=== PATIENT | female | born 1960 | race Caucasian/White ===

== ENCOUNTER 2018-03-07 09:40 | Emergency (ER) | payer BC, SELFPAY ==
[2018-03-07] VITALS (38 sets, daily range): BP systolic 140–177; BP diastolic 68–112; PULSE 47–75; RESP 11–25; TEMP 36.9; O2SAT 95–98
--- NOTE | 2018-03-07 10:25 | DI.RAD_ITS ---
SYMPTOMS/DIAGNOSIS: STERNAL CHEST PAIN PA AND LATERAL CHEST: The heart is normal in size. The lungs are clear. The mediastinal structures and pleura appear intact. CONCLUSION: Normal chest.
--- NOTE | 2018-03-07 10:28 | W.ED.GENAD ---
Discharge Plan Disposition Patient Disposition: HOME Condition: Improving Discharge Details Chief Complaint: Chest Pain Clinical Impression: Left-sided chest wall pain Primary Care Provider: NONE,NONE ED Provider: Kwan Leavitt Home Meds and New Rx's Prescriptions: New ibuprofen [IBU] 600 mg tablet 600 mg PO QID PRN (Reason: pain) Qty: 20 RF: 0 Discharge Instructions Instructions: Chest Wall Pain (ED) Additional Instructions: Please do not begin any ibuprofen for pain control until at least 10:00 tonight. If lidocaine patch is effective at reducing her pain you may purchase [id number] lidocaine patches or cream 4% concentration just use as directed on packaging. Primary care office or care management will contact you about arrangement of a follow-up appointment in the next week for reexamination. Return immediately to the emergency department for any new or significant worsening of your symptoms. Stand Alone Forms: Work Release Referrals: Primary Care Provider [Outside] - 1 week Discharge Data Discharge Date/Time-TO BE ENTERED AT DEPARTURE: 03/07/18 14:18 Medical Decision Making Patient presenting to the emergency department chief complaint of chest pain. Patient states this began yesterday morning and is across her sternum. She states that movement of her left arm and some positional changes seems to worsen the chest pain. Patient does state the day before she had been moving a heavy piece of furniture with her son but does not remember any specific injury. Physical exam is unremarkable except for reproducible chest pain with movement of the left upper extremity and palpation of the sternum and left-sided soft tissue. Inspection of the breast and skin is unremarkable for any rash, ecchymosis, or obvious abnormality. There is suspicion that this is musculoskeletal in nature but still concern for cardiac origin so plan to perform radiological imaging and laboratory testing. EKG reviewed with Dr. Clay Spann and shows a sinus rhythm with a rate of 75, normal QRS, no ST elevation, and short [place]. Patient given aspirin pending results. Initial review of labs is nondiagnostic and shows no elevation of troponin. Plan to repeat delta troponin for rule out of atypical ACS. Patient reassessed and still states continued pain so patient ordered acetaminophen. Chest x-ray was also interpreted as negative by radiologist. After review of delta troponin which is negative patient was reassessed and still stated continued pain with no relief. Reassess patient's chest wall and patient continued to have anterior chest wall pain just under the left breast with no skin or other abnormalities noted. Differential diagnosis to include costochondritis, muscular strain, early presentation of shingles. Patient was given ketorolac and a lidocaine patch and diagnosed with chest wall pain. Patient was placed on care management list for follow-up appointment preferably in the next week for reassessment. After discussion of diagnosis and plan of care patient has no further needs, questions, or concerns and states clear understanding to return to the emergency department for any worsening symptoms. HPI General Mode of arrival: ambulatory. Date/Time Provider Initiated Documentation: 03/07/18 09:45. Limitations to Documentation: no limitations. Information obtained by: patient, RN notes reviewed and old records reviewed. History of Present Illness 58 year old F presents to the emergency department with the chief complaint of Sternal chest pain, described as moderate, with intensity rated at 7. Quality is described as aching, sharp and other (pressure), and is localized to the chest. Patient reports no radiation. Patient started experiencing this day(s) (1) and it has been constant. No relieving factors improve symptom(s), Movement worsens symptoms (of left arm) . Patient notes diaphoresis. Patient did receive the following treatments prior to arrival, Aspirin (yesterday) Related Data Home Medications Medication Instructions Recorded Confirmed ibuprofen [IBU] 600 mg PO QID PRN #20 tab 03/07/18 Previous Rx's Medication Instructions Recorded ibuprofen [IBU] 600 mg PO QID PRN #20 tab 03/07/18 Allergies Allergy/AdvReac Type Severity Reaction Status Date / Time No Known Allergies Allergy Unverified 03/07/18 10:15 General Stated Complaint: Chest Pain RAE: 3 Review of Systems Constitutional Denies chills and Denies fever(s) ENT Denies sore throat Cardiovascular Reports as per HPI, Reports chest pain, Reports chest pain at rest, Reports chest pain with activity, Reports diaphoresis, Denies syncope, Denies edema, Denies irregular heart rhythm and Denies dyspnea Respiratory Denies cough and Denies dyspnea Gastrointestinal Denies abdominal pain, Denies nausea and Denies vomiting Neurologic Denies syncope PFSH Social History Smoking/Tobacco Use Status: Current every day Exam Const General: cooperative, comfortable, no acute distress and anxious Orientation: alert and oriented x3 Limitations: mental status not altered Neck Neck: full ROM Carotids: normal carotid upstroke, pulses diminished and no bruits Lymphatic: no lymphadenopathy noted Chest Chest: no localized rib tenderness, no masses, tenderness sternum and No rash Breast inspection: normal inspection of the breasts Resp Effort & Inspection: normal respiratory effort, able to speak in complete sentences, no audible wheezes and no cough Auscultation: clear to auscultation bilaterally Cardio Rate: regular rate Rhythm: regular rhythm Heart Sounds: S1 normal and S2 normal Bruits: no abdominal aortic bruits, no carotid bruits and no renal bruits Pulses: radial pulses present bilaterally 2+ GI Palpation: soft and nontender Auscultation: normal bowel sounds Neuro General: alert, awake, oriented x3, gait normal, tone normal, moves all extremities and no focal motor deficits Course Vital Signs Temperature 36.9 C 03/07/18 10:09 Pulse 75 03/07/18 10:09 Respiratory Rate 16 03/07/18 10:09 Blood Pressure 165/72 H 03/07/18 10:09 Pulse Oximetry 96 03/07/18 10:09 Temperature 36.9 C 03/07/18 10:09 Temperature Source Temporal Artery Scan 03/07/18 10:09 Pulse 75 03/07/18 10:09 Respiratory Rate 16 03/07/18 10:09 Respiratory Effort 03/07/18 10:13 Blood Pressure 165/72 H 03/07/18 10:09 Blood Pressure Position Sitting 03/07/18 10:09 Pulse Oximetry 96 03/07/18 10:09
--- NOTE | 2018-03-07 10:35 | ED.GENADUL_ITS ---
Discharge Plan Disposition Patient Disposition: HOME Condition: Improving Discharge Details Chief Complaint: Chest Pain Clinical Impression: Left-sided chest wall pain Primary Care Provider: NONE,NONE ED Provider: Kwan Leavitt Home Meds and New Rx's Prescriptions: New ibuprofen [IBU] 600 mg tablet 600 mg PO QID PRN (Reason: pain) Qty: 20 RF: 0 Discharge Instructions Instructions: Chest Wall Pain (ED) Additional Instructions: Please do not begin any ibuprofen for pain control until at least 10:00 tonight. If lidocaine patch is effective at reducing her pain you may purchase [id number] lidocaine patches or cream 4% concentration just use as directed on packaging. Primary care office or care management will contact you about arrangement of a follow-up appointment in the next week for reexamination. Return immediately to the emergency department for any new or significant worsening of your symptoms. Stand Alone Forms: Work Release Referrals: Primary Care Provider [Outside] - 1 week Discharge Data Discharge Date/Time-TO BE ENTERED AT DEPARTURE: 03/07/18 14:18 Medical Decision Making Patient presenting to the emergency department chief complaint of chest pain. Patient states this began yesterday morning and is across her sternum. She states that movement of her left arm and some positional changes seems to worsen the chest pain. Patient does state the day before she had been moving a heavy piece of furniture with her son but does not remember any specific injury. Physical exam is unremarkable except for reproducible chest pain with movement of the left upper extremity and palpation of the sternum and left- sided soft tissue. Inspection of the breast and skin is unremarkable for any rash, ecchymosis, or obvious abnormality. There is suspicion that this is musculoskeletal in nature but still concern for cardiac origin so plan to perform radiological imaging and laboratory testing. EKG reviewed with Dr. Clay Spann and shows a sinus rhythm with a rate of 75, normal QRS, no ST elevation, and short [place]. Patient given aspirin pending results. Initial review of labs is nondiagnostic and shows no elevation of troponin. Plan to repeat delta troponin for rule out of atypical ACS. Patient reassessed and still states continued pain so patient ordered acetaminophen. Chest x-ray was also interpreted as negative by radiologist. After review of delta troponin which is negative patient was reassessed and still stated continued pain with no relief. Reassess patient's chest wall and patient continued to have anterior chest wall pain just under the left breast with no skin or other abnormalities noted. Differential diagnosis to include costochondritis, muscular strain, early presentation of shingles. Patient was given ketorolac and a lidocaine patch and diagnosed with chest wall pain. Patient was placed on care management list for follow-up appointment preferably in the next week for reassessment. After discussion of diagnosis and plan of care patient has no further needs, questions, or concerns and states clear understanding to return to the emergency department for any worsening symptoms. HPI General Mode of arrival: ambulatory . Date/Time Provider Initiated Documentation: 03/07/18 09:45 . Limitations to Documentation: no limitations . Information obtained by: patient, RN notes reviewed and old records reviewed . History of Present Illness 58 year old F presents to the emergency department with the chief complaint of Sternal chest pain, described as moderate, with intensity rated at 7. Quality is described as aching, sharp and other (pressure), and is localized to the chest. Patient reports no radiation. Patient started experiencing this day(s) (1) and it has been constant. No relieving factors improve symptom(s), Movement worsens symptoms (of left arm) . Patient notes diaphoresis. Patient did receive the following treatments prior to arrival, Aspirin (yesterday) Related Data Home Medications Medication Instructions Recorded Confirmed ibuprofen [IBU] 600 mg PO QID PRN #20 tab 03/07/18 Previous Rx's Medication Instructions Recorded ibuprofen [IBU] 600 mg PO QID PRN #20 tab 03/07/18 Allergies Allergy/AdvReac Type Severity Reaction Status Date / Time No Known Allergies Allergy Unverified 03/07/18 10:15 General Stated Complaint: Chest Pain RAE: 3 Review of Systems Constitutional Denies chills and Denies fever(s) ENT Denies sore throat Cardiovascular Reports as per HPI, Reports chest pain, Reports chest pain at rest, Reports chest pain with activity, Reports diaphoresis, Denies syncope, Denies edema, Denies irregular heart rhythm and Denies dyspnea Respiratory Denies cough and Denies dyspnea Gastrointestinal Denies abdominal pain, Denies nausea and Denies vomiting Neurologic Denies syncope PFSH Social History Smoking/Tobacco Use Status: Current every day Exam Const General: cooperative, comfortable, no acute distress and anxious Orientation: alert and oriented x3 Limitations: mental status not altered Neck Neck: full ROM Carotids: normal carotid upstroke, pulses diminished and no bruits Lymphatic: no lymphadenopathy noted Chest Chest: no localized rib tenderness, no masses, tenderness sternum and No rash Breast inspection: normal inspection of the breasts Resp Effort & Inspection: normal respiratory effort, able to speak in complete sentences, no audible wheezes and no cough Auscultation: clear to auscultation bilaterally Cardio Rate: regular rate Rhythm: regular rhythm Heart Sounds: S1 normal and S2 normal Bruits: no abdominal aortic bruits, no carotid bruits and no renal bruits Pulses: radial pulses present bilaterally 2+ GI Palpation: soft and nontender Auscultation: normal bowel sounds Neuro General: alert, awake, oriented x3, gait normal, tone normal, moves all extremities and no focal motor deficits Course Vital Signs Temperature 36.9 C 03/07/18 10:09 Pulse 75 03/07/18 10:09 Respiratory Rate 16 03/07/18 10:09 Blood Pressure 165/72 H 03/07/18 10:09 Pulse Oximetry 96 03/07/18 10:09 Temperature 36.9 C 03/07/18 10:09 Temperature Source Temporal Artery Scan 03/07/18 10:09 Pulse 75 03/07/18 10:09 Respiratory Rate 16 03/07/18 10:09 Respiratory Effort 03/07/18 10:13 Blood Pressure 165/72 H 03/07/18 10:09 Blood Pressure Position Sitting 03/07/18 10:09 Pulse Oximetry 96 03/07/18 10:09
[2018-03-07 10:47] LABS: Abs Immature Grans 0.02 k/cumm (0.0-0.09); Absolute Basophil Count 0.02 k/cumm (0.0-0.2); Absolute Eosinophil Count 0.09 k/cumm (0.0-0.7); Absolute Lymphocyte Count 1.56 k/cumm (1.2-3.4); Absolute Monocyte Count 0.26 k/cumm (0.11-0.7); Absolute Neutrophil Count 2.89 k/cumm (1.2-6.7); Basophils % 0.4; Eosinophils % 1.9; HCT 42.5 % (36.0-46.0); HGB 14.6 g/dL (12.0-15.5); Immature Grans % 0.4; Lymphocytes % 32.2; Mean Corp. HGB Concentration 34.4 g/dL (32.0-36.0); Mean Corpuscular Hemoglobin 33.4 pg (27.0-33.0); Mean Corpuscular Volume 97.3 fL (80-95); Mean Platelet Volume 9.9 fL (8.0-11.0); Monocytes % 5.4; Neutrophils % 59.7; Platelet Count 193 x1000/uL (130-400); RBC 4.37 m/cumm (4.00-5.20); RBC Distribution Width 12.9 % (11.7-14.6); White Blood Cell Count 4.84 k/cumm (4.4-10.8)
[2018-03-07] MEDS: Aspirin 81 MG CHEW 324 MG CH (10:57)
[2018-03-07 11:00] LABS: ALT 55 U/L (12-78); AST 32 U/L (15-37); Albumin 3.7 g/dL (3.4-5.0); Alkaline Phosphatase 87 U/L (46-116); Anion Gap 10.8 mmol/L (3-11); BUN 17 mg/dL (7-18); Bilirubin, Total 0.4 mg/dL (0.2-1.0); CO2 26.2 mmol/L (21.0-32.0); CREATININE 0.74 mg/dL (0.55-1.02); Calcium 9.2 mg/dL (8.5-10.1); Chloride 101 mmol/L (98-107); Glucose 145 mg/dL (70-100); Potassium 3.4 mmol/L (3.5-5.1); Sodium 138 mmol/L (136-145); Total Protein 10.2 g/dL (6.4-8.2)
[2018-03-07 11:02] LABS: Troponin I < 0.02 ng/mL (0.00-0.06)
[2018-03-07] MEDS: Acetaminophen 500 MG TAB 1000 MG PO (11:50)
--- NOTE | 2018-03-07 12:19 | PDOC.ERCMPRO ---
Care Management Progress Note 03/07-Keith CRISTINA requested assistance with a PCP (Christen does not have a PCP, Dr. Scott instrumentation engineer provider) f/u within one week for chest pain. Referral faxed to [facility].
--- NOTE | 2018-03-07 12:20 | CMPROGNOTE_ITS ---
Care Management Progress Note 03/07-Keith CRISTINA requested assistance with a PCP (Christen does not have a PCP, Dr. Scott online content coordinator provider) f/u within one week for chest pain. Referral faxed to [facility].
[2018-03-07 13:46] LABS: Troponin I < 0.02 ng/mL (0.00-0.06)
[2018-03-07] MEDS: Ketorolac 30 MG/ML VIAL IVP (13:47)
[2018-03-07] MEDS: Lidocaine 5% Patch 1 PATCH (13:47)
== END 2018-03-07 14:18 | disposition home or self-care (01) ==
PROVIDERS: Emergency Provider Nurse Practitioner Family; PCP Nurse Practitioner Family
DX: R07.81 Pleurodynia (principal); F17.210 Nicotine dependence, cigarettes, uncomplicated
CPT/HCPCS: 36415; 80053; 80076; 93005; 96374; 99285; 71046; 83735; 84484; 85025; 93010; J1885

== ENCOUNTER 2018-08-06 01:23 | Outpatient (CLI) | payer BC, SELFPAY ==
--- NOTE | 2018-08-06 11:29 | DI.MAMMO_ITS ---
SYMPTOM/DIAGNOSIS: SCREENING, Z12.39 MAMMOGRAMS: Mammograms were interpreted according to the usual protocol including computer analysis with CAD system, tomosynthesis and C view imaging. The breast tissue is heterogeneously radiodense which lowers the sensitivity of the study. There is no dominant mass. The possibility of a small region of nodularity in the superior portion of the right breast is raised. There are no suspicious calcifications. SUMMARY: Question small region of nodularity in the upper outer quadrant of the right breast., Further evaluation with a mediolateral and craniocaudad compression spot film and ultrasound of the right breast is recommended for further evaluation. Category 0. Beast density, Category C. Review of film screen images dating back to 10/18/2000 was carried out. No area of suspected nodularity is demonstrated. SA ASSESSMENT OF FINDINGS: Incomplete: Needs additional imaging evaluation. Category 0. Patient will receive a letter notifying them of these results. Bi-RADS category C. The breasts are heterogeneously dense, which may obscure small masses. 08/11/18 called patient about results. She was concerned about the cost. I called her ins. co and they said if deductible met would be paid, if not she would be billed. I explained about financial assistance program or community connections. We made an appointment and she never came and did not call and cancel. I have informed the ordering doctor of the situation and that they may want to call patient as mammogram is not finalized until returns for additional views.
== END 2018-08-06 01:43 ==
PROVIDERS: PCP Nurse Practitioner Family; Visit Provider Nurse Practitioner Family
DX: Z12.31 Encounter for screening mammogram for malignant neoplasm of breast (principal); R92.8 Other abnormal and inconclusive findings on diagnostic imaging of breast
CPT/HCPCS: 77063; 77067

== ENCOUNTER 2018-08-12 08:12 | Outpatient (REF) | payer BC, SELFPAY ==
[2018-08-12 13:18] LABS: Anion Gap 10.5 mmol/L (3-11); BUN 11 mg/dL (7-18); CO2 27.5 mmol/L (21.0-32.0); Calcium 8.8 mg/dL (8.5-10.1); Chloride 104 mmol/L (98-107); Cholesterol 282 mg/dL (50-200); Glucose 118 mg/dL (70-100); HDL Cholesterol 55 mg/dL (40-60); LDL CHOLESTEROL 187 mg/dL (<100); Potassium 3.9 mmol/L (3.5-5.1); Sodium 142 mmol/L (136-145); Triglyceride 259 mg/dL (30-150)
== END 2018-08-12 08:32 ==
LOC: NCHCN 08:12
PROVIDERS: PCP Nurse Practitioner Family; Visit Provider Nurse Practitioner Family
DX: Z00.00 Encounter for general adult medical examination without abnormal findings (principal); Z13.228 Encounter for screening for other metabolic disorders; Z13.220 Encounter for screening for lipoid disorders
CPT/HCPCS: 80048; 80061; 83721

== ENCOUNTER → 2021-01-29 11:27 | Outpatient (CLI) | payer SELFPAY ==
--- NOTE | 2021-01-29 | DI.RAD_ITS ---
Exam(s) XR CHEST 2V PA LATERAL EXAM: XR CHEST 2V PA LATERAL CLINICAL HISTORY: Cough TECHNIQUE: 2D digital imaging was performed. COMPARISON: CR XR CHEST 2V PA LATERAL from 03/07/2018 FINDINGS: MEDIASTINUM: Normal. HEART: Normal. PULMONARY VASCULATURE: Normal. LUNGS: Clear. PLEURAL SPACE: No pleural effusion or pneumothorax. BONE:Within normal limits for the patient's age. OTHER FINDINGS:Normal. IMPRESSION: No acute pulmonary findings. DATA REPOSITORY: RADIATION DOSE DELIVERED:
--- NOTE | 2021-01-29 15:11 | DI.VRAD_ITS ---
PROCEDURE INFORMATION: Exam: XR Chest Exam date and time: 01/29/2021 11:43 AM Age: 61 years old Clinical indication: Cough TECHNIQUE: Imaging protocol: XR of the chest. Views: 2 views. COMPARISON: CR XR CHEST 2V PA LATERAL 03/07/2018 10:59 AM FINDINGS: Lungs: The lungs are well inflated without infiltrate. Pleural spaces: No pleural effusion or pneumothorax. Mediastinum: Mediastinum is stable with normal heart size, descending left thoracic aorta and midline trachea. Bones/joints: Unremarkable for patient's stated age. IMPRESSION: No acute cardiopulmonary disease. Dictated and Authenticated by: Nilson Guido MD. Ordering:TOBY Jean-Baptiste MD
== END ==
PROVIDERS: PCP Nurse Practitioner Family; Visit Provider Physician Assistant Medical
DX: R05 Cough (principal)
CPT/HCPCS: 71046

== ENCOUNTER 2021-01-29 13:17 | Outpatient (REF) | payer SELFPAY ==
[2021-01-30 16:23] LABS: COVID-19 RT-PCR UVMMC Result Negative (Negative)
== END 2021-01-29 13:18 | disposition home or self-care (01) ==
LOC: LBN 13:17
PROVIDERS: PCP Nurse Practitioner Family; Visit Provider Physician Assistant Medical
DX: Z20.822 Contact with and (suspected) exposure to COVID-19 (principal); J06.9 Acute upper respiratory infection, unspecified
CPT/HCPCS: U0003

== ENCOUNTER 2021-02-20 12:24 | Emergency (ER) | payer OTHER, BC, SELFPAY ==
[2021-02-20 12:33] VITALS: BP 160/74; PULSE 82; RESP 18; TEMP 35.4; O2SAT 98
--- NOTE | 2021-02-20 13:15 | DI.RAD_ITS ---
Exam(s) XR LUMBAR SPINE COMPLETE EXAM: XR LUMBAR SPINE COMPLETE CLINICAL HISTORY: back pain. TECHNIQUE: 2D digital imaging was performed of the lumbar spine. Five images were obtained. AP, la teral, right oblique, left oblique and L5-S1 spot views were obtained. COMPARISON: CR,XR XR CHEST 2V PA LATERAL from 01/29/2021 CR,XR XR CHEST 2V PA LATERAL from 01/29/2021 FINDINGS: BONES: There is an anterior wedge compression fracture of the L2 vertebral body. There is loss of al most 50 percent of the height of the vertebral body anteriorly. Vertebral bodies are unremarkable. M ild degenerative changes of the facets are seen at L5-S1. DISKS: There is mild narrowing of the L1-L2 disc space. ALIGNMENT: Lumbar spinal alignment is within normal limits. No spondylolysis or spondylolisthesis. SOFT TISSUE: Atherosclerosis. IMPRESSION: Anterior wedge compression fracture of the L2 vertebral body which is likely acute. DATA REPOSITORY: RADIATION DOSE DELIVERED:
--- NOTE | 2021-02-20 15:05 | DI.VRAD_ITS ---
PROCEDURE INFORMATION: Exam: XR Lumbosacral Spine Exam date and time: 02/20/2021 1:23 PM Age: 61 years old Clinical indication: Low back pain TECHNIQUE: Imaging protocol: XR of the lumbosacral spine. Views: 4 or 5 views. COMPARISON: No relevant prior studies available. FINDINGS: Bones/joints: There is an anterior wedge compression fracture of L2 with about 50% loss of height. Other lumbar vertebrae are normal in height and alignment. Intervertebral disc spaces all are well maintained. Facet joints show no significant hypertrophic change. Note is made of heavy aortic calcification. Soft tissues: Unremarkable. Note is made of heavy aortic calcification. IMPRESSION: L2 wedge fracture probably acute. Dictated and Authenticated by: Dl Alaniz MD. Ordering:RITCHIE Hanson MD
[2021-02-20] MEDS: Ketorolac 15 MG/ML VIAL IM (15:23)
[2021-02-20] MEDS: Cyclobenzaprine 10 MG TAB 5 MG PO (15:23)
[2021-02-20] MEDS: predniSONE 20 MG TAB 40 MG PO (15:23)
[2021-02-20] MEDS: oxyCODONE 5 MG TAB PO (15:24)
--- NOTE | 2021-02-20 15:49 | ED.GENADUL_ITS ---
Discharge Plan Disposition Patient Disposition: HOME Condition: Stable Discharge Details Clinical Impression: Compression fracture Primary Care Provider: Analilia Lechuga ED Provider: Margie Urbina Home Meds and New Rx's Prescriptions: New oxycodone 5 mg tablet 2.5 mg PO Q6H PRNQty: 10 RF: 0 metaxalone [Skelaxin] 800 mg tablet 800 mg PO TID PRNQty: 10 RF: 0 Continued ibuprofen [IBU] 600 mg tablet 600 mg PO QID PRN (Reason: pain) Qty: 20 RF: 0 cyclobenzaprine 10 mg tablet 10 mg PO PRN PRNRF: 0 albuterol sulfate 90 mcg/actuation HFA aerosol inhaler INHALATION RF: 0 diazepam 5 mg tablet 5 mg PO PRNRF: 0 acetaminophen [Tylenol] 325 mg Capsule 1,000 mg PO PRN PRNRF: 0 Discharge Instructions Additional Instructions: Take Tylenol 650 mg every 4 hours Take oxycodone 2.5 to 5 mg or one half tab to 1 tab every 4-6 hours, you may take oxycodone every 4 hours if you take 2.5 mg You may take Skelaxin for musculoskeletal pain Please follow-up with physical therapy Please let your doctor know you have a compression fracture and you may need referral to [facility] for kyphoplasty with persistent pain Take MiraLAX daily if you choose to take codeine, this medication is addictive and you should not operate a vehicle for 8 hours after taking this medication Use your walker with ambulation If you have worsening pain, progressively worsening ambulation issues, fever, changes in bowel or bladder, please return immediately for reassessment Stand Alone Forms: Physical Therapy Referral Medical Decision Making Patient has an L2 compression fracture, 50%, this is acute I suspect this is because of patient's pain I did supply patient with a rolling walker and ambulatory trial was actually successful, and she is feeling symptomatically improved after medications He did get prednisone prior to good compression fracture, I will not continue this, I did supply patient with Skelaxin and oxycodone as she does have 50% compression to L2 and this is appropriate care at this time She is referred to physical therapy, she will need close outpatient follow-up w ith her primary care physician Her is able to help her at home I think she is safe for discharge home at this time We did discuss kyphoplasty and patient may need referral to [facility] should she have persistent pain She is neurovascularly stable at this time given a threshold to return should she have new or Discharged home in care of Medical Records Medical records reviewed: Yes I reviewed the patient's medical records. HPI General Mode of arrival: ambulatory . Date/Time Provider Initiated Documentation: 02/20/21 12:39 . Limitations to Documentation: no limitations . Information obtained by: patient . HPI Narrative: 61-year-old female presents with back pain for the past 3 weeks. It started after moving a heavy cast iron pills. She states she lifted and turned. Her pain gradually became worse after that time. She denies any fall or additional injuries. She denies any strength or sensation change. She denies any changes in bowel or bladder, fever, chills, or history of IV drug abuse. She states the pain is exacerbated predominantly with any position change and movement. Describes pain as sharp. Related Data Home Medications Medication Instructions Recorded Confirmed ibuprofen [IBU] 600 mg PO QID PRN #20 tab 03/07/18 acetaminophen [Tylenol] 1,000 mg PO PRN PRN 02/20/21 02/20/21 albuterol sulfate INHALATION 02/20/21 02/20/21 cyclobenzaprine 10 mg PO PRN PRN 02/20/21 02/20/21 diazepam 5 mg PO PRN 02/20/21 metaxalone [Skelaxin] 800 mg PO TID PRN #10 tab 02/20/21 oxycodone 2.5 mg PO Q6H PRN #10 tab 02/20/21 Previous Rx's Medication Instructions Recorded ibuprofen [IBU] 600 mg PO QID PRN #20 tab 03/07/18 metaxalone [Skelaxin] 800 mg PO TID PRN #10 tab 02/20/21 oxycodone 2.5 mg PO Q6H PRN #10 tab 02/20/21 Allergies Allergy/AdvReac Type Severity Reaction Status Date / Time No Known Allergies Allergy Unverified 02/20/21 12:37 General Stated Complaint: Nk/Back Pain RAE: 3 Review of Systems All systems reviewed & are unremarkable except as noted in HPI and below PFSH Social History Smoking/Tobacco Use Status: Current every day Smoking risk assessment performed?: Yes Drug use: Never Do you feel safe in your relationship?: Yes Exam Const General: cooperative and no acute distress Resp Effort & Inspection: normal respiratory effort Cardio Rate: regular rate Other: Distal pulses intact GI Other: No abdominal bruit or pulsatile mass, no CVA tenderness Back/Spine/Pelvis Other: Tenderness with palpation, paraspinal lumbar, no visible sign of trauma Skin General skin exam: no rashes or lesions noted Neuro General: patient alert and patient oriented x3 Other: Strength and sensation intact distally Extrem Other: Distal pulses intact Course Vital Signs Vital signs: Vital Signs Temperature 35.4 C L 02/20/21 12:33 Pulse 82 02/20/21 12:33 Respiratory Rate 18 02/20/21 12:33 Blood Pressure 160/74 H 02/20/21 12:33 Pulse Oximetry 98 02/20/21 12:33 Temperature 35.4 C L 02/20/21 12:33 Temperature Source Temporal Artery Scan 02/20/21 12:33 Pulse 82 02/20/21 12:33 Respiratory Rate 18 02/20/21 12:33 Blood Pressure 160/74 H 02/20/21 12:33 Blood Pressure Position Sitting 02/20/21 12:33 Pulse Oximetry 98 02/20/21 12:33 Oxygen Delivery Method Room Air 02/20/21 12:33 Oxygen Flow Rate 0 02/20/21 12:33 Pain Level 10 02/20/21 12:33
== END 2021-02-20 16:20 | disposition home or self-care (01) ==
PROVIDERS: Emergency Provider Physician Assistant; PCP Nurse Practitioner Family
DX: S32.020A Wedge compression fracture of second lumbar vertebra, initial encounter for closed fracture (principal); X50.0XXA Overexertion from strenuous movement or load, initial encounter
CPT/HCPCS: 96372; 99284; 72110; J1885; J7512

== ENCOUNTER 2021-03-12 14:45 | Emergency (ER) | payer OTHER, SELFPAY ==
[2021-03-12 14:51] VITALS: BP 184/80; PULSE 80; RESP 18; TEMP 36.4; O2SAT 99
--- NOTE | 2021-03-12 14:59 | W.ED.GENAD ---
Discharge Plan Disposition Patient Disposition: HOME Condition: Stable Discharge Details Clinical Impression: Compression fracture Primary Care Provider: Analilia Lechuga ED Provider: Coral Mixon Home Meds and New Rx's Prescriptions: Continued ibuprofen [IBU] 600 mg tablet 600 mg PO QID PRN (Reason: pain) Qty: 20 RF: 0 cyclobenzaprine 10 mg tablet 10 mg PO PRN PRNRF: 0 albuterol sulfate 90 mcg/actuation HFA aerosol inhaler INHALATION RF: 0 diazepam 5 mg tablet 5 mg PO PRNRF: 0 acetaminophen [Tylenol] 325 mg Capsule 1,000 mg PO PRN PRNRF: 0 oxycodone 5 mg tablet 2.5 mg PO Q6H PRNQty: 10 RF: 0 metaxalone [Skelaxin] 800 mg tablet 800 mg PO TID PRNQty: 10 RF: 0 Discharge Instructions Instructions: Back Pain (ED) Additional Instructions: Please continue to encourage hydration. Please encourage gentle stretching and frequent ambulation. Please keep your upcoming appointment with primary care as well as with physical therapy. You may use 650 mg every 6 hours and/or 600 mg of ibuprofen every 6 hours to help with discomfort. You may continue with metaxalone describes mild to moderate spasm. You may continue with heat or ice. You may continue with the topical patches to placing pressure to help with pain If you develop fever/chills, increased pain, sensory changes, difficulty with bowel or bladder habits or other new/worsening symptom please seek care urgently once again. Referrals: Analilia Lechuga [Primary Care Provider] - Discharge Data Discharge Date/Time-TO BE ENTERED AT DEPARTURE: 03/12/21 16:28 Medical Decision Making Patient is a pleasant 51-year-old female, accompanied by her , with chief complaint of back pain. Patient was seen here on the third of this month and diagnosed with an L2 compression fracture. Imaging at that time showed a mild 50% loss of height of the vertebral body anteriorly. Patient's pain was initially managed with metaxalone and oxycodone. This has been continued by her primary care noted outpatient basis. Patient was referred to physical therapy, has not yet started this. Patient has been referred to [facility] spine care they do not yet have a schedule appointment with him. Patient is here today requesting pain medication. Reviewed patient's recent prescriptions. Patient has been being prescribed oxycodone, this was last filled on 03/10/2021 for 7-day supply. Patient states that she is run out of her pain medication. She still has metaxalone at home. She has not been using ibuprofen as she was concerned it may interact with oxycodone. She has been trying topical patches with minimal relief. I did recheck to on-call primary care provider. The patient appears to be using the medication at a faster rate than prescribed, I am hesitant to refill. inbound call center representative provider did not recommend filling the prescription once again at this time. On exam, patient appears uncomfortable and anxious. She consistently concerned that she is going to have to have surgery. We discussed that given that she does have an acute fracture, this is not necessarily anything that she must have surgery. We did discuss alternative options of therapy may be of benefit to help with her long-term pain. We discussed that the pain is manageable, she may not have to have a surgical route although she should discuss this further with spine surgery. I believe because of this, the patient has been hesitant to move and has been trying to stay still as possible with the plan to have surgical intervention. I did encourage mobility. She does report that she feels worse just after holding still for extended period of time. We did discuss that this is likely due to spasm. Patient has no saddle paresthesias, strength is equal bilaterally lower cavity. She is diffusely tender about her back but maximally over the area of the fracture. I do believe that this indicates acute pain from the fracture but also with muscle spasm. I did encourage warm or cold therapy, gentle stretching, frequent ambulation. I did encourage her to attempt therapy, referral has already been placed. I also advised she use Tylenol and ibuprofen to help with discomfort. We discussed the long-term sequela of her continuing with the narcotics that she has been including the constipation she is in suffering from, addiction as well as difficulty managing pain. I encouraged that she follow-up with her primary care closely. Patient given ibuprofen, lidocaine and 1 dose of oxycodone here. Patient feeling improved after this intervention and agreeable to discharge. In a lengthy chat about pain management and she is in agreement with this plan, feels safe plan. All of her questions and concerns were addressed and they are in agreement this plan. HPI General Mode of arrival: wheelchair. Date/Time Provider Initiated Documentation: 03/12/21 14:50. Limitations to Documentation: no limitations. Information obtained by: patient, family, RN notes reviewed and old records reviewed. History of Present Illness 61 year old F presents to the emergency department with the chief complaint of back pain , described as severe, with intensity rated at 10. Quality is described as aching, and is localized to the back. Patient reports no radiation. Patient started experiencing this month(s) and it has been constant. Immobilization improves symptom(s), Movement worsens symptoms . Patient notes no other symptoms.; denies chest pain, cough, fever/chills, nausea/vomiting, rash, shortness of breath and weakness. Patient did receive the following treatments prior to arrival, none Related Data Home Medications Medication Instructions Recorded Confirmed ibuprofen [IBU] 600 mg PO QID PRN #20 tab 03/07/18 03/12/21 acetaminophen [Tylenol] 1,000 mg PO PRN PRN 02/20/21 03/12/21 albuterol sulfate INHALATION 02/20/21 02/20/21 cyclobenzaprine 10 mg PO PRN PRN 02/20/21 02/20/21 diazepam 5 mg PO PRN 02/20/21 metaxalone [Skelaxin] 800 mg PO TID PRN #10 tab 02/20/21 03/12/21 oxycodone 2.5 mg PO Q6H PRN #10 tab 02/20/21 03/12/21 Previous Rx's Medication Instructions Recorded ibuprofen [IBU] 600 mg PO QID PRN #20 tab 03/07/18 metaxalone [Skelaxin] 800 mg PO TID PRN #10 tab 02/20/21 oxycodone 2.5 mg PO Q6H PRN #10 tab 02/20/21 Allergies Allergy/AdvReac Type Severity Reaction Status Date / Time No Known Allergies Allergy Unverified 02/20/21 12:37 General Stated Complaint: Nk/Back Pain RAE: 4 Review of Systems Constitutional Constitutional: Reports as per HPI, Denies chills, Denies fatigue, Denies fever(s) and Denies frequent falls Cardiovascular Cardiovascular: Denies chest pain, Denies dyspnea and Denies dyspnea on exertion Respiratory Respiratory: Denies cough, Denies dyspnea and Denies dyspnea on exertion Gastrointestinal Gastrointestinal: Denies abdominal pain, Reports constipation and Denies fecal incontinence Genitourinary Genitourinary: Reports as per HPI, Denies urinary incontinence and Denies urinary hesitancy Musculoskeletal Musculoskeletal: Reports as per HPI, Reports back pain, Denies muscle weakness, Denies numbness, Denies radiating pain into limb, Reports stiffness and Denies tingling Integumentary/Breasts Skin/Breast: Reports as per HPI and Denies rash Neurologic Neurologic: Reports as per HPI, Denies frequent falls, Denies localized weakness, Denies numbness, Denies radicular pain, Denies sensory deficit, Denies tingling and Denies paresthesias Endocrine Endocrine: Denies fatigue [facility] Social History Smoking/Tobacco Use Status: Current every day Smoking risk assessment performed?: Yes Drug use: Never Substance use type: does not use Do you feel safe in your relationship?: Yes Exam Const General: cooperative, healthy appearing, uncomfortable, no acute distress, well developed, well groomed and anxious Nutritional Appearance: well nourished and overweight Orientation: alert and awake Neck Neck: normal visual inspection, full ROM, no lymphadenopathy and no meningeal signs Resp Effort & Inspection: normal respiratory effort and able to speak in complete sentences Auscultation: clear to auscultation bilaterally, no rales, no rhonchi and no wheezes Cardio Rate: regular rate Rhythm: regular rhythm Heart Sounds: S1 normal and S2 normal GI Inspection: normal to inspection Palpation: soft and nontender Back/Spine/Pelvis Back: no CVA tenderness Cervical Spine: normal cervical lordosis, cervical ROM normal, No cervical spinal tenderness and No step off deformity Thoracic/Lumbar Spine: thoracic and lumbar spine normal to inspection, No thoraco-lumbar ROM normal (unwilling ot move much at all seconedary to pain), No straight leg raise negative bilaterally (unable to perform this test), thoraco-lumbar ROM limited, thoraco-lumbar spasm, thoracic spinal tenderness (diffuse pain) and lumbar spinal tenderness (maximmally tender over area of fracture) Pelvis: no pain with anterior-posterior compression and no pain with lateral compression Skin General skin exam: no rashes or lesions noted Neuro General: patient alert and patient awake Cognition: normal cognition Speech: speech normal Gait: antalgic (difficulty secondary to pain) Motor: muscle tone normal throughout, strength 5/5 throughout, no movement abnormalities noted and no fasciculations Sensory Exam: no sensory deficits noted (no saddle paresthesias) DTR's: Rt Patellar: 2+, Lt Patellar: 2+, Rt Ankle: 2+ and Lt Ankle: 2+ Extrem General: normal to inspection, full ROM, capillary refill normal, no joint enlargement, no pedal edema, no calf tenderness and normal gait Psych Appearance: grossly normal and well kempt Mental Status: mental status grossly normal Speech and Movement: speech and movement normal Course Vital Signs Vital signs: Vital Signs Temperature 36.4 C L 03/12/21 14:51 Pulse 80 03/12/21 14:51 Respiratory Rate 18 03/12/21 14:51 Blood Pressure 184/80 H 03/12/21 14:51 Pulse Oximetry 99 03/12/21 14:51 Temperature 36.4 C L 03/12/21 14:51 Temperature Source Tympanic 03/12/21 14:51 Pulse 80 03/12/21 14:51 Respiratory Rate 18 03/12/21 14:51 Blood Pressure 184/80 H 03/12/21 14:51 Blood Pressure Position Sitting 03/12/21 14:51 Pulse Oximetry 99 03/12/21 14:51 Oxygen Delivery Method Room Air 03/12/21 14:51 Oxygen Flow Rate 0 03/12/21 14:51 Pain Level 10 03/12/21 14:51 Comment 03/12/21 14:51
[2021-03-12] MEDS: Ibuprofen 600 MG TAB PO (15:31)
[2021-03-12] MEDS: Lidocaine 5% Patch 1 PATCH TP (15:31)
[2021-03-12] MEDS: oxyCODONE 5 MG TAB 2.5 MG PO (15:31)
== END 2021-03-12 16:28 | disposition home or self-care (01) ==
PROVIDERS: Emergency Provider Physician Assistant; PCP Nurse Practitioner Family
DX: S32.020A Wedge compression fracture of second lumbar vertebra, initial encounter for closed fracture (principal); X58.XXXA Exposure to other specified factors, initial encounter
CPT/HCPCS: 99283

== ENCOUNTER 2021-05-12 19:21 | Outpatient (REF) | payer OTHER, SELFPAY ==
[2021-05-12 19:53] LABS: ALT 11 U/L (14-59); AST 13 U/L (15-37); Albumin 3.4 g/dL (3.4-5.0); Alkaline Phosphatase 60 U/L (46-116); Anion Gap 7.5 mmol/L (3-11); BUN 19 mg/dL (7-18); Bilirubin, Total 0.2 mg/dL (0.2-1.0); CO2 27.5 mmol/L (21.0-32.0); CREATININE 0.7 mg/dL (0.55-1.02); Calcium 9.2 mg/dL (8.5-10.1); Chloride 101 mmol/L (98-107); Glucose 84 mg/dL (74-106); NT-proBNP 58 pg/mL (<300); Potassium 4.2 mmol/L (3.5-5.1); Sodium 136 mmol/L (136-145); Total Protein 9.8 g/dL (6.4-8.2)
== END 2021-05-12 19:22 | disposition home or self-care (01) ==
LOC: LBN 19:21
PROVIDERS: PCP Nurse Practitioner Family; Visit Provider Nurse Practitioner
DX: R60.9 Edema, unspecified (principal)
CPT/HCPCS: 80053; 83880

== ENCOUNTER 2021-06-30 02:00 | Outpatient (CLI) | payer SELFPAY | END 2021-06-30 02:20 | PROVIDERS: PCP Nurse Practitioner Family; Visit Provider Nurse Practitioner ==

== ENCOUNTER → 2021-09-15 01:54 | Outpatient (CLI) | payer OTHER, SELFPAY ==
--- NOTE | 2021-09-15 | DI.RAD_ITS ---
Exam(s) XR HIP RT COMPLETE AP PELVIS EXAM: XR HIP RT COMPLETE AP PELVIS CLINICAL HISTORY: RT HIP PAIN, M25.551 TECHNIQUE: COMPARISON: No exams were available for comparison FINDINGS: Two views were obtained. There is mild narrowing of the cartilaginous joint spaces of both hips supe riorly. There is minimal marginal osteophyte formation of the femoral heads and acetabulae. there ar e mild degenerative changes of the SI joints bilaterally. No other significant bony or soft tissue a bnormality seen. IMPRESSION: RADIATION DOSE DELIVERED: Total DLP
== END ==
PROVIDERS: PCP Nurse Practitioner Family; Visit Provider Family Medicine
DX: M25.551 Pain in right hip (principal); M53.3 Sacrococcygeal disorders, not elsewhere classified
CPT/HCPCS: 73502

== ENCOUNTER 2022-01-05 09:26 | Outpatient (CLI) | payer SELFPAY ==
[2022-01-05 10:15] LABS: Abs Immature Grans 0.03 10^3/uL (0.0-0.06); Absolute Basophil Count 0.01 10^3/uL (0.0-0.2); Absolute Eosinophil Count 0.12 10^3/uL (0.0-0.7); Absolute Lymphocyte Count 1.64 10^3/uL (1.2-3.4); Absolute Neutrophil Count 2.56 10^3/uL (1.2-6.7); Basophils % 0.2; Eosinophils % 2.5; HCT 30.5 % (36.0-46.0); HGB 10.3 g/dL (11.2-15.7); Immature Grans % 0.6; Lymphocytes % 34.5; MCH 32.3 pg (27.0-33.0); MCHC 33.8 % (32.0-36.0); MCV 96 fL (80-95); Monocytes % 8.4; Neutrophils % 53.8; Platelet Count 216 10^3/uL (130-400); RBC 3.19 10^6/uL (3.93-5.22); RDW 14.3 % (11.7-14.6); RDW-SD 49.6 fL; WBC 4.76 10^3/uL (4.4-10.8)
[2022-01-05 10:44] LABS: ALT 20 U/L (14-59); AST 16 U/L (15-37); Albumin 3.4 g/dL (3.4-5.0); Alkaline Phosphatase 70 U/L (46-116); Anion Gap 6.2 mmol/L (3-11); BUN 11 mg/dL (7-18); Bilirubin, Total 0.2 mg/dL (0.2-1.0); CO2 26.8 mmol/L (21.0-32.0); CREATININE 0.7 mg/dL (0.55-1.02); Calcium 8.5 mg/dL (8.5-10.1); Chloride 102 mmol/L (98-107); Glucose 110 mg/dL (74-106); Potassium 4.1 mmol/L (3.5-5.1); Sodium 135 mmol/L (136-145); Total Protein 9.9 g/dL (6.4-8.2)
== END 2022-01-05 09:27 | disposition home or self-care (01) ==
LOC: LBO 09:28
PROVIDERS: PCP Nurse Practitioner Family; Visit Provider Internal Medicine Hematology & Oncology
DX: C90.00 Multiple myeloma not having achieved remission (principal)
CPT/HCPCS: 36415; 80053; 85025

== ENCOUNTER 2022-01-12 11:09 | Outpatient (CLI) | payer SELFPAY ==
[2022-01-12 11:19] LABS: Abs Immature Grans 0.03 10^3/uL (0.0-0.06); Absolute Basophil Count 0.02 10^3/uL (0.0-0.2); Absolute Eosinophil Count 0.08 10^3/uL (0.0-0.7); Absolute Lymphocyte Count 1.59 10^3/uL (1.2-3.4); Absolute Monocyte Count 0.44 10^3/uL (0.1-0.8); Absolute Neutrophil Count 3.11 10^3/uL (1.2-6.7); Basophils % 0.4; Eosinophils % 1.5; HGB 10.5 g/dL (11.2-15.7); Immature Grans % 0.6; Lymphocytes % 30.2; MCH 31.9 pg (27.0-33.0); MCHC 32.8 % (32.0-36.0); MCV 97 fL (80-95); MPV 9.5 fL (8.0-11.0); Monocytes % 8.3; Platelet Count 175 10^3/uL (130-400); RBC 3.29 10^6/uL (3.93-5.22); RDW 14.1 % (11.7-14.6); RDW-SD 50.5 fL; WBC 5.27 10^3/uL (4.4-10.8)
[2022-01-12 11:37] LABS: ALT 18 U/L (14-59); AST 15 U/L (15-37); Albumin 3.4 g/dL (3.4-5.0); Alkaline Phosphatase 67 U/L (46-116); Anion Gap 4.8 mmol/L (3-11); BUN 10 mg/dL (7-18); Bilirubin, Total 0.2 mg/dL (0.2-1.0); CO2 28.2 mmol/L (21.0-32.0); CREATININE 0.8 mg/dL (0.55-1.02); Calcium 8.6 mg/dL (8.5-10.1); Chloride 102 mmol/L (98-107); Glucose 91 mg/dL (74-106); Potassium 4.3 mmol/L (3.5-5.1); Sodium 135 mmol/L (136-145); Total Protein 9.8 g/dL (6.4-8.2)
== END 2022-01-12 11:10 | disposition home or self-care (01) ==
LOC: LBO 11:09
PROVIDERS: PCP Nurse Practitioner Family; Visit Provider Internal Medicine Hematology & Oncology
DX: C90.00 Multiple myeloma not having achieved remission (principal)
CPT/HCPCS: 36415; 80053; 85025

== ENCOUNTER 2022-01-19 04:57 | Outpatient (CLI) | payer SELFPAY ==
[2022-01-19 09:21] LABS: Abs Immature Grans 0.02 10^3/uL (0.0-0.06); Absolute Basophil Count 0.01 10^3/uL (0.0-0.2); Absolute Eosinophil Count 0.09 10^3/uL (0.0-0.7); Absolute Lymphocyte Count 1.42 10^3/uL (1.2-3.4); Absolute Monocyte Count 0.29 10^3/uL (0.1-0.8); Absolute Neutrophil Count 2.26 10^3/uL (1.2-6.7); Basophils % 0.2; Eosinophils % 2.2; HCT 32.1 % (36.0-46.0); HGB 10.7 g/dL (11.2-15.7); Immature Grans % 0.5; Lymphocytes % 34.7; MCH 32.5 pg (27.0-33.0); MCHC 33.3 % (32.0-36.0); MCV 98 fL (80-95); MPV 10.1 fL (8.0-11.0); Monocytes % 7.1; Neutrophils % 55.3; Platelet Count 171 10^3/uL (130-400); RBC 3.29 10^6/uL (3.93-5.22); RDW 14.6 % (11.7-14.6); WBC 4.09 10^3/uL (4.4-10.8)
[2022-01-19 09:42] LABS: ALT 18 U/L (14-59); AST 15 U/L (15-37); Albumin 3.2 g/dL (3.4-5.0); Alkaline Phosphatase 61 U/L (46-116); Anion Gap 7.2 mmol/L (3-11); BUN 7 mg/dL (7-18); Bilirubin, Total 0.2 mg/dL (0.2-1.0); CO2 26.8 mmol/L (21.0-32.0); CREATININE 0.7 mg/dL (0.55-1.02); Calcium 8.4 mg/dL (8.5-10.1); Chloride 101 mmol/L (98-107); Estimated GFR 97.72 (mL/min/1.73m2); Glucose 110 mg/dL (74-106); Potassium 3.5 mmol/L (3.5-5.1); Sodium 135 mmol/L (136-145); Total Protein 9.5 g/dL (6.4-8.2)
== END 2022-01-19 04:58 | disposition home or self-care (01) ==
PROVIDERS: PCP Nurse Practitioner Family; Visit Provider Internal Medicine Hematology & Oncology
DX: C90.00 Multiple myeloma not having achieved remission (principal)
CPT/HCPCS: 36415; 80053; 85025

== ENCOUNTER 2022-01-24 02:23 | Outpatient (CLI) | payer SELFPAY ==
[2022-01-24 09:16] LABS: Abs Immature Grans 0.02 10^3/uL (0.0-0.06); Absolute Basophil Count 0.01 10^3/uL (0.0-0.2); Absolute Eosinophil Count 0.13 10^3/uL (0.0-0.7); Absolute Lymphocyte Count 1.56 10^3/uL (1.2-3.4); Absolute Neutrophil Count 2.53 10^3/uL (1.2-6.7); Basophils % 0.2; Eosinophils % 2.9; HCT 32.8 % (36.0-46.0); HGB 11.1 g/dL (11.2-15.7); Immature Grans % 0.4; Lymphocytes % 34.3; MCH 32.6 pg (27.0-33.0); MCHC 33.8 % (32.0-36.0); MCV 97 fL (80-95); Monocytes % 6.6; Neutrophils % 55.6; Platelet Count 231 10^3/uL (130-400); RDW 14.5 % (11.7-14.6); RDW-SD 50.4 fL; WBC 4.55 10^3/uL (4.4-10.8)
[2022-01-24 09:30] LABS: ALT 17 U/L (14-59); AST 13 U/L (15-37); Albumin 3.6 g/dL (3.4-5.0); Alkaline Phosphatase 62 U/L (46-116); Anion Gap 7.3 mmol/L (3-11); BUN 13 mg/dL (7-18); Bilirubin, Total 0.4 mg/dL (0.2-1.0); CO2 27.7 mmol/L (21.0-32.0); CREATININE 0.8 mg/dL (0.55-1.02); Chloride 100 mmol/L (98-107); Estimated GFR 83.26 (mL/min/1.73m2); Glucose 105 mg/dL (74-106); Potassium 4.2 mmol/L (3.5-5.1); Sodium 135 mmol/L (136-145); Total Protein 10.2 g/dL (6.4-8.2)
== END 2022-01-24 02:24 | disposition home or self-care (01) ==
LOC: LBO 02:24
PROVIDERS: PCP Nurse Practitioner Family; Visit Provider Internal Medicine Hematology & Oncology
DX: C90.00 Multiple myeloma not having achieved remission (principal)
CPT/HCPCS: 36415; 80053; 85025

== ENCOUNTER 2022-01-31 13:31 | Emergency (ER) | payer SELFPAY ==
[2022-01-31 13:38] VITALS: BP 141/64; PULSE 71; RESP 16; TEMP 36.9; O2SAT 98
--- NOTE | 2022-01-31 13:45 | DI.RAD_ITS ---
Exam(s) XR RIBS RT W PA LAT CHEST CLINICAL HISTORY: Right side rib pain, hx myeloma. COMPARISON: CR,XR XR CHEST 2V PA LATERAL from 01/29/2021 CR,XR XR LUMBAR SPINE COMPLETE from 02/20/[address] LUMBAR SPINE WO from 05/11/2021 FINDINGS: LUNGS:Clear. No pleural abnormality seen. HEART: Normal. Aorta tortuous. BONES: The lower ribs are not well penetrated. No displaced rib fracture is seen. Stable moderate T 12 compression fracture. Moderate compression fracture of T10. IMPRESSION: 1. Unremarkable radiographic appearance of the right ribs. Old lower thoracic compression fractures. 2. No acute pulmonary findings.
--- NOTE | 2022-01-31 15:07 | ED.GENADUL_ITS ---
Discharge Plan Disposition Patient Disposition: HOME Condition: Stable Discharge Details Clinical Impression: Right flank pain Primary Care Provider: Analilia Lechuga ED Provider: Mirian Blair Home Meds and New Rx's Prescriptions: Continued acetaminophen 500 mg capsule 1,000 mg PO TID PRN PRN (Reason: fever) Qty: 300 0RF albuterol sulfate 90 mcg/actuation HFA aerosol inhaler INHALATION Label Comments: INHALE 2 PUFFS BY MOUTH EVERY 4 TO 6 HOURS NEEDED FOR SHORTNESS OF BREATH OR WHEEZING OR COUGH ondansetron HCl 4 mg tablet 4 mg PO PRN PRN Label Comments: TAKE 1 TABLET BY MOUTH EVERY 8 HOURS NEEDED FOR NAUSEA prochlorperazine maleate 10 mg tablet 10 mg PO PRN PRN Label Comments: TAKE 1 TABLET BY MOUTH EVERY 6 HOURS NEEDED FOR NAUSEA acyclovir 400 mg tablet 400 mg PO DAILY Label Comments: TAKE 1 TABLET BY MOUTH TWICE DAILY aspirin 81 mg tablet,delayed release (DR/EC) 81 mg PO DAILY Label Comments: TAKE 1 TABLET BY MOUTH DAILY tramadol 50 mg tablet 50 mg PO PRN PRN Label Comments: TAKE 1 TABLET BY MOUTH EVERY 6 HOURS NEEDED FOR PAIN meloxicam 7.5 mg tablet Label Comments: TAKE ONE TABLET BY MOUTH TWICE A DAY NEEDED FOR PAIN omeprazole 20 mg capsule,delayed release(DR/EC) 29 mg PO DAILY Label Comments: TAKE 1 CAPSULE BY MOUTH ONCE DAILY Discharge Instructions Instructions: Flank Pain (ED) Additional Instructions: At this time x-ray showed no rib fractures. You do have old T12 and T10 compression fractures. We were unable to draw blood at this time so I cannot rule out any underlying reason for your pain. Please keep your appointment on as previously scheduled. Follow up with primary care provider in 3-5 days. Return to ED sooner if any worsening or concerns. Increase oral fluids. Referrals: Analilia Lechuga [Primary Care Provider] - 3 days Discharge Data Discharge Date/Time-TO BE ENTERED AT DEPARTURE: 01/31/22 16:21 Medical Decision Making 62-year-old female with a history of multiple myeloma presents to the ER after being referred to be seen from the cancer center she has a chief complaint of right side rib and chest pain. She states for approximately 6 days she has been having constant pain on the right side of her flank begins in the anterior radiates around to the right posterior flank. I did recommend blood work to rule out any underlying disease however patient states that she has blood scheduled to be drawn on and is declining lab work at this time she states that she would rather wait till . I did discuss with her that we cannot rule out any underlying injury or pathology with liver or gallbladder she verbalizes understanding. X-ray rib series ordered. Results are pending at this time. Unremarkable rib series. Patient does have an old T12 compression fracture, Discussed results with her she verbalized understanding. Discussed home care and strict return instructions. This text was generated using Diffbotation system, please disregard any oddities of phrase or misspellings. Medical Records Medical records reviewed: Yes I reviewed the patient's medical records. HPI General Mode of arrival: ambulatory . Date/Time Provider Initiated Documentation: 01/31/22 13:48 . Limitations to Documentation: no limitations . Information obtained by: patient, RN notes reviewed and old records reviewed . HPI Narrative: 62-year-old female with a history of multiple myeloma presents to the ER after being referred to be seen from the cancer center she has a chief complaint of right side rib and chest pain. She states for approximately 6 days she has been having constant pain on the right side of her flank begins in the anterior radiates around to the right posterior flank. She reports nausea and vomiting of the side effects of the medications she is taking. She denies any dysuria or problems urinating she also has been coughing with clear sputum. She has been taking Tylenol and tramadol with little to no relief. Pain gets worse with movement. Related Data Home Medications Medication Instructions Recorded Confirmed albuterol sulfate 90 mcg/actuation inhalation 02/20/21 10/20/21 aerosol inhaler acetaminophen 500 mg capsule 1,000 mg PO TID PRN PRN fever #300 10/20/21 01/11/22 caps acyclovir 400 mg tablet 400 mg PO DAILY 01/31/22 01/31/22 aspirin 81 mg tablet,delayed 81 mg PO DAILY 01/31/22 01/31/22 release meloxicam 7.5 mg tablet tab 01/31/22 01/31/22 omeprazole 20 mg capsule,delayed 29 mg PO DAILY 01/31/22 01/31/22 release ondansetron HCl 4 mg tablet 4 mg PO PRN PRN 01/31/22 01/31/22 prochlorperazine maleate 10 mg 10 mg PO PRN PRN 01/31/22 01/31/22 tablet tramadol 50 mg tablet 50 mg PO PRN PRN 01/31/22 01/31/22 Previous Rx's Medication Instructions Recorded acetaminophen 500 mg capsule 1,000 mg PO TID PRN PRN fever #300 10/20/21 caps Allergies Allergy/AdvReac Type Severity Reaction Status Date / Time No Known Allergies Allergy Unverified 01/31/22 13:42 General Stated Complaint: Chest/Rib RAE: 3 Review of Systems All systems reviewed & are unremarkable except as noted in HPI and below Genitourinary Genitourinary: Reports flank pain Musculoskeletal Musculoskeletal: Reports back pain and Reports stiffness PFSH All Active Problems (Updated 01/31/22 @ 16:06 by Mirian Blair NP) Right flank pain (Acute) Osteoporosis (Chronic) Trochanteric bursitis, right hip (Acute) Tobacco dependence (Acute) Osteopenia (Acute) Peripheral edema (Acute) Depression (Chronic) Compression fracture of L2 lumbar vertebra (Acute) Compression fracture (Acute) Social History Smoking/Tobacco Use Status: Current every day Tobacco Type: cigarettes Smoking risk assessment performed?: Yes Drug use: Never Substance use type: does not use Do you feel safe at home: Yes Do you feel safe in your relationship?: Yes Exam Narrative Exam Narrative: Constitutional: Alert and oriented x3. Appears stated age. Normal body habitus. Head: Normocephalic, no trauma. Eyes: Pupils PERRL, Red reflex noted, EOM's intact. Eyelids symmetrical without lesions, discharge, or swelling. ENT: Bilateral TM's WNL, External ear normal to inspection, no mastoid TTP, swelling, or erythema, Nasal turbinates WNL, no nasal discharge. Normal dentition, Posterior pharynx WNL, no exudate. Chest: RRR, Normal S1, S2, distal pulses intact. Tenderness with palpation to the right rib cage and flank. Resp: Lungs clear to auscultation bilaterally, no wheezes, rales, or rhonchi. Abdomen: Soft, non-distended, Normoactive bowel sounds all 4 quads. Musculoskeletal: Normal gait, 5/5 strength to all four extremities. Skin: No suspicious rashes or lesions. Capillary refill less than 2 sec. Neurologic: Cranial nerves II-XII intact. Alert and oriented x 3. Motor: No deficits noted. Sensory: Intact bilaterally all 4 extremities. Reflexes: DTR's intact bilaterally.. Hematologic/Lymphatic: No ecchymosis, no lymphadenopathy. Back/Spine/Pelvis Cervical Spine: normal cervical lordosis Pelvis: no pain with anterior-posterior compression Course Vital Signs Vital signs: Vital Signs Temperature 36.9 C 01/31/22 13:38 Pulse 71 01/31/22 13:38 Respiratory Rate 16 01/31/22 13:38 Blood Pressure 141/64 H 01/31/22 13:38 Pulse Oximetry 98 01/31/22 13:38 Temperature 36.9 C 01/31/22 13:38 Pulse 71 01/31/22 13:38 Respiratory Rate 16 01/31/22 13:38 Respiratory Effort 01/31/22 13:46 Respiratory Depth Normal 01/31/22 13:46 Respiratory Pattern Normal 01/31/22 13:46 Blood Pressure 141/64 H 01/31/22 13:38 Pulse Oximetry 98 01/31/22 13:38 Pain Level 9 01/31/22 13:46
[2022-01-31] MEDS: oxyCODONE 5 mg/Acetaminophen 325 mg TAB 1 TAB PO ×2 (15:39→16:20)
--- NOTE | 2022-01-31 17:09 | NUR.NOTE ---
Nursing Note: Patient's daughter Krystina? called initially asking about information about this patient. I looked for a HIPPA and did not find one. She called back stating that Heather was able to see it and why was I not able to and that lied to her. I called access, Heather was not at her desk. I looked further i to the chart and found the HIPPA form. The name on the form is Galdinoguille Sommer. I told her that his name was on the form and that her mother could call and give information for her to speak to staff about the visit. SHe stated that because her fathers name was on the form she would have him call and that she expected to get information and not to be lied to when she called back.
== END 2022-01-31 16:21 | disposition home or self-care (01) ==
PROVIDERS: Emergency Provider Registered Nurse Emergency; PCP Nurse Practitioner Family
DX: R07.81 Pleurodynia (principal); R10.9 Unspecified abdominal pain; F17.210 Nicotine dependence, cigarettes, uncomplicated; Z87.81 Personal history of (healed) traumatic fracture
CPT/HCPCS: 99283; 71046; 71100; 99284

== ENCOUNTER 2022-02-06 03:21 | Outpatient (CLI) | payer SELFPAY ==
[2022-02-06 19:08] LABS: LDH 136 U/L (81-234)
[2022-02-08 11:47] LABS: IgA 22 mg/dL (85-499); IgG 3166 mg/dL (610-1,616); IgM 102 mg/dL (35-242); Kappa Free Light Chain 37.61 mg/dL (0.33-1.94); Lambda Free Light Chain 1.18 mg/dL (0.57-2.63)
[2022-02-08 15:02] LABS: Albumin 49.6 % (55.8-66.1); Albumin g/dL 4.6 g/dL (3.6-5.2); Comment (See Note); Monoclonal Spike 23.7 % (None Seen); Monoclonal Spike g/dL 2.2 g/dL (None Seen); Total Protein 9.2 g/dL (6.3-8.2)
[2022-02-08 15:20] LABS: Immunotyping, Serum (See Note)
== END 2022-02-06 03:22 | disposition home or self-care (01) ==
LOC: LBO 03:22
PROVIDERS: Internal Medicine Hematology & Oncology; PCP Nurse Practitioner Family; Visit Provider Internal Medicine Hematology & Oncology
DX: C90.00 Multiple myeloma not having achieved remission (principal)
CPT/HCPCS: 36415; 82784; 83615; 83883; 84165; 86320

== ENCOUNTER 2022-02-22 02:54 | Outpatient (CLI) | payer BC, SELFPAY ==
[2022-02-22 11:59] LABS: Abs Immature Grans 0.01 10^3/uL (0.0-0.06); Absolute Basophil Count 0.02 10^3/uL (0.0-0.2); Absolute Eosinophil Count 0.07 10^3/uL (0.0-0.7); Absolute Lymphocyte Count 1.37 10^3/uL (1.2-3.4); Absolute Monocyte Count 0.48 10^3/uL (0.1-0.8); Absolute Neutrophil Count 2.99 10^3/uL (1.2-6.7); Basophils % 0.4; Eosinophils % 1.4; HCT 27.8 % (36.0-46.0); Immature Grans % 0.2; Lymphocytes % 27.7; MCH 31.8 pg (27.0-33.0); MCHC 32.4 % (32.0-36.0); MCV 98 fL (80-95); MPV 8.7 fL (8.0-11.0); Monocytes % 9.7; Neutrophils % 60.6; Platelet Count 288 10^3/uL (130-400); RBC 2.83 10^6/uL (3.93-5.22); RDW 14.3 % (11.7-14.6); RDW-SD 50.4 fL; WBC 4.94 10^3/uL (4.4-10.8)
[2022-02-22 12:14] LABS: ALT 15 U/L (14-59); AST 12 U/L (15-37); Albumin 3.1 g/dL (3.4-5.0); Alkaline Phosphatase 75 U/L (46-116); Anion Gap 6.3 mmol/L (3-11); BUN 11 mg/dL (7-18); Bilirubin, Total 0.2 mg/dL (0.2-1.0); CO2 28.7 mmol/L (21.0-32.0); CREATININE 0.7 mg/dL (0.55-1.02); Calcium 9.4 mg/dL (8.5-10.1); Chloride 103 mmol/L (98-107); Estimated GFR 97.72 (mL/min/1.73m2); Glucose 87 mg/dL (74-106); Potassium 3.8 mmol/L (3.5-5.1); Sodium 138 mmol/L (136-145); Total Protein 9.7 g/dL (6.4-8.2)
[2022-02-23 11:39] LABS: IgA 25 mg/dL (85-499); IgG 3329 mg/dL (610-1,616); IgM 105 mg/dL (35-242); Kappa Free Light Chain 52.89 mg/dL (0.33-1.94); Lambda Free Light Chain 1.39 mg/dL (0.57-2.63)
[2022-02-23 15:00] LABS: Albumin 43.5 % (55.8-66.1); Albumin g/dL 3.8 g/dL (3.6-5.2); Comment (See Note); Monoclonal Spike 29.1 % (None Seen); Monoclonal Spike g/dL 2.5 g/dL (None Seen); Total Protein 8.7 g/dL (6.3-8.2)
== END 2022-02-22 02:55 | disposition home or self-care (01) ==
PROVIDERS: PCP Nurse Practitioner Family; Visit Provider Internal Medicine Hematology & Oncology
DX: C90.00 Multiple myeloma not having achieved remission (principal)
CPT/HCPCS: 36415; 80053; 82784; 83883; 84165; 85025

== ENCOUNTER 2022-03-16 03:59 | Outpatient (CLI) | payer BC, SELFPAY ==
[2022-03-16 07:21] LABS: Absolute Basophil Count 0.02 10^3/uL (0.0-0.2); Absolute Eosinophil Count 0.15 10^3/uL (0.0-0.7); Absolute Lymphocyte Count 1.49 10^3/uL (1.2-3.4); Absolute Monocyte Count 0.44 10^3/uL (0.1-0.8); Absolute Neutrophil Count 2.22 10^3/uL (1.2-6.7); Basophils % 0.5; Eosinophils % 3.5; HCT 32.6 % (36.0-46.0); HGB 10.7 g/dL (11.2-15.7); Lymphocytes % 34.5; MCH 31.8 pg (27.0-33.0); MCHC 32.8 % (32.0-36.0); MCV 97 fL (80-95); MPV 9.3 fL (8.0-11.0); Monocytes % 10.2; Neutrophils % 51.3; Platelet Count 214 10^3/uL (130-400); RBC 3.36 10^6/uL (3.93-5.22); RDW 14.6 % (11.7-14.6); RDW-SD 52.1 fL; WBC 4.32 10^3/uL (4.4-10.8)
[2022-03-16 07:42] LABS: ALT 14 U/L (14-59); AST 11 U/L (15-37); Albumin 3.5 g/dL (3.4-5.0); Alkaline Phosphatase 57 U/L (46-116); Anion Gap 4.9 mmol/L (3-11); BUN 14 mg/dL (7-18); Bilirubin, Total 0.2 mg/dL (0.2-1.0); CO2 28.1 mmol/L (21.0-32.0); CREATININE 0.8 mg/dL (0.55-1.02); Calcium 8.8 mg/dL (8.5-10.1); Chloride 102 mmol/L (98-107); Estimated GFR 83.26 (mL/min/1.73m2); Glucose 100 mg/dL (74-106); Sodium 135 mmol/L (136-145); Total Protein 9.8 g/dL (6.4-8.2)
[2022-03-17 09:37] LABS: IgA 24 mg/dL (85-499); IgG 3969 mg/dL (610-1,616); IgM 96 mg/dL (35-242); Kappa Free Light Chain 45.92 mg/dL (0.33-1.94); Lambda Free Light Chain 1.02 mg/dL (0.57-2.63)
[2022-03-17 13:23] LABS: Albumin 47.5 % (55.8-66.1); Albumin g/dL 4.3 g/dL (3.6-5.2); Comment (See Note); Monoclonal Spike 31.5 % (None Seen); Monoclonal Spike g/dL 2.9 g/dL (None Seen); Total Protein 9.1 g/dL (6.3-8.2)
== END 2022-03-16 04:00 | disposition home or self-care (01) ==
LOC: LBO 03:59
PROVIDERS: PCP Nurse Practitioner Family; Visit Provider Internal Medicine Hematology & Oncology
DX: C90.00 Multiple myeloma not having achieved remission (principal)
CPT/HCPCS: 36415; 80053; 82784; 83883; 84165; 85025

== ENCOUNTER 2022-03-23 03:09 | Outpatient (CLI) | payer BC, SELFPAY ==
[2022-03-23 09:26] LABS: Abs Immature Grans 0.03 10^3/uL (0.0-0.06); Absolute Basophil Count 0.02 10^3/uL (0.0-0.2); Absolute Eosinophil Count 0.24 10^3/uL (0.0-0.7); Absolute Lymphocyte Count 1.17 10^3/uL (1.2-3.4); Absolute Monocyte Count 0.44 10^3/uL (0.1-0.8); Absolute Neutrophil Count 2.77 10^3/uL (1.2-6.7); Basophils % 0.4; Eosinophils % 5.1; HCT 30.5 % (36.0-46.0); HGB 9.9 g/dL (11.2-15.7); Immature Grans % 0.6; Lymphocytes % 25.1; MCHC 32.5 % (32.0-36.0); MCV 99 fL (80-95); MPV 10.3 fL (8.0-11.0); Monocytes % 9.4; Neutrophils % 59.4; Platelet Count 145 10^3/uL (130-400); RBC 3.09 10^6/uL (3.93-5.22); RDW 14.7 % (11.7-14.6); RDW-SD 54.2 fL; WBC 4.67 10^3/uL (4.4-10.8)
[2022-03-23 09:40] LABS: BUN 16 mg/dL (7-18); CREATININE 0.7 mg/dL (0.55-1.02); Calcium 8.8 mg/dL (8.5-10.1); Glucose 103 mg/dL (74-106)
[2022-03-23 09:41] LABS: ALT 14 U/L (14-59); AST 11 U/L (15-37); Albumin 3.3 g/dL (3.4-5.0); Alkaline Phosphatase 55 U/L (46-116); Anion Gap 3.6 mmol/L (3-11); Bilirubin, Total 0.3 mg/dL (0.2-1.0); CO2 29.4 mmol/L (21.0-32.0); Chloride 102 mmol/L (98-107); Estimated GFR 97.72 (mL/min/1.73m2); Sodium 135 mmol/L (136-145); Total Protein 9.2 g/dL (6.4-8.2)
[2022-03-24 10:38] LABS: IgA 21 mg/dL (85-499); IgG 3285 mg/dL (610-1,616); IgM 88 mg/dL (35-242); Kappa Free Light Chain 48.21 mg/dL (0.33-1.94); Lambda Free Light Chain 1.04 mg/dL (0.57-2.63)
[2022-03-24 13:52] LABS: Albumin 48.3 % (55.8-66.1); Albumin g/dL 4.1 g/dL (3.6-5.2); Comment (See Note); Monoclonal Spike 28.4 % (None Seen); Monoclonal Spike g/dL 2.4 g/dL (None Seen); Total Protein 8.4 g/dL (6.3-8.2)
== END 2022-03-23 03:10 | disposition home or self-care (01) ==
LOC: LBO 03:10
PROVIDERS: PCP Nurse Practitioner Family; Visit Provider Internal Medicine Hematology & Oncology
DX: C90.00 Multiple myeloma not having achieved remission (principal)
CPT/HCPCS: 36415; 80053; 82784; 83883; 84165; 85025

== ENCOUNTER 2022-04-13 14:42 | Emergency (ER) | payer BC, SELFPAY ==
--- OUTSIDE RECORDS SUMMARY | 2022-04-13 14:51 | XMS_ITS | Encounter Summary ---
:1960 Author Organization [facility] Address [address] [place] [address] Care Team Providers Name Role Phone Analilia Lechuga APRN Primary Care Provider Reason for Visit Reason Onset Date Comments Medication Refill 03/16/2022 Revlimid refill defe rred to 04/14 Encounter Details Date Type Department Care Team Description 03/16/2022 Telephone Hematology Oncology at [facility], Medication Refill [facility] RN (Revlimid refill [address] deferred to 04/14) [place] [phone] Social History Tobacco Use Types Packs/Day Years Used Date Smoking Tobacco: Every Day Cigarettes 1 Smokeless Tobacco: Never Alcohol Use Standard Drinks/Week Comments Yes 4 (1 standard drink = 0.6 oz pure alcoho l) Transportation Needs Answer Date Recorded In the past 12 months, has lack of transportation kept No 12/29/2021 you from medical appointments or from getting medications? In the past 12 months, has lack of transportation kept Patie nt refused 12/29/2021 you from meetings, work, or getting things needed for daily living? Housing Stability Answer Date Recorded In the last 12 months, was there a time when you were Patien t refused 12/29/2021 not able to pay the mortgage or rent on time? In the last 12 months, how many places have you lived? 1 12/29/2021 In the last 12 months, was there a time when you did No 12/29/[address] to sleep or slept in a jail (including now)? Sex Assigned at Date Recorded Not on file documented as of this encounter Miscellaneous Notes Telephone Encounter - Maribeth Jameson RN - 03/16/2022 9:37 AM EDT REVLIMID REFILL NOTE No refill required until 04/14. Last cycle deferred due to Covid ?? Prescriber online survey done??02/23/22 with the [employer] Revlimid [facility] program. ?? Revlimid Auth # [id number] ?? Prescription faxed to [facility] after obtaining Dr. Walsh's signature. ?? Script is for Revlimid 25 mg daily x21 days/28 day cycle. Due to begin as soon as she receives the refill. She is to call the clinic. Patient seen in clinic 02/23/22. She has been ill. She does not have the refill. This was sent and asked to expedite. Pt. Is in medication compliance with the above medication (aware of dose, frequency, route, name of drug, s+s of potential side effects). ?? Aware of how to take oral chemo and aware to call clinic with questions or concerns. ?? Next start date around Apr 20, 2022 ?? Next refill:??04/14/22 documented in this encounter Plan of Treatment Upcoming Encounters Date Type Specialty Care Team Description 04/20/2022 Office Visit Hematology and Oncology Cristo Walsh MD [facility] [address] HEMATOLOGY/[place] [address] Yari Thompson APRN [facility] HEMATOLOGY/[place] [address] 04/20/2022 Infusion Hematology and Oncology 04/27/2022 Infusion Hematology and Oncology 05/04/2022 Infusion Hematology and Oncology documented as of this encounter Visit Diagnoses Not on filedocumented in this encounter Care Teams Industrial Staff Nurse Relationship Specialty Start Date End Date Analilia Lechuga APRN PCP - General Family Medicine 03/01/21 [address] [place] [address] documented as of this encounter
--- OUTSIDE RECORDS SUMMARY | 2022-04-13 14:51 | XMS_ITS | Encounter Summary ---
:1960 Author Organization [facility] [place] [address] Care Team Providers Name Role Phone CaitlynAnalilia brooke MATERIALS AND CORROSION ENGINEER Primary Care Provider Encounter Details Date Type Department Care Team Description 03/16/2022 Notes Only Tobacco Treatment at [place] Webber MSW [facility] OFFICE OF CARE [address] [place] [address] [phone] Social History Tobacco Use Types Packs/Day Years [...] place to sleep or slept in a skilled nursing (including now)? Sex Assigned at Date Recorded Not on file documented as of this encounter Progress Notes Shima Singh MSW - 03/16/2022 10:01 AM EDT Tobacco treatment follow up visit with Christen during her infusion visit. Received message from Yari Flood APRN that Christen is ready to try a quit. Met with Christen. She indicated she is ready to try a quit. Her quit date is March 21, 2022. Shefeels she is ready to give this a t ry and she is doing it for herself. She is presently smoking 1 pack of cigarettes a day. Gave her 1 box/14 patches at 21 mg strength to start. She is not interested in any lozenges or gum at this time. Discussed need to make a plan for additional patches and she is going to see if her health insurance covers them. Will confirm plan whenTTS sees her in 2 weeks. Discussed the 4 D's. Discussed making a plan when a craving hits - prayer, getting out for a walk, hand work, singing/dancing, calling a child/friend. Reminded Christen of TTS contact information and encouraged her to call for additiona support. Willplan to see pt in 2 weeks (9 days into her quit). documented in this encounter Plan of Treatment Upcoming Encounters Date Type Specialty Care Team Description 04/20/2022 Office Visit Hematology and Oncology Cristo Walsh MD [facility] DR HEMATOLOGY/[place] [address] Yari Thompson APRN [facility] DR HEMATOLOGY/[place] [address] 04/20/2022 Infusion Hematology and Oncology 04/27/2022 Infusion Hematology and Oncology 05/04/2022 Infusion Hematology and Oncology documented as of this encounter Visit Diagnoses Not on filedocumented in this encounter Care Teams Ocean Export Account Manager Relationship Specialty Start Date End Date Analilia Lechuga APRN PCP - General Family Medicine 03/01/21 [place] [address] documented as of this encounter
--- OUTSIDE RECORDS SUMMARY | 2022-04-13 14:51 | XMS_ITS | Encounter Summary ---
:1960 Author Organization [facility] [place] [address] Care Team Providers Name Role Phone Ankush Analilia MANSI Primary Care Provider Encounter Details Date Type Department Care Team Description 03/30/2022 Telephone Hematology/Oncology at Argenis Flynn RN [address] [phone] Social History Tobacco Use Types Packs/Day Years [...] place to sleep or slept in a halfway (including now)? Sex Assigned at Date Recorded Not on file documented as of this encounter Miscellaneous Notes Telephone Encounter - Argenis Flynn RN - 03/30/2022 2:11 PM EST Below msg sent to Dr. Walsh regarding pts complaint. She does not like getting IV's and found thatshe didn't like the zometa infusion vs xgeva. ----- Message from Argenis Flynn RN sent at 03/30/2022 2:11 PM EST ----- Regarding: FW: complaint ----- Message ----- From: Argenis Flynn RN Sent: 03/30/2022 1:58 PM EST To: Cristo Walsh MD Subject: complaint Christen is very upset that she had to get zometa last time and not her xgeva. She is hard to reason with about it and wants you to try to get her the xgeva. I told her that I would let you know. I have spoken to Yari about it as well and told Christen that her insurance wont pay for xgeva. She thinks its as simple as filling out a paper and she would be able to get it. Let me know if you have a better way of explaining this to her. Thanks Argenis documented in this encounter Plan of Treatment Upcoming Encounters Date Type Specialty Care Team Description 04/20/2022 Office Visit Hematology and Oncology Cristo Walsh MD [facility] DR HEMATOLOGY/[place] [address] Yari Thompson APRN [facility] [address] HEMATOLOGY/[place] [address] 04/20/2022 Infusion Hematology and Oncology 04/27/2022 Infusion Hematology and Oncology 05/04/2022 Infusion Hematology and Oncology documented as of this encounter Visit Diagnoses Not on filedocumented in this encounter Care Teams Bowling Ball Patcher Relationship Specialty Start Date End Date Analilia Lechuga APRN PCP - General Family Medicine 03/01/21 [place] [address] documented as of this encounter
--- OUTSIDE RECORDS SUMMARY | 2022-04-13 14:51 | XMS_ITS | Encounter Summary ---
:1960 Author Organization [facility] [place] [address] Care Team Providers Name Role Phone Ankush Analilia MANSI Primary Care Provider Encounter Details Date Type Department Care Team Description 03/23/2022 Travel Social History Tobacco Use Types Packs/Day Years [...] place to sleep or slept in a alf (including now)? Sex Assigned at Date Recorded Not on file documented as of this encounter Plan of Treatment Upcoming Encounters Date Type Specialty Care Team Description 04/20/2022 Office Visit Hematology and Oncology Cristo Walsh MD [facility] HEMATOLOGY/[place] [address] Yari Thompson APRN [facility] DR HEMATOLOGY/[place] [address] 04/20/2022 Infusion Hematology and Oncology 04/27/2022 Infusion Hematology and Oncology 05/04/2022 Infusion Hematology and Oncology documented as of this encounter Visit Diagnoses Not on filedocumented in this encounter Care Teams Drill Press Hand Relationship Specialty Start Date End Date Analilia Lechuga APRN PCP - General Family Medicine 03/01/21 [place] [address] documented as of this encounter
--- OUTSIDE RECORDS SUMMARY | 2022-04-13 14:51 | XMS_ITS | Encounter Summary ---
:1960 Author Organization [facility] [place] [address] Care Team Providers Name Role Phone CaitlynAnalilia brooke MANSI Primary Care Provider Reason for Visit Reason Comments Chemotherapy C3D8 Velcade Treatment/Therapy Plan Authorization (Routine) - Authorized Specialty Diagnoses / Procedures Referred By Contact Refer red To Contact Hematology and Diagnoses Multiple myeloma, remission status unspecified Cristo Walsh MD [facility] Hem Onc Infusion Oncology Procedures TC DENOSUMAB, 1MG, INJECTION TC BORTEZOMIB, 0.1MG, INJECTION (VELCADE) J9041 VELCADE 3 MG [facility] [address] [place], [place] HEMATOLOGY/ONCOLOGY [id number] [place] [address] Referral ID Status Reason Start Date Expiration Date Visits V isits Requested Authorized [id number] Authorized 12/24/2021 05/20/2022 99 99 Encounter Details Date Type Department Care Team Description 03/23/2022 Infusion Hematology Oncology at [facility] myeloma, remission [facility] status unspecified [address] [place], [place] [phone] Social History Tobacco Use Types [...] place to sleep or slept in a chcf (including now)? Sex Assigned at Date Recorded Not on file documented as of this encounter Last Filed Vital Signs Vital Sign Reading Time Taken Comments Blood Pressure 133/59 03/23/2022 10:20 AM EDT Pulse 64 03/23/2022 10:20 AM EDT Temperature 36.7 ??C (98.1 ??F) 03/23/2022 10:20 AM EDT Respiratory Rate 16 03/23/2022 10:20 AM EDT Oxygen Saturation 100% 03/23/2022 10:20 AM EDT Inhaled Oxygen Concentration - - Weight 75.6 kg (166 lb 9.6 oz) 03/23/2022 10:20 AM EDT Height 159 cm (5' 2.6) 03/23/2022 10:20 AM EDT Body Mass Index 29.89 03/23/2022 10:20 AM EDT documented in this encounter Progress Notes Cony Colorado RN - 03/23/2022 10:00 AM EDT INFUSION THERAPY ADMINISTRATION NOTES DIAGNOSIS: MM CYCLE #3: Day 8 REASON FOR VISIT: Velcade injection SUBJECTIVE Christen Sommer reports bone pain after her zometa infusion, she states she did not experience bone pain with the xgeva injection. OBJECTIVE VSS, weight stable. LAB DATA: Done 03/23/22 at [facility] and [facility] for treatment. Pre administration: Chemotherapy orders independently verified for drug name, route, and dosage per patient's height, weight and BSA by Cony Colorado RN & on-site pharmacist. REACTIONS (DESCRIPTION, TIME, INTERVENTION AND EFFECTIVENESS) none ASSESSMENT Christen was awake, alert and tolerated treatment well. Velcade given SQ in LLQ. PLAN Return to clinic in one week for consideration of C3D15. documented in this encounter Plan of Treatment Upcoming Encounters Date Type Specialty Care Team Description 04/20/2022 Office Visit Hematology and Oncology Cristo Walsh MD [facility] DR HEMATOLOGY/[place] [address] Yari Thompson APRN [facility] DR HEMATOLOGY/[place] [address] 04/20/2022 Infusion Hematology and Oncology 04/27/2022 Infusion Hematology and Oncology 05/04/2022 Infusion Hematology and Oncology documented as of this encounter Visit Diagnoses Diagnosis Multiple myeloma, remission status unspe cified documented in this encounter Administered Medications Inactive Administered Medications - up to 3 most recent administrations Medication Order MAR Action Action Date Dose Rate Site bortezomib (Velcade) (2.5 Given 03/23/2022 11:03 AM 3 mg Left Lower Quadrant mg/mL) subcutaneous EDT injection 3 mg 3 mg (rounded from 2.96 mg = 1.6 mg/m2/dose ? 1.85 m2 Treatment Plan BSA from Recorded weight), Subcutaneous, ONCE, 1 dose, On Jyoti 03/23/22 at 1200, Inject subcutaneous in the thigh or abdomen., Routine dexAMETHasone (Decadron) tablet 20 mg Given 03/23/2022 10:59 AM EDT 20 mg 20 mg, Oral, ONCE, 1 dose, On Jyoti 03/23/22 at 1100, Routine ondansetron (Zofran) tablet 4 mg Given 03/23/2022 11:00 AM EDT 4 mg 4 mg, Oral, ONCE, 1 dose, On Jyoti 03/23/22 at 1100, Administer prior to chemotherapy, Routine documented in this encounter Care Teams Alligator Trapper Relationship Specialty Start Date End Date Analilia Lechuga APRN PCP - General Family Medicine 03/01/21 [place] [address] (work) documented as of this encounter
--- OUTSIDE RECORDS SUMMARY | 2022-04-13 14:51 | XMS_ITS | Encounter Summary ---
:1960 Author Organization [facility] [place] [address] Care Team Providers Name Role Phone Ankush Analilia MANSI Primary Care Provider Encounter Details Date Type Department Care Team Description 03/16/2022 Travel Social History Tobacco Use Types Packs/Day [...] place to sleep or slept in a senior care (including now)? Sex Assigned at Date Recorded Not on file documented as of this encounter Plan of Treatment Upcoming Encounters Date Type Specialty Care Team Description 04/20/2022 Office Visit Hematology and Oncology Cristo Walsh MD [facility] HEMATOLOGY/[place] [address] Yari Thompson APRN [facility] DR HEMATOLOGY/[place] [address] 04/20/2022 Infusion Hematology and Oncology 04/27/2022 Infusion Hematology and Oncology 05/04/2022 Infusion Hematology and Oncology documented as of this encounter Visit Diagnoses Not on filedocumented in this encounter Care Teams Insurance Attorney Relationship Specialty Start Date End Date Analilia Lechuga APRN PCP - General Family Medicine 03/01/21 [place] [address] documented as of this encounter
--- OUTSIDE RECORDS SUMMARY | 2022-04-13 14:51 | XMS_ITS | Encounter Summary ---
:1960 Author Organization [facility] [place] [address] Care Team Providers Name Role Phone CaitlynAnalilia brooke MANSI Primary Care Provider Reason for Visit Reason Comments Chemotherapy Velcade + Zometa Treatment/Therapy Plan Authorization (Routine) - Authorized Specialty Diagnoses / Procedures Referred By Contact Refer red To Contact Hematology and Diagnoses Multiple myeloma, remission status unspecified Cristo Walsh MD [facility] Hem Onc Infusion Oncology Procedures TC DENOSUMAB, 1MG, INJECTION TC BORTEZOMIB, 0.1MG, INJECTION (VELCADE) J9041 VELCADE 3 MG [facility] [address] [place], [place] HEMATOLOGY/ONCOLOGY [id number] [place] [address] Referral ID Status Reason Start Date Expiration Date Visits V isits Requested Authorized [id number] Authorized 12/24/2021 05/20/2022 99 99 Encounter Details Date Type Department Care Team Description 03/16/2022 Infusion Hematology Oncology at [facility] myeloma, remission [facility] status unspecified [address] [place], [place] [phone] Social History Tobacco Use [...] place to sleep or slept in a detention (including now)? Sex Assigned at Date Recorded Not on file documented as of this encounter Patient Instructions Patient InstructionsCony Colorado RN - 03/16/2022 8:30 AM EDT Be sure to notify your dentist that you are receiving Zometa. Also notify our office if you plan to have invasive dental work. documented in this encounter Progress Notes Cony Colorado RN - 03/16/2022 8:30 AM EDT INFUSION THERAPY ADMINISTRATION NOTES DIAGNOSIS: MM CYCLE #3: Day 1 REASON FOR VISIT: Velcade injection + zometa SUBJECTIVE Christen Sommer saw provider in clinic and is ready for treatment. OBJECTIVE VSS, weight stable. LAB DATA: Done 03/16/22 at [facility] and [facility] for treatment. Pre administration: Chemotherapy orders independently verified for drug name, route, and dosage per patient's height, weight and BSA by Cony Colorado, [facility]IL[facility] & on-site pharmacist. REACTIONS (DESCRIPTION, TIME, INTERVENTION AND EFFECTIVENESS) none ASSESSMENT Christen was awake, alert and tolerated treatment well. Velcade given SQ in RLQ per pt request. Sheis considering getting dentures, reminded her to notify her dentist she is receiving Zometa and notify our clinic before any invasive dental procedures. PLAN Return to clinic per plan. documented in this encounter Plan of Treatment Upcoming Encounters Date Type Specialty Care Team Description 04/20/2022 Office Visit Hematology and Oncology Cristo Walsh MD [facility] DR HEMATOLOGY/[place] [address] Yari Thompson APRN [facility] DR HEMATOLOGY/[place] [address] 04/20/2022 Infusion Hematology and Oncology 04/27/2022 Infusion Hematology and Oncology 05/04/2022 Infusion Hematology and Oncology documented as of this encounter Visit Diagnoses Diagnosis Multiple myeloma, remission status unspe cified documented in this encounter Administered Medications Inactive Administered Medications - up to 3 most recent administrations Medication Order MAR Action Action Date Dose Rate Site bortezomib (Velcade) (2.5 Given 03/16/2022 10:24 AM 3 mg Right Lower Quadrant mg/mL) subcutaneous EDT injection 3 mg 3 mg (rounded from 2.96 mg = 1.6 mg/m2/dose ? 1.85 m2 Treatment Plan BSA from Recorded weight), Subcutaneous, ONCE, 1 dose, On Jyoti 03/16/22 at 1100, Inject subcutaneous in the thigh or abdomen., Routine dexAMETHasone (Decadron) tablet 20 mg Given 03/16/2022 9:43 AM EDT 20 mg 20 mg, Oral, ONCE, 1 dose, On Jyoti 03/16/22 at 1000, Routine ondansetron (Zofran) tablet 4 mg Given 03/16/2022 9:43 AM EDT 4 mg 4 mg, Oral, ONCE, 1 dose, On Jyoti 03/16/22 at 1000, Administer prior to chemotherapy, Routine zoledronic acid (Zometa) 4 mg in New Bag 03/16/2022 10:23 AM EDT 4 mg 420 mL/hr sodium chloride 0.9% 105 mL infusion 4 mg, Intravenous, ONCE, 1 dose, On Jyoti 03/16/22 at 1000, Administer over 15 Minutes, Do not administer or Y-site with calcium-containing solutions such as lactated ringers. Do not mix with IV Calcium-containing products. CrCl > 60 ml/min: Recommended dose is 4mg IV. CrCl 50-60 ml/min: Reduce dose to 3.5 mg IV. CrCl 40-49 ml/min: Reduce dose to 3.3 mg IV. CrCl 30-39 ml/min: Reduce dose to 3 mg IV. CrCl < 30 ml/min: Use not recommended due to lack of clinical data, Indication for: Multiple myeloma and bone metastases documented in this encounter Care Teams Car Dumper Operator Relationship Specialty Start Date End Date Analilia Lechuga APRN PCP - General Family Medicine 03/01/21 [address] [place] [address] documented as of this encounter
--- OUTSIDE RECORDS SUMMARY | 2022-04-13 14:51 | XMS_ITS | Encounter Summary ---
:1960 Author Organization [facility] [place] [address] Care Team Providers Name Role Phone Ankush Analilia MANSI Primary Care Provider Encounter Details Date Type Department Care Team Description 03/30/2022 Travel Social History Tobacco Use Types Packs/Day [...] place to sleep or slept in a custodial (including now)? Sex Assigned at Date Recorded Not on file documented as of this encounter Plan of Treatment Upcoming Encounters Date Type Specialty Care Team Description 04/20/2022 Office Visit Hematology and Oncology Cristo Walsh MD [facility] HEMATOLOGY/[place] [address] Yari Thompson APRN [facility] DR HEMATOLOGY/[place] [address] 04/20/2022 Infusion Hematology and Oncology 04/27/2022 Infusion Hematology and Oncology 05/04/2022 Infusion Hematology and Oncology documented as of this encounter Visit Diagnoses Not on filedocumented in this encounter Care Teams Nursery Attendant Relationship Specialty Start Date End Date Analilia Lechuga APRN PCP - General Family Medicine 03/01/21 [place] [address] documented as of this encounter
--- OUTSIDE RECORDS SUMMARY | 2022-04-13 14:51 | XMS_ITS | Encounter Summary ---
:1960 Author Organization [facility] [place] [address] Care Team Providers Name Role Phone CaitlynAnalilia brooke MANSI Primary Care Provider Reason for Visit Reason Comments Injections [id number] Velcade injection Treatment/Therapy Plan Authorization (Routine) - Authorized Specialty Diagnoses / Procedures Referred By Contact Refer red To Contact Hematology and Diagnoses Multiple myeloma, remission status unspecified Cristo Walsh MD [facility] Hem Onc Infusion Oncology Procedures TC DENOSUMAB, 1MG, INJECTION TC BORTEZOMIB, 0.1MG, INJECTION (VELCADE) [id number] VELCADE 3 MG [facility] [address] [place], [place] HEMATOLOGY/ONCOLOGY [id number] [place] [address] Referral ID Status Reason Start Date Expiration Date Visits V isits Requested Authorized [id number] Authorized 12/24/2021 05/20/2022 99 99 Encounter Details Date Type Department Care Team Description 03/30/2022 Infusion Hematology Oncology at [facility] myeloma, remission [facility] status unspecified [address], [place] [phone] Social History Tobacco Use [...] place to sleep or slept in a [facility] (including now)? Sex Assigned at Date Recorded Not on file documented as of this encounter Last Filed Vital Signs Vital Sign Reading Time Taken Comments Blood Pressure 136/64 03/30/2022 1:12 PM EST Pulse 73 03/30/2022 1:12 PM EST Temperature 36.4 ??C (97.5 ??F) 03/30/2022 1:12 PM EST Respiratory Rate 18 03/30/2022 1:12 PM EST Oxygen Saturation 99% 03/30/2022 1:12 PM EST Inhaled Oxygen Concentration - - Weight 76 kg (167 lb 9.6 oz) 03/30/2022 1:12 PM EST Height - - Body Mass Index 30.07 03/23/2022 10:20 AM EDT documented in this encounter Progress Notes Donya Mendoza RN - 03/30/2022 12:30 PM EST INFUSION THERAPY ADMINISTRATION NOTES DIAGNOSIS: MM CYCLE #3: Day 15 REASON FOR VISIT: Velcade injection SUBJECTIVE Christensirisha Sommer reports having some pain in the center of her chest but only when she coughs. Shereports having a constant cough this week with congestion. No coughing while in infusion. Reports a 6/10 aching back pain in her mid-lower back but reports this is not new and is manageable. Did report to this nurse pain in her right hip on Sunday that made her not be able to lift her leg but this has resolved at this point and is able to lift her leg now. Christen met with Yari Thompson during her infusion appointment and Yari felt she was stable and ready to treat. OBJECTIVE VSS, weight stable. LAB DATA: Done 03/23/22 [facility] for treatment. No new labs needed for today. Pre administration: Chemotherapy orders independently verified for drug name, route, and dosage per patient's height, weight and BSA by Donya Alex, OLIVERIO & on-site pharmacist. REACTIONS (DESCRIPTION, TIME, INTERVENTION AND EFFECTIVENESS) none ASSESSMENT Christen was awake, alert and tolerated treatment well. Velcade given SQ in RLQ. PLAN Return to clinic in one week. Yari Thompson, MEAT CARRIER - 03/30/2022 12:30 PM EST Christen comes in for her Velcade therapy today and reports a new cough/ She has been coughing for about 10 days - she reports it as constant - to the point where it is bothering her chest. NO associated shortness of breath. No fevers or chills. She otherwise feels about the same. She did stop smoking!!!! She has been smoking for over 50 years. BP 136/64 (Patient Position: Sitting) Pulse 73 Temp 36.4 ??C (97.5 ??F) (Temporal) Resp 18 Wt 76 kg (167 lb 9.6 oz) SpO2 99% BMI 30.07 kg/m?? Lungs are at baseline - she does have a few wheezes. COr - RRR. Does not appear toxic. NO cough during time in infusion room. She no longer has prescription for any inhalers. She used to have some- not sure why or when they stopped. She believes she just out and were never renewed. I will send in an RX for Albuterol to use Q4hour PRN for cough. She is aware that should she develop SOB, fever, chills or other infectious symptoms she should call. We will proceed with treatment today. Support for continued smoking cesation.She will follow up as previoulsy planned. documented in this encounter Plan of Treatment Upcoming Encounters Date Type Specialty Care Team Description 04/20/2022 Office Visit Hematology and Oncology Cristo Walsh MD [facility] DR HEMATOLOGY/[place] [address] Yari Thompson APRN [facility] HEMATOLOGY/[place] [address] 04/20/2022 Infusion Hematology and Oncology 04/27/2022 Infusion Hematology and Oncology 05/04/2022 Infusion Hematology and Oncology documented as of this encounter Procedures Procedure Name Priority Date/Time Associated Diagnosis Comme nts IMMUNOGLOBULIN FREE LIGHT Routine 03/23/2022 Re sults for this CHAINS, SERUM procedure are in the results section. IMMUNOGLOBULINS, Routine 03/23/2022 Results for this QUANTITATIVE procedure are i n the results section. CBC (WITH DIFF) Routine 03/23/2022 Results for this procedure are i n the results section. PROTEIN ELECTROPHORESIS, Routine 03/23/2022 Res ults for this SERUM procedure are i n the results section. COMPREHENSIVE METABOLIC Routine 03/23/2022 Resu lts for this PANEL (NON-FASTING) procedur e are in the results section. documented in this encounter Results (ABNORMAL) Protein Electrophoresis, serum (03/23/2022) P athologist Signature Total Prot 8.4 (H) Elec Albumin Elect 4.1 Alpha1-Globuli 0.20 n Alpha2-Globuli 0.70 n Beta Globulin 0.70 Gamma Globulin 2.70 M1 Band 2.4 (H) Specimen (Source) Anatomical Location Collection Method / Collectio n Time Received Time / Laterality Volume Blood 03/23/2022 Historical Provider CHEMISTRY ORDERABLES (ABNORMAL) Comprehensive metabolic panel (non-fasting) (03/23/2022) P athologist Signature BUN 16 Creatinine 0.7 Sodium 135 Potassium 4.0 Calcium 8.8 Total Protein 9.2 (H) Albumin 3.3 Total Bilirubin 0.3 Alk Phos 55 AST 11 ALT 14 Specimen (Source) Anatomical Location Collection Method / Collectio n Time Received Time / Laterality Volume Blood 03/23/2022 Historical Provider CHEMISTRY ORDERABLES (ABNORMAL) Free Light Chains, Serum (03/23/2022) Analysis Performed At Patho logist Time Signature [place] Free 48.21 (H) Light Chain Lambda Free 1.04 Light Chains [place]/Lambda 46.36 (H) FLC Ratio Specimen (Source) Anatomical Location Collection Method / Collectio n Time Received Time / Laterality Volume Blood 03/23/2022 Historical Provider CHEMISTRY ORDERABLES (ABNORMAL) Immunoglobulins, Quantitative (03/23/2022) athologist Signature IgG 3,285 (H) IgA 21 (L) IgM 88 Specimen (Source) Anatomical Location Collection Method / Collectio n Time Received Time / Laterality Volume Blood 03/23/2022 Historical Provider CHEMISTRY ORDERABLES CBC (with Diff) (03/23/2022) athologist Signature WBC 4.67 RBC 3.09 Hemoglobin 9.9 Hematocrit 30.5 Platelets 145 Neutr Abs (ANC) 2.77 Specimen (Source) Anatomical Location Collection Method / Collectio n Time Received Time / Laterality Volume Blood 03/23/2022 Historical Provider HEMATOLOGY ORDERABLES documented in this encounter Visit Diagnoses Diagnosis Multiple myeloma, remission status unspe cified documented in this encounter Administered Medications Inactive Administered Medications - up to 3 most recent administrations Medication Order MAR Action Action Date Dose Rate Site bortezomib (Velcade) (2.5 Given 03/30/2022 1:41 PM 3 mg Right Lower Quadrant mg/mL) subcutaneous EST injection 3 mg 3 mg (rounded from 2.96 mg = 1.6 mg/m2/dose ? 1.85 m2 Treatment Plan BSA from Recorded weight), Subcutaneous, ONCE, 1 dose, On Jyoti 03/30/22 at 1415, Inject subcutaneous in the thigh or abdomen., Routine dexAMETHasone (Decadron) tablet 20 mg Given 03/30/2022 1:39 PM EST 20 mg 20 mg, Oral, ONCE, 1 dose, On Jyoti 03/30/22 at 1330, Routine ondansetron (Zofran) tablet 4 mg Given 03/30/2022 1:38 PM EST 4 mg 4 mg, Oral, ONCE, 1 dose, On Jyoti 03/30/22 at 1330, Administer prior to chemotherapy, Routine documented in this encounter Care Teams Critical Care Nurse Practitioner Relationship Specialty Start Date End Date Analilia Lechuga APRN PCP - General Family Medicine 03/01/21 [address] [place] [address] documented as of this encounter
--- OUTSIDE RECORDS SUMMARY | 2022-04-13 14:51 | XMS_ITS | Encounter Summary ---
:1960 Author Organization [facility] [place] [address] Care Team Providers Name Role Phone Ankush Analilia MANSI Primary Care Provider Encounter Details Date Type Department Care Team Description 03/30/2022 Office Visit Hematology/Oncology Alyse Mcgill RD Multiple myeloma, at [facility] remission status [address] unspecified [place], [place] HEMATOLOGY AND [address] ONCOLOGY [phone] [place] [id number] Social History Tobacco Use Types Packs/Day Years [...] place to sleep or slept in a nursing home (including now)? Sex Assigned at Date Recorded Not on file documented as of this encounter Progress Notes Page, Alyse Perez, RD - 03/30/2022 1:00 PM EST Nutrition Note Spoke with Christen in infusion today. She is on cycle 3, day 15 of treatment for multiple myeloma.She had Velcade injection today. Patient complained of bothersome cough this week. She recently quitsmoking. Christen reports she is still having difficulty with chewing due to poor dentition. She has five teeth remaining as well as one that she believes is going to fall out soon. She wonders if it is ok to get fitted for dentures while she is on treatment. We discussed this with Yari Thompson APRN who agreed that it was ok to schedule an appointment to get fitted for dentures. Patient reports her BMs still tend to vary between constipation and diarrhea. We did not have a chance to discuss this in greater detail today. Wt Readings from Last 10 Encounters: 03/30/22 76 kg (167 lb 9.6 oz) 03/23/22 75.6 kg (166 lb 9.6 oz) 03/16/22 76 kg (167 lb 9.6 oz) 02/23/22 70.8 kg (156 lb) 02/09/22 74.6 kg (164 lb 6.4 oz) 02/02/22 75.6 kg (166 lb 9.6 oz) 01/26/22 75.3 kg (166 lb) 01/19/22 76.2 kg (168 lb) 01/12/22 76.6 kg (168 lb 12.8 oz) 01/05/22 76.2 kg (168 lb) BMI 30.1 Weight has been fairly stable for the past three months (164-168#) Diet: Unable to get a recent diet history due to interruption today. Per our conversation on 02/08, patient typically eats 2 meals/day plus an occasional snack. She has difficulty chewing meet in particular. Medications: senokot (not taking), miralax daily, gabapentin, prilosec daily, zofran prn, ativan prn, acyclovir, tylenol prn, compazine prn, revlimid ?? Treatment: Patient is on revlimid, velcade and dexamethasone for multiple myeloma ?? Labs on 03/23: Ca 8.8, BG 103, BUN 16, Creat 0.7, Alb 3.3L, TBili 0.3, AlkPhos 55, Na 135L, K 4.0, AST 11L, ALT 14 Nutrition Problem: Difficulty chewing related due to poor dentition as evidenced by reports of having trouble with certain textures due to missing teeth. Ongoing/unresolved Estimated needs based on 76 [id number] kcals (25-30 kcal/kg) 76-99 g protein (1-1.3 g/kg) 1 ml/kcal fluids Intervention/Recommendations: * Encouraged patient to continue with adequate PO intake to maintain her weight. * Continue with daily bowel meds per provider to control constipation/diarrhea. * Provided list of soft, moist protein foods. Will f/u as needed. documented in this encounter Plan of Treatment Upcoming Encounters Date Type Specialty Care Team Description 04/20/2022 Office Visit Hematology and Oncology Cristo Walsh MD [facility] DR HEMATOLOGY/[place] [address] Yari Thompson APRN [facility] [address] HEMATOLOGY/[place] [address] 04/20/2022 Infusion Hematology and Oncology 04/27/2022 Infusion Hematology and Oncology 05/04/2022 Infusion Hematology and Oncology documented as of this encounter Visit Diagnoses Diagnosis Multiple myeloma, remission status unspe cified documented in this encounter Care Teams Search Marketing Coordinator Relationship Specialty Start Date End Date Analilia Lechuga APRN PCP - General Family Medicine 03/01/21 [facility] [place] [address] documented as of this encounter
--- OUTSIDE RECORDS SUMMARY | 2022-04-13 14:51 | XMS_ITS | Clinical Summary ---
:1960 Author Organization [place] [address] Care Team Providers Name Role Phone CaitlynAnalilia brooke MANSI Primary Care Provider Allergies Active Allergy Reactions Severity Noted Date Comments Grass Pollen-Orchardgrass, Standard 12/27 House Dust Mite 12/27/2021 Medications Medication Sig Dispensed Refills Start Date End Date Status lenalidomide (Revlimid) Take 1 capsule 21 capsule 12 12/24/2021 Active 25 mg (25 mg) by mouth capsuleIndications: daily. Call multiple myeloma clinic before starting medication. Indications: multiple myeloma acyclovir (Zovirax) 400 Take 1 tablet by 180 tablet 3 12/28/19 22 Active mg TabletIndications: mouth 2 times Multiple myeloma, daily. remission status unspecified aspirin EC 81 mg Take 1 tablet by 30 tablet 3 12/27/2021 Active Tablet, Delayed Release mouth daily. (E.C.)Indications: Multiple myeloma, remission status unspecified prochlorperazine Take 1 tablet by 90 tablet 3 12/27/2021 Active (Compazine) 10 mg mouth every 6 TabletIndications: hours as needed Multiple myeloma, for Nausea. remission status unspecified acetaminophen (Tylenol) Take 1,000 mg by 0 Active 500 mg Tablet mouth every 6 hours as needed for Pain. Miscellaneous Medical Take 1 Dose by 0 Active Supply Misc mouth as needed. Marijuana chews LORazepam (Ativan) 0.5 Take 1 tablet 2 2 tablet 0 01/06/2022 Active mg Tablet hours before pet scan. May repeat after 1 hour. Additional Information Patient taking differently: Take 1 tablet 2 hours before pet scan. May repeat after 1 hour., Reported on 03/30/2022 ondansetron (Zofran) 4 Take 1 tablet by 20 tablet 0 01/14/2022 Active mg Tablet mouth every 8 hours as needed for Nausea. omeprazole (PriLOSEC) Take 1 capsule by 30 capsule 11 2 01/26/2023 Active 20 mg Capsule, Delayed mouth daily. Release(E.C.) polyethylene glycoL Take 17 g by mouth 0 Active (Miralax) 17 gram daily. Powder in Packet senna (Senokot) 8.6 mg Take 1 tablet by 0 Active Tablet mouth daily. gabapentin (Neurontin) Take 300 mg po am 120 capsule 11 022 Active 300 mg Capsule and afternoon. Take 600 mg po at bedtime nicotine (Nicoderm CQ) Change 1 patch on 0 Active 21 mg/24 hr Patch 24 hr the skin every 24 hours. albuteroL 90 Inhale 2 puffs 1 each 1 03/30/2022 A ctive mcg/actuation HFA into the lungs Aerosol Inhaler every 4 hours as needed for Wheezing. Use with spacer Active Problems Problem Noted Date Myeloma 12/24/2021 Overview: Dx December of 2021. Presented with compre ssion fx and anemia. FISH- trisomy 7, 9 and 15 (good prognos is) Started Velcade Dex 12/2021, Revlimid add ed cycle 2. Encounters Date Type Specialty Care Team Description 04/13/2022 Telephone Hematology and Maribeth Fermin MD Oncology 04/03/2022 Notes Only Primary Care Shima Singh MSW 03/30/2022 Office Visit Hematology and Alyse Mcgill RD Multiple myeloma, Oncology remission statu s unspecified 03/30/2022 Infusion Hematology and Multiple myel beckie, Oncology remission statu s unspecified 03/30/2022 Telephone Hematology and Argenis Flynn eight arm operator 03/30/2022 Travel 03/23/2022 Infusion Hematology and Multiple myel beckie, Oncology remission statu s unspecified 03/23/2022 Travel 03/16/2022 Infusion Hematology and Multiple myel beckie, Oncology remission statu s unspecified 03/16/2022 Office Visit Hematology and Yari Thompson Multiple m yeloma, Oncology DEALER RELATIONSHIP MANAGER remission statu s unspecified 03/16/2022 Notes Only Primary Care Shima Singh L, PELT SHEARER 03/16/2022 Telephone Hematology and Maribeth Jameson, Medicati on Refill eight arm operator (Revlimid refil l deferred to ) 03/16/2022 Travel 03/10/2022 Telephone Hematology and Alyse Mcgill RD Oncology 03/03/2022 Telephone Hematology and Maribeth Jameson, Labs Onl y (Lab data eight arm operator entry) 03/01/2022 Telephone Hematology and [place], Follow-up Oncology Doug Garsia RN 02/27/2022 Telephone Hematology and Araseli Dasilva RN Other Oncology 02/23/2022 Office Visit Hematology and Cristo Walsh M D Multiple myeloma, Oncology Yari Thompson, remission st atus DEALER RELATIONSHIP MANAGER unspecified 02/21/2022 Telephone Hematology and Emmie Zamarripa, Other ( Generalized eight arm operator illness) 02/09/2022 Infusion Hematology and Multiple myel beckie, Oncology remission statu s unspecified 02/09/2022 Office Visit Hematology and Cristo Walsh M D Multiple myeloma, remission status unspe cified; Oncology Yari Thompson, Herpes zoste r with complication DEALER RELATIONSHIP MANAGER 02/09/2022 Notes Only Hematology and Shima Singh, Oncology PELT SHEARER 02/09/2022 Notes Only Primary Care Shima Singh, PELT SHEARER 02/08/2022 Telephone Hematology and Alyse Mcgill RD Oncology 02/02/2022 Infusion Hematology and Multiple myel beckie, Oncology remission statu s unspecified 02/02/2022 Office Visit Hematology and Cristo Walsh M D Multiple myeloma, remission status unspe cified; Oncology Yari Thompson, Herpes zoste r with complication DEALER RELATIONSHIP MANAGER 02/02/2022 Notes Only Hematology and Shima Singh, Oncology PELT SHEARER 02/02/2022 Notes Only Primary Care Shima Singh, PELT SHEARER 02/01/2022 Telephone Hematology and [place], Follow-up Oncology Doug Garsia RN 01/31/2022 Telephone Hematology and Emmie Zamarripa Other ( Right rib pain) eight arm operator 01/28/2022 Telephone Hematology and Pia Oncology MD Iván 01/28/2022 Telephone Hematology and Pia Oncology MD Iván 01/26/2022 Infusion Hematology and Multiple myel beckie, Oncology remission statu s unspecified 01/26/2022 Office Visit Hematology and Cristo Walsh M D Multiple myeloma, Oncology Yari Thompson, remission st atus DEALER RELATIONSHIP MANAGER unspecified 01/26/2022 Telephone Hematology and Araseli Woodward Oncology MD Binta 01/26/2022 Notes Only Primary Care Sihma Singh, PELT SHEARER 01/26/2022 Notes Only Hematology and Shima Singh, Oncology PELT SHEARER 01/25/2022 Telephone Hematology and Shima Singh, Other (Ins urance Oncology PELT SHEARER issues) 01/19/2022 Office Visit Hematology and Cristo Walsh M D Multiple myeloma, Oncology Yari Thompson, remission st atus DEALER RELATIONSHIP MANAGER unspecified 01/18/2022 Telephone Hematology and Eleanor Cherry Oncology Doug Garsia RN 01/16/2022 Telephone [facility] 01/14/2022 Telephone Hematology and Oneil Palacio MD 01/13/2022 Orders Only Hematology and Maribeth Fermin MD Oncology 01/12/2022 Infusion Hematology and Multiple myel beckie, Oncology remission statu s unspecified 01/12/2022 Notes Only Hematology and Shima Singh, Oncology PELT SHEARER from Last 3 Months Social History Tobacco Use Types Packs/Day Years Used Date Smoking Tobacco: Every Day Cigarettes 1 Smokeless Tobacco: Never Tobacco Cessation: Ready to Quit: No; Co unseling Given: Yes Alcohol Use Standard Drinks/Week Comments Yes 4 [...] place to sleep or slept in a snf (including now)? Sex Assigned at Date Recorded Not on file Last Filed Vital Signs Vital Sign Reading Time Taken Comments Blood Pressure 136/64 03/30/2022 1:12 PM EST Pulse 73 03/30/2022 1:12 PM EST Temperature 36.4 ??C (97.5 ??F) 03/30/2022 1:12 PM EST Respiratory Rate 18 03/30/2022 1:12 PM EST Oxygen Saturation 99% 03/30/2022 1:12 PM EST Inhaled Oxygen Concentration - - Weight 76 kg (167 lb 9.6 oz) 03/30/2022 1:12 PM EST Height 159 cm (5' 2.6) 03/23/2022 10:20 AM EDT Body Mass Index 30.07 03/23/2022 10:20 AM EDT Plan of Treatment Upcoming Encounters Date Type Specialty Care Team Description 04/20/2022 Office Visit Hematology and Oncology Cristo Walsh MD [facility] [address] HEMATOLOGY/[place] [address] Yari Thompson APRN [facility] [address] HEMATOLOGY/[place] [address] 04/20/2022 Infusion Hematology and Oncology 04/27/2022 Infusion Hematology and Oncology 05/04/2022 Infusion Hematology and Oncology Health Maintenance Due Date Last Done Comments Covid-19 Vaccine (#1) 1960 Pneumococcal Vaccine: At-Risk 5-64yrs (1 - PCV) 01/03/1966 HIV screen 01/03/1978 Hepatitis C Screening 01/03/1978 Lipid Screening 01/03/1978 Tdap adult 01/03/1979 Tetanus vaccine 01/03/1979 Zoster vaccine (1 of 2) 01/03/1979 HPV test 01/03/1990 PAP Smear 01/03/1990 Breast Cancer Share Decision Needed 2000 Colonoscopy 01/03/2005 Breast Cancer screening 01/03/2010 Advance Directive 01/03/2015 Influenza (Flu) vaccine (1 of 1 - Influenza standard 01/19/2022 series) Diabetes Screening (HgbA1C or Glucose) 12/16/2024 2 Procedures Procedure Name Priority Date/Time Associated Comments Diagnosis LAB SCAN 03/24/2022 12:00 Results for this AM EDT procedure are i n the results section. LAB SCAN 03/24/2022 12:00 Results for this AM EDT procedure are i n the results section. PROTEIN Routine 03/23/2022 Results for thi s ELECTROPHORESIS, SERUM proce dure are in the results section. COMPREHENSIVE METABOLIC Routine 03/23/2022 Resu lts for this PANEL (NON-FASTING) procedur e are in the results section. IMMUNOGLOBULIN FREE Routine 03/23/2022 Results for this LIGHT CHAINS, SERUM procedur e are in the results section. IMMUNOGLOBULINS, Routine 03/23/2022 Results for this QUANTITATIVE procedure are i n the results section. CBC (WITH DIFF) Routine 03/23/2022 Results for this procedure are i n the results section. IMMUNOGLOBULIN FREE Routine 03/16/2022 Results for this LIGHT CHAINS, SERUM procedur e are in the results section. IMMUNOGLOBULINS, Routine 03/16/2022 Results for this QUANTITATIVE procedure are i n the results section. PROTEIN Routine 03/16/2022 Results for thi s ELECTROPHORESIS, SERUM proce dure are in the results section. LAB SCAN 03/16/2022 12:00 Results for this AM EDT procedure are i n the results section. LAB SCAN 03/16/2022 12:00 Results for this AM EDT procedure are i n the results section. COMPREHENSIVE METABOLIC Routine 03/16/2022 Resu lts for this PANEL (NON-FASTING) procedur e are in the results section. CBC (WITH DIFF) Routine 03/16/2022 Results for this procedure are i n the results section. LAB SCAN 02/23/2022 12:00 Results for this AM EDT procedure are i n the results section. LAB SCAN 02/23/2022 12:00 Results for this AM EDT procedure are i n the results section. PROTEIN Routine 02/22/2022 Results for thi s ELECTROPHORESIS, SERUM proce dure are in the results section. COMPREHENSIVE METABOLIC Routine 02/22/2022 Resu lts for this PANEL (NON-FASTING) procedur e are in the results section. IMMUNOGLOBULIN FREE Routine 02/22/2022 Results for this LIGHT CHAINS, SERUM procedur e are in the results section. IMMUNOGLOBULINS, Routine 02/22/2022 Results for this QUANTITATIVE procedure are i n the results section. CBC (WITH DIFF) Routine 02/22/2022 Results for this procedure are i n the results section. COMPREHENSIVE METABOLIC Routine 02/22/2022 Resu lts for this PANEL (NON-FASTING) procedur e are in the results section. CBC (WITH DIFF) Routine 02/22/2022 Results for this procedure are i n the results section. LAB SCAN 02/07/2022 12:00 Results for this AM EDT procedure are i n the results section. IMMUNOGLOBULIN FREE Routine 02/06/2022 Results for this LIGHT CHAINS, SERUM procedur e are in the results section. IMMUNOGLOBULINS, Routine 02/06/2022 Results for this QUANTITATIVE procedure are i n the results section. LACTATE DEHYDROGENASE Routine 02/06/2022 Result s for this procedure are i n the results section. PROTEIN Routine 02/06/2022 Results for thi s ELECTROPHORESIS, SERUM proce dure are in the results section. COMPREHENSIVE METABOLIC Routine 01/24/2022 Resu lts for this PANEL (NON-FASTING) procedur e are in the results section. CBC (WITH DIFF) Routine 01/24/2022 Results for this procedure are i n the results section. LAB SCAN 01/24/2022 12:00 Results for this AM EDT procedure are i n the results section. LAB SCAN 01/19/2022 12:00 Results for this AM EDT procedure are i n the results section. CBC (WITH DIFF) Routine 01/19/2022 Results for this procedure are i n the results section. COMPREHENSIVE METABOLIC Routine 01/19/2022 Resu lts for this PANEL (NON-FASTING) procedur e are in the results section. LAB SCAN 01/12/2022 12:00 Results for this AM EDT procedure are i n the results section. from Last 3 Months Results SCAN DOC: LAB (03/24/2022 12:00 AM EDT)Only the most recent of10 resultswithin the time period is included. Narrative 03/24/2022 12:00 AM EDT This result has an attachment that is no t available. Ordered by an unspecified provider. Scanning Provider MEDIA MGR SCAN EXT ORDR/RSLT (ABNORMAL) Free Light Chains, Serum (03/23/2022)Only the most recent of4 results within the time period is included. Analysis Performed At Patho logist Time Signature [place] Free 48.21 (H) Light Chain Lambda Free 1.04 Light Chains [place]/Lambda 46.36 (H) FLC Ratio Specimen (Source) Anatomical Location Collection Method / Collectio n Time Received Time / Laterality Volume Blood 03/23/2022 Historical Provider CHEMISTRY ORDERABLES (ABNORMAL) Immunoglobulins, Quantitative (03/23/2022)Only the most recent of4 resultswithin the time period is included. athologist Signature IgG 3,285 (H) IgA 21 (L) IgM 88 Specimen (Source) Anatomical Location Collection Method / Collectio n Time Received Time / Laterality Volume Blood 03/23/2022 Historical Provider CHEMISTRY ORDERABLES CBC (with Diff) (03/23/2022)Only the most recent of6 resultswithin the time period is included. athologist Signature WBC 4.67 RBC 3.09 Hemoglobin 9.9 Hematocrit 30.5 Platelets 145 Neutr Abs (ANC) 2.77 Specimen (Source) Anatomical Location Collection Method / Collectio n Time Received Time / Laterality Volume Blood 03/23/2022 Historical Provider HEMATOLOGY ORDERABLES (ABNORMAL) Protein Electrophoresis, serum (03/23/2022)Only the most recent of4 resultswithin the time period is included. athologist Signature Total Prot 8.4 (H) Elec Albumin Elect 4.1 Alpha1-Globuli 0.20 n Alpha2-Globuli 0.70 n Beta Globulin 0.70 Gamma Globulin 2.70 M1 Band 2.4 (H) Specimen (Source) Anatomical Location Collection Method / Collectio n Time Received Time / Laterality Volume Blood 03/23/2022 Historical Provider CHEMISTRY ORDERABLES (ABNORMAL) Comprehensive metabolic panel (non-fasting) (03/23/2022)Only the most recent of6 resultswithin the time period is included. athologist Signature BUN 16 Creatinine 0.7 Sodium 135 Potassium 4.0 Calcium 8.8 Total Protein 9.2 (H) Albumin 3.3 Total Bilirubin 0.3 Alk Phos 55 AST 11 ALT 14 Specimen (Source) Anatomical Location Collection Method / Collectio n Time Received Time / Laterality Volume Blood 03/23/2022 Historical Provider MD CHEMISTRY ORDERABLES Lactate Dehydrogenase (02/06/2022) athologist Signature LDH 136 Specimen (Source) Anatomical Location Collection Method / Collectio n Time Received Time / Laterality Volume Blood 02/06/2022 Historical Provider MD CHEMISTRY ORDERABLES from Last 3 Months Insurance Payer Benefit Plan / Subscriber ID Effective Phone Address T ype Group Dates WORK COMP WC WORK COMP [id number] 2021-Pres [id number] [place] [address] [employer] [place] [id number] 2022-Prese [address] [place] [address] [place] [address] COMMERCIAL COMMERCIAL INS [id number] 2021-Prese [address] GENERIC GENERIC [place] [id number] Care Teams Licensed Embalmer Relationship Specialty Start Date End Date Analilia Lechuga APRN PCP - General Family Medicine 03/01/21 [address] [facility] [address]
--- OUTSIDE RECORDS SUMMARY | 2022-04-13 14:51 | XMS_ITS | Encounter Summary ---
:1960 Author Organization [facility] [place] [address] Care Team Providers Name Role Phone CaitlynAnalilia brooke MANSI Primary Care Provider Encounter Details Date Type Department Care Team Description 04/03/2022 Notes Only Tobacco Treatment at Salinas Webber MSW [facility] OFFICE OF CARE [address] [place] [address] [phone] Social History Tobacco Use Types Packs/Day Years [...] place to sleep or slept in a [place] (including now)? Sex Assigned at Date Recorded Not on file documented as of this encounter Progress Notes Shima Singh MSW - 04/03/2022 9:50 AM EST Tobacco treatment follow up TC Christen. She reports she is on day 12 of not smoking. It has been challenging but she has not smoked. Christen reports her family is very supportive re her quit. She is surprised she has done this well. Christen shared if she gets emotional she wants to smoke. Certain places trigger her desire to smoke. She is sleeping more to not have to deal with cravings. Suggested the 4 D's and getting outside for walks. Suggested reaching out to one of her children to chat if she is having a craving. Praised her efforts. She has 2 more 21 mg NRT patches. TTS is leaving Christen another box of 21 mg patches/14 count andsome 4 mg lozenges to add as she is having cravings. Christen will pick them up today so she does not have a break in having patches. Will message her providers to see if they want to write a prescription for additional patches going forward or if her PCP should take over this. documented in this encounter Plan of Treatment Upcoming Encounters Date Type Specialty Care Team Description 04/20/2022 Office Visit Hematology and Oncology Cristo Walsh MD [facility] DR HEMATOLOGY/[place] [address] Yari Thompson APRN [facility] DR HEMATOLOGY/[place] [address] 04/20/2022 Infusion Hematology and Oncology 04/27/2022 Infusion Hematology and Oncology 05/04/2022 Infusion Hematology and Oncology documented as of this encounter Visit Diagnoses Not on filedocumented in this encounter Care Teams Automatic Drilling Machine Operator Relationship Specialty Start Date End Date Analilia Lechuga APRN PCP - General Family Medicine 03/01/21 [place] [address] documented as of this encounter
--- OUTSIDE RECORDS SUMMARY | 2022-04-13 14:51 | XMS_ITS ---
:1960 Author Organization [facility] [place] [address] Care Team Providers Name Role Phone Ankush Analilia MANSI Primary Care Provider Active Problems Problem Noted Date Myeloma 12/24/2021 Overview: Dx December of 2021. Presented with compre ssion fx and anemia. FISH- trisomy 7, 9 and 15 (good prognos is) Started Velcade Dex 12/2021, Revlimid add ed cycle 2. Current Oncology Plans BCN AMB HEM MULTIPLE MYELOMA - BORTEZOMIB (SUBCUT) ONCE WEEKLYPlan Start Date:12/29/2021 Plan Provider:Diogo Barnard MD Linked Problems Multiple myeloma, remission status unspe cified Treatment Medications Current Day (Day 1, Cycle 4 - Next Day (Day 8, Cycle 4 - Planned for 04/13/2022) Planned for 04/20) bortezomib (Velcade) (2.5 bortezomib (Velcade) (2.5 bortezom ib (Velcade) (2.5 mg/mL) mg/mL) subcutaneous injection mg/mL) sub cutaneous 3 mg injection 3 mg DH ZOLEDRONIC ACID (ZOMETA) INFUSIONPlan Start Date:03/16/2022 Plan Provider:Yari Thompson APRN Linked Problems Multiple myeloma, remission status unspe cified Treatment Medications No medications scheduled. Past Plans No past plan information found. Radiation Treatments No radiation treatments are documented for this patient in [facility]. Treatments may have been administered in another system.
--- OUTSIDE RECORDS SUMMARY | 2022-04-13 14:51 | XMS_ITS | Encounter Summary ---
:1960 Author Organization [facility] [place] [address] Care Team Providers Name Role Phone Ankush Analilia MANSI Primary Care Provider Encounter Details Date Type Department Care Team Description 04/13/2022 Telephone Hematology and Oncology at Maribeth Fermin MD [facility] Estefania hadley HEMATOLOGY/[place] [address] [place] [address] [phone] (Wo rk) Social History Tobacco Use Types Packs/Day Years [...] Visit Hematology and Oncology Cristo Walsh MD [facility] [address] HEMATOLOGY/[place] [address] Yari Thompson APRN [facility] HEMATOLOGY/[place] [address] 04/20/2022 Infusion Hematology and Oncology 04/27/2022 Infusion Hematology and Oncology 05/04/2022 Infusion Hematology and Oncology documented as of this encounter Visit Diagnoses Not on filedocumented in this encounter Care Teams Credit Union Field Examiner Relationship Specialty Start Date End Date Analilia Lechuga APRN PCP - General Family Medicine 03/01/21 [address] [place] [address] documented as of this encounter
--- OUTSIDE RECORDS SUMMARY | 2022-04-13 14:52 | XMS_ITS | Encounter Summary ---
:1960 Author Organization [facility] [place] [address] Care Team Providers Name Role Phone CaitlynAnalilia brooke DRILL SHARPENER Primary Care Provider Encounter Details Date Type Department Care Team Description 02/02/2022 Notes Only Tobacco Treatment at Salinas Webber MSW [facility] OFFICE OF CARE [address] [place] [address] [phone] Social History Tobacco Use Types Packs/Day Years [...] place to sleep or slept in a group home (including now)? Sex Assigned at Date Recorded Not on file documented as of this encounter Progress Notes Shima Singh MSW - 02/02/2022 12:51 PM EDT Tobacco Treatment follow up visit. Met with pt today during her infusion visit to continue discussion re starting a quit. Pt reports she has just been diagnosed with shingles and she want to hold off starting the NRT patch until the shingles are better managed. TTS agreed to follow up with pt her next visit to she if she is ready to try the patch. Pt agreeableto this plan. documented in this encounter Plan of Treatment Upcoming Encounters Date Type Specialty Care Team Description 04/20/2022 Office Visit Hematology and Oncology Cristo Walsh MD [facility] DR HEMATOLOGY/[place] [address] Yari Thompson APRN [facility] DR HEMATOLOGY/[place] [address] 04/20/2022 Infusion Hematology and Oncology 04/27/2022 Infusion Hematology and Oncology 05/04/2022 Infusion Hematology and Oncology documented as of this encounter Visit Diagnoses Not on filedocumented in this encounter Care Teams Smutter Relationship Specialty Start Date End Date Analilia Lechuga APRN PCP - General Family Medicine 03/01/21 [address] [place] [address] documented as of this encounter
--- OUTSIDE RECORDS SUMMARY | 2022-04-13 14:52 | XMS_ITS | Encounter Summary ---
:1960 Author Organization [facility] [place] [address] Care Team Providers Name Role Phone Analilia Lechuga APRN Primary Care Provider Reason for Visit Reason Onset Date Comments Follow-up 01/02/2022 Encounter Details Date Type Department Care Team Description 01/02/2022 Telephone Hematology/Oncology at Araseli Ham RN Follow-up [address] [phone] Social History Tobacco Use [...] place to sleep or slept in a retirement (including now)? Sex Assigned at Date Recorded Not on file documented as of this encounter Miscellaneous Notes Telephone Encounter - Araseli Dasilva RN - 01/02/2022 8:31 AM EDT Post chemo call Placed call to patient to assess tolerance of first time chemotherapy treatment. Regimen received: velcade Date of treatment: 12/29/21 Assessment: Symptom?? Present (yes[y]/no[n]/ stable[s] from baseline)?? Additional information/Assessment?? GI? Nausea?n ?? Vomiting?? n ?? Nausea medication?? n ?? Tolerating diet?? Appetite less ?? Maintaining fluid intake (indicate volume)?? Getting about 48 oz water a day will try and increase it ?? Bowel movements regular?? Constipation going small amounts daily ??will use smooth move tea, will try miralax if that does not work Diarrhea?n ?? Mouth sores?n ?? General? Pain (0 none - 10 high)?? n ?? Using pain medications?? n Fever?? n ?? Neuro? Level of fatigue (0 - 5)?2 ?? Falls?? n ? Numbness/tingling in arms/legs?? Tingling in left leg has gone away ?? Cognitive changes?n ?? Skin? Skin changes?? Injection site redness going down Facial flushing ?? Pinpoint red dots?? n ?? Other s/s of bleeding?n ?? IV site/VAD problems?n Musculoskeletal? Joint swelling or tenderness?? n ?? Arthralgias or myalgias?? n ? Voiding problems?? n ?? Color and quality of urine?? Clear yellow ?? Cardio-pulmonary? Shortness of breath?? n ?? Chest pain?? n ?? Swelling in legs?? n ?? Calf pain or tenderness?n ?? Cough (productive/non-productive)?? n (has smokers cough) ?? Psychosocial? Coping?y I? Need prescription renewals? Other issues :?? Anxiety. Support provided ?? Education provided: ?? Plan:? 1. No questions, she knows to get labs at 10 am thurs, 01/12/22 2. Reinforced to patient/care-pearl diver to call facility 11/12 with any new/worsening signs and symptoms or concerns or questions.?? Phone number provided.?? Pt verbalized understanding and is in agreement with plan. ? documented in this encounter Plan of Treatment Upcoming Encounters Date Type Specialty Care Team Description 04/20/2022 Office Visit Hematology and Oncology Cristo [place] MD [facility] DR HEMATOLOGY/[place] [address] Yari Thompson APRN [facility] DR HEMATOLOGY/[place] [address] 04/20/2022 Infusion Hematology and Oncology 04/27/2022 Infusion Hematology and Oncology 05/04/2022 Infusion Hematology and Oncology documented as of this encounter Visit Diagnoses Not on filedocumented in this encounter Care Teams Lightout Examiner Relationship Specialty Start Date End Date Analilia Lechuga APRN PCP - General Family Medicine 03/01/21 [address] [place] [address] documented as of this encounter
--- OUTSIDE RECORDS SUMMARY | 2022-04-13 14:52 | XMS_ITS | Encounter Summary ---
:1960 Author Organization [facility] [place] [address] Care Team Providers Name Role Phone Analilia Lechuga APRN Primary Care Provider Reason for Referral Physical Therapy (Routine) - Authorized Specialty Diagnoses / Procedures Referred By Contact Refer red To Contact Diagnoses Multiple myeloma, remission status unspecified Yari Thompson APRN [facility] D R HEMATOLOGY/[place] [address] Referral ID Status Reason Start Expiration Visits Visits Date Date Requested Authorized [id number] Authorized Evaluate and 09/12/2022 12 12 Treat 2 Non DH PCP Encounter Details Date Type Department Care Team Description 03/16/2022 Office Visit Hematology/Oncology Yari Thompson, Multi ple myeloma, at [facility] MANSI remission status [address] [place] [address] [place] [address] HEMATOLOGY/ONCOLOG [phone] Y DEPT. [place], [place] [address] Social History Tobacco Use Types Packs/Day Years [...] Sign Reading Time Taken Comments Blood Pressure 149/70 03/16/2022 8:11 AM EDT Pulse 61 03/16/2022 8:11 AM EDT Temperature 36.4 ??C (97.5 ??F) 03/16/2022 8:11 AM EDT Respiratory Rate 18 03/16/2022 8:11 AM EDT Oxygen Saturation 100% 03/16/2022 8:11 AM EDT Inhaled Oxygen Concentration - - Weight 76 kg (167 lb 9.6 oz) 03/16/2022 8:11 AM EDT Height - - Body Mass Index 30.07 02/23/2022 11:08 AM EDT documented in this encounter Progress Notes Yari Thompson, CLINICAL COUNSELOR - 03/16/2022 8:00 AM EDT Subjective Patient ID: Christen Sommer is a 62 y.o. female here for f/u of MM Patient Active Problem List Diagnosis ??? Myeloma Dx December of 2021. Presented with compression fx and anemia. FISH- trisomy 7, 9 and 15 (good prognosis) Started Velcade Dex 12/2021, Revlimid added cycle 2. HPI Crhisten is feeling better from her Covid infection. She has been off therapy for the past few weeks - she has had more pain - right pelvic bone, left inner thigh which both came and went - did not last long and resolved on its own. Her shingles pain has resolved. She is tired. She has been sleeping in a chair - still difficulty with getting up out of a bed. She is thinking about disability and is wondering how to go about that. Since being off therapy she has had less issues with her bowels. No nausea - eating and drinking OK.She is still smoking, but feels like she is ready to seriously consider quitting. Review of Systems Constitutional: Positive for fatigue. HENT: Negative. Eyes: Negative. Respiratory: Negative. Negative for cough and shortness of breath. Cardiovascular: Negative. Negative for chest pain, palpitations and leg swelling. Gastrointestinal: Negative. Negative for constipation, diarrhea, nausea and vomiting. Genitourinary: Negative. Musculoskeletal: Positive for arthralgias and myalgias. Skin: Negative. Neurological: Negative. Negative for weakness and numbness. Hematological: Negative. Psychiatric/Behavioral: Negative. Objective Physical Exam Constitutional: General: She is not in acute distress. Appearance: She is well-developed. HENT: Mouth/Throat: Pharynx: No oropharyngeal exudate. Eyes: Conjunctiva/sclera: Conjunctivae normal. Pupils: Pupils are equal, round, and reactive to light. Cardiovascular: Rate and Rhythm: Normal rate and regular rhythm. Heart sounds: Normal heart sounds. No murmur heard. Pulmonary: Effort: Pulmonary effort is normal. Breath sounds: Normal breath sounds. No wheezing or rales. Chest: Breasts: Right: No supraclavicular adenopathy. Left: No supraclavicular adenopathy. Abdominal: General: Bowel sounds are normal. Palpations: Abdomen is soft. There is no mass. Tenderness: There is no guarding or rebound. Musculoskeletal: General: Normal range of motion. Cervical back: Normal range of motion and neck supple. Lymphadenopathy: Cervical: No cervical adenopathy. Upper Body: Right upper body: No supraclavicular adenopathy. Left upper body: No supraclavicular adenopathy. Skin: General: Skin is warm and dry. Neurological: Mental Status: She is alert and oriented to person, place, and time. Recent Results (from the past 72 hour(s)) CBC (with Diff) Result Value Ref Range WBC 4.32 RBC 3.36 Hemoglobin 10.7 Hematocrit 32.6 Platelets 214 Neutr Abs (ANC) 2.22 Comprehensive metabolic panel (non-fasting) Result Value Ref Range BUN 14 Creatinine 0.8 Sodium 135 Potassium 4.0 Calcium 8.8 Total Protein 9.8 (H) Albumin 3.5 Total Bilirubin 0.2 Alk Phos 57 AST 11 ALT 14 BP 149/70 (Patient Position: Sitting) Pulse 61 Temp 36.4 ??C (97.5 ??F) (Temporal) Resp 18 Wt 76 kg (167 lb 9.6 oz) SpO2 100% BMI 30.07 kg/m?? Assessment and Plan Christen is a 62 year old female with newly diagnosed MM who is currently overdue for cycle 3 of RVD. Her last treatment cycle was held for infection She has recovered from this and we will proceed with cycle 3 today. Her Myeloma markers for today are pending. She has had some drop in her M spike with her first 2 cycles - chaparro continue to monitor closely going forward. NO New CRAB symptoms and her anemia has improved. We will change her bisphosphonate to zometa for insurance reasons - She is also due for this today. PHN - will begin to decrease her Neurontin dose - to BID 300mg and may continue to decrease as tolerated. Pain- this overall has improved, but I do believe she needs some PT for both strength and conditioning. We will get this set up locally. We did also spend considerable time reviewing the overall goals of therapy and discussing acceptablevs unacceptable toxicities. We will see how she does with this cycle after having a treatment break. Sh eis aware to use her antiemetics and bowel regimen as she has previously to avoid constipation and nausea. Christen Sommer will return to clinic in 5 weeks (1 week delay because of holiday). she will callbefore then if any concerns or changes in status. ?? documented in this encounter Plan of Treatment Upcoming Encounters Date Type Specialty Care Team Description 04/20/2022 Office Visit Hematology and Oncology Cristo [place] MD [facility] HEMATOLOGY/[place] [address] Yari Thompson APRN [facility] HEMATOLOGY/[place] [address] 04/20/2022 Infusion Hematology and Oncology 04/27/2022 Infusion Hematology and Oncology 05/04/2022 Infusion Hematology and Oncology Scheduled Referrals Name Type Priority Associated Diagnoses Order S chedule Referral to Outpatient Referral Routine Multiple myeloma, Ord ered: Physical Therapy remission status 022 unspecified documented as of this encounter Procedures Procedure Name Priority Date/Time Associated Diagnosis Comme nts IMMUNOGLOBULIN FREE LIGHT Routine 03/16/2022 Re sults for this CHAINS, SERUM procedure are in the results section. IMMUNOGLOBULINS, Routine 03/16/2022 Results for this QUANTITATIVE procedure are i n the results section. CBC (WITH DIFF) Routine 03/16/2022 Results for this procedure are i n the results section. PROTEIN ELECTROPHORESIS, Routine 03/16/2022 Res ults for this SERUM procedure are i n the results section. COMPREHENSIVE METABOLIC Routine 03/16/2022 Resu lts for this PANEL (NON-FASTING) procedur e are in the results section. documented in this encounter Results (ABNORMAL) Free Light Chains, Serum (03/16/2022) Analysis Performed At Patho logist Time Signature [place] Free 45.92 (H) Light Chain Lambda Free 1.02 Light Chains [place]/Lambda 45.02 (H) FLC Ratio Specimen (Source) Anatomical Location Collection Method / Collectio n Time Received Time / Laterality Volume Blood 03/16/2022 Historical Provider CHEMISTRY ORDERABLES (ABNORMAL) Immunoglobulins, Quantitative (03/16/2022) P athologist Signature IgG 3,969 (H) IgA 24 (L) IgM 96 Specimen (Source) Anatomical Location Collection Method / Collectio n Time Received Time / Laterality Volume Blood 03/16/2022 Historical Provider CHEMISTRY ORDERABLES (ABNORMAL) Protein Electrophoresis, serum (03/16/2022) P athologist Signature Total Prot 9.1 (H) Elec Albumin Elect 4.3 Alpha1-Globuli 0.20 n Alpha2-Globuli 0.70 n Beta Globulin 0.70 Gamma Globulin 3.20 (H) M1 Band 2.9 (H) Specimen (Source) Anatomical Location Collection Method / Collectio n Time Received Time / Laterality Volume Blood 03/16/2022 Historical Provider CHEMISTRY ORDERABLES (ABNORMAL) Comprehensive metabolic panel (non-fasting) (03/16/2022) athologist Signature BUN 14 Creatinine 0.8 Sodium 135 Potassium 4.0 Calcium 8.8 Total Protein 9.8 (H) Albumin 3.5 Total Bilirubin 0.2 Alk Phos 57 AST 11 ALT 14 Specimen (Source) Anatomical Location Collection Method / Collectio n Time Received Time / Laterality Volume Blood 03/16/2022 Historical Provider CHEMISTRY ORDERABLES CBC (with Diff) (03/16/2022) athologist Signature WBC 4.32 RBC 3.36 Hemoglobin 10.7 Hematocrit 32.6 Platelets 214 Neutr Abs (ANC) 2.22 Specimen (Source) Anatomical Location Collection Method / Collectio n Time Received Time / Laterality Volume Blood 03/16/2022 Historical Provider HEMATOLOGY ORDERABLES documented in this encounter Visit Diagnoses Diagnosis Multiple myeloma, remission status unspe cified documented in this encounter Care Teams Oil Well Driller Relationship Specialty Start Date End Date Analilia Lechuga APRN PCP - General Family Medicine 03/01/21 [address] [place] [address] documented as of this encounter
--- OUTSIDE RECORDS SUMMARY | 2022-04-13 14:52 | XMS_ITS | Encounter Summary ---
:1960 Author Organization [facility] [place] [address] Care Team Providers Name Role Phone AnkushAnalilia MANSI Primary Care Provider Encounter Details Date Type Department Care Team Description 01/14/2022 Telephone Hematology and Oncology at Iván Rosales MD [facility] Estefania hadley HEMATOLOGY/[place] [address] [place] [address] [phone] (Wo rk) Social History Tobacco Use Types [...] this encounter Miscellaneous Notes Telephone Encounter - Iván Palacio MD - 01/14/2022 3:49 PM EDT Ms. Caldwell called hem/onc fellow and informed that [facility] pharmacy for which zofran was prescribed yesterday is not open until Sunday. She wants the prescription to be sent to [facility] [facility]. I prescribed zofran prn to that pharmacy. Iván Palacio MD [facility] Hematology Oncology Fellow Page [phone] documented in this encounter Plan of Treatment Upcoming Encounters Date Type Specialty Care Team Description 04/20/2022 Office Visit Hematology and Oncology Cristo [place] MD [facility] DR HEMATOLOGY/[place] [address] Yari Thompson APRN [facility] DR HEMATOLOGY/[place] [address] 04/20/2022 Infusion Hematology and Oncology 04/27/2022 Infusion Hematology and Oncology 05/04/2022 Infusion Hematology and Oncology documented as of this encounter Visit Diagnoses Not on filedocumented in this encounter Care Teams Payment Manager Relationship Specialty Start Date End Date Analilia Lechuga APRN PCP - General Family Medicine 03/01/21 [place] [address] documented as of this encounter
--- OUTSIDE RECORDS SUMMARY | 2022-04-13 14:52 | XMS_ITS | Encounter Summary ---
:1960 Author Organization [facility] [place] [address] Care Team Providers Name Role Phone CaitlynAnalilia brooke MANSI Primary Care Provider Reason for Visit Reason Comments Chemotherapy C2D1 Velcade + Xgeva Treatment/Therapy Plan Authorization (Routine) - Authorized Specialty Diagnoses / Procedures Referred By Contact Refer red To Contact Hematology and Diagnoses Multiple myeloma, remission status unspecified Cristo [place] MD [facility] Hem Onc Infusion Oncology Procedures TC DENOSUMAB, 1MG, INJECTION TC BORTEZOMIB, 0.1MG, INJECTION (VELCADE) [id number] VELCADE 3 MG [facility] [address] [place], [place] HEMATOLOGY/ONCOLOGY [address] [place] [address] Referral ID Status Reason Start Date Expiration Date Visits V isits Requested Authorized [id number] Authorized 12/24/2021 05/20/2022 99 99 Encounter Details Date Type Department Care Team Description 01/26/2022 Infusion Hematology Oncology at [facility] myeloma, remission [facility] status unspecified [address], [place] [phone] Social History Tobacco Use [...] place to sleep or slept in a penitentiary (including now)? Sex Assigned at Date Recorded Not on file documented as of this encounter Progress Notes Cony Colorado RN - 01/26/2022 9:30 AM EDT INFUSION THERAPY ADMINISTRATION NOTES DIAGNOSIS: MM CYCLE #2: Day 1 REASON FOR VISIT: Velcade injection + Xgeva SUBJECTIVE Christen Sommer offers no complaints today, she met with Yari Thompson APRN prior to infusion, ready for treatment. OBJECTIVE VSS, weight stable. LAB DATA: Done 01/24/22 at [facility] and [facility] for treatment. Pre administration: Chemotherapy orders independently verified for drug name, route, and dosage per patient's height, weight and BSA by Cony Colorado, RN & on-site pharmacist. REACTIONS (DESCRIPTION, TIME, INTERVENTION AND EFFECTIVENESS) none ASSESSMENT Christen was awake, alert and tolerated treatment well. Velcade given SQ in LLQ. PLAN Return to clinic per plan. documented in this encounter Plan of Treatment Upcoming Encounters Date Type Specialty Care Team Description 04/20/2022 Office Visit Hematology and Oncology Cristo [place] MD [facility] DR HEMATOLOGY/[place] [address] Yari Thompson APRN [facility] HEMATOLOGY/[place] [address] 04/20/2022 Infusion Hematology and Oncology 04/27/2022 Infusion Hematology and Oncology 05/04/2022 Infusion Hematology and Oncology Scheduled Orders Name Type Priority Associated Diagnoses Order S chedule Free Light Chains, Serum Lab STAT Multiple myeloma , Expected: 01/26/2022 remission status (Approximat e), unspecified Expires: 2021 Immunoglobulins, Lab STAT Multiple myeloma, Expect ed: 01/26/2022 Quantitative remission status (Approximat e), unspecified Expires: 2021 Lactate Dehydrogenase Lab STAT Multiple myeloma, E xpected: 01/26/2022 remission status (Approximat e), unspecified Expires: 2021 Protein Electrophoresis, Lab STAT Multiple myeloma , Expected: 01/26/2022 serum remission status (Approximat e), unspecified Expires: 2021 documented as of this encounter Visit Diagnoses Diagnosis Multiple myeloma, remission status unspe cified documented in this encounter Administered Medications Inactive Administered Medications - up to 3 most recent administrations Medication Order MAR Action Action Date Dose Rate Site bortezomib (Velcade) (2.5 Given 01/26/2022 11:01 AM 3 mg Left Lower Quadrant mg/mL) subcutaneous EDT injection 3 mg 3 mg (rounded from 2.96 mg = 1.6 mg/m2/dose ? 1.85 m2 Treatment Plan BSA from Recorded weight), Subcutaneous, ONCE, 1 dose, On Jyoti 01/26/22 at 1145, Inject subcutaneous in the thigh or abdomen., Routine denosumab (Xgeva) (120 mg/1.7 mL) Given 01/26/2022 10:57 AM EDT 120 mg Right Arm subcutaneous injection 120 mg 120 mg, Subcutaneous, ONCE, 1 dose, On Jyoti 01/26/22 at 1045, Bring to room temperature 15-30 mins before administration. , This agent is restricted to outpatient use. Is this drug being given as an outpatient? Yes dexAMETHasone (Decadron) tablet 20 mg Given 01/26/2022 10:28 AM EDT 20 mg 20 mg, Oral, ONCE, 1 dose, On Jyoti 01/26/22 at 1045, Routine ondansetron (Zofran) tablet 4 mg Given 01/26/2022 10:28 AM EDT 4 mg 4 mg, Oral, ONCE, 1 dose, On Jyoti 01/26/22 at 1045, Administer prior to chemotherapy, Routine documented in this encounter Care Teams Motor Vehicles Inspector Relationship Specialty Start Date End Date Analilia Lechuga APRN PCP - General Family Medicine 03/01/21 [address] [place] [address] documented as of this encounter
--- OUTSIDE RECORDS SUMMARY | 2022-04-13 14:52 | XMS_ITS | Encounter Summary ---
:1960 Author Organization [facility] [place] [address] Care Team Providers Name Role Phone Ankush Analilia MANSI Primary Care Provider Reason for Visit Reason Onset Date Comments Questions 01/18/2022 Encounter Details Date Type Department Care Team Description [facility]/18[facility]20[facility] [address] [place] [phone] Social History Tobacco Use Types [...] this encounter Miscellaneous Notes Telephone Encounter - Doug Cherry RN - 01/18/2022 2:34 PM EDT Called and spoke with Christen Leone regarding the Velcade being the cause of her cough. There is some mention on UpToDate regarding adverse reactions in respiratory symptoms, but the frequency is not defined. She does report she had a BM today and yesterday so her constipation is improved. She sees the MD tomorrow. She was thankful for the follow up call. ----- Message from Sakina Briggs sent at 01/18/2022 11:36 AM EDT ----- Christen called in to ask about a wet cough she has had, she tested negative for covid. She is currently not taking anything for it, she was not sure if it was medication related. Best call back [phone] documented in this encounter Plan of Treatment Upcoming Encounters Date Type Specialty Care Team Description 04/20/2022 Office Visit Hematology and Oncology Cristo [place] MD [facility] DR HEMATOLOGY/[place] [address] Yari Thompson APRN [facility] DR HEMATOLOGY/[place] [address] 04/20/2022 Infusion Hematology and Oncology 04/27/2022 Infusion Hematology and Oncology 05/04/2022 Infusion Hematology and Oncology documented as of this encounter Visit Diagnoses Not on filedocumented in this encounter Care Teams Food Court Team Member Relationship Specialty Start Date End Date Analilia Lechuga APRN PCP - General Family Medicine 03/01/21 [place] [address] documented as of this encounter
--- OUTSIDE RECORDS SUMMARY | 2022-04-13 14:52 | XMS_ITS | Encounter Summary ---
:1960 Author Organization [facility] [place] [address] Care Team Providers Name Role Phone Ankush Analilia MANSI Primary Care Provider Reason for Visit Reason Onset Date Comments Other 02/21/2022 Generalized illness Encounter Details Date Type Department Care Team Description 02/21/2022 Telephone Hematology Oncology at [facility], Other (Generalized [facility] RN illness) [address] [place] [phone] Social History Tobacco Use Types Packs/Day Years [...] Telephone Encounter - Doug Cherry RN - 02/22/2022 1:20 PM EDT Called and spoke with Christensirisha Sommer. She reports she is feeling better. Her bowels and body aches are better, but she still has a headache. She took an at- home COVID test this morning and it was negative. Her CBC and CMP today look stable, MM labs are pending. If she feels like symptoms are worsening she will contact PCP and let us know so we can adjust schedule. If she continues to improve we will see her tomorrow as scheduled. She is in agreement with plan. Telephone Encounter - Emmie Zamarripa RN - 02/21/2022 12:13 PM EDT Caller: Fermin Relationship: Self Clarified Two Patient Identifiers: [x] Reason For Call: Other (Generalized illness) Assessment/Symptom Review (onset, location, duration, what makes it better or worse, pertinent positives and negatives): Christen called this morning with several generalized illness symptoms. She reports it started Sunday evening. HURST- tylenol does not help. Diarrhea- started this morning (3x so far today), drinking adequate amounts of fluid. Cough- clear sputum Sore throat Body aches Back pain No fever 98.2 yesterday Took a home COVID test that was negative this morning. Scheduled to see Dr. Walsh 02/23 for [id number] Review of Systems Related to Reason for Call: System POS NEG Not Applicable Head (ENT /Neuro) [x] [] [] Cardiac [] [x] [] Respiratory [x] [] [] GI [x] [] [] [] [x] [] Musculoskeletal [x] [] [] Integumentary [] [x] [] Mental Health [] [] [x] Select Specific Decision Support Tool Used: Telephone Triage for Oncology Nurses, 3rd Edition, ONC, Kristin and Aleks, 2019 Name of Guideline/Protocol Used: provider recommendations Disposition/Plan of Care: Defer to provider recommendation - monitor at home- it it gets worse please call PCP or go to ED and/or another COVID test. If Christen is getting better tomorrow will stay on track with apt 02/23. Encouraged rest and lots of fluids. Triage nurse will check in tomorrow. Patient/Caregiver verbalizes understanding of plan of care: Yes Patient/Caregiver agrees with plan: Yes Advised patient/caregiver to: call office back for any new or worsening symptoms; emphasized symptoms that would require immediate ER/UC visit as per guideline in [place] Patient/Caregiver demonstrates understanding via teach back: Yes Telephone Encounter - Emmie Zamarripa RN - 02/21/2022 12:13 PM EDT ----- Message from Merly Hastings sent at 02/21/2022 11:44 AM EDT ----- Regarding: Patient Ill, not positive for Covid Christen had called Sakina this morning letting her know she was having symptoms (listed below). She had Christen take a covid test and call back with the results. Christen is negative but is experiencing the following: -Diarrhea -Headaches -Coughing -Congestion -Sore Throat - No fever, was 98.2 yesterday She's scheduled to see Jillian on 02/23, can you please assess and let her know if the plan should change? She is planning to go for labs later today. Her callback is [phone]. Merly Leggett documented in this encounter Plan of Treatment Upcoming Encounters Date Type Specialty Care Team Description 04/20/2022 Office Visit Hematology and Oncology Cristo Walsh MD [facility] [address] HEMATOLOGY/[place] [address] Yari Thompson APRN [facility] HEMATOLOGY/[place] [address] 04/20/2022 Infusion Hematology and Oncology 04/27/2022 Infusion Hematology and Oncology 05/04/2022 Infusion Hematology and Oncology documented as of this encounter Visit Diagnoses Not on filedocumented in this encounter Care Teams Knock Out Hand Relationship Specialty Start Date End Date Analilia Lechuga APRN PCP - General Family Medicine 03/01/21 [address] [place] [address] documented as of this encounter
--- OUTSIDE RECORDS SUMMARY | 2022-04-13 14:52 | XMS_ITS | Encounter Summary ---
:1960 Author Organization [facility] [place] [address] Care Team Providers Name Role Phone CaitlynAnalilia brooke APRN Primary Care Provider Reason for Visit Diagnostic Test (Routine) - Closed Specialty Diagnoses / Procedures Referred By Contact Refer red To Contact Radiology Diagnoses Multiple myeloma, remission status unspecified Diogo Barnard MD [facility] Rad Nuclear Med Procedures NM PET CT Standard Plus Extremities and Head [facility] [place] [address] [place] [phone] Fax: Referral ID Status Reason Start Date Expiration Date Visits V isits Requested Authorized [id number] Closed Specialty 12/27/2021 06/29/2023 1 1 Service Requested Encounter Details Date Type Department Care Team Description 01/06/2022 Hospital Encounter Nuclear Medicine at Bridget Barnard [place] [address] [place] [address] [phone] (Wo rk) Social History Tobacco Use Types [...] place to sleep or slept in a usp (including now)? Sex Assigned at Date Recorded Not on file documented as of this encounter Medications at Time of Discharge Medication Sig Dispensed Refills Start Date End Date LORazepam (Ativan) 0.5 mg Take 1 tablet 2 2 tablet 0 01/06 Tablet hours before pet scan. May repeat after 1 hour. acetaminophen (Tylenol) Take 1,000 mg by 0 500 mg Tablet mouth every 6 hours as needed for Pain. Miscellaneous Medical Take 1 Dose by 0 Supply Misc mouth as needed. Marijuana chews acyclovir (Zovirax) 400 mg Take 1 tablet by 180 tablet 3 01/2022 TabletIndications: mouth 2 times Multiple myeloma, daily. remission status unspecified aspirin EC 81 mg Tablet, Take 1 tablet by 30 tablet 3 12/27 Delayed Release mouth daily. (E.C.)Indications: Multiple myeloma, remission status unspecified prochlorperazine Take 1 tablet by 90 tablet 3 12/27/2021 (Compazine) 10 mg mouth every 6 TabletIndications: hours as needed Multiple myeloma, for Nausea. remission status unspecified lenalidomide (Revlimid) 25 Take 1 capsule (25 21 capsule 12 0 12/24/2021 mg capsuleIndications: mg) by mouth multiple myeloma daily. Call clinic before starting medication. Indications: multiple myeloma ibuprofen (Motrin) 400 mg Take 400 mg by 0 01/26/2022 Tablet mouth every 6 hours as needed for Pain. traMADoL (Ultram) 50 mg Take 1 tablet by 60 tablet 0 202103/16/2022 Tablet mouth every 6 hours as needed for Pain. cyclobenzaprine (Flexeril) As needed 0 1 01/26/2022 10 mg Tablet documented as of this encounter Plan of Treatment Upcoming Encounters Date Type Specialty Care Team Description 04/20/2022 Office Visit Hematology and Oncology Cristo Walsh MD [facility] DR HEMATOLOGY/[place] [address] Yari Thompson APRN [facility] HEMATOLOGY/[place] [address] 04/20/2022 Infusion Hematology and Oncology 04/27/2022 Infusion Hematology and Oncology 05/04/2022 Infusion Hematology and Oncology documented as of this encounter Procedures Procedure Name Priority Date/Time Associated Diagnosis Comme nts NM PET CT STANDARD Routine 01/06/2022 1:52 PM Multiple myeloma , Results for this PLUS EXTREMITIES AND EDT remission status pro cedure are in HEAD unspecified the results section. POCT GLUCOSE Routine 01/06/2022 12:34 Results for this PM EDT procedure are i n the results section. documented in this encounter Results POCT Glucose (01/06/2022 12:34 PM EDT) P athologist Signature POC Glucose 115 65 - 199 [facility] mg/dL [facility] Comment: Supplemental ranges: <140 mg/dL before meals <180 mg/dL all other times of the day Specimen Anatomical Collection Method Collection Time Receive d Time (Source) Location / / Volume Laterality Blood 01/06/2022 12:34 01/06/2022 PM EDT 12:34 PM EDT Diogo Barnard MD POINT OF CARE TEST ORDERABLE S Performing Organization Address City/State/[place] [address] documented in this encounter Visit Diagnoses Not on filedocumented in this encounter Administered Medications Inactive Administered Medications - up to 3 most recent administrations Medication Order MAR Action Action Date Dose Rate Site fludeoxyglucose (F-18) FDG Given 01/06/2022 12:40 PM 17.3 mCi Right Arm injection 0-20 mCi EDT 0-20 mCi, Intravenous, ONCE PRN, 1 dose, Starting on Sun01/06/22 at 1253, Until Sun01/06/22 at 1240, Per Protocol, Radiology Contrast, Routine documented in this encounter Care Teams Relief Captain Relationship Specialty Start Date End Date Analilia Lechuga APRN PCP - General Family Medicine 03/01/21 [facility] [place] [address] documented as of this encounter
--- OUTSIDE RECORDS SUMMARY | 2022-04-13 14:52 | XMS_ITS | Encounter Summary ---
:1960 Author Organization [facility] [place] [address] Care Team Providers Name Role Phone CaitlynAnalilia brooke MANSI Primary Care Provider Reason for Visit Reason Comments Chemotherapy [id number] Bortezomib Treatment/Therapy Plan Authorization (Routine) - Authorized Specialty Diagnoses / Procedures Referred By Contact Refer red To Contact Hematology and Diagnoses Multiple myeloma, remission status unspecified Cristo Walsh MD [facility] Hem Onc Infusion Oncology Procedures TC DENOSUMAB, 1MG, INJECTION TC BORTEZOMIB, 0.1MG, INJECTION (VELCADE) [id number] VELCADE 3 MG [facility] [address], [place] HEMATOLOGY/ONCOLOGY [id number] [place] [address] Referral ID Status Reason Start Date Expiration Date Visits V isits Requested Authorized [id number] Authorized 12/24/2021 05/20/2022 99 99 Encounter Details Date Type Department Care Team Description 01/12/2022 Infusion Hematology Oncology at [facility] myeloma, remission [facility] status unspecified [address] [place], [place] [phone] Social History Tobacco Use [...] Sign Reading Time Taken Comments Blood Pressure 124/58 01/12/2022 12:05 PM EDT Pulse 63 01/12/2022 12:05 PM EDT Temperature 36.3 ??C (97.3 ??F) 01/12/2022 12:05 PM EDT Respiratory Rate 14 01/12/2022 12:05 PM EDT Oxygen Saturation 100% 01/12/2022 12:05 PM EDT Inhaled Oxygen Concentration - - Weight 76.6 kg (168 lb 12.8 oz) 01/12/2022 12:05 PM EDT Height 159 cm (5' 2.6) 01/12/2022 12:05 PM EDT Body Mass Index 30.29 01/12/2022 12:05 PM EDT documented in this encounter Progress Notes Cony Colorado RN - 01/12/2022 12:00 PM EDT INFUSION THERAPY ADMINISTRATION NOTES DIAGNOSIS: MM CYCLE #1: Day 18 REASON FOR VISIT: Velcade injection SUBJECTIVE Christen Sommer reports doing okay after Velcade last week. She notes a cough that started 3 weeks ago, cough is mostly nonproductive and has been unchanged, she denies fevers, denies SOB. She is still smoking 1 pack/day. Dr. Walsh aware. OBJECTIVE VSS, weight stable. LAB DATA: Done today at [facility] for treatment. Pre administration: Chemotherapy orders independently verified for drug name, route, and dosage per patient's height, weight and BSA by Cony Colorado, OLIVERIO & on-site pharmacist. REACTIONS (DESCRIPTION, TIME, INTERVENTION AND EFFECTIVENESS) none ASSESSMENT Christen was awake, alert and tolerated treatment well. Velcade given SQ in RLQ. PLAN Return to clinic per plan. documented in this encounter Plan of Treatment Upcoming Encounters Date Type Specialty Care Team Description 04/20/2022 Office Visit Hematology and Oncology Cristo Walsh MD [facility] DR HEMATOLOGY/[place] [address] Yari Thompson APRN [facility] DR HEMATOLOGY/[place] [address] 04/20/2022 Infusion Hematology and Oncology 04/27/2022 Infusion Hematology and Oncology 05/04/2022 Infusion Hematology and Oncology documented as of this encounter Visit Diagnoses Diagnosis Multiple myeloma, remission status unspe cified documented in this encounter Administered Medications Inactive Administered Medications - up to 3 most recent administrations Medication Order MAR Action Action Date Dose Rate Site bortezomib (Velcade) (2.5 Given 01/12/2022 12:55 PM 3 mg Right Lower Quadrant mg/mL) subcutaneous EDT injection 3 mg 3 mg (rounded from 2.96 mg = 1.6 mg/m2/dose ? 1.85 m2 Treatment Plan BSA from Recorded weight), Subcutaneous, ONCE, 1 dose, On Jyoti 01/12/22 at 1345, Inject subcutaneous in the thigh or abdomen., Routine dexAMETHasone (Decadron) tablet 20 mg Given 01/12/2022 12:36 PM EDT 20 mg 20 mg, Oral, ONCE, 1 dose, On Jyoti 01/12/22 at 1245, Routine ondansetron (Zofran) tablet 4 mg Given 01/12/2022 12:37 PM EDT 4 mg 4 mg, Oral, ONCE, 1 dose, On Jyoti 01/12/22 at 1245, Administer prior to chemotherapy, Routine documented in this encounter Care Teams Quality Intern Relationship Specialty Start Date End Date Analilia Lechuga APRN PCP - General Family Medicine 03/01/21 [place] [address] documented as of this encounter
--- OUTSIDE RECORDS SUMMARY | 2022-04-13 14:52 | XMS_ITS | Encounter Summary ---
:1960 Author Organization [facility] [place] [address] Care Team Providers Name Role Phone CaitlynAnalilia brooke MANSI Primary Care Provider Encounter Details Date Type Department Care Team Description 01/12/2022 Notes Only Hematology/Oncology at Shima Singh MSW [facility] OFFICE OF CARE [address] [place] [phone] Social History Tobacco Use Types Packs/Day Years [...] place to sleep or slept in a fpc (including now)? Sex Assigned at Date Recorded Not on file documented as of this encounter Progress Notes Shima Singh MSW - 01/12/2022 12:49 PM EDT Reason for Referral: Brief assessment of social and emotional needs. Met with ptduring her infusion visit today to introduce myself and role of geriatric social worker to assess/address barriers to getting to and through treatments; address support needs and connect with community services and resources as needed. Family/Social Supports: Pt identified her and 7 children as her primary supports. She also identified a sister who is a nurse. One son lives at home, 2 daughters are in [place], one son lives in [place], 2 daughters and a son live in [facility]. She has 11 grandchildren. Living Situation/Daily Activities/Transportation: Pt's son who lives at home helps pt manage the daily chores and activities. She had a work related accident and is dealing with the aftermath of that too. She uses a cane when ambulating and a walker if she is having additional pain. Her family will betransporting her to her appointments. 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 Her works as a [place] 2 weeks. She indicated they are able to manage their financial obligations. Pt has a commercial insurance and is expecting to get on her 's insurance next month. She has been in touch with Jose at [facility] to discuss insurance and out of pocket medical expenses concerns. Advance Directives: Did not discuss. Utilization of Community Resources: None at this time. Adjustment to Illness/Mental Health Concerns: Pt indicated she is coping the best she can. She is dealing with pain issues from her back injury too. She feels well supported by her family. Her is coping as best he can but it is hard with him away working. She tries to keep him up to date and has material available for him to read too. Offered support. Identified Needs: Pt did not identify any specific needs today. Referrals: None at this time. Social Work Interventions: Brief assessment Supportive Counseling Plan: Informed pt of OCCUP THERAPIST availability and contact information. Will follow to assess/address psychosocial needs. ELIZABETH Leavitt, FUNDRAISING SPECIALIST, OSW-C Construction Assistant [facility] documented in this encounter Plan of Treatment Upcoming Encounters Date Type Specialty Care Team Description 04/20/2022 Office Visit Hematology and Oncology Cristo Walsh MD [facility] DR HEMATOLOGY/[place] [address] Yari Thompson APRN [facility] HEMATOLOGY/[place] [address] 04/20/2022 Infusion Hematology and Oncology 04/27/2022 Infusion Hematology and Oncology 05/04/2022 Infusion Hematology and Oncology documented as of this encounter Visit Diagnoses Not on filedocumented in this encounter Care Teams Process Manufacturing Engineer Relationship Specialty Start Date End Date Analilia Lechuga APRN PCP - General Family Medicine 03/01/21 [facility] [address] documented as of this encounter
--- OUTSIDE RECORDS SUMMARY | 2022-04-13 14:52 | XMS_ITS | Encounter Summary ---
:1960 Author Organization [facility] Address [place] [id number] Care Team Providers Name Role Phone Analilia Lechuga APRN Primary Care Provider Reason for Referral Diagnostic Test (Routine) - Closed Specialty Diagnoses / Procedures Referred By Contact Refer red To Contact Radiology Diagnoses Multiple myeloma, remission status unspecified Diogo Barnard MD [facility] Rad Nuclear Med Procedures NM PET CT Standard Plus Extremities and Head [address] [address] Fax: Referral ID Status Reason Start Date Expiration Date Visits V isits Requested Authorized [id number] Closed Specialty 12/27/2021 06/29/2023 1 1 Service Requested Consultation (Routine) - Closed Specialty Diagnoses / Procedures Referred By Contact Refer red To Contact Primary Care Diagnoses Multiple myeloma, remission status unspecified Diogo Barnard MD [facility] [place] [address] [place] [address] Phone: Fax: Referral ID Status Reason Start Date Expiration Date Visits V isits Requested Authorized [id number] Closed Consult, 12/27/2021 12/27/2022 1 1 Test & Treat Reason for Visit Reason Comments Follow-up Encounter Details Date Type Department Care Team Description 12/27/2021 Office Visit Hematology and Diogo Barnard Multiple myeloma, Oncology at [facility] [place] remission status [facility] [address] [place], [place] [phone] Social History Tobacco Use Types Packs/Day Years [...] place to sleep or slept in a residential (including now)? Sex Assigned at Date Recorded Not on file documented as of this encounter Last Filed Vital Signs Vital Sign Reading Time Taken Comments Blood Pressure 152/80 12/27/2021 2:56 PM EDT Pulse 66 12/27/2021 2:56 PM EDT Temperature 36.4 ??C (97.5 ??F) 12/27/2021 2:56 PM EDT Respiratory Rate 17 12/27/2021 2:56 PM EDT Oxygen Saturation 98% 12/27/2021 2:56 PM EDT Inhaled Oxygen Concentration - - Weight 77.1 kg (170 lb) 12/27/2021 2:56 PM EDT Height 159.5 cm (5' 2.8) 12/27/2021 2:56 PM EDT Body Mass Index 30.31 12/27/2021 2:56 PM EDT documented in this encounter Progress Notes Diogo Barnard MD - 12/27/2021 3:00 PM EDT OUTPATIENT HEMATOLOGY/ ONCOLOGY CONSULTATION HISTORY PRESENT ILLNESS This patient is a 61 y.o. female presenting for evaluation of possible myeloma. Initial Presentation (12/16/21): 61F presents for evaluation of possible myeloma. In 02/2021, she presented with back pain. X-rays revealed a compression fracture. Then in mid 2021, she had more back pain. Xray then revealed multiple new compression fractures. Shethen had an MRI to better characterize, which showed yet another new compression fracture, and also showed an abnormal diffuse marrow signal. Today, she feels OK. She has been waiting to speak to cnc machine operator for quite some time, and is relieved things are now moving forward. No other sites of pain. Relevant PMHx/ risk factors: ??? smoker Work up/ Pertinent Data ?? MRI (12/09)- IMPRESSION Diffusely abnormal marrow signal appearance most consistent with multiple myeloma. Fractures are present at T9, T11, L1, L2, L4, and L5. Marrow edema is most pronounced at theT11, and L1 fractures. Trace marrow edema is present elsewhere. ?? DEXA- T=-2.6 ?? Bone Marrow (12/2021)- 60% kappa restricted plasma cells. ?? K/l ratio= 48.9 ?? M1 Band= 3.31 ?? BM ( diagnostic, 01/09)- 2. Hypercellular marrow (50%) with ?? maturing trilineage hematopoiesis ??. Involved by kappa-restricted plasma cell myeloma (60-70% of cellularity). Treatment Course ?? 12/29/21- C1 RVD INTERIM HISTORY Christen is doing OK. Here to review marrow. Continues to have back pain, which she is managing with NSAIDs and tylenol. No other new sites of pain. SOCIAL HISTORY- reviewed with significant changes noted W/ children Smokes 1 ppd MEDICATIONS AND ALLERGIES- reviewed at this visit Medications 12/27/21 1454 Medication Sig Taking? ibuprofen (Motrin) 400 mg Tablet Take 400 mg by mouth every 6 hours as needed for Pain. Yes acetaminophen 325 mg Capsule As needed Yes cyclobenzaprine (Flexeril) 10 mg Tablet As needed Yes lenalidomide (Revlimid) 25 mg capsule Take 1 capsule (25 mg) by mouth daily. Call clinic before starting medication. Indications: multiple myeloma Patient not taking: Reported on 12/27/2021 PAST MEDICAL HISTORY- reviewed Patient Active Problem List Diagnosis Code ??? Myeloma C90.00 Osteoporosis PAST SURGICAL HISTORY- reviewed, only relevant surgeries listed below None FAMILY HISTORY- reviewed, only relevant Family Hx listed below None COMPREHENSIVE REVIEW OF SYSTEMS Besides what is mentioned in the HPI, all other systems are negative PHYSICAL EXAMINATION Patient Vitals for the past 24 hrs: Temp Pulse Resp BP SpO2 12/27/21 1456 36.4 ??C (97.5 ??F) 66 17 152/80 98 % NAD, pleasant, Repeat exam deferred LABORATORY EVALUATION No results found for this or any previous visit (from the past 24 hour(s)). ASSESSMENT: Christen Sommer is a 61 y.o. female presents with multiple vertebral compression fractures and abnormal Marrow signal on MRI. Bone marrow confirms MM, w/ 60% IgG kappa plasma cells. FISH/ Cytogenetics/ molecular data pending at this time. Today we discussed diagnosis and proposed treatment plan. We broke treatment into phases, the first of which will be induction. We plan to use RVD. We also discussed role of autotransplant consolidation. We will get PET scan for staging, and also to look for symptomatic areas of vertebral involvement, that we may palliate with XRT. Refer for smoking cessation. Especially important if patient should pursue transplant. Pt will continue her myeloma treatment closer to home, in [facility], with Dr Cristo Walsh. Multiple Myeloma ??? Starting RVD in 12/29/21 ??? Regimen includes o Revlamid 25 mg orally for 21 days out of 28 o Velcade at 1.6 mg/m2 SQ weekly for 3 weeks out of 4 o Dexamethasone 20 mg weekly o Denosumab 120mg SQ q 1 month ??? Supportive meds o Acyclovir 400mg BID (for shingles prophylaxis) o ASA 81 (for DVT prophylaxis) o Tramadol 50mg-100mg q 6-8 hrs Diogo Barnard MD Pager: [phone] 12/27/2021 documented in this encounter Plan of Treatment Upcoming Encounters Date Type Specialty Care Team Description 04/20/2022 Office Visit Hematology and Oncology Cristo Walsh MD [facility] DR HEMATOLOGY/[place] [address] Yari Thompson APRN [facility] HEMATOLOGY/[place] [address] 04/20/2022 Infusion Hematology and Oncology 04/27/2022 Infusion Hematology and Oncology 05/04/2022 Infusion Hematology and Oncology Scheduled Referrals Name Type Priority Associated Diagnoses Order S chedule Referral to Smoking Outpatient Referral Routine Multiple myelo ma, Ordered: Cessation Program remission status 2021 unspecified documented as of this encounter Results NM PET CT Standard Plus Extremities and Head (01/06/2022 1:52 PM EDT) Anatomical Region Laterality Modality Positron Emission To mography (PET) Specimen (Source) Anatomical Location Collection Method / Collectio n Time Received Time / Laterality Volume Impressions 01/06/2022 2:48 PM EDT 1. ??No definite active myeloma is present. 2. ??There is a focus of increased activ ity in the lateral left third rib that corresponds to a fracture. 3. ??There is symmetrically increased ac tivity in the marrow of both femurs. This pattern is more suggestive of marrow hyp erplasia. Myeloma at these sites is possible but considered less likely. 4. ??Extensive osteolytic lesions are se en throughout the skeleton. Thank you for letting us participate in the care of this patient. ??If you are a health care provider and have any questi ons regarding this report, please contact the number below. ??For patients who have questions please contact the health patient care coordinator that requested your imaging first. ? Electronically signed by: Mary Austin, [facility] ([phone]), at 01/06/2022 2:48 PM Narrative 01/06/2022 2:48 PM EDT EXAMINATION: NM PET CT STANDARD PLUS EXTREMITIES AND HEAD CLINICAL HISTORY: Myeloma,staging Myeloma with multiple vertebral fracture s. ? other sites of disease TECHNIQUE: Procedure: Following IV injec tion of 38-qmevkp-5-deoxyglucose (FDG) a standard uptake of approximately 60 leda reggie, a noncontrast CT scan followed by a PET scan were acquired from the top of h ead to bottom of feet. The noncontrast CT was used for anatomic localization an d photon attenuation correction of the PET scan. Blood glucose level: 115 (mg/dL) FDG dose: 17.3 mCi COMPARISON: None FINDINGS: HEAD/NECK: Normal activity in all soft tissue regio ns. CHEST: Normal activity in all soft tissue regio ns. The thoracic aorta is dilated and contai ns fluid. Coronary artery calcification is noted. There is a small hiatal hernia . A 3 mm nodule in the superior segment of the lingula (image 140) is of doubtfu l clinical significance. ABDOMEN/PELVIS: Normal activity in all soft tissue regio ns. A calcified uterine fibroid is seen. Gas within the subcutaneous tissues of the left anterior abdominal wall is likely d ue to previous medication administration. SKELETON/EXTREMITIES: There is mild and symmetrically increase d activity in the marrow spaces of both femurs. A focus of increased activity in the lat eral aspect of the left third rib corresponds to a fracture. The osseous structures are diffusely dem ineralized. There are multiple osteolytic defects in the skeleton in. T hese are most prominent in the lumbar spine and skull. Multiple non-hypermetabolic compression fractures are present. These are seen most prominently in T10 and T12-L2 and L 4 and L5. Procedure Note Rogelio Conde MD - 01/06/2022 EXAMINATION: NM PET CT STANDARD PLUS EXT REMITIES AND HEAD CLINICAL HISTORY: Myeloma,staging Myeloma with multiple vertebral fracture s. ? other sites of disease TECHNIQUE: Procedure: Following IV injec tion of 31-cumyeg-1-deoxyglucose (FDG) a standard uptake of approximately 60 leda reggie, a noncontrast CT scan followed by a PET scan were acquired from the top of h ead to bottom of feet. The noncontrast CT was used for anatomic localization an d photon attenuation correction of the PET scan. Blood glucose level: 115 (mg/dL) FDG dose: 17.3 mCi COMPARISON: None FINDINGS: HEAD/NECK: Normal activity in all soft tissue regio ns. CHEST: Normal activity in all soft tissue regio ns. The thoracic aorta is dilated and contai ns fluid. Coronary artery calcification is noted. There is a small hiatal hernia . A 3 mm nodule in the superior segment of the lingula (image 140) is of doubtfu l clinical significance. ABDOMEN/PELVIS: Normal activity in all soft tissue regio ns. A calcified uterine fibroid is seen. Gas within the subcutaneous tissues of the left anterior abdominal wall is likely d ue to previous medication administration. SKELETON/EXTREMITIES: There is mild and symmetrically increase d activity in the marrow spaces of both femurs. A focus of increased activity in the lat eral aspect of the left third rib corresponds to a fracture. The osseous structures are diffusely dem ineralized. There are multiple osteolytic defects in the skeleton in. T hese are most prominent in the lumbar spine and skull. Multiple non-hypermetabolic compression fractures are present. These are seen most prominently in T10 and T12-L2 and L 4 and L5. IMPRESSION 1. No definite active myeloma is present . 2. There is a focus of increased activit y in the lateral left third rib that corresponds to a fracture. 3. There is symmetrically increased acti vity in the marrow of both femurs. This pattern is more suggestive of marrow hyp erplasia. Myeloma at these sites is possible but considered less likely. 4. Extensive osteolytic lesions are seen throughout the skeleton. Thank you for letting us participate in the care of this patient. If you are a health care provider and have any questi ons regarding this report, please contact the number below. For patients w ho have questions please contact the health patient care coordinator that requested your imaging first. Electronically signed by: Mary Austin, [facility] ([phone]), at 01/06/2022 2:48 PM Diogo Barnard MD IMG PET ORDERABLES documented in this encounter Visit Diagnoses Diagnosis Multiple myeloma, remission status unspe cified Multiple myeloma, remission status unspe cified documented in this encounter Care Teams Technician Plant And Maintenance Relationship Specialty Start Date End Date Analilia Lechuga APRN PCP - General Family Medicine 03/01/21 [facility] [address] documented as of this encounter
--- OUTSIDE RECORDS SUMMARY | 2022-04-13 14:52 | XMS_ITS | Encounter Summary ---
:1960 Author Organization [facility] [place] [address] Care Team Providers Name Role Phone CaitlynAnalilia brooke PUBLIC HEALTH AIDES TEACHER Primary Care Provider Encounter Details Date Type Department Care Team Description 01/26/2022 Notes Only Tobacco Treatment at [facility] MSW [facility] OFFICE OF CARE [address] [place] [address] [phone] Social History Tobacco Use Types Packs/Day Years [...] encounter Progress Notes Shima Singh MSW - 01/26/2022 10:51 AM EDT Tobacco Use Intake Assessment Name: Christen Sommer Date: 01-26-22 Tobacco Use History ??? What type of tobacco products/ how much do you presently use (all types): Christen smokes on average a pack of cigarettes a day. She has a 50 year history of smoking. She has tried to quit x2 back in the day and lher attempts asted less that a day. She did not used any NRT products to help withthe quit. Nicotine Dependence/Fagerstrom 0 points 1 point 2 point 3 point Score 1. How soon after you wake do you smoke your first cigarette? After 60 minutes 31-60 minutes 6-30 minutes XXXXX Within 5 minutes 2 2. Do you find it difficult to refrain from smoking in places where it is forbidden? No XXXXX Yes 0 3. Which cigarette would you hate to give up? All others The first one in the morning XXXXX 1 4. How many cigarettes do you smoke a day? 10 or less 11-20 XXXXX 21-30 30 or more 1 5. Do you smoke more frequently during the first hour of after waking than the rest of the day? No Yes XXXX 1 6. Do you smoke even if you are so ill that you are in bed all day? No Yes XXXX 1 Fagerstrom Score: 6 Classification: 0-2 very low; 3-4 low; 5 moderate: 6-7 high; 8-10 very high Other Substance Use ??? What is your use, if any, of any other substance such as alcohol; caffeine; other drugs: drinks coffee and wine Relevant Medical History ??? What medical conditions have you had or are currently being treated for: multiple myeloma Relevant Mental Health or Psychiatric History: ??? What past and/or present mental health or psychiatric illness have you been/are you treated for:none Environmental/Social Issues ??? Are there other smokers in your household: no ??? Are there nonsmokers in your household: (children) son, ??? Do your primary social supports smoke: no ??? Do you have supports available to help you quit: yes children and Cultural Influences ??? Are there any cultural influences/factors related to tobacco use: no Quit History/Past Successes/Relapse ??? Have you quit in the past: x2 with not assistance and not successful ??? What withdrawal symptoms did you experience: turmoil. Out of control, anxiety ??? What factors influenced your relapse: tried cold turkey; multiple stressors at the time Quit Now ??? What are your reasons to quit now: health condition ??? How important is it to quit ( scale 1/not to 10/extremely): 4 ??? How confident are you to quit (scale 1/not to 10/extremely): 5 ??? Intention to quit (Stages of Change) - (Pre-contemplative)- not considering quitting - (Contemplative) - thinking about quitting - (Preparation) - ready to quit in the next month XXXXX - (Action) - has quit or in the process of quitting ??? What personal strengths do you have which will help quit: family support; marilia helps calm her ??? What concerns do you have re quitting at this time: ??? What barriers do you expect to quitting: ??? Ready to set a quit date: 02-05-22 Next Steps/Treatment Planning ??? Set a quit date: 02-05-22 ??? Discuss NRT products: Patch; gum; Lozenges: discussed these options today. Wants to discuss further next week. ??? Type of NRT and dose recommended: interested in trying NRT patch and lozenge ??? Tobacco Rack Puller follow up: next week ??? Instruct 4 D's - Delay for a few minutes; Drink water; Deep Breath; Do something to take mind off of it: Discussed today ??? Refer to Quit Line:Suggested as a resource Plan: To follow up with pt next week closer to her quit date to see if ready to try a quit. Will discuss use of patch and lozenge more at that time. documented in this encounter Plan of Treatment Upcoming Encounters Date Type Specialty Care Team Description 04/20/2022 Office Visit Hematology and Oncology Cristo Walsh MD [facility] HEMATOLOGY/ONCOLOGY DEPT. [place], [place] [id number] Yari Thompson APRN [facility] DR HEMATOLOGY/[place] [address] 04/20/2022 Infusion Hematology and Oncology 04/27/2022 Infusion Hematology and Oncology 05/04/2022 Infusion Hematology and Oncology documented as of this encounter Visit Diagnoses Not on filedocumented in this encounter Care Teams Chassis Driver Relationship Specialty Start Date End Date Analilia Lechuga APRN PCP - General Family Medicine 03/01/21 [place] [address] documented as of this encounter
--- OUTSIDE RECORDS SUMMARY | 2022-04-13 14:52 | XMS_ITS | Encounter Summary ---
:1960 Author Organization [facility] [place] [address] Care Team Providers Name Role Phone CaitlynAnalilia brooke MANSI Primary Care Provider Reason for Visit Reason Onset Date Comments Follow-up 02/01/2022 Encounter Details Date Type Department Care Team Description 02/01/2022 [facility] [address] [place] [address] [phone] Social History Tobacco Use Types [...] encounter Miscellaneous Notes Telephone Encounter - Doug Cherry, RN - 02/01/2022 4:49 PM EDT Reviewed with Dr Walsh who wants to evaluate Christen Sommer tomorrow when she is here for infusion. She does not need labs first. She was added on to his schedule. She was called and made aware. Telephone Encounter - Doug Cherry RN - 02/01/2022 11:01 AM EDT Pt discharged from [facility] ED yesterday, evaluated for right side/flank pain. The x-ray showed no rib fractures. She does have old T12 and T10 compression fractures. Pt declined any lab work for them because she thought she was getting labs for us. They gave her percocet 5 mg x1 and one for her to take at home. She reports her pain is 10/10 and that percocet did nothing. She said they assessed for shingles on side but skin was normal. She has infusion appointment tomorrow for C2D8 Velcade/Dex. Will update provider. ----- Message from Merly Hastings sent at 02/01/2022 8:20 AM EDT ----- Regarding: Wants Blood Test to Assess Rib Pain/LFTs, prescribed Percocet Christen called back to update on her trip to the ED yesterday. She said she was given 5mg Percocetand there has not been any change on her pain. [facility] ED did a chest xray of her ribs and no fracturesor breaks were indicated. They wanted to draw labs to assess her kidney function but she declined because she thought she was due this week for labs for Dr. Walsh. She didn't realize until she got home that she was not due for labs again until next week. She has two questions for triage: 1) She wants to know if she can be taking the Percocet medication with her other meds through our office without them interfering with each other 2) She's wondering if we can set her up for labs today to assess her kidney/liver function. When you can, can you please check in with her at [phone]? documented in this encounter Plan of Treatment Upcoming Encounters Date Type Specialty Care Team Description 04/20/2022 Office Visit Hematology and Oncology Cristo Walsh MD [facility] DR HEMATOLOGY/[place] [address] Yari Thompson APRN [facility] DR HEMATOLOGY/[place] [address] 04/20/2022 Infusion Hematology and Oncology 04/27/2022 Infusion Hematology and Oncology 05/04/2022 Infusion Hematology and Oncology documented as of this encounter Visit Diagnoses Not on filedocumented in this encounter Care Teams Paid Intern Relationship Specialty Start Date End Date Analilia Lechuga APRN PCP - General Family Medicine 03/01/21 [place] [address] documented as of this encounter
--- OUTSIDE RECORDS SUMMARY | 2022-04-13 14:52 | XMS_ITS | Encounter Summary ---
:1960 Author Organization [facility] [place] [address] Care Team Providers Name Role Phone AnkushAnalilia MANSI Primary Care Provider Encounter Details Date Type Department Care Team Description 01/26/2022 Office Visit Hematology/Oncology Lexis Walsh MD [facility] DR HEMATOLOGY/[place] [address] Multiple myeloma, at [facility] Yari Thompson APRN [facility] [address] HEMATOLOGY/[place] [address] remission status [address] [place] [address] Social History Tobacco Use Types Packs/Day [...] Sign Reading Time Taken Comments Blood Pressure 156/72 01/26/2022 9:07 AM EDT Pulse 63 01/26/2022 9:07 AM EDT Temperature 36.6 ??C (97.8 ??F) 01/26/2022 9:07 AM EDT Respiratory Rate 18 01/26/2022 9:07 AM EDT Oxygen Saturation 100% 01/26/2022 9:07 AM EDT Inhaled Oxygen Concentration - - Weight 75.3 kg (166 lb) 01/26/2022 9:07 AM EDT Height 159 cm (5' 2.6) 01/26/2022 9:07 AM EDT Body Mass Index 29.78 01/26/2022 9:07 AM EDT documented in this encounter Progress Notes Yari Thompson, MANSI - 01/26/2022 9:00 AM EDT Subjective Patient ID: Christen Sommre is a 62 y.o. female here for f/u of MM Patient Active Problem List Diagnosis ??? Myeloma Dx December of 2021. Presented with compression fx and anemia. FISH- trisomy 7, 9 and 15 (good prognosis) Started Velcade Dex 12/2021, Revlimid added cycle 2. HPI Christen is feeling better - she started feeling better last week after she started finished antibiotics - she does still have a cough. She is taking her Claritin. No fevers or chill or night sweats. The back pain got a bit worse- she can't be on her feet for long. She is using tylenol and tramdol twice a day- this does help. Her overall energy is low - she is tired. She is doing her usual chores. She gets out of the house to get coffee and go to the stores or out for a meal. She is sleeping OK - not waking up because of pain - she does wake up to urinate. Her appetite is low. No further nausea orvomitting. Denies SOB - no SOB despite the cough - smoking - no changes. She has met with tobacco realty specialist and HALL WORKER - Shima Jorge. Her bowels have been normal for her - once a day Denies anynumbness or tingling. Review of Systems Constitutional: Positive for fatigue. Negative for diaphoresis and fever. HENT: Positive for postnasal drip and rhinorrhea. Eyes: Negative. Respiratory: Positive for cough. Negative for shortness of breath. Chronic and improved from last week Cardiovascular: Negative. Negative for chest pain, palpitations and leg swelling. Gastrointestinal: Negative. Negative for constipation, diarrhea, nausea and vomiting. Constipation better with new bowel regimen - daily stool softener and miralax Genitourinary: Negative. Musculoskeletal: Positive for arthralgias and back pain. Chronic Skin: Negative. Neurological: Negative. Negative for weakness and numbness. Hematological: Negative. Psychiatric/Behavioral: Negative. Objective Physical Exam Constitutional: General: She is not in acute distress. Appearance: She is well-developed. HENT: Head: Atraumatic. Mouth/Throat: Pharynx: No oropharyngeal exudate. Eyes: Conjunctiva/sclera: Conjunctivae normal. Cardiovascular: Rate and Rhythm: Normal rate and regular rhythm. Heart sounds: Normal heart sounds. No murmur heard. Pulmonary: Effort: Pulmonary effort is normal. Breath sounds: Normal breath sounds. No wheezing or rales. Chest: Breasts: Right: No supraclavicular adenopathy. Left: No supraclavicular adenopathy. Abdominal: General: Bowel sounds are normal. Palpations: Abdomen is soft. There is no mass. Tenderness: There is no abdominal tenderness. Musculoskeletal: General: Normal range of motion. Cervical back: Normal range of motion and neck supple. Lymphadenopathy: Cervical: No cervical adenopathy. Upper Body: Right upper body: No supraclavicular adenopathy. Left upper body: No supraclavicular adenopathy. Skin: General: Skin is warm and dry. Neurological: Mental Status: She is alert and oriented to person, place, and time. Psychiatric: Mood and Affect: Mood normal. Recent Results (from the past 72 hour(s)) CBC (with Diff) Result Value Ref Range WBC 4.55 RBC 3.40 Hemoglobin 11.1 Hematocrit 32.8 Platelets 231 Neutr Abs (ANC) 2.53 Comprehensive metabolic panel (non-fasting) Result Value Ref Range BUN 13 Creatinine 0.8 Sodium 135 Potassium 4.2 Calcium 9.0 Total Protein 10.2 (H) Albumin 3.6 Total Bilirubin 0.4 Alk Phos 62 AST 13 ALT 17 BP 156/72 (Patient Position: Sitting) Pulse 63 Temp 36.6 ??C (97.8 ??F) (Temporal) Resp 18 Ht 159 cm (5' 2.6) Wt 75.3 kg (166 lb) SpO2 100% BMI 29.78 kg/m?? Assessment and Plan 61-year-old female with a new diagnosis of IgG kappa multiple myeloma. ??She presented with multiplecompression fractures and anemia. She has good prognosis with trisomies 7,9 and 15. ?? She has completed cycle 1 of therapy with velcade dex alone. She did Have a number of mild symptoms/side effects which have all now resolved. Her counts are stable to improved. She did not have MM markers drawn today We will ensure these are done at her next blood draw. Her TP and albumin are stable. We will proceed with cycle 2 today which will also include Revlimid 21/28 days at 25mg. We again reviewed potential side effect s- improtance of daily asa reviewed. ?? #- headache - may be secondary to Zofran - but with nausea and vomiting after dose three will continue this for one more cycle. OK to take Tylenol and NSAID if recurs. ?? # Heartburn/nausea - she did not yet start prilosec - I have provided a RX for 20mg dialy today. ?? # congestion/cough -improved with z-pack - she still has her chronic cough but no SOB. long history of seasonal allergies - dust and pollen, taking claritin daily - will contiue. ?? #constipation and diarrhea - we reviewed bowel regimen - doing better with combo miralax and stool softener?? # flushing - c/w steriods - no need to intervene at this time. #back pain - now for about a year -no night time pain. Will consider PT once her appointments for her treatments are less frequent. #primary care - she is not UTD with immunizations r primary care - I have encouraged her to make an appoinment to be sure she has relationship with PCP. Reviewed imprortance of being UTD with all vaccines and health screening. ?? # smoking - encouraged to quit. Working with Shima Langley HALL WORKER on this. ?? # dental - she does have some dental issues and is wondering about getting partial plate - she is unsure how much dental work needs to be done. For now will hold off on dental work - will re-evaluate once she is maintenance phase of treatment - will need to hold Denosumab prior to any dental work below the gumline. I will ask that she be seen by statistics professor as she does have diffculty with chewing meat and could use hints on protein and nutritious food choices. ?? #prophylaxis - continue acyclovir, and aspirin. Denosumab monthly on day 1. ?? We also reviewed MM, lab results, ongoing treatment plan, PET scan results. All questions have been addressed. ?? We will plan to see her back next week in anticipation of cycle 2 - we will add in revlimid at that time. She will call before then if any new concerns. Both Christen and her daughter Saba had many good questions today - I answered them all to the bestof my ability. More the 50% of this 1 hour visit was in face to face education and counseling. Christen Sommer will return to clinic in 2 weeks. We will repeat MM markers at that time. . she will call before then if any concerns or changes in status. ?? documented in this encounter Plan of Treatment Upcoming Encounters Date Type Specialty Care Team Description 04/20/2022 Office Visit Hematology and Oncology Cristo Walsh MD [facility] HEMATOLOGY/[place] [address] Yari Thompson APRN [facility] HEMATOLOGY/[place] [address] 04/20/2022 Infusion Hematology and Oncology 04/27/2022 Infusion Hematology and Oncology 05/04/2022 Infusion Hematology and Oncology documented as of this encounter Procedures Procedure Name Priority Date/Time Associated Diagnosis Comme nts CBC (WITH DIFF) Routine 01/24/2022 Results for this procedure are i n the results section . COMPREHENSIVE METABOLIC Routine 01/24/2022 Resu lts for this PANEL (NON-FASTING) procedur e are in the results section . documented in this encounter Results (ABNORMAL) Comprehensive metabolic panel (non-fasting) (01/24/2022) Analysis Performed At Patho logist Time Signature BUN 13 Creatinine 0.8 Sodium 135 Potassium 4.2 Calcium 9.0 Total Protein 10.2 (H) Albumin 3.6 Total Bilirubin 0.4 Alk Phos 62 AST 13 ALT 17 Specimen (Source) Anatomical Location Collection Method / Collectio n Time Received Time / Laterality Volume Blood 01/24/2022 Historical Provider CHEMISTRY ORDERABLES CBC (with Diff) (01/24/2022) P athologist Signature WBC 4.55 RBC 3.40 Hemoglobin 11.1 Hematocrit 32.8 Platelets 231 Neutr Abs (ANC) 2.53 Specimen (Source) Anatomical Location Collection Method / Collectio n Time Received Time / Laterality Volume Blood 01/24/2022 Historical Provider HEMATOLOGY ORDERABLES documented in this encounter Visit Diagnoses Diagnosis Multiple myeloma, remission status unspe cified documented in this encounter Care Teams Retail Loss Prevention Specialist Relationship Specialty Start Date End Date Analilia Lechuga APRN PCP - General Family Medicine 03/01/21 [address] [place] [address] documented as of this encounter
--- OUTSIDE RECORDS SUMMARY | 2022-04-13 14:52 | XMS_ITS | Encounter Summary ---
:1960 Author Organization [facility] [place] [address] Care Team Providers Name Role Phone Ankush Analilia NAZARIO Primary Care Provider Encounter Details Date Type Department Care Team Description 03/10/2022 Telephone [facility] [address] HEMATOLOGY AND ONCOLOGY [place], [place] [phone] [place] [address] [phone] (Wo rk) Social History Tobacco Use Types [...] place to sleep or slept in a fdc (including now)? Sex Assigned at Date Recorded Not on file documented as of this encounter Miscellaneous Notes Telephone Encounter - Alyse Mcgill RD - 03/24/2022 10:27 AM EDT Nutrition Note Called patient on the phone to follow-up today. She prefers to speak in person. Will see her in infusion on 03/30. documented in this encounter Plan of Treatment Upcoming Encounters Date Type Specialty Care Team Description 04/20/2022 Office Visit Hematology and Oncology Cristo Walsh MD [facility] HEMATOLOGY/[place] [address] Yari Thompson APRN [facility] HEMATOLOGY/[place] [address] 04/20/2022 Infusion Hematology and Oncology 04/27/2022 Infusion Hematology and Oncology 05/04/2022 Infusion Hematology and Oncology documented as of this encounter Visit Diagnoses Not on filedocumented in this encounter Care Teams Production Planner Relationship Specialty Start Date End Date Analilia Lechuga APRN PCP - General Family Medicine 03/01/21 [address] [place] [address] documented as of this encounter
--- OUTSIDE RECORDS SUMMARY | 2022-04-13 14:52 | XMS_ITS | Encounter Summary ---
:1960 Author Organization [facility] [place] [address] Care Team Providers Name Role Phone CaitlynAnalilia brooke MANSI Primary Care Provider Reason for Visit Reason Comments Injections C2D8 velcade Treatment/Therapy Plan Authorization (Routine) - Authorized Specialty Diagnoses / Procedures Referred By Contact Refer red To Contact Hematology and Diagnoses Multiple myeloma, remission status unspecified Cristo Walsh MD [facility] Hem Onc Infusion Oncology Procedures TC DENOSUMAB, 1MG, INJECTION TC BORTEZOMIB, 0.1MG, INJECTION (VELCADE) J9041 VELCADE 3 MG [facility] [address] [place], [place] HEMATOLOGY/ONCOLOGY [address] [place] [address] Referral ID Status Reason Start Date Expiration Date Visits V isits Requested Authorized [id number] Authorized 12/24/2021 05/20/2022 99 99 Encounter Details Date Type Department Care Team Description 02/02/2022 Infusion Hematology Oncology at [facility] myeloma, remission [facility] status unspecified [address] [place], [place] [phone] Social History Tobacco Use [...] place to sleep or slept in a care home (including now)? Sex Assigned at Date Recorded Not on file documented as of this encounter Progress Notes Donya Mendoza RN - 02/02/2022 12:30 PM EDT INFUSION THERAPY ADMINISTRATION NOTES DIAGNOSIS: MM CYCLE #2: Day 8 REASON FOR VISIT: Velcade injection SUBJECTIVE Christen Sommer is having severe pain to the right lower abdomen, she met with Yari Thompson APRN prior to infusion, ready for treatment. Found to have shingles on the right side. OBJECTIVE VSS, weight stable. LAB DATA: Done 01/24/[address] [facility] for treatment. Pre administration: Chemotherapy orders independently verified for drug name, route, and dosage per patient's height, weight and BSA by Donya Alex RN & on-site pharmacist. REACTIONS (DESCRIPTION, TIME, INTERVENTION AND EFFECTIVENESS) none ASSESSMENT Christen was awake, alert and tolerated treatment well. Velcade given SQ in LLQ. Did not rotate site from last week due to shingles on right side. PLAN Return to clinic per plan. documented in this encounter Plan of Treatment Upcoming Encounters Date Type Specialty Care Team Description 04/20/2022 Office Visit Hematology and Oncology Cristo Walsh MD [facility] HEMATOLOGY/[place] [address] Yari Thompson APRN [facility] HEMATOLOGY/[place] [address] 04/20/2022 Infusion Hematology and Oncology 04/27/2022 Infusion Hematology and Oncology 05/04/2022 Infusion Hematology and Oncology documented as of this encounter Visit Diagnoses Diagnosis Multiple myeloma, remission status unspe cified documented in this encounter Administered Medications Inactive Administered Medications - up to 3 most recent administrations Medication Order MAR Action Action Date Dose Rate Site bortezomib (Velcade) (2.5 Given 02/02/2022 1:02 PM 3 mg Left Lower Quadrant mg/mL) subcutaneous EDT injection 3 mg 3 mg (rounded from 2.96 mg = 1.6 mg/m2/dose ? 1.85 m2 Treatment Plan BSA from Recorded weight), Subcutaneous, ONCE, 1 dose, On Jyoti 02/02/22 at 1330, Inject subcutaneous in the thigh or abdomen., Routine dexAMETHasone (Decadron) tablet 20 mg Given 02/02/2022 12:25 PM EDT 20 mg 20 mg, Oral, ONCE, 1 dose, On Jyoti 02/02/22 at 1230, Routine ondansetron (Zofran) tablet 4 mg Given 02/02/2022 12:25 PM EDT 4 mg 4 mg, Oral, ONCE, 1 dose, On Jyoti 02/02/22 at 1230, Administer prior to chemotherapy, Routine documented in this encounter Care Teams Shipfitters Supervisor Relationship Specialty Start Date End Date Analilia Lechuga APRN PCP - General Family Medicine 03/01/21 [place] [address] documented as of this encounter
--- OUTSIDE RECORDS SUMMARY | 2022-04-13 14:52 | XMS_ITS | Encounter Summary ---
:1960 Author Organization [facility] [place] [address] Care Team Providers Name Role Phone CaitlynAnalilia brooke MANSI Primary Care Provider Encounter Details Date Type Department Care Team Description 01/26/2022 Notes Only Hematology/Oncology at Shima Singh MSW [facility] OFFICE OF CARE [address] [place] [phone] Social History Tobacco Use Types Packs/Day Years [...] place to sleep or slept in a correction (including now)? Sex Assigned at Date Recorded Not on file documented as of this encounter Progress Notes Shima Singh MSW - 01/26/2022 10:49 AM EDT Follow up with pt during her infusion visit today. She did connect with PFS/Marioifer to talk about her insurance issues/questions. She will be looking into insurance options that she can afford. Gave her the contact number to the [employer], FRANCES (State health Insurance Program) as another resource for her. [facility] Patient Financial Assistance/Insurance documented in this encounter Plan of Treatment Upcoming Encounters Date Type Specialty Care Team Description 04/20/2022 Office Visit Hematology and Oncology Cristo Walsh MD [facility] [address] HEMATOLOGY/[place] [address] Yari Thompson APRN [facility] [address] HEMATOLOGY/[place] [address] 04/20/2022 Infusion Hematology and Oncology 04/27/2022 Infusion Hematology and Oncology 05/04/2022 Infusion Hematology and Oncology documented as of this encounter Visit Diagnoses Not on filedocumented in this encounter Care Teams Assemblies And Installations Inspector Relationship Specialty Start Date End Date Analilia Lechuga APRN PCP - General Family Medicine 03/01/21 [place] [address] documented as of this encounter
--- OUTSIDE RECORDS SUMMARY | 2022-04-13 14:52 | XMS_ITS | Encounter Summary ---
:1960 Author Organization [facility] [place] [address] Care Team Providers Name Role Phone AnkushAnalilia MANSI Primary Care Provider Encounter Details Date Type Department Care Team Description 02/02/2022 Office Visit Hematology/Oncology Lexis Walsh MD [facility] DR HEMATOLOGY/[place] [address] Multiple myeloma, remission status unspe cified; at [facility] Yari Thompson APRN [facility] DR HEMATOLOGY/[place] [address] Herpes zoster with complication [address] [place] [phone] Social History Tobacco Use Types Packs/Day [...] Sign Reading Time Taken Comments Blood Pressure 145/63 02/02/2022 11:07 AM EDT Pulse 54 02/02/2022 11:07 AM EDT Temperature 36.2 ??C (97.1 ??F) 02/02/2022 11:07 AM EDT Respiratory Rate 18 02/02/2022 11:07 AM EDT Oxygen Saturation 100% 02/02/2022 11:07 AM EDT Inhaled Oxygen Concentration - - Weight 75.6 kg (166 lb 9.6 oz) 02/02/2022 11:07 AM EDT Height 159 cm (5' 2.6) 02/02/2022 11:07 AM EDT Body Mass Index 29.89 02/02/2022 11:07 AM EDT documented in this encounter Progress Notes Yari Thompson, DATA ASSISTANT - 02/02/2022 11:00 AM EDT Subjective Patient ID: Christen Sommer is a 62 y.o. female being seen urgently today for more complaints of pain Patient Active Problem List Diagnosis ??? Myeloma Dx December of 2021. Presented with compression fx and anemia. FISH- trisomy 7, 9 and 15 (good prognosis) Started Velcade Dex 12/2021, Revlimid added cycle 2. HPI Christen has had an eventful week. She developed a pain in her right rib area approx 9 days ago - prior ot starting her last cycle. This progressively got worse - was seen in the ED - negative CXR. The pain has been about the same over the past few days. She describes it as a constant pain - worse when she stands and walks around. Also notices increase discomfort with breathing hard. She continues with her normal activities - but is uncomfortable. She has tried Tyelnol, Tramadol, Percocet - none ofwhich has helped the pain. She is able to eat and drink OK. It is difficult/painful for her to take a deep breath. No chest pain. She isseating and drinking OK. No fevers or chills. She did have 1 day of nausea and she took antiemetic - no vomitting. She did not have the recurring headache that she had with cycle 1. Energy is OK. Overall - other than this new pain she has actually done well. Objective Physical Exam Constitutional: General: She is [...] Skin: General: Skin is warm and dry. Comments: She does have a faint mild erythematous rash on her trunk. No open lesions or varicella like rash. Her skin is exquisitly tender on her lateral flank to very light touch Neurological: Mental Status: She is alert. BP 145/63 (Patient Position: Sitting) Pulse 54 Temp 36.2 ??C (97.1 ??F) (Temporal) Resp 18 Ht 159 cm (5' 2.6) Wt 75.6 kg (166 lb 9.6 oz) SpO2 100% BMI 29.89 kg/m?? Assessment and Plan Christen is a 62 year old female with newly diagnosed MM who is currently day 8 of cycle 2 RVD. Cycle 1 did not include revlimid. She has had numerous side effects since starting therapy including nausea, headaches, GERD, bowel changes and most recently acute pain. She actually is doing much better with her treatment this cycle. She will use compazine prn day 2. I believe her pain is likely PHN secondary to subclinical shingells. She has been taking her BID prophylactic acyclovir. Since symptoms started 9 days ago I do not believe additional antiviral will be of benefit at this time. We will start with low dose gabapentin - 100mg morning and afternoon and 300mg at HS - we did review s/e including fatigue and drowseyness. We will increase her dose as needed and tolerated. RX sent for 100mg tablets. We will go ahead with day 8 treatment today of Velcade and Dex - the De may also provide some temporaty pain relief. She will continue with revlimid daily. Christen Sommre will return to clinic in 1 week as previously planned - we will check labs at that point and plan day 15 of therapy. . she will call before then if any concerns or changes in status. documented in this encounter Plan of Treatment Upcoming Encounters Date Type Specialty Care Team Description 04/20/2022 Office Visit Hematology and Oncology Cristo Walsh MD [facility] DR HEMATOLOGY/[place] [address] Yari Thompson APRN [facility] [address] HEMATOLOGY/[place] [address] 04/20/2022 Infusion Hematology and Oncology 04/27/2022 Infusion Hematology and Oncology 05/04/2022 Infusion Hematology and Oncology documented as of this encounter Visit Diagnoses Diagnosis Multiple myeloma, remission status unspe cified Herpes zoster with complication Herpes zoster with unspecified complicat ion documented in this encounter Care Teams Regulatory Lead Relationship Specialty Start Date End Date Analilia Lechuga APRN PCP - General Family Medicine 03/01/21 [place] [address] documented as of this encounter
--- OUTSIDE RECORDS SUMMARY | 2022-04-13 14:52 | XMS_ITS | Encounter Summary ---
:1960 Author Organization [facility] [place] [address] Care Team Providers Name Role Phone CaitlynAnalilia brooke TRAVELING CONSTRUCTION SUPERINTENDENT Primary Care Provider Encounter Details Date Type Department Care Team Description 02/09/2022 Notes Only Tobacco Treatment at Salinas Webber MSW [facility] OFFICE OF CARE [address] [place] [phone] Social History Tobacco Use Types Packs/Day Years [...] encounter Progress Notes Shima Singh MSW - 02/09/2022 12:40 PM EDT Tobacco Treatment Follow up Visit Met with pt during her infusion visit today. She states she is not ready to take on a quit right now. She shared she has the support and encouragement from her family but she is just not ready. Answered her questions. Reminded pt of TTS contact information. Supported pt and told her to let TTS know if/when she was ready to try a quit. documented in this encounter Plan of Treatment Upcoming Encounters Date Type Specialty Care Team Description 04/20/2022 Office Visit Hematology and Oncology Cristo Walsh MD [facility] DR HEMATOLOGY/[place] [address] Yari Thompsno APRN [facility] DR HEMATOLOGY/[place] [address] 04/20/2022 Infusion Hematology and Oncology 04/27/2022 Infusion Hematology and Oncology 05/04/2022 Infusion Hematology and Oncology documented as of this encounter Visit Diagnoses Not on filedocumented in this encounter Care Teams Bale Piler Relationship Specialty Start Date End Date Analilia Lechuga APRN PCP - General Family Medicine 03/01/21 [place] [address] documented as of this encounter
--- OUTSIDE RECORDS SUMMARY | 2022-04-13 14:52 | XMS_ITS | Encounter Summary ---
:1960 Author Organization [facility] [place] [address] Care Team Providers Name Role Phone CaitlynAnalilia brooke MANSI Primary Care Provider Encounter Details Date Type Department Care Team Description 01/26/2022 Telephone Hematology and Oncology at Araseli Zuniga MD [facility] Estefania hadley HEMATOLOGY/[place] [address] [place] [address] [phone] (Wo rk) Social History Tobacco Use Types [...] encounter Miscellaneous Notes Telephone Encounter - Araseli oWodward MD - 01/26/2022 10:25 PM EDT ID: Christen Sommer is a 62 yo W with IgG kappa multiple myeloma currently on velcade and dex. [id number] revlimid today Caller: patient Patient was in the office at [facility] for her MM treatment. She reports that she is currently feeling nauseous and has been having a headache since 1 pm. She took 1 g of tylenol around 1pm and had zofran in the office prior to her chemo around 11AM Plan - Recommend to take zofran 4 mg now then Q 8hour PRN as previously prescribed. Her last BM was yesterday, she should be mindful that zofran can cause constipation and indirectly nausea. This can also be contributing to the headaches. Can take 1 g of tylenol now (after zofran) for the headaches. I will route this note to the primary team for f/u. Nishi Christen Woodward PGY5 Hematology Oncology Fellow Pager [phone] documented in this encounter Plan of Treatment Upcoming Encounters Date Type Specialty Care Team Description 04/20/2022 Office Visit Hematology and Oncology Cristo Walsh MD [facility] DR HEMATOLOGY/[place] [address] Yari Thompson APRN [facility] DR HEMATOLOGY/[place] [address] 04/20/2022 Infusion Hematology and Oncology 04/27/2022 Infusion Hematology and Oncology 05/04/2022 Infusion Hematology and Oncology documented as of this encounter Visit Diagnoses Not on filedocumented in this encounter Care Teams Middle [employer] Resource Teacher Relationship Specialty Start Date End Date Analilia Lechuga APRN PCP - General Family Medicine 03/01/21 [place] [address] documented as of this encounter
--- OUTSIDE RECORDS SUMMARY | 2022-04-13 14:52 | XMS_ITS | Encounter Summary ---
:1960 Author Organization [facility] [place] [address] Care Team Providers Name Role Phone CaitlynAnalilia brooke MANSI Primary Care Provider Encounter Details Date Type Department Care Team Description 12/28/2021 Telephone Hematology and Oncology at Carmen Rucker sa, [place] [address] Social History Tobacco Use Types Packs/Day Years [...] this encounter Miscellaneous Notes Telephone Encounter - Sara Rucker RN - 12/28/2021 11:[address] Barnard's request, RN spoke to patient to complete registration for REVLIMID REMS program and initiate investigation for: REVLIMID - 25mg 21 days/28 day cycle. RN spoke with pt over the phone. Dr. Barnard educated pt on warnings and side effects of REVLIMID. RN assessed patient's knowledge of REVLIMID. Patient verbalized understanding that REVLIMID may causepotential defects, low WBC/PLT counts and blood clots. Reviewed REVLIMID REMS Program Patient-Physician Agreement Form with patient, patient agreed with all statements and initialed appropriately. Patient aware needs to participate in telephone survey once therapy started. Patient is in agreement to authorize disclosure of info to [employer]. Patient will be resuming care with Dr. Cristo Walsh at [facility]. E-signed for Dr. Walhs. Form electronically sent to [employer]. RN obtained authorization number for REVLIMID and prepared script for Dr. Walsh's signature. RX and all supporting documentation faxed to [employer] [facility] for PA/BI. documented in this encounter Plan of Treatment Upcoming Encounters Date Type Specialty Care Team Description 04/20/2022 Office Visit Hematology and Oncology Cristo Walsh MD [facility] HEMATOLOGY/[place] [address] Yari Thompson APRN [facility] HEMATOLOGY/[place] [address] 04/20/2022 Infusion Hematology and Oncology 04/27/2022 Infusion Hematology and Oncology 05/04/2022 Infusion Hematology and Oncology documented as of this encounter Visit Diagnoses Not on filedocumented in this encounter Care Teams Precision Inspector Relationship Specialty Start Date End Date Analilia Lechuga APRN PCP - General Family Medicine 03/01/21 [place] [address] documented as of this encounter
--- OUTSIDE RECORDS SUMMARY | 2022-04-13 14:52 | XMS_ITS | Encounter Summary ---
:1960 Author Organization [facility] [place] [address] Care Team Providers Name Role Phone Analilia Lechuga APRN Primary Care Provider Reason for Visit Reason Onset Date Comments Constipation 01/16/2022 Encounter Details Date Type Department Care Team Description 01/16/2022 Telephone Hematology/Oncology at Araseli Ham RN [address] [phone] Social History Tobacco Use [...] Telephone Encounter - Araseli Dasilva RN - 01/16/2022 11:56 AM EDT Pt calls today she has not moved her bowels in three days. She is passing gas. She has been using smooth move tea the last two mornings. She does move around a lot. She is drinking about 40 oz of waterA day. She did have blood ooze from rectum yesterday when she wiped. Per Dr. Walsh she should be taking stool softeners, if bleeding starts up again and does not stop she should go to ER. She has hadcoughing for about 3 weks with some congestion, does not know color of sputum, no fever or chills. Took covid test it was negative. Dr. walsh would like to see her in clinic this . Pt will take dulcolax and senna this am. She will repeat tonight if no movement today and again in am. . She will increase water to at least 64 oz a day.We will call her tomorrow to see how she is doing. Pt agrees with plan. documented in this encounter Plan of Treatment Upcoming Encounters Date Type Specialty Care Team Description 04/20/2022 Office Visit Hematology and Oncology Cristo Walsh MD [facility] [address] HEMATOLOGY/[place] [address] Yair Thompson APRN [facility] [address] HEMATOLOGY/[place] [address] 04/20/2022 Infusion Hematology and Oncology 04/27/2022 Infusion Hematology and Oncology 05/04/2022 Infusion Hematology and Oncology documented as of this encounter Visit Diagnoses Not on filedocumented in this encounter Care Teams Ice Plant Operator Relationship Specialty Start Date End Date Analilia Lechuga APRN PCP - General Family Medicine 03/01/21 [place] [address] documented as of this encounter
--- OUTSIDE RECORDS SUMMARY | 2022-04-13 14:52 | XMS_ITS | Encounter Summary ---
:1960 Author Organization [facility] [place] [address] Care Team Providers Name Role Phone Ankush Analilia NAZARIO Primary Care Provider Encounter Details Date Type Department Care Team Description 02/08/2022 [facility] [address] HEMATOLOGY AND ONCOLOGY [place], [place] [address] [place] [address] [phone] (Wo rk) Social History Tobacco Use Types [...] place to sleep or slept in a longterm (including now)? Sex Assigned at Date Recorded Not on file documented as of this encounter Miscellaneous Notes Telephone Encounter - Page, Alyse Perez, RD - 02/08/2022 12:40 PM EDT [facility] Initial Assessment Patient Name: Christen Sommer Diagnosis: Multiple Myeloma Referred by: Yari Thompson Assessment: HPI Patient Active Problem List Diagnosis Code ??? Myeloma C90.00 Wt Readings from Last 10 Encounters: 02/09/22 74.6 kg (164 lb 6.4 oz) 02/02/22 75.6 kg (166 lb 9.6 oz) 01/26/22 75.3 kg (166 lb) 01/19/22 76.2 kg (168 lb) 01/12/22 76.6 kg (168 lb 12.8 oz) 01/05/22 76.2 kg (168 lb) 12/29/21 76.6 kg (168 lb 12.8 oz) 12/27/21 77.1 kg (170 lb) 12/22/21 77.1 kg (170 lb) 12/16/21 76.8 kg (169 lb 6.4 oz) BMI 29.5 4# weight loss in the past three weeks (2.4% body weight) - not significant Medications: senokot (not taking), miralax prn, gabapentin, percocet prn, prilosec daily, zofran prn, ativan prn, tylenol prin, compazine prn, revlimid Patient is on revlimid, velcade and dexamethasone for multiple myeloma Labs: LDH 136 Nutrition Screen 02/09/2022 02/02/2022 Reason for assessment Symptom management;New consult - Total MST Score 0 0 Functional Status 02/09/2022 Appetite Reduced compared to usual intake Diarrhea Grades Grade 1: Increase of < 4 stools/day over baseline, mild increase in ostomy outputcompared with baseline Constipation Grades Grade 1: Occasional/intermittent symptoms, occasional use of stool softeners, laxatives, dietary modification or enema Dentition Poor dentition/dental carries Patient reports she is having difficulty with constipation. She takes miralax prn and has senokot but is not taking it. She has had nausea, headaches, GERD and pain since starting treatment. Nausea is now well controlledwith compazine. Pain is thought to be due to subclinical shingells. Gabapentin was added for this this week. She complains of difficulty chewing, particularly meat, because of being edentulous on bottom and only having a few top teeth. Diet History: Spoke with patient over the phone today. Yesterday patient had egg and sausage sandwich on EM, water, cheeseburger. She typically eats 2 meals/day, occasionally snack (crackers or yogurt). She has to avoid hard textures due to poor dentition;meat is difficult to chew. Nutrition Diagnosis 02/09/2022 Problems Chewing difficulty due to poor dentition as evidenced by reports of having trouble with certain textures due to missingteeth. Estimated needs based on 74.6 [id number] kcals (25-30 kcal/kg) 75-100 g protein (1-1.3 g/kg) 1 ml/kcal fluids Nutrition Intervention: ? Reviewed protein options: soft, moist meats (could cut up finely or chop and serve with gravy/sauce), eggs, cheese, yogurt and milk, peanut butter, beans. ? Offered patient to try Ensure Plus or Complete. Unfortunately her insurance will not cover the cost of ONS. Left her 4 sample bottles and coupons at front end developer designer. ? Reviewed provider's most recent advice to take stool softener daily and miralax once daily prn to manage constipation. Monitoring and Evaluation: Will follow up with Christen in 4 weeks by phone to re-evaluate. I have provided her with my card and contact information should she have any questions in the meantime. Thank you for this consult. Alyse Mcgill RD documented in this encounter Plan of Treatment Upcoming Encounters Date Type Specialty Care Team Description 04/20/2022 Office Visit Hematology and Oncology Cristo Walsh MD [facility] HEMATOLOGY/[place] [address] Yari Thompson, LEAD PHP DEVELOPER [facility] HEMATOLOGY/[place] [address] 04/20/2022 Infusion Hematology and Oncology 04/27/2022 Infusion Hematology and Oncology 05/04/2022 Infusion Hematology and Oncology documented as of this encounter Visit Diagnoses Not on filedocumented in this encounter Care Teams Director Alumni Relations Relationship Specialty Start Date End Date Analilia Lechuga APRN PCP - General Family Medicine 03/01/21 [facility] [place] [address] documented as of this encounter
--- OUTSIDE RECORDS SUMMARY | 2022-04-13 14:52 | XMS_ITS | Encounter Summary ---
:1960 Author Organization [facility] [place] [address] Care Team Providers Name Role Phone Ankush Analilia MANSI Primary Care Provider Reason for Visit Reason Onset Date Comments Follow-up 03/01/2022 Encounter Details Date Type Department Care Team Description 03/01/2022 Telephone Hematology[facility]Oncology at [facility] Follow-up [facility] OLIVERIO [address] [place] [phone] Social History Tobacco Use Types [...] place to sleep or slept in a mcc (including now)? Sex Assigned at Date Recorded Not on file documented as of this encounter Miscellaneous Notes Telephone Encounter - Doug Cherry, RN - 03/02/2022 8:15 AM EDT Called and spoke with Christen Sommer regarding POC. She is in agreement and will stay of Revlimid and see us in 2 weeks, we will call her with new appointments once scheduled. Telephone Encounter - Doug Cherry RN - 03/01/2022 5:25 PM EDT Reviewed with Dr Walsh who advises pt get Paxlovid from PCP. She is to stay off treatment, including Revlimid, for another 2 weeks. Will reschedule her for 04/16 to evaluate her before starting next cycle. Called and no answer, mailbox full and could not leave message. Spoke with her spouse to relay message. ----- Message from Merly Hastings sent at 03/01/2022 9:42 AM EDT ----- Regarding: Covid Positive Christen's son tested positive for Covid on Sunday. She tested negative but woke up this morning not feeling well. She took another test and was positive. She is scheduled for a FUV and velcade tomorrow. Should I plan to push her out two weeks? She testedpositive today. Number is [phone] documented in this encounter Plan of Treatment Upcoming Encounters Date Type Specialty Care Team Description 04/20/2022 Office Visit Hematology and Oncology Cristo Walsh MD [facility] DR HEMATOLOGY/[place] [address] Yari Thompson APRN [facility] HEMATOLOGY/[place] [address] 04/20/2022 Infusion Hematology and Oncology 04/27/2022 Infusion Hematology and Oncology 05/04/2022 Infusion Hematology and Oncology documented as of this encounter Visit Diagnoses Not on filedocumented in this encounter Care Teams Street Sweeper Operator Relationship Specialty Start Date End Date Analilia Lechuga APRN PCP - General Family Medicine 03/01/21 [address] [place] [address] documented as of this encounter
--- OUTSIDE RECORDS SUMMARY | 2022-04-13 14:52 | XMS_ITS | Encounter Summary ---
:1960 Author Organization [facility] [place] [address] Care Team Providers Name Role Phone AnkushAnalilia MANSI Primary Care Provider Encounter Details Date Type Department Care Team Description 02/23/2022 Office Visit Hematology/Oncology Lexis Walsh MD [facility] DR HEMATOLOGY/[place] [address] Multiple myeloma, at [facility] Yari Thompson APRN [facility] DR HEMATOLOGY/[place] [address] remission [address] [place] [address] Social History Tobacco Use Types [...] Sign Reading Time Taken Comments Blood Pressure 129/64 02/23/2022 11:08 AM EDT Pulse 68 02/23/2022 11:08 AM EDT Temperature 36.6 ??C (97.8 ??F) 02/23/2022 11:08 AM EDT Respiratory Rate 18 02/23/2022 11:08 AM EDT Oxygen Saturation 100% 02/23/2022 11:08 AM EDT Inhaled Oxygen Concentration - - Weight 70.8 kg (156 lb) 02/23/2022 11:08 AM EDT Height 159 cm (5' 2.6) 02/23/2022 11:08 AM EDT Body Mass Index 27.99 02/23/2022 11:08 AM EDT documented in this encounter Progress Notes Cristo Walsh MD - 02/23/2022 11:00 AM EDT Subjective Patient ID: Christen Sommer is a 62 y.o. female being seen urgently today for more complaints of pain Patient Active Problem List Diagnosis ??? Myeloma Dx December of 2021. Presented with compression fx and anemia. FISH- trisomy 7, 9 and 15 (good prognosis) Started Velcade Dex 12/2021, Revlimid added cycle 2. HPI The patient is a 60-year-old female with new diagnosis of multiple myeloma. She is currently day 1 of cycle 3 of RVD chemotherapy. Over the last week she has had more trouble. She was very weak and had diarrhea. Had poor oral intake and felt dehydrated. She just started feeling better yesterday. Her daughter had a similar illness about 8 days ago. Has not gotten Revlimid for this cycle. she was accompanied by her son today. Objective BP 129/64 (Patient Position: Sitting) Pulse 68 Temp 36.6 ??C (97.8 ??F) (Temporal) Resp 18 Ht 159 cm (5' 2.6) Wt 70.8 kg (156 lb) SpO2 100% BMI 27.99 kg/m?? Physical Exam Constitutional: General: She is not [...] and dry. Neurological: Mental Status: She is alert. White count 4.9, hemoglobin 9.0, platelets 288 BUN 11, creatinine 0.7, calcium 9.4 Assessment and Plan Christen is a 62 year old female with newly diagnosed MM who is currently day 11 of cycle 3 RVD. She is recovering from a viral illness and I am going to recommend that we hold off starting cycle 3for about 7 days. This should allow us to get her Revlimid delivered and be ready to go and allow her more from the infection. We did send myeloma markers today and I will review those next week when she returns. Maribeth Jameson RN - 02/23/2022 11:00 AM EDT REVLIMID REFILL NOTE ?? Prescriber online survey done??02/23/22 with the [employer] Revlimid REMS program. ?? Revlimid Auth # [id number] ?? Prescription faxed to [facility] after obtaining Dr. Walsh's signature. ?? Script [...] or concerns. ?? Next start date around 03/30/22. ?? Next refill:??03/23/22 documented in this encounter Plan of Treatment Upcoming Encounters Date Type Specialty Care Team Description 04/20/2022 Office Visit Hematology and Oncology Cristo Walsh MD [facility] DR HEMATOLOGY/[place] [address] Yari Thompson APRN [facility] DR HEMATOLOGY/[place] [address] 04/20/2022 Infusion Hematology and Oncology 04/27/2022 Infusion Hematology and Oncology 05/04/2022 Infusion Hematology and Oncology documented as of this encounter Procedures Procedure Name Priority Date/Time Associated Diagnosis Comme nts CBC (WITH DIFF) Routine 02/22/2022 Results for this procedure are i n the results section . COMPREHENSIVE METABOLIC Routine 02/22/2022 Resu lts for this PANEL (NON-FASTING) procedur e are in the results section . documented in this encounter Results Comprehensive metabolic panel (non-fasting) (02/22/2022) P athologist Signature BUN 11 Creatinine 0.7 Sodium 138 Potassium 3.8 Calcium 9.4 Total Protein 9.7 Albumin 3.1 Total Bilirubin 0.2 Alk Phos 75 AST 12 ALT 15 Specimen (Source) Anatomical Location Collection Method / Collectio n Time Received Time / Laterality Volume Blood 02/22/2022 Historical Provider CHEMISTRY ORDERABLES CBC (with Diff) (02/22/2022) P athologist Signature WBC 4.94 RBC 2.83 Hemoglobin 9.0 Hematocrit 27.8 Platelets 288 Neutr Abs (ANC) 2.99 Specimen (Source) Anatomical Location Collection Method / Collectio n Time Received Time / Laterality Volume Blood 02/22/2022 Historical Provider HEMATOLOGY ORDERABLES documented in this encounter Visit Diagnoses Diagnosis Multiple myeloma, remission status unspe cified documented in this encounter Care Teams Project Coach Relationship Specialty Start Date End Date Analilia Lechuga APRN PCP - General Family Medicine 03/01/21 [address] [place] [address] documented as of this encounter
--- OUTSIDE RECORDS SUMMARY | 2022-04-13 14:52 | XMS_ITS | Encounter Summary ---
:1960 Author Organization [facility] [place] [address] Care Team Providers Name Role Phone CaitlynAnalilia brooke MANSI Primary Care Provider Encounter Details Date Type Department Care Team Description 01/13/2022 Orders Only Hematology and Oncology at Maribeth Fermin MD [facility] Estefania hadley HEMATOLOGY/[place] [address] [place] [address] [phone] (Wo rk) Social History Tobacco Use Types [...] documented as of this encounter Progress Notes Maribeth Fermin MD - 01/13/2022 8:43 PM EDT [facility] - TELEPHONE NOTE Reason for call: side effects of chemo HPI (from caller and chart review): 61F with IgG kappa multiple myeloma diagnosed 01/09. She started RVD (holding revlimid) on 01/01 and received her velcade yesterday. She was given 4mg zofran during the infusion. When she got home however she felt more nauseous and vomited 3 times. She also has back pain which is worse despite tramadol, pain is 5/10. She has decreased PO intake because of the nausea.She had some diarrhea, 2 BMs today, with blood on the paper when she wiped but not in the stool itself. She is more tired than usual. She is not taking additional medications beyond tramadol and tylenol. She denies fever/chills or other symptoms. She was told to call for anything out of the ordinary and because this is her first experience with chemotherapy she is nervous. I am not able to examine the patient. I personally reviewed labs and imaging studies. Assessment: 62 y.o. female with MM s/p velcade yesterday calling with typical nausea and fatigue that we expect with chemotherapy. She is not prescribed zofran and has not taken compazine for unclear reasons. She did receive zofran during her infusion yesterday. I encouraged her to use the compazine every 6 hours until she is able to warehouse picker the Rx for zofran that I sent to her local pharmacy - she will pick this up in the morning and start taking it every 8 hours for the next day or so, with compazine as needed for breakthrough. Provided reassurance that these are expected side effects after chemotherapy and that her symptoms will improve with time. Reviewed the alarm symptoms including fever 100.4F for 1 hour or any temperature above 100.4F. Encouraged her to call back if anything changes or she has additional questions. A copy of this note was sent to her primary hematologists. Recommendations: - zofran and compazine for nausea - continue tramadol for back pain PRN - continue tylenol The above is based on my discussion with Christen Sorto. I am not able to independently interview and examine the patient. I encouraged the caller to reach out again if clinical status changes or if additional questions arise. Maribeth Fermin MD, MS Hematology/Oncology Fellow [facility] Pager [phone] documented in this encounter Plan of Treatment Upcoming Encounters Date Type Specialty Care Team Description 04/20/2022 Office Visit Hematology and Oncology Cristo Walsh MD [facility] DR HEMATOLOGY/[place] [address] Yari Thompson APRN [facility] DR HEMATOLOGY/[place] [address] 04/20/2022 Infusion Hematology and Oncology 04/27/2022 Infusion Hematology and Oncology 05/04/2022 Infusion Hematology and Oncology documented as of this encounter Visit Diagnoses Not on filedocumented in this encounter Care Teams Recreation Programmer Relationship Specialty Start Date End Date Analilia Lechuga APRN PCP - General Family Medicine 03/01/21 [place] [address] documented as of this encounter
--- OUTSIDE RECORDS SUMMARY | 2022-04-13 14:52 | XMS_ITS | Encounter Summary ---
:1960 Author Organization [facility] [place] [address] Care Team Providers Name Role Phone Martha Lechugah MANSI Primary Care Provider Reason for Visit Reason Onset Date Comments Medication Management [facility] Details Date Type Department Care Team Description 2022 Telephone Hematology Oncology at Maribeth Jameson, Medication Management [facility] RN ([address] Bridge Game Director) [place] [address] Social History Tobacco Use Types [...] encounter Miscellaneous Notes Telephone Encounter - Maribeth Jameson, RN - 2022 9:02 AM EDT Returned call to [employer] Bridge Game Director to clarify questions on financial reporting specialist forms. Spoke to Desi. They stated they would send the request for free drug to the [employer]. # documented in this encounter Plan of Treatment Upcoming Encounters Date Type Specialty Care Team Description 04/20/2022 Office Visit Hematology and Oncology Cristo Walsh MD [facility] DR HEMATOLOGY/[place] [address] Yari Thompson APRN [facility] DR HEMATOLOGY/[place] [address] 04/20/2022 Infusion Hematology and Oncology 04/27/2022 Infusion Hematology and Oncology 05/04/2022 Infusion Hematology and Oncology documented as of this encounter Visit Diagnoses Not on filedocumented in this encounter Care Teams Vp Training Relationship Specialty Start Date End Date Analilia Lechuga APRN PCP - General Family Medicine 03/01/21 [address] [place] [address] documented as of this encounter
--- OUTSIDE RECORDS SUMMARY | 2022-04-13 14:52 | XMS_ITS | Encounter Summary ---
:1960 Author Organization [facility] [place] [address] Care Team Providers Name Role Phone Analilia Lechuga APRN Primary Care Provider Reason for Visit Reason Onset Date Comments Financial Concerns 12/29/2021 Financial Assistance for Revlimid Encounter Details Date Type Department Care Team Description 12/29/2021 Telephone Hematology Oncology at Maribeth Jameson, Financial Concerns [facility] RN (Financial Assistance [facility] [address] for Revlimid) [place] [address] Social History Tobacco Use Types [...] place to sleep or slept in a prison (including now)? Sex Assigned at Date Recorded Not on file documented as of this encounter Miscellaneous Notes Telephone Encounter - Maribeth Jameson RN - 12/29/2021 3:39 PM EDT Patient was ordered to begin Revlimid. She does not have insurance. [employer] Paper work filled out by both the physician and the patient and faxed to . Confirmationpage received. Forms scanned into [employer]. documented in this encounter Plan of Treatment Upcoming Encounters Date Type Specialty Care Team Description 04/20/2022 Office Visit Hematology and Oncology Cristo Walsh MD [facility] DR HEMATOLOGY/[place] [address] Yari Thompson APRN [facility] HEMATOLOGY/[place] [address] 04/20/2022 Infusion Hematology and Oncology 04/27/2022 Infusion Hematology and Oncology 05/04/2022 Infusion Hematology and Oncology documented as of this encounter Visit Diagnoses Not on filedocumented in this encounter Care Teams Utility Bill Collection Clerk Relationship Specialty Start Date End Date Analilia Lechuga APRN PCP - General Family Medicine 03/01/21 [address] [place] [address] documented as of this encounter
--- OUTSIDE RECORDS SUMMARY | 2022-04-13 14:52 | XMS_ITS | Encounter Summary ---
:1960 Author Organization [facility] [place] [address] Care Team Providers Name Role Phone AnkushAnalilia MANSI Primary Care Provider Reason for Visit Reason Comments Chemotherapy Cycle 2, Day 15 Treatment/Therapy Plan Authorization (Routine) - Authorized Specialty Diagnoses / Procedures Referred By Contact Refer red To Contact Hematology and Diagnoses Multiple myeloma, remission status unspecified Cristo Walsh MD [facility] Hem Onc Infusion Oncology Procedures TC DENOSUMAB, 1MG, INJECTION TC BORTEZOMIB, 0.1MG, INJECTION (VELCADE) J9041 VELCADE 3 MG [facility] [address] [place], [place] HEMATOLOGY/ONCOLOGY [address] [place] [address] Referral ID Status Reason Start Date Expiration Date Visits V isits Requested Authorized [id number] Authorized 12/24/2021 05/20/2022 99 99 Encounter Details Date Type Department Care Team Description 02/09/2022 Infusion Hematology Oncology at [facility] myeloma, remission [facility] status unspecified [address] [place], [place] [address] Social History Tobacco Use [...] documented as of this encounter Progress Notes Doug Cherry RN - 02/09/2022 12:00 PM EDT INFUSION THERAPY ADMINISTRATION NOTES DIAGNOSIS: MM CYCLE #2: Day 15 REASON FOR VISIT: Velcade injection SUBJECTIVE Christen Sommer saw provider in clinic and is ready for treatment. Gabapentin helping with pain. OBJECTIVE VSS, weight stable. LAB DATA: Done 01/24/22 at [facility] and [facility] for treatment. Pre administration: Chemotherapy orders independently verified for drug name, route, and dosage per patient's height, weight and BSA by Doug Cherry, [facility] & on-site pharmacist. REACTIONS (DESCRIPTION, TIME, INTERVENTION AND EFFECTIVENESS) none ASSESSMENT Christen was awake, alert and tolerated treatment well. Velcade given SQ in RLQ per pt request. PLAN Return to clinic per plan. documented in this encounter Plan of Treatment Upcoming Encounters Date Type Specialty Care Team Description 04/20/2022 Office Visit Hematology and Oncology Cristo Walsh MD [facility] DR HEMATOLOGY/[place] [address] Yari Thompson APRN [facility] HEMATOLOGY/[place] [address] 04/20/2022 Infusion Hematology and Oncology 04/27/2022 Infusion Hematology and Oncology 05/04/2022 Infusion Hematology and Oncology documented as of this encounter Visit Diagnoses Diagnosis Multiple myeloma, remission status unspe cified documented in this encounter Administered Medications Inactive Administered Medications - up to 3 most recent administrations Medication Order MAR Action Action Date Dose Rate Site bortezomib (Velcade) (2.5 Given 02/09/2022 12:54 PM 3 mg Right Lower Quadrant mg/mL) subcutaneous EDT injection 3 mg 3 mg (rounded from 2.96 mg = 1.6 mg/m2/dose ? 1.85 m2 Treatment Plan BSA from Recorded weight), Subcutaneous, ONCE, 1 dose, On Jyoti 02/09/22 at 1345, Inject subcutaneous in the thigh or abdomen., Routine dexAMETHasone (Decadron) tablet 20 mg Given 02/09/2022 12:40 PM EDT 20 mg 20 mg, Oral, ONCE, 1 dose, On Jyoti 02/09/22 at 1245, Routine ondansetron (Zofran) tablet 4 mg Given 02/09/2022 12:40 PM EDT 4 mg 4 mg, Oral, ONCE, 1 dose, On Jyoti 02/09/22 at 1245, Administer prior to chemotherapy, Routine documented in this encounter Care Teams Ekg/Ecg Technician Relationship Specialty Start Date End Date Analilia Lechuga APRN PCP - General Family Medicine 03/01/21 [address] [place] [address] documented as of this encounter
--- OUTSIDE RECORDS SUMMARY | 2022-04-13 14:52 | XMS_ITS | Encounter Summary ---
:1960 Author Organization [facility] [place] [address] Care Team Providers Name Role Phone Analilia Lechuga MANSI Primary Care Provider Reason for Referral Diagnostic Test (Routine) - Closed Specialty Diagnoses / Procedures Referred By Contact Refer red To Contact Radiology Diagnoses Multiple myeloma, remission status unspecified Diogo Barnard MD [facility] Rad Nuclear Med Procedures NM PET CT Standard Plus Extremities and Head [place], [place] [id number] [place] [phone] Fax: Referral ID Status Reason Start Date Expiration Date Visits V isits Requested Authorized [id number] Closed Specialty 12/27/2021 06/29/2023 1 1 Service Requested Reason for Visit Diagnostic Test (Routine) - Closed Specialty Diagnoses / Procedures Referred By Contact Refer red To Contact Radiology Diagnoses Multiple myeloma, remission status unspecified Diogo Barnard MD [facility] Rad Nuclear Med Procedures NM PET CT Standard Plus [place] [address] [place] [address] Fax: Referral ID Status Reason Start Date Expiration Date Visits V isits Requested Authorized [id number] Closed Specialty 12/27/2021 06/29/2023 1 1 Service Requested Encounter Details Date Type Department Care Team Description 01/06/2022 Hospital Encounter Nuclear Medicine at [place], [facility] myel[facility], Liyah Phelps MD remission status [facility] [address] [place] [address] [phone] Social History Tobacco Use Types Packs/Day Years [...] [facility] DR HEMATOLOGY/[place] [address] Yari Thompson APRN [facility] DR HEMATOLOGY/[place] [address] 04/20/2022 Infusion Hematology and Oncology 04/27/2022 Infusion Hematology and Oncology 05/04/2022 Infusion Hematology and Oncology documented as of this encounter Procedures Procedure Name Priority Date/Time Associated Diagnosis Comme nts NM PET CT STANDARD Routine 01/06/2022 1:52 PM Multiple myeloma , Results for this PLUS EXTREMITIES AND EDT remission status pro cedure are in HEAD unspecified the results section. documented in this encounter Results NM PET CT Standard [...] who have questions please contact the health restorative care technician that requested your imaging first. ? Electronically signed by: Mary Austin, [facility] ([phone]), at 01/06/2022 2:48 PM Narrative 01/06/2022 2:48 PM EDT EXAMINATION: NM PET CT STANDARD PLUS EXTREMITIES AND HEAD CLINICAL HISTORY: Myeloma,staging Myeloma with multiple vertebral fracture s. ? other sites of disease TECHNIQUE: Procedure: Following IV injec tion of 23-pfgayd-8-deoxyglucose (FDG) a standard uptake of approximately 60 [...] TECHNIQUE: Procedure: Following IV injec tion of 71-kyoqjz-7-deoxyglucose (FDG) a standard uptake of approximately 60 [...] ho have questions please contact the health restorative care technician that requested your imaging first. Electronically signed by: Mary Austin, [facility] ([phone]), at 01/06/2022 2:48 PM Diogo Barnard MD IMG PET ORDERABLES documented in this encounter Visit Diagnoses Diagnosis Multiple myeloma, remission status unspe cified documented in this encounter Care Teams Skin Therapist Relationship Specialty Start Date End Date Analilia eLchuga APRN PCP - General Family Medicine 03/01/21 [address] [place] [address] documented as of this encounter
--- OUTSIDE RECORDS SUMMARY | 2022-04-13 14:52 | XMS_ITS | Encounter Summary ---
:1960 Author Organization [facility] [address] Care Team Providers Name Role Phone Ankush Analilia MANSI Primary Care Provider Reason for Visit Reason Onset Date Comments Other 01/25/2022 Insurance issues Encounter Details Date Type Department Care Team Description 01/25/2022 Telephone Hematology/Oncology at Shima Singh Ot her (Insurance [facility] PLANNING INTERN issues) [address] OFFICE OF CARE [place], [place] MANAGEMENT [address] Social History Tobacco Use Types Packs/Day [...] this encounter Miscellaneous Notes Telephone Encounter - Shima Singh MSW - 01/25/2022 12:42 PM EDT TC from pt requesting some direction re her insurance concerns. She indicated her present insurance does not cover oncology care. Going onto her insurance is expensive. She is asking re her option. Encouraged pt to call [facility] to discuss. With pt's permission sent message to [employer] and asked that a counselor reaches out to her. Message back that Jose will have a rep reach out to pt. Pt has an appointment tomorrow here and will follow up with her re this and her interest in smoking cessation. Patient Financial Assistance/Insurance documented in this encounter Plan of Treatment Upcoming Encounters Date Type Specialty Care Team Description 04/20/2022 Office Visit Hematology and Oncology Cristo Walsh MD [facility] DR HEMATOLOGY/[place] [address] Yari Thompson APRN [facility] HEMATOLOGY/[place] [address] 04/20/2022 Infusion Hematology and Oncology 04/27/2022 Infusion Hematology and Oncology 05/04/2022 Infusion Hematology and Oncology documented as of this encounter Visit Diagnoses Not on filedocumented in this encounter Care Teams News Producer Relationship Specialty Start Date End Date Analilia Lechuga APRN PCP - General Family Medicine 03/01/21 [place] [address] documented as of this encounter
--- OUTSIDE RECORDS SUMMARY | 2022-04-13 14:52 | XMS_ITS | Encounter Summary ---
:1960 Author Organization [facility] [place] [address] Care Team Providers Name Role Phone Analilia Lechuga APRN Primary Care Provider Reason for Visit Diagnostic Test (Routine) - Canceled Specialty Diagnoses / Procedures Referred By Contact Refer red To Contact Radiology Diagnoses Multiple myeloma, remission status unspecified Analilia Lechuga APRN [facility] Rad Ct Scan Procedures CT Guided Biopsy Bone (Spine/Skull) CT Guided Biopsy Bone (Extremities/Pelvis) [address] [place] [address] Referral ID Status Reason Start Expiration Visits Visits Date Date Requested Authorized [id number] Canceled Specialty 12/13/2021 06/15/2023 1 1 Service Requested Encounter Details Date Type Department Care Team Description 12/28/[address] Scan at [facility] Analilia Lechuga, Pre-op testing; [facility] [address] [facility] [address] [place] [address] [phone] Social History Tobacco Use Types Packs/Day Years [...] to sleep or slept in a senior living (including now)? Sex Assigned at Date Recorded Not on file documented as of this encounter Medications at Time of Discharge Medication Sig Dispensed Refills Start Date End Date acyclovir (Zovirax) 400 mg Take 1 tablet [...] every 6 hours as needed for Pain. acetaminophen 325 mg As needed 0 02/20/202112/19 Capsule cyclobenzaprine (Flexeril) As needed 0 01/26/2022 10 mg Tablet documented as of this encounter Progress Notes Latisha Mccormack RN - 12/23/2021 8:41 AM EDT [facility] NURSING DATABASE Name: AVIVA SOMMER Date of : 1960 AGE: 61 y.o. Address: [address] [place] [address] (home) Mobile: Telephone Information: Referring Provider: Analilia Lechuga REASON FOR VISIT: Order Questions Answers Where will study be performed[facility] Radiology [120] Laterality Bilateral Is the patient on anticoagulant / antiplatelet therapy ? No Does the patient have any pertinent outside imaging? Yes Reason for exam and clinical history: Multiple Myeloma Clinical information / kelley questions for radiologist: Outside order in media tab No data recorded No Known Allergies Pertinent PMH: There is no problem list on file for this patient. Date/Procedure Meds Given/Comments Laboratory Results: Lab Results Component Value Date CREATININE 0.77 12/16/2021 Lab Results Component Value Date K 3.8 12/16/2021 Lab Results Component Value Date PLATELET 199 12/22/2021 documented in this encounter Plan of Treatment Upcoming Encounters Date Type Specialty Care Team Description 04/20/2022 Office Visit Hematology and Oncology Cristo Walsh MD [facility] DR HEMATOLOGY/[place] [address] Yari Thompson APRN [facility] HEMATOLOGY/[place] [address] 04/20/2022 Infusion Hematology and Oncology 04/27/2022 Infusion Hematology and Oncology 05/04/2022 Infusion Hematology and Oncology Scheduled Orders Name Type Priority Associated Diagnoses Order S chedule Platelet count Lab STAT Pre-op testing Expected: 12/28/2021, Lumbar pain Expires: 2022 Prothrombin Time Lab STAT Pre-op testing Expected: 12/28/2021, Lumbar pain Expires: 2022 documented as of this encounter Visit Diagnoses Diagnosis Pre-op testing Preoperative examination, unspecified Lumbar pain Lumbago documented in this encounter Care Teams Machine Loader Relationship Specialty Start Date End Date Analilia Lechuga APRN PCP - General Family Medicine 10/12/21 [place] [address] documented as of this encounter
--- OUTSIDE RECORDS SUMMARY | 2022-04-13 14:52 | XMS_ITS | Encounter Summary ---
:1960 Author Organization [facility] Address [facility] [place] [address] Care Team Providers Name Role Phone AnkushAnalilia MANSI Primary Care Provider Encounter Details Date Type Department Care Team Description 01/05/2022 Orders Only Hematology/Oncology at Cristo Walsh MD Multiple myeloma, [facility] remission status [address] unspecified [place], [place] HEMATOLOGY/ONCOLOG [address] Y DEPT. [phone] [place] [id number] Social History Tobacco Use Types Packs/Day Years [...] [facility] DR HEMATOLOGY/[place] [address] Yari Thompson APRN [facility] HEMATOLOGY/[place] [address] 04/20/2022 Infusion Hematology and Oncology 04/27/2022 Infusion Hematology and Oncology 05/04/2022 Infusion Hematology and Oncology Scheduled Orders Name Type Priority Associated Diagnoses Order S chedule CBC (with Diff) Lab STAT Multiple myeloma, As Need ed for 12 remission status Occurrences starting unspecified 01/05/2022 unti l 01/05/2023 Comprehensive metabolic Lab STAT Multiple myeloma, As Needed for 12 panel (non-fasting) remission status Occu rrences starting unspecified 01/05/2022 unti l 01/05/2023 documented as of this encounter Visit Diagnoses Diagnosis Multiple myeloma, remission status unspe cified documented in this encounter Care Teams Pump Oiler Relationship Specialty Start Date End Date Analilia Lechuga APRN PCP - General Family Medicine 03/01/21 [address] [place] [address] documented as of this encounter
--- OUTSIDE RECORDS SUMMARY | 2022-04-13 14:52 | XMS_ITS | Encounter Summary ---
:1960 Author Organization [facility] [place] [address] Care Team Providers Name Role Phone AnkushAnalilia MANSI Primary Care Provider Encounter Details Date Type Department Care Team Description 02/09/2022 Office Visit Hematology/Oncology Lexis Walsh MD [facility] DR HEMATOLOGY/[place] [address] Multiple myeloma, remission status unspe cified; at [facility] Yari Thompson APRN [facility] HEMATOLOGY/[place] [address] Herpes zoster with complication [address] [place] [phone] Social History Tobacco Use Types Packs/Day [...] Sign Reading Time Taken Comments Blood Pressure 139/61 02/09/2022 11:47 AM EDT Pulse 74 02/09/2022 11:47 AM EDT Temperature 36.6 ??C (97.8 ??F) 02/09/2022 11:47 AM EDT Respiratory Rate 18 02/09/2022 11:47 AM EDT Oxygen Saturation 100% 02/09/2022 11:47 AM EDT Inhaled Oxygen Concentration - - Weight 74.6 kg (164 lb 6.4 oz) 02/09/2022 11:47 AM EDT Height 159 cm (5' 2.6) 02/09/2022 11:47 AM EDT Body Mass Index 29.5 02/09/2022 11:47 AM EDT documented in this encounter Progress Notes Cristo Walsh MD - 02/09/2022 11:30 AM EDT Subjective Patient ID: Christen Sommer [...] of multiple myeloma. She is currently day 15 of cycle 2 of RVD chemotherapy. Over the last week she has done a little bit better. Bowels have been a bit smoother. Pain is easingup. 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 she was accompanied by her son today. Objective BP 139/61 (Patient Position: Sitting) Pulse 74 Temp 36.6 ??C (97.8 ??F) (Temporal) Resp 18 Ht 159 cm (5' 2.6) Wt 74.6 kg (164 lb 6.4 oz) SpO2 100% BMI 29.50 kg/m?? Physical Exam Constitutional: General: She is [...] dry. Neurological: Mental Status: She is alert. Latest Reference Range & Units 12/16/21 14:49 02/06/22 00:00 M1 Band g/dL 3.31 2.2 (H) (E) (H): Data is abnormally high (E): External lab result Assessment and Plan Christen is a 62 year old female with newly diagnosed MM who is currently day 15 of cycle 2 RVD. Cycle 1 did not include revlimid. Today we focused on the positive side of her treatments. Her M spike has already started to fall andits down about 33% just to the first cycle and a half. I was encouraging her to continue on with treatment which she is willing to do. Will complete her second cycle at this point and she will have next week off. She will return in 2 weeks to start cycle 3. We will plan to repeat her myeloma markers on day 1 of that cycle. I did recommend that she increase the Neurontin to 300 mg morning and afternoon and 600 mg at bedtime. documented in this encounter Plan of Treatment Upcoming Encounters Date Type Specialty Care Team Description 04/20/2022 Office Visit Hematology and Oncology Cristo Walsh MD [facility] DR HEMATOLOGY/[place] [address] Yari Thompson APRN [facility] HEMATOLOGY/[place] [address] 04/20/2022 Infusion Hematology and Oncology 04/27/2022 Infusion Hematology and Oncology 05/04/2022 Infusion Hematology and Oncology Scheduled Orders Name Type Priority Associated Diagnoses Order S chedule Free Light Chains, Serum Lab STAT Multiple myeloma , Every 4 Weeks for 13 remission status Occurrences starting unspecified 02/14/2022 unti l 02/14/2023 Immunoglobulins, Lab STAT Multiple myeloma, Every 4 Weeks for 13 Quantitative remission status Occurrences starting unspecified 02/14/2022 unti l 02/14/2023 Protein Electrophoresis, Lab STAT Multiple myeloma , Every 4 Weeks for 13 serum remission status Occurrences starting unspecified 02/14/2022 unti l 02/14/2023 documented as of this encounter Procedures Procedure Name Priority Date/Time Associated Diagnosis Comme nts IMMUNOGLOBULIN FREE LIGHT Routine 02/06/2022 Re sults for this CHAINS, SERUM procedure are in the results section. IMMUNOGLOBULINS, Routine 02/06/2022 Results for this QUANTITATIVE procedure are i n the results section. PROTEIN ELECTROPHORESIS, Routine 02/06/2022 Res ults for this SERUM procedure are i n the results section. LACTATE DEHYDROGENASE Routine 02/06/2022 Result s for this procedure are i n the results section. documented in this encounter Results (ABNORMAL) Free Light Chains, Serum (02/06/2022) Analysis Performed At Patho logist Time Signature [place] Free 37.61 (H) Light Chain Lambda Free 1.18 Light Chains [place]/Lambda 31.87 (H) FLC Ratio Specimen (Source) Anatomical Location Collection Method / Collectio n Time Received Time / Laterality Volume Blood 02/06/2022 Historical Provider CHEMISTRY ORDERABLES (ABNORMAL) Immunoglobulins, Quantitative (02/06/2022) P athologist Signature IgG 3,166 (H) IgA 22 (L) IgM 102 Specimen (Source) Anatomical Location Collection Method / Collectio n Time Received Time / Laterality Volume Blood 02/06/2022 Historical Provider CHEMISTRY ORDERABLES Lactate Dehydrogenase (02/06/2022) athologist Signature LDH 136 Specimen (Source) Anatomical Location Collection Method / Collectio n Time Received Time / Laterality Volume Blood 02/06/2022 Historical Provider CHEMISTRY ORDERABLES (ABNORMAL) Protein Electrophoresis, serum (02/06/2022) athologist Signature Total Prot 9.2 (H) Elec Albumin Elect 4.6 Alpha1-Globuli 0.30 n Alpha2-Globuli 0.80 n Beta Globulin 0.70 Gamma Globulin 2.90 (H) M1 Band 2.2 (H) Specimen (Source) Anatomical Location Collection Method / Collectio n Time Received Time / Laterality Volume Blood 02/06/2022 Historical Provider CHEMISTRY ORDERABLES documented in this encounter Visit Diagnoses Diagnosis Multiple myeloma, remission status unspe cified Herpes zoster with complication Herpes zoster with unspecified complicat ion documented in this encounter Care Teams It Web Development Consultant Relationship Specialty Start Date End Date Analilia Lechuga APRN PCP - General Family Medicine 03/01/21 [address] [place] [address] documented as of this encounter
--- OUTSIDE RECORDS SUMMARY | 2022-04-13 14:52 | XMS_ITS | Encounter Summary ---
:1960 Author Organization [facility] [place] [address] Care Team Providers Name Role Phone Analilia Lechuga APRN Primary Care Provider Reason for Visit Reason Onset Date Comments Other 01/31/2022 Right rib pain Encounter Details Date Type Department Care Team Description 01/31/2022 Telephone Hematology/Oncology at Emmie Zamarripa, Other (Right rib pain) [facility] RN [address] [place] [phone] Social History Tobacco Use Types [...] this encounter Miscellaneous Notes Telephone Encounter - Emmie Zamarripa, RN - 01/31/2022 5:01 PM EDT Called fabian back to check on the right side rib area pain. It is 9/10, right upper side pain.Rib and under rib, ongoing for 5-6 days. She has tried tramadol nd tylenol and it doesn't touch it. She reported she has read that her chemo can cause GI upset. She denies mid chest/epigastric pain- I told her the right side pain was unlikely GI. Discussed with Dr. Walsh- he recommended going to ED for Eval. Fabian was hesitant about this (? Insurance coverage). After a lot of discussion she agreed to go to [facility] ED. It appears she did go to the ED. They did a chest x ray- no fractures or acute lung issues. She declined them checking blood work. They discharged her to home. ----- Message from Merly Hastings sent at 01/31/2022 10:53 AM EDT ----- Regarding: Pain in ribs/back Pain in upper right ribs. She said it started as a dull pain but is now sharp. The pain is constant and hurts unless she is in a reclined, she's at a 9 for pain. This has been going on for almost a week. About 5-6 days, doesn't report any falling. She said the pain started in her lower ribs but has since spread underneath her side and around her back. Can you please touch base with her? Please call her back at [phone] documented in this encounter Plan of Treatment Upcoming Encounters Date Type Specialty Care Team Description 04/20/2022 Office Visit Hematology and Oncology Cristo Walsh MD [facility] HEMATOLOGY/[place] [address] aYri Thompson APRN [facility] HEMATOLOGY/[place] [address] 04/20/2022 Infusion Hematology and Oncology 04/27/2022 Infusion Hematology and Oncology 05/04/2022 Infusion Hematology and Oncology documented as of this encounter Visit Diagnoses Not on filedocumented in this encounter Care Teams Cloth Baler Relationship Specialty Start Date End Date Analilia Lechuga APRN PCP - General Family Medicine 03/01/21 [place] [address] documented as of this encounter
--- OUTSIDE RECORDS SUMMARY | 2022-04-13 14:52 | XMS_ITS | Encounter Summary ---
:1960 Author Organization [facility] Address [facility] [place] [address] Care Team Providers Name Role Phone Martha Lechugah MANSI Primary Care Provider Reason for Referral Consultation (Routine) - Closed Specialty Diagnoses / Procedures Referred By Contact Refer red To Contact Primary Care Diagnoses Multiple myeloma, remission status unspecified Yari Thompson APRN [facility] HEMATOLOGY/[place] [address] [place] [address] Referral ID Status Reason Start Date Expiration Date Visits V isits Requested Authorized [id number] Closed Consult, 01/19/2022 01/19/2023 1 1 Test & Treat Consultation (Routine) - Authorized Specialty Diagnoses / Procedures Referred By Contact Refer red To Contact Hematology and Diagnoses Multiple myeloma, remission status unspecified Yari Thompson APRN [facility] Hem Onc Office Oncology [address] [place], [place] HEMATOLOGY/ONCOLOGY [id number] [place] [address] Referral ID Status Reason Start Expiration Visits Visits Date Date Requested Authorized [id number] Authorized Continuity of 01/19/2022 01/19/2023 1 1 Care Encounter Details Date Type Department Care Team Description 01/19/2022 Office Visit Hematology/Oncology Lexis Walsh MD [facility] DR HEMATOLOGY/[place] [address] Multiple myeloma, at [facility] Yari Thompson APRN [facility] HEMATOLOGY/[place] [address] [address] [place] [phone] Social History Tobacco Use Types [...] Sign Reading Time Taken Comments Blood Pressure 151/53 01/19/2022 10:11 AM EDT Pulse 59 01/19/2022 10:11 AM EDT Temperature 36.1 ??C (96.9 ??F) 01/19/2022 10:11 AM EDT Respiratory Rate 18 01/19/2022 10:11 AM EDT Oxygen Saturation 100% 01/19/2022 10:11 AM EDT Inhaled Oxygen Concentration - - Weight 76.2 kg (168 lb) 01/19/2022 10:11 AM EDT Height 159 cm (5' 2.6) 01/19/2022 10:11 AM EDT Body Mass Index 30.14 01/19/2022 10:11 AM EDT documented in this encounter Progress Notes Yari Thompson, MANSI - 01/19/2022 10:00 AM EDT Subjective Patient ID: Christen Sommer is a 62 y.o. female here for f/u of MM Patient Active Problem List Diagnosis ??? Myeloma Dx December of 2021. Presented with compression fx and anemia. FISH- trisomy 7, 9 and 15 (good prognosis) Started Velcade Dex 12/2021, Revlimid added cycle 2. HPI Christen had anumber of side effects after cycle 1 - she had headache 2-3 days after infusion - tylenol did not help - lasted about 8 hours. This occurred each week after treatment. Heartburn - lasteda day - not with each dose. Resolved on its own. Flush faced, she felt warm- did not appear swollen,mild redness. She also developed congestion starting with week 2 and has persisted. She does have seasonal allergies - she does not take anything for this. She occasionally would take claritin for this. She has not taken anythign this past few weeks. She has been coughing more. Till smoking 1ppd. denies NATION/SOB. She had constipation and then diarrhea - with some blood . She did take sennakot. Only took dulcolax once. She had the bleeding on the toilet tissue. This resolved after after a day. Would recur if more diarrhea. She also had vomitting - but this was a few days after day 15. She felt warm and faint and weak. Nauseated all day and then vomitted at night - felt better the next day. Her back pain is about the same, takes PRN flexeril and tramadol. Review of Systems Constitutional: Positive for fatigue. HENT: Positive for congestion and rhinorrhea. Respiratory: Positive for cough. Cardiovascular: Positive for leg swelling. Gastrointestinal: Positive for constipation and diarrhea. Musculoskeletal: Positive for back pain. Neurological: Positive for headaches. Hematological: Negative. Psychiatric/Behavioral: Negative. Objective Physical Exam [...] Normal range of motion and neck supple. Comments: Slow with position changes Lymphadenopathy: Cervical: No cervical adenopathy. Upper Body: Right upper body: No supraclavicular adenopathy. Left upper body: No supraclavicular adenopathy. Skin: General: Skin is warm and dry. Neurological: Mental Status: She is alert and oriented to person, place, and time. CLINICAL HISTORY: Myeloma,staging Myeloma with multiple vertebral fractures. ? other sites of disease ? TECHNIQUE: Procedure: Following IV injection of 21-xmslvr-4-deoxyglucose (FDG) a standard uptake of approximately 60 minutes, a noncontrast CT scan followed by a PET scan were acquired from the top of head to bottom of feet. The noncontrast CT was used for anatomic localization and photon attenuation correction of the PET scan. ?? Blood glucose level: 115 (mg/dL) ?? FDG dose: 17.3 mCi ?? COMPARISON: None ?? FINDINGS: ?? HEAD/NECK: Normal activity in all soft tissue regions. ?? CHEST: Normal activity in all soft tissue regions. ?? The thoracic aorta is dilated and contains fluid. Coronary artery calcification is noted. There is a small hiatal hernia. A 3 mm nodule in the superior segment of the lingula (image 140) is of doubtful clinical significance. ?? ABDOMEN/PELVIS: Normal activity in all soft tissue regions. ?? A calcified uterine fibroid is seen. Gas within the subcutaneous tissues of the left anterior abdominal wall is likely due to previous medication administration. ?? SKELETON/EXTREMITIES: There is mild and symmetrically increased activity in the marrow spaces of both femurs. ?? A focus of increased activity in the lateral aspect of the left third rib corresponds to a fracture. ?? The osseous structures are diffusely demineralized. There are multiple osteolytic defects in the skeleton in. These are most prominent in the lumbar spine and skull. ?? Multiple non-hypermetabolic compression fractures are present. These are seen most prominently in T10 and T12-L2 and L4 and L5. ?? IMPRESSION 1. No definite active myeloma is present. 2. There is a focus of increased activity in the lateral left third rib that corresponds to a fracture. 3. There is symmetrically increased activity in the marrow of both femurs. This pattern is more suggestive of marrow hyperplasia. Myeloma at these sites is possible but considered less likely. 4. Extensive osteolytic lesions are seen throughout the skeleton. ?? Thank you for letting us participate in the care of this patient. If you are a health care provider and have any questions regarding this report, please contact the number below. For patients who have questions please contact the health resident care manager that requested your imaging first. Lab Results Component Value Date WBC 4.2 12/22/2021 HGB 10.5 (L) 12/22/2021 HCT 30.7 (L) 12/22/2021 MCV 96.5 (H) 12/22/2021 PLATELET 199 12/22/2021 BP 151/53 (Patient Position: Sitting) Pulse 59 Temp 36.1 ??C (96.9 ??F) (Temporal) Resp 18 Ht 159 cm (5' 2.6) Wt 76.2 kg (168 lb) SpO2 100% BMI 30.14 kg/m?? Assessment and Plan 61-year-old female with a new diagnosis of IgG kappa multiple myeloma. She presented with multiple compression fractures and anemia. She has good prognosis with trisomies 7,9 and 15. She has completed cycle 1 of therapy with velcade dex alone. She ahs ahd a number of mild symptoms/side effects. #- headache - may be secondary to Zofran - but with nausea and vomiting after dose three will continue this for one more cycle. OK to take Tylenol and NSAID if recurs. # Heartburn - will start with OTC PPI - will take for day before and few dasy after infusion # congestion/cough - long history of seasonal allergies - dust and pollen - OK to take antihistaminePRN and/or nasal steriod which she has used in the past. At this time she has had rhinorrhea, cough ongoing for over 2 weeks. I will also cover her with a Z-pack to ensure to cover any potential bacterial involvement. #constipationa nd diarrhea - we reviewed bowel regimen - encourage increased fluids and fiber - alsoencourage dialy stool softener and miralax if no BM after 1 day. # flushing - c/w steriods - no need to intervene at this time. # 1 episode of nausea/vomitting on day 17-18 Unusual to be secodnary to velcade or dex - especially week 3. More likley incidental infection - will continue to monitor - if recurs can increase antiemetic plan. For now will conitnue with pre-medicating with low dose oral Zofran and use comapazine PRN. # smoking - will ask to have Shima Langley see her next week (Tobacco social media content specialist) # dental - she does have some [...] will ask that she be seen by kaiawhina as she does have diffculty with chewing meat and could use hints on protein and nutritious food choices. #prophylaxis - continue acyclovir, and aspirin. Denosumab monthly. We also reviewed MM, lab results, ongoing treatment plan, PET scan results. All questions have been addressed. ?? We will plan to see her back next week in anticipation of cycle 2 - we will add in revlimid at that time. She will call before then if any new concerns. . documented in this encounter Plan of Treatment Upcoming Encounters Date Type Specialty Care Team Description 04/20/2022 Office Visit Hematology and Oncology Cristo Walsh MD [facility] HEMATOLOGY/[place] [address] Yari Thompson, COMMERCIAL REAL ESTATE ATTORNEY [facility] HEMATOLOGY/[place] [address] 04/20/2022 Infusion Hematology and Oncology 04/27/2022 Infusion Hematology and Oncology 05/04/2022 Infusion Hematology and Oncology Scheduled Referrals Name Type Priority Associated Diagnoses Order S chedule Referral to Outpatient Referral Routine Multiple myeloma, Ord ered: Nutrition Services remission status 01/19 unspecified Referral to Smoking Outpatient Referral Routine Multiple myelo ma, Ordered: Cessation Program remission status 2021 unspecified documented as of this encounter Procedures Procedure Name Priority Date/Time Associated Diagnosis Comme nts CBC (WITH DIFF) Routine 01/19/2022 Results for this procedure are i n the results section . COMPREHENSIVE METABOLIC Routine 01/19/2022 Resu lts for this PANEL (NON-FASTING) procedur e are in the results section . documented in this encounter Results CBC (with Diff) (01/19/2022) Analysis Performed At Path logis Time Signature WBC 4.09 [facility] Hemoglobin 10.7 [facility] Hematocrit 32.1 [facility] Platelets 171 [facility] Neutr Abs (ANC) 2.26 [facility] Specimen (Source) Anatomical Location Collection Method / Collectio n Time Received Time / Laterality Volume Blood 01/19/2022 Historical Provider HEMATOLOGY ORDERABLES Performing Organization Address City/State/ZIP Code Phon e Number [facility] [address] [place] [address] [facility] Comprehensive metabolic panel (non-fasting) (01/19/2022) Analysis Performed At [facility] Time Signature BUN 7 [facility] Creatinine 0.7 [facility] Sodium 135 [facility] Potassium 3.5 [facility] Calcium 8.4 [facility] Total Protein 9.5 [facility] Albumin 3.2 [facility] Total Bilirubin 0.2 [facility] Alk Phos 61 [facility] AST 15 [facility] ALT 18 [facility] Specimen (Source) Anatomical Location Collection Method / Collectio n Time Received Time / Laterality Volume Blood 01/19/2022 Historical Provider MD CHEMISTRY ORDERABLES Performing Organization Address City/State/ZIP Code Phon e Number [facility] [address] [place], [place] [phone] [facility] documented in this encounter Visit Diagnoses Diagnosis Multiple myeloma, remission status unspe cified documented in this encounter Care Teams Mechanical Applications Engineer Relationship Specialty Start Date End Date Analilia Lechuga APRN PCP - General Family Medicine 03/01/21 [address] [place], [place] [id number] documented as of this encounter
--- OUTSIDE RECORDS SUMMARY | 2022-04-13 14:52 | XMS_ITS | Encounter Summary ---
:1960 Author Organization [facility] [address] Care Team Providers Name Role Phone CaitlynAnalilia brooke MANSI Primary Care Provider Encounter Details Date Type Department Care Team Description 12/30/2021 [facility] [address] [place] [phone] Social History Tobacco Use Types [...] this encounter Miscellaneous Notes Telephone Encounter - Jammie Cherry RN - 12/30/2021 1:35 PM EDT Images from the original note were not included. Benja Retana Matthew R, MD; P [facility] Hem Onc Nurse; Terra Ashley Good Afternoon, In attempting to submit pre auth request for Christen. It was explained to me by the rep that no actual coverage for drugs exists on this plan. When claims are submitted, patient will get between 5% and 50% discounted. ?? I reached out to the patient and confirmed that she does not have any other insurances. I sent an email to [email or web address], so they will reach out to patient. Have a great day/weekend! Thanks! -Blane Retana - SALAS - Nurse Pre Auth Rep documented in this encounter Plan of Treatment Upcoming Encounters Date Type Specialty Care Team Description 04/20/2022 Office Visit Hematology and Oncology Cristo Walsh MD [facility] DR HEMATOLOGY/[place] [address] Yari Thompson APRN [facility] DR HEMATOLOGY/[place] [address] 04/20/2022 Infusion Hematology and Oncology 04/27/2022 Infusion Hematology and Oncology 05/04/2022 Infusion Hematology and Oncology documented as of this encounter Visit Diagnoses Not on filedocumented in this encounter Care Teams Pharmacy Technician Per Diem Relationship Specialty Start Date End Date Analilia Lechuga APRN PCP - General Family Medicine 03/01/21 [address] [place] [address] documented as of this encounter
--- OUTSIDE RECORDS SUMMARY | 2022-04-13 14:52 | XMS_ITS | Encounter Summary ---
:1960 Author Organization [facility] [address] Care Team Providers Name Role Phone Martha Lechugah MANSI Primary Care Provider Reason for Referral Consultation (Routine) - Pending Review Specialty Diagnoses / Procedures Referred By Contact Refer red To Contact Diagnoses Cigarette smoker Arlien Fernando APRN [facility] D R HEMATOLOGY/[place] [address] Referral ID Status Reason Start Expiration Visits Visits Date Date Requested Authorized [id number] Pending Consult, 12/28/2021 06/26/2022 1 1 Review Test & Treat Non PCP Reason for Visit Reason Comments Chemotherapy Teaching Lymphoma Encounter Details Date Type Department Care Team Description 12/28/2021 TH Visit Hematology and Arline Fernando Cigarett e smoker (TeleHealth) Oncology at [facility] [place] [address] HEMATOLOGY/ONCOLOG [phone] Y DEPT. [place], [place] [address] Social History Tobacco Use Types [...] documented as of this encounter Progress Notes Arline Fernando, PAYMENT POSTER - 12/28/2021 9:00 AM EDT PATIENT ID: Christen Sommer is a 61 year old female with newly diagnosed myeloma who presents todayfor chemotherapy teaching. Her sister and daughter joined in on the telephone offoce visit for information and support. The plan is for RVD given on a 28-day cycle for 4 cycles following restaging and c onsideration of autologous HSCT. The following information was reviewed with the patient and her family. In addition, she will also receive monthly infusions of Denosumab to minimize skeletal events. Chemotherapy Drugs/schedule: ??? Revlimid 25mg by mouth once daily on days 1-21 of a 28-day cycle ??? Velcade 3mg as injection under the skin daily on days 1, 8, 15 of a 28-day cycle ??? Dexamethasone 20 mg by mouth daily on Days 1, 8, 15 of a 28-day cycle [given in clinic with Velcade injections] ??? Denosumab 120mg injection once monthly to strengthen bones affected by myeloma Laboratory Tests: ??? Prior to start of each cycle of chemotherapy: complete blood count, comprehensive metabolic profile, SPEP, quantitative immunoglobulins, serum free light chains ??? On days 8, 15 of each cycle: CBC, CMP ??? Restaging BM biopsy following completion of four cycles of therapy Clinic Visits: at initiation of each chemotherapy cycle Possible Side Effects include, but are not limited to: ??? Revlimid: low blood counts, infections, diarrhea, constipation, rash, lower extremity swelling, cough, dizziness, headache, weakness, nausea, anorexia, DVT, PE, deformities ??? Velcade: fatigue, peripheral neuropathy, nausea/vomiting, constipation, pancytopenia, fever, infection, headache, dizziness, SOB, bone pain, arthralgias, myalgias, rash, potential reactivation of herpes zoster ??? Dexamethasone: increased appetite, weight gain, labile emotions, insomnia, fluid retention, GERD, myopathy, hypertension, hyperglycemia, headaches, cataracts and bone thinning (with long-term use) Medications: please picking machine operator helper the following prescriptions before you start treatment ??? Acyclovir 400mg tablet - Take 1 tablet by mouth twice daily throughout chemotherapy course to minimize reactivation of viral illnesses ??? Aspirin 81mg tablet - Take 1 tablet by mouth once daily to minimize blood clots while on Revlimid and Dexamethasone ??? Colace 100mg capsule - Take 1 capsule by mouth twice daily as needed to minimize constipation ??? Senna tablet - Take 2 tablet by mouth daily to twice daily as needed to maintain daily bowel movement and avoid constipation ??? Compazine 10 tablet - Take 1 tablet by mouth every 6 hours as needed for nausea/vomiting ??? Tramadol 50 mg tablet - Take 1 tablet by mouth every 6 hours as needed for pain Additional Education: Hydration/Nutrition: ?? Discussed the importance of adequate hydration, caloric and protein intake to heal from the effects of chemotherapy. Goal for hydration is 64 ounces of non- caffeinated beverages daily Safety while undergoing Chemotherapy: ?? women, children and pets should avoid contact with chemotherapy or contaminated waste ?? Caregivers should always were gloves if coming in contact with bodily fluids Sexual Activity: ?? Chemotherapy can be harmful to an unborn baby. The use of control during cancer treatment is recommended if there is child bearing potential. Women should not breastfeed while undergoing chemotherapy. ?? Traces of chemotherapy in bodily fluids may be present up to 72 hrs after receiving treatment. A barrier method, such as a condom, is recommended for intercourse during this time. Revlimid REMs program previously reviewed upon enrollment Infection Prevention: ?? Recommend frequent hand washing, social distancing, and avoiding people who have symptoms of an illness. ?? Recommend daily temperature checks with a thermometer prior to taking any analgesics that can bring down a fever (like Tylenol). Call with a temperature >100.4F or any other signs of an infectionsuch as chills. Fatigue: ?? Reviewed that fatigue is a common side effect of cancer treatment. Recommended the following: ? Rest, but not too much: Plan your day so you have time to rest. Take short naps or breaks (30 minutes or less). Try to sleep 7-8 hours each night. ? Stay active: Stay as active as you can with regular moderate exercise like walking. ? Save your energy: Prioritize! Decide which activities are really important to you and which ones aren???t. Plan ahead and spread your activities throughout the day with rest breaks between activities. ? Get help: Ask your family or friends to help with the things you find tiring or hard to do. ? Get support: Think about joining a support group. Sharing your feelings with others can ease the burden of fatigue. You can learn coping hints from others by talking about your situation. ? Eat well: Drink plenty of water or other non-caffeinated beverages. Eat as well as you can, prioritizing healthy fruits, vegetables, and protein. ? Call your doctor: Call your doctor if you feel too tired to get out of bed for a 24-hour period, if you feel confused, dizzy, lose your balance or fall, have problems waking up, have problems catching your breath, or if the fatigue seems to be getting worse. Plan: Christen Sommer will be provided with patient education sheets on these chemotherapeutic agents to review at home. She and her family were given an opportunity to ask questions and verbalized anunderstanding of the chemotherapy side effects and treatment self-care strategies and consent to proceed with treatment as planned. ?? Chemotherapy is scheduled following visit with Dr. Walsh on 12/29/21. ?? Testing/Diagnostics: Baseline blood work was reviewed and is adequate for treatment This entire 60 minute visit was spent in counseling and education of the above information. All questions were answered to satisfaction. Christen Sommer was provided with contact information and phonenumbers to call for any further questions or concerns. Arline Fernando, MSN, PAYMENT POSTER Nurse Practitioner Section of Hematology [facility] Cc: Analilia Lechuga APRN documented in this encounter Plan of Treatment Upcoming Encounters Date Type Specialty Care Team Description 04/20/2022 Office Visit Hematology and Oncology Cristo Walsh MD [facility] DR HEMATOLOGY/[place] [address] Yari Thompson APRN [facility] HEMATOLOGY/[place] [address] 04/20/2022 Infusion Hematology and Oncology 04/27/2022 Infusion Hematology and Oncology 05/04/2022 Infusion Hematology and Oncology Scheduled Referrals Name Type Priority Associated Diagnoses Order S chedule Referral to Smoking Outpatient Referral Routine Cigarette smok er Ordered: Cessation Program 12/28/2021 documented as of this encounter Visit Diagnoses Diagnosis Cigarette smoker Tobacco use disorder documented in this encounter Care Teams Senior Dot Net Developer Relationship Specialty Start Date End Date Analilia Lechuga APRN PCP - General Family Medicine 03/01/21 [facility] [place] [address] documented as of this encounter
--- OUTSIDE RECORDS SUMMARY | 2022-04-13 14:52 | XMS_ITS | Encounter Summary ---
:1960 Author Organization [facility] [place] [address] Care Team Providers Name Role Phone CaitlynAnalilia brooke MANSI Primary Care Provider Encounter Details Date Type Department Care Team Description 12/27[facility] [address] [phone] Social History Tobacco Use [...] Visit Hematology and Oncology Cristo Walsh MD [facility] HEMATOLOGY/[place] [address] Yari Thompson APRN [facility] DR HEMATOLOGY/[place] [address] 04/20/2022 Infusion Hematology and Oncology 04/27/2022 Infusion Hematology and Oncology 05/04/2022 Infusion Hematology and Oncology documented as of this encounter Visit Diagnoses Not on filedocumented in this encounter Care Teams Linux Systems Analyst Relationship Specialty Start Date End Date Analilia Lechuga APRN PCP - General Family Medicine 03/01/21 [address] [place] [address] documented as of this encounter
--- OUTSIDE RECORDS SUMMARY | 2022-04-13 14:52 | XMS_ITS | Encounter Summary ---
:1960 Author Organization [facility] [place] [address] Care Team Providers Name Role Phone Analilia Lechuga APRN Primary Care Provider Reason for Visit Reason Onset Date Comments New Medication Request 01/05/2022 [facility] Encounter Details Date Type Department Care Team Description 01/05/2022 Telephone Hematology Oncology at [facility], New Medication Request [facility] RN ([facility] [address] [place] [address]) [place] [phone] Social History Tobacco Use Types Packs/Day Years [...] Telephone Encounter - Maribeth Jameson RN - 01/05/2022 4:17 PM EDT The signed Revlimid prescription was faxed to [facility] at [phone]. Once received they willreach out to patient to plan delivery. The information is in the Revlimid type casting machine operator a folder with her name. ----- Message from Doug Cherry RN sent at 2022 3:26 PM EDT ----- Regarding: FW: Approved for Med ----- Message ----- From: Juana Clarke Sent: 2022 3:17 PM EDT To: [facility] Hem Onc Nurse Subject: Approved for Med Christen was approved for the lenalidomide (Revlimid) 25 mg capsule from the patients assistance program they called to let us know. They will also be sending us a letter. Thanks Yenifer~ documented in this encounter Plan of Treatment Upcoming Encounters Date Type Specialty Care Team Description 04/20/2022 Office Visit Hematology and Oncology Cristo Walsh MD [facility] DR HEMATOLOGY/[place] [address] Yari Thompson APRN [facility] DR HEMATOLOGY/[place] [address] 04/20/2022 Infusion Hematology and Oncology 04/27/2022 Infusion Hematology and Oncology 05/04/2022 Infusion Hematology and Oncology documented as of this encounter Visit Diagnoses Not on filedocumented in this encounter Care Teams Passenger Flagman Relationship Specialty Start Date End Date Analilia Lechuga APRN PCP - General Family Medicine 03/01/21 [place] [address] documented as of this encounter
--- OUTSIDE RECORDS SUMMARY | 2022-04-13 14:52 | XMS_ITS | Encounter Summary ---
:1960 Author Organization [facility] [place] [address] Care Team Providers Name Role Phone AnkushAnalilia MANSI Primary Care Provider Reason for Visit Reason Comments Chemotherapy Cycle 1, Day 1 Treatment/Therapy Plan Authorization (Routine) - Authorized Specialty Diagnoses / Procedures Referred By Contact Refer red To Contact Hematology and Diagnoses Multiple myeloma, remission status unspecified Cristo Walsh MD [facility] Hem Onc Infusion Oncology Procedures TC DENOSUMAB, 1MG, INJECTION TC BORTEZOMIB, 0.1MG, INJECTION (VELCADE) [id number] VELCADE 3 MG [facility] [address] [place], [place] HEMATOLOGY/ONCOLOGY [phone] [place] [address] Referral ID Status Reason Start Date Expiration Date Visits V isits Requested Authorized [id number] Authorized 12/24/2021 05/20/2022 99 99 Encounter Details Date Type Department Care Team Description 12/29/2021 Infusion Hematology Oncology at [facility] myeloma, remission [facility] status unspecified [address], [place] [phone] Social History Tobacco Use [...] encounter Progress Notes Doug Cherry RN - 12/29/2021 1:00 PM EDT INFUSION THERAPY ADMINISTRATION NOTES DIAGNOSIS: MM CYCLE #1: Day 1 REASON FOR VISIT: Velcade & Denosumab injections SUBJECTIVE Christen Sommer offers no complaints. She was seen by provider in clinic prior and is ready for treatment. OBJECTIVE LAB DATA: Done at [facility] 12/22 Pre administration: Chemotherapy orders independently verified for drug name, route, and dosage per patient's height, weight and BSA by Doug Cherry, OLIVERIO & on-site pharmacist. REACTIONS (DESCRIPTION, TIME, INTERVENTION AND EFFECTIVENESS) none ASSESSMENT Christen was awake, alert and tolerated treatment well. Velcade given SQ in RLQ. Denosumab given SQin right arm. PLAN Return to clinic next week for day 8. Pt. chemo teaching instructions included: During clinic hours (8am-5pm Sunday-Sunday): pt. can call [phone] with questions or concerns. After clinic hours (5pm-8am Sunday-Sunday and weekends) pt can call [phone] and ask for the business area director/oncologist tombstone erector. Christen Sommer verbalized understanding of potential chemotherapy side effects and home care including but not limited to- handwashing to prevent infection, signs and symptoms of low blood counts (fever, fatigue, bleeding), to call with a fever of 100.4 or greater, any significant constipation/diarrhea, importance of nutrition and fluid intake (drinking at least 32-64 ounces of non- caffeinated beverages/day), mouth care. Christen Sommer verbalized understanding of how to take prescription medications given for home use after chemotherapy. documented in this encounter Plan of Treatment Upcoming Encounters Date Type Specialty Care Team Description 04/20/2022 Office Visit Hematology and Oncology Cristo Walsh MD [facility] DR HEMATOLOGY/[place] [address] Yari Thompson APRN [facility] HEMATOLOGY/[place] [address] 04/20/2022 Infusion Hematology and Oncology 04/27/2022 Infusion Hematology and Oncology 05/04/2022 Infusion Hematology and Oncology documented as of this encounter Visit Diagnoses Diagnosis Multiple myeloma, remission status unspe cified documented in this encounter Administered Medications Inactive Administered Medications - up to 3 most recent administrations Medication Order MAR Action Action Date Dose Rate Site bortezomib (Velcade) (2.5 Given 12/29/2021 1:40 PM 3 mg Right Lower Quadrant mg/mL) subcutaneous EDT injection 3 mg 3 mg (rounded from 2.96 mg = 1.6 mg/m2/dose ? 1.85 m2 Treatment Plan BSA from Recorded weight), Subcutaneous, ONCE, 1 dose, On Sun12/29/21 at 1400, Inject subcutaneous in the thigh or abdomen., Routine denosumab (Xgeva) (120 mg/1.7 mL) Given 12/29/2021 1:43 PM EDT 1 20 mg Right Arm subcutaneous injection 120 mg 120 mg, Subcutaneous, ONCE, 1 dose, On Sun12/29/21 at 1300, Bring to room temperature 15-30 mins before administration. , This agent is restricted to outpatient use. Is this drug being given as an outpatient? Yes dexAMETHasone (Decadron) tablet 20 mg Given 12/29/2021 1:26 PM EDT 20 mg 20 mg, Oral, ONCE, 1 dose, On Sun12/29/21 at 1300, Routine ondansetron (Zofran) tablet 4 mg Given 12/29/2021 1:26 PM EDT 4 mg 4 mg, Oral, ONCE, 1 dose, On Jyoti 12/29/21 at 1300, Administer prior to chemotherapy, Routine documented in this encounter Care Teams Pipe Fitter Supervisor Maintenance Relationship Specialty Start Date End Date Analilia Lechuga APRN PCP - General Family Medicine 03/01/21 [facility] [place] [address] documented as of this encounter
--- OUTSIDE RECORDS SUMMARY | 2022-04-13 14:52 | XMS_ITS | Encounter Summary ---
:1960 Author Organization [facility] [place] [address] Care Team Providers Name Role Phone Analilia Lechuga APRN Primary Care Provider Reason for Visit Reason Onset Date Comments Labs Only 03/03/2022 Lab data officer Encounter Details Date Type Department Care Team Description 03/03/2022 Telephone Hematology Oncology at [facility], Labs Only (Lab data [facility] RN entry) [address] [place] [phone] Social History Tobacco Use Types Packs/Day [...] Visit Hematology and Oncology Cristo Walsh MD [facility] DR HEMATOLOGY/[place] [address] Yari Thompson APRN [facility] HEMATOLOGY/[place] [address] 04/20/2022 Infusion Hematology and Oncology 04/27/2022 Infusion Hematology and Oncology 05/04/2022 Infusion Hematology and Oncology documented as of this encounter Procedures Procedure Name Priority Date/Time Associated Diagnosis Comme nts IMMUNOGLOBULIN FREE LIGHT Routine 02/22/2022 Re sults for this CHAINS, SERUM procedure are in the results section. IMMUNOGLOBULINS, Routine 02/22/2022 Results for this QUANTITATIVE procedure are i n the results section. CBC (WITH DIFF) Routine 02/22/2022 Results for this procedure are i n the results section. PROTEIN ELECTROPHORESIS, Routine 02/22/2022 Res ults for this SERUM procedure are i n the results section. COMPREHENSIVE METABOLIC Routine 02/22/2022 Resu lts for this PANEL (NON-FASTING) procedur e are in the results section. documented in this encounter Results (ABNORMAL) Protein Electrophoresis, serum (02/22/2022) P athologist Signature Total Prot 8.7 (H) Elec Albumin Elect 3.8 Alpha1-Globuli 0.40 n Alpha2-Globuli 0.90 n Beta Globulin 0.80 Gamma Globulin 2.80 (H) M1 Band 2.5 (H) Specimen (Source) Anatomical Location Collection Method / Collectio n Time Received Time / Laterality Volume Blood 02/22/2022 Historical Provider CHEMISTRY ORDERABLES (ABNORMAL) Comprehensive metabolic panel (non-fasting) (02/22/2022) P athologist Signature BUN 11 Creatinine 0.7 Sodium 138 Potassium 3.8 Calcium 9.4 Total Protein 9.7 (H) Albumin 3.1 (L) Total Bilirubin 0.2 Alk Phos 75 AST 12 (L) ALT 15 Specimen (Source) Anatomical Location Collection Method / Collectio n Time Received Time / Laterality Volume Blood 02/22/2022 Historical Provider CHEMISTRY ORDERABLES (ABNORMAL) Free Light Chains, Serum (02/22/2022) Analysis Performed At [facility] Time Signature Velarde Free 52.89 (H) Light Chain Lambda Free 1.39 Light Chains Velarde/Lambda 38.05 (H) FLC Ratio Specimen (Source) Anatomical Location Collection Method / Collectio n Time Received Time / Laterality Volume Blood 02/22/2022 Historical Provider CHEMISTRY ORDERABLES (ABNORMAL) Immunoglobulins, Quantitative (02/22/2022) athologist Signature IgG 3,329 (H) IgA 25 (L) IgM 105 Specimen (Source) Anatomical Location Collection Method / Collectio n Time Received Time / Laterality Volume Blood 02/22/2022 Historical Provider CHEMISTRY ORDERABLES (ABNORMAL) CBC (with Diff) (02/22/2022) Analysis Performed At [facility] Time Signature WBC 4.94 RBC 2.83 (L) Hemoglobin 9.0 (L) Hematocrit 27.8 (L) Platelets 288 Neutr Abs (ANC) 2.99 Specimen (Source) Anatomical Location Collection Method / Collectio n Time Received Time / Laterality Volume Blood 02/22/2022 Historical Provider HEMATOLOGY ORDERABLES documented in this encounter Visit Diagnoses Not on filedocumented in this encounter Care Teams Warping Mill Operator Relationship Specialty Start Date End Date Analilia Lechuga APRN PCP - General Family Medicine 03/01/21 [address] [place] [address] documented as of this encounter
--- OUTSIDE RECORDS SUMMARY | 2022-04-13 14:52 | XMS_ITS | Encounter Summary ---
:1960 Author Organization [place] [address] Care Team Providers Name Role Phone AnkushAnalilia MANSI Primary Care Provider Encounter Details Date Type Department Care Team Description 01/28/2022 Telephone Hematology and Oncology at Iván Rosales MD [facility]efania hadley HEMATOLOGY/[place] [address] [place] [address] [phone] (Wo rk) Social History Tobacco Use Types [...] place to sleep or slept in a assisted (including now)? Sex Assigned at Date Recorded Not on file documented as of this encounter Miscellaneous Notes Telephone Encounter - Iván Palacio MD - 01/28/2022 5:04 PM EDT I had a phone call from Ms. Sommer regarding several symptoms. 62 yo W with ??IgG kappa multiple myeloma currently on velcade and dex. C2D3 today. Followed by Dr. Walsh, last visit on 01/26. She has been feeling burning in the chest and mild stomach pain for several days. Located in the middle of the chest. No SOB or diaphoresis. Also she complains of diarrhea since yesterday. She is on miralax and stool softner. She also noticed intermittent blurry vision in both eyes for a week. No headache, focal neuro symptoms. No clear indication to seek emergent medical attention for now. Likely GERD/gastritis. I recommendedshe add pepcid for heart burn. She is on omeprazole but H2 kitty may suppress the symptom more quickly. Since she is on laxative and having diarrhea, I recommended she stop taking miralax and stool softner. Unclear etiology of blurry vision, but it is intermittent and no other neurological symptoms. She was recommended following up with her emergency room registered nurse. CC: Dr. Walsh and [facility] office Iván Palacio MD [facility] Hematology Oncology Fellow Page [phone] Pepcid and Stop miralax and stool softner documented in this encounter Plan of Treatment Upcoming Encounters Date Type Specialty Care Team Description 04/20/2022 Office Visit Hematology and Oncology Cristo Walsh MD [facility] HEMATOLOGY/[place] [address] Yari Thompson APRN [facility] HEMATOLOGY/[place] [address] 04/20/2022 Infusion Hematology and Oncology 04/27/2022 Infusion Hematology and Oncology 05/04/2022 Infusion Hematology and Oncology documented as of this encounter Visit Diagnoses Not on filedocumented in this encounter Care Teams Cuff Matcher Relationship Specialty Start Date End Date Analilia Lechuga APRN PCP - General Family Medicine 03/01/21 [address] [place] [address] documented as of this encounter
--- OUTSIDE RECORDS SUMMARY | 2022-04-13 14:52 | XMS_ITS | Encounter Summary ---
:1960 Author Organization [place] [address] Care Team Providers Name Role Phone Analilia Lechuga APRN Primary Care Provider Reason for Visit Reason Onset Date Comments Other 02/27/2022 Encounter Details Date Type Department Care Team Description 02/27/2022 Telephone Hematology/Oncology at Araseli Ham RN [address] [phone] Social History Tobacco Use [...] Telephone Encounter - Araseli Dasilva RN - 02/27/2022 4:27 PM EDT Pt told secretaries her son who lives with her tested positive for covid today. Told her to isolate as much as possible and wear a mask around him. Wipe down all surfaces and hand wash frequently. Pt has been vaccinated for covid and had booster. She tested for covid today and was negative. She will test prior to her appointment. Providers updated. documented in this encounter Plan of Treatment Upcoming Encounters Date Type Specialty Care Team Description 04/20/2022 Office Visit Hematology and Oncology Cristo Walsh MD [facility] DR HEMATOLOGY/[place] [address] Yari Thompson APRN [facility] HEMATOLOGY/[place] [address] 04/20/2022 Infusion Hematology and Oncology 04/27/2022 Infusion Hematology and Oncology 05/04/2022 Infusion Hematology and Oncology documented as of this encounter Visit Diagnoses Not on filedocumented in this encounter Care Teams Chief Librarian Extension Department Relationship Specialty Start Date End Date Analilia Lechuga APRN PCP - General Family Medicine 03/01/21 [address] [place] [address] documented as of this encounter
--- OUTSIDE RECORDS SUMMARY | 2022-04-13 14:52 | XMS_ITS | Encounter Summary ---
:1960 Author Organization [place] [address] Care Team Providers Name Role Phone AnkushAnalilia MANSI Primary Care Provider Reason for Visit Reason Comments Chemotherapy Cycle 1, Day 8 Treatment/Therapy Plan Authorization (Routine) - Authorized Specialty Diagnoses / Procedures Referred By Contact Refer red To Contact Hematology and Diagnoses Multiple myeloma, remission status unspecified Cristo Walsh MD [facility] Hem Onc Infusion Oncology Procedures TC DENOSUMAB, 1MG, INJECTION TC BORTEZOMIB, 0.1MG, INJECTION (VELCADE) [id number] VELCADE 3 MG [facility] [address] [place], [place] HEMATOLOGY/ONCOLOGY [id number] [place] [address] Referral ID Status Reason Start Date Expiration Date Visits V isits Requested Authorized [id number] Authorized 12/24/2021 05/20/2022 99 99 Encounter Details Date Type Department Care Team Description 01/05/2022 Infusion Hematology Oncology at [facility] myeloma, remission [facility] status unspecified [address], [place] [phone] Social History Tobacco Use [...] Sign Reading Time Taken Comments Blood Pressure 143/68 01/05/2022 11:04 AM EDT Pulse - - Temperature 36.3 ??C (97.3 ??F) 01/05/2022 11:04 AM EDT Respiratory Rate 16 01/05/2022 11:04 AM EDT Oxygen Saturation 100% 01/05/2022 11:04 AM EDT Inhaled Oxygen Concentration - - Weight 76.2 kg (168 lb) 01/05/2022 11:04 AM EDT Height 159 cm (5' 2.6) 01/05/2022 11:04 AM EDT Body Mass Index 30.14 01/05/2022 11:04 AM EDT documented in this encounter Progress Notes Doug Cherry RN - 01/05/2022 11:00 AM EDT INFUSION THERAPY ADMINISTRATION NOTES DIAGNOSIS: MM CYCLE #1: Day 8 REASON FOR VISIT: Velcade injection SUBJECTIVE Christen Sommer reports doing okay after first Velcade last week. She reports heartburn and constipation for side effects. She used dulcolax with positive effect. OBJECTIVE VSS, weight stable. LAB DATA: Done today at [facility] for treatment. Pre administration: Chemotherapy orders independently verified for drug name, route, and dosage per patient's height, weight and BSA by Doug Cherry RN & on-site pharmacist. REACTIONS (DESCRIPTION, TIME, INTERVENTION AND EFFECTIVENESS) none ASSESSMENT Christen was awake, alert and tolerated treatment well. Velcade given SQ in LLQ. PLAN Return to clinic next week for day 15. documented in this encounter Plan of Treatment Upcoming Encounters Date Type Specialty Care Team Description 04/20/2022 Office Visit Hematology and Oncology Cristo Walsh MD [facility] DR HEMATOLOGY/[place] [address] Yari Thompson APRN [facility] HEMATOLOGY/[place] [address] 04/20/2022 Infusion Hematology and Oncology 04/27/2022 Infusion Hematology and Oncology 05/04/2022 Infusion Hematology and Oncology documented as of this encounter Visit Diagnoses Diagnosis Multiple myeloma, remission status unspe cified documented in this encounter Administered Medications Inactive Administered Medications - up to 3 most recent administrations Medication Order MAR Action Action Date Dose Rate Site bortezomib (Velcade) (2.5 Given 01/05/2022 11:47 AM 3 mg Left Lower Quadrant mg/mL) subcutaneous EDT injection 3 mg 3 mg (rounded from 2.96 mg = 1.6 mg/m2/dose ? 1.85 m2 Treatment Plan BSA from Recorded weight), Subcutaneous, ONCE, 1 dose, On Jytoi 01/05/22 at 1230, Inject subcutaneous in the thigh or abdomen., Routine dexAMETHasone (Decadron) tablet 20 mg Given 01/05/2022 11:18 AM EDT 20 mg 20 mg, Oral, ONCE, 1 dose, On Jyoti 01/05/22 at 1130, Routine ondansetron (Zofran) tablet 4 mg Given 01/05/2022 11:18 AM EDT 4 mg 4 mg, Oral, ONCE, 1 dose, On Jyoti 01/05/22 at 1130, Administer prior to chemotherapy, Routine documented in this encounter Care Teams Washateria Attendant Relationship Specialty Start Date End Date Analilia Lechuga APRN PCP - General Family Medicine 03/01/21 [address] [place] [address] documented as of this encounter
--- OUTSIDE RECORDS SUMMARY | 2022-04-13 14:52 | XMS_ITS | Encounter Summary ---
:1960 Author Organization [facility] Address [facility] [address] [place] [address] Care Team Providers Name Role Phone CaitlynAnalilia brooke MANSI Primary Care Provider Encounter Details Date Type Department Care Team Description 12/29/2021 Office Visit Hematology/Oncology Lexis Walsh MD Multiple myeloma, at [facility] remission status [address] unspecified [place], [place] HEMATOLOGY/ONCOLOG [id number] Y DEPT. [phone] [place], [place] [address] Social History Tobacco Use Types Packs/Day Years [...] Sign Reading Time Taken Comments Blood Pressure 152/74 12/29/2021 12:05 PM EDT Pulse 69 12/29/2021 12:05 PM EDT Temperature 36.4 ??C (97.6 ??F) 12/29/2021 12:05 PM EDT Respiratory Rate 20 12/29/2021 12:05 PM EDT Oxygen Saturation 100% 12/29/2021 12:05 PM EDT Inhaled Oxygen Concentration - - Weight 76.6 kg (168 lb 12.8 12/29/2021 12:05 PM oz) EDT Height 159 cm (5' 2.6) 12/29/2021 12:05 PM no shows, a ctual EDT Body Mass Index 30.29 12/29/2021 12:05 PM EDT documented in this encounter Progress Notes Jered Walsh MD - 12/29/2021 12:00 PM EDT Subjective Patient ID: Christen Sommer is a 61 y.o. female. HPI IgG kappa multiple myeloma diagnosed 01/09 Presented with anemia and recurrent compression fractures 3.3 g IgG kappa and elevated kappa light chain bone marrow biopsy 60 to 70% plasma cells Cytogenetics pending FISH pending PET pending Initiate RVD 01/01/2022 (Revlimid held for cycle) I am meeting the patient for the first time in the [facility]. She was worked up by my partner Dr. Barnard in [place]. I had a chance to review the available records. The patient was accompanied by her sister today. She did get a chemotherapy teaching session yesterday. She is a bit nervous about starting treatment today but eager to get going. Her pain persists but she is hanging in there with it. No neurologic symptoms. Review of Systems Constitutional: Positive for fatigue. Negative for fever and unexpected weight change. HENT: Negative for nosebleeds. Respiratory: Negative for cough and shortness of breath. Cardiovascular: Negative for chest pain and palpitations. Gastrointestinal: Negative for abdominal pain and diarrhea. Musculoskeletal: Negative for back pain. Skin: Negative for rash. Neurological: Negative for speech difficulty. Hematological: Negative for adenopathy. Does not bruise/bleed easily. All other systems reviewed and are negative. Objective Physical Exam Constitutional: General: She is not in acute distress. HENT: Mouth/Throat: Mouth: Mucous membranes are moist. Eyes: General: No scleral icterus. Cardiovascular: Rate and Rhythm: Normal rate. Pulmonary: Effort: Pulmonary effort is normal. Musculoskeletal: General: No swelling. Skin: Findings: No rash. Neurological: Mental Status: She is alert and oriented to person, place, and time. Psychiatric: Mood and Affect: Mood normal. Lab Results Component Value Date WBC 4.2 12/22/2021 RBC 3.18 (L) 12/22/2021 HGB 10.5 (L) 12/22/2021 HCT 30.7 (L) 12/22/2021 MCV 96.5 (H) 12/22/2021 MCH 33.0 (H) 12/22/2021 MCHC 34.2 12/22/2021 PLATELET 199 12/22/2021 RDWCV 13.6 12/22/2021 Cr .7 BM Bx: [id number] ? Location: [facility] The signing pathologist has (i) examined the relevant preparation(s) for the specimen(s) and (ii) rendered or confirmed the diagnosis(es). . ?Bone Marrow Final DIAGNOSIS BONE MARROW (BLOOD FILM, ASPIRATE, TOUCH PREP, CORE & CLOT SECTIONS): 1. M-Jermaine, by history. 2. Hypercellular marrow (50%) with ?? maturing trilineage hematopoiesis ??. Involved by ??kappa-restricted plasma cell myeloma (60-70% of cellularity). 3. Ancillary studies pending. Electronically signed by: ?Valentin Moore DO Verified: ??12/23/2021 18:31 ??Pathologist Performed at: ??-[facility] Dept. of Pathology, [place], [place] Assessment and Plan 61-year-old female with a new diagnosis of IgG kappa multiple myeloma. She presented with multiple compression fractures and anemia. Her bone marrow biopsy has confirmed excess plasma cells but were still waiting for cytogenetics and FISH studies to assess for risk. Overall though she will need therapy and starting with Velcade dexamethasone today while we try to get her Revlimid delivered potentially for cycle 2. I did review the orders and reviewed major toxicity with the patient and her sister. They are prepared to initiate therapy. We will plan to see her back in a few weeks to see how she is doing and see if we have any updated information from her fish studies and her PET scan. Maribeth Jameson RN - 12/29/2021 12:[address] New Patient Medical Oncology Note SOCIAL ASSESSMENT: See [facility] social assessment information entered. 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 [ ] yes [x ] no Local Pharmacy: FUNCTIONAL SCREENING: Balance difficulty: [x ]no [ ]yes At risk for fall: [ x ] no [ ] yes If yes, actions implemented to prevent fall. Patient/family instructed to avoid independent ambulation. Use wheelchair and ask for assistance of staff while in the clinic. ADL [ x ] no limits [ ] needs dressing assistance [ ] needs meal assistance Assistive device:[ ]none [ x ]cane [ ]walker [ ]wheelchair [ ]other: explain PAIN ASSESSMENT: [ ] out of 10 Location: Description: [ ] Dull [ ] Sharp [ ] Burning [ ] Throbbing [ ] Radiating [ ] Continuous [ ] Intermittent Aggravating Factors: [ ] Movement [ ] Position [ ] Immobility [ ] Other Alleviating Factors: [ ] Medication [ ] Positioning [ ] Other Current Pain Management Plan: [ ] Satisfied [ ] Not satisfied LEARNING STYLE: Learning Needs Assessment up to date (yearly) [new 12/29/21 ] TEACHING: __ NCI ???Chemotherapy and You?? and folder given __ Specific chemotherapy literature provided and reviewed with patient VASCULAR ACCESS ASSESSMENT: getting chemo? [ ]yes [x ]no Need port? [ ] yes [ ] no High Risk. No insurance. Some cognitive delay. Has support from sister Noreen. Does have young adult children. documented in this encounter Miscellaneous Notes Addendum Note - Jered Walsh MD - 12/29/2021 12:00 PM EDT Addended by: JERED WALSH on: 01/05/2022 03:53 PM Modules accepted: Orders Addendum Note - Jered Walsh MD - 12/29/2021 12:00 PM EDT Addended by: JERED WALSH on: 01/06/2022 09:04 AM Modules accepted: Orders documented in this encounter Plan of Treatment Upcoming Encounters Date Type Specialty Care Team Description 04/20/2022 Office Visit Hematology and Oncology Jered Walsh MD [facility] DR HEMATOLOGY/[place] [address] Yari Thompson APRN [facility] DR HEMATOLOGY/[place] [address] 04/20/2022 Infusion Hematology and Oncology 04/27/2022 Infusion Hematology and Oncology 05/04/2022 Infusion Hematology and Oncology documented as of this encounter Visit Diagnoses Diagnosis Multiple myeloma, remission status unspe cified documented in this encounter Care Teams Business Intelligence Analyst Relationship Specialty Start Date End Date Analilia Lechuga APRN PCP - General Family Medicine 03/01/21 [place] [address] documented as of this encounter
--- OUTSIDE RECORDS SUMMARY | 2022-04-13 14:53 | XMS_ITS | Encounter Summary ---
:1960 Author Organization [facility] [place] [address] Care Team Providers Name Role Phone Ankush Analilia NAZARIO Primary Care Provider Encounter Details Date Type Department Care Team Description 11/29/2021 Hospital Encounter Mammography/DXA at Ankush Analilia, Osteopenia, unspecified location; [facility] Compression fracture of L2 vertebra, ini tial encounter One [address] [phone] Social History Tobacco Use Types Packs/Day Years Used Date Smoking Tobacco: Never Assessed Transportation Needs Answer Date Recorded In the [...] Sig Dispensed Refills Start Date End Date acetaminophen 325 mg Capsule As needed 0 021 12/29/2021 cyclobenzaprine (Flexeril) 10 mg As needed 0 07/202001/26/2022 Tablet documented as of this encounter Plan of Treatment Upcoming Encounters Date Type Specialty Care Team Description 04/20/2022 Office Visit Hematology and Oncology Cristo Walsh MD [facility] DR HEMATOLOGY/[place] [address] Yari Thompson APRN [facility] HEMATOLOGY/[place] [address] 04/20/2022 Infusion Hematology and Oncology 04/27/2022 Infusion Hematology and Oncology 05/04/2022 Infusion Hematology and Oncology documented as of this encounter Procedures Procedure Name Priority Date/Time Associated Diagnosis Comme nts DXA CENTRAL SPINE, Routine 11/29/2021 3:06 PM Osteopenia, Res ults for this HIP, AND/OR WHOLE EDT unspecified lo cation procedure are in BODY (GENERIC) Compression fracture the r esults of L2 vertebra, section. initial encounter documented in this encounter Results DXA Central Spine, Hip, and/or Whole Body (Generic) (11/29/2021 3:06 PM EDT) Anatomical Region Laterality Modality C-spine, Hip N/A Other Specimen (Source) Anatomical Location Collection Method / Collectio n Time Received Time / Laterality Volume Impressions 11/29/2021 3:56 PM EDT The measurements fulfill the WHO classification for osteoporosis. There is already documented multiple lumbar spine fractures. Estimating Fracture Risk: The relationship between bone mineral de nsity (BMD) and risk of fracture is well established. As BMD decreases, risk incr eases. Quantifying risk is difficult and is usually limited to estimation of the relative risk - a term which may have limited value when trying to discuss an individual's risk. Estimating the absolute risk for a patient requires an understanding of the incidence rate in a given population and consideration of mu ltiple, partially independent, risk factors in addition to BMD. The World Health Organization (WHO) has developed a fracture risk prediction tool that calculates a ten-year risk of major osteoporotic fracture based on femoral neck bone density measurements a nd nine clinical risk factors for individuals who have not been treated fo r osteoporosis. This is available through an interactive web-based [employer] ce (http://www.[facility].ac.uk/FRAX/) and can be used to estimate a given patient's ab solute risk of major osteoporotic fracture or hip fracture over the next 1 0 years. These estimates may prove useful when discussing risk with a patie nt. It is important, however, to understand the tool's limitations and ho w a given individual's risk might differ from the tool's estimate. The tool does not take into account the dose-response associated with most risk factors. For e xample, the significant increase in risk associated with multiple prior fractures compared to a single prior fracture is not taken into account. Similarly, the l ocation of a previous fracture, the amount of glucocorticoids and number of cigarettes smoked are not considered. These limitations are discussed in a Fr equently Asked Questions section of the FRAX website which you are encouraged to review. ? Thank you for letting us participate in the care of this patient. ??If you are a health care provider and have any questi ons regarding this report, please contact the number below. ??For patients who have questions please contact the health foster care social worker that requested your imaging first. ? Electronically signed by: Bonita Flores MD, [facility] ([phone]), at 11/29/2021 3:56 PM Narrative 11/29/2021 3:56 PM EDT EXAMINATION: DXA CENTRAL SPINE, HIP, AND/OR WHOLE BODY (GENERIC) CLINICAL HISTORY: OSTEOPENIA; VERTEBRAL FRACTURE TECHNIQUE: Scans were acquired at the LE FT forearm and LEFT hip. There is excluded the lumbar spine exam because o f fractures. COMPARISON: None FINDINGS: Lowest T-score at a diagnostic region of interest: T-score: -2.6, JACQUES: Femoral neck and tot al hip, WHO diagnosis: Osteoporosis. Procedure Note Bonita Flores MD - 11/29/2021Formatt ing of this note might be different from the original. EXAMINATION: DXA CENTRAL SPINE, HIP, AND /OR WHOLE BODY (GENERIC) CLINICAL HISTORY: OSTEOPENIA; VERTEBRAL FRACTURE TECHNIQUE: Scans were acquired at the LE FT forearm and LEFT hip. There is excluded the lumbar spine exam because o f fractures. COMPARISON: None FINDINGS: Lowest T-score at a diagnostic region of interest: T-score: -2.6, JACQUES: Femoral neck and tot al hip, WHO diagnosis: Osteoporosis. IMPRESSION The measurements fulfill the WHO classif ication for osteoporosis. There is already documented multiple lumbar spine fractures. Estimating Fracture Risk: The relationship between bone mineral de nsity (BMD) and risk of fracture is well established. As BMD decreases, risk incr eases. Quantifying risk is difficult and is usually limited to estimation of the relative risk - a term which may have limited value when trying to discuss an individual's risk. Estimating the absolute risk for a patient requires an understanding of the incidence rate in a given population and consideration of mu ltiple, partially independent, risk factors in addition to BMD. The World Health Organization (WHO) has developed a fracture risk prediction tool that calculates a ten-year risk of major osteoporotic fracture based on femoral neck bone density measurements a nd nine clinical risk factors for individuals who have not been treated fo r osteoporosis. This is available through an interactive web-based interfa ce (http://www.shef.ac.uk/FRAX/) and can be used to estimate a given patient's ab solute risk of major osteoporotic fracture or hip fracture over the next 1 0 years. These estimates may prove useful when discussing risk with a patie nt. It is important, however, to understand the tool's limitations and ho w a given individual's risk might differ from the tool's estimate. The tool does not take into account the dose-response associated with most risk factors. For e karl, the significant increase in risk associated with multiple prior fractures compared to a single prior fracture is not taken into account. Similarly, the l ocation of a previous fracture, the amount of glucocorticoids and number of cigarettes smoked are not considered. These limitations are discussed in a Fr equently Asked Questions section of the FRAX website which you are encouraged to review. ? Thank you for letting us participate in the care of this patient. If you are a health care provider and have any questi ons regarding this report, please contact the number below. For patients w ho have questions please contact the health foster care social worker that requested your imaging first. Electronically signed by: Bonita Flores MD, [facility] ([phone]), at 11/29/2021 3:56 PM Analilia Lechuga APRN [employer] DEXA ORDERABLES documented in this encounter Visit Diagnoses Diagnosis Osteopenia, unspecified location Compression fracture of L2 vertebra, ini tial encounter documented in this encounter Care Teams Business Development Specialist Relationship Specialty Start Date End Date Analilia Lechuga APRN PCP - General Family Medicine 03/01/21 [place] [address] documented as of this encounter
--- OUTSIDE RECORDS SUMMARY | 2022-04-13 14:53 | XMS_ITS | Encounter Summary ---
:1960 Author Organization [facility] [place] [address] Care Team Providers Name Role Phone Analilia Lechuga APRN Primary Care Provider Reason for Referral Consultation (Routine) - Closed Specialty Diagnoses / Procedures Referred By Contact Refer red To Contact Hematology and Diagnoses Multiple myeloma, remission status unspecified Analilia Lechuga APRN [facility] 3[facility] Oncology [address] [place], [place] [address] [place] [phone] Phone: Fax: Referral ID Status Reason Start Date Expiration Date Visits V isits Requested Authorized [id number] Closed Consult, Test 11/23/2021 11/23/2022 6 6 & Treat PCP Updated and/or Approved Encounter Details Date Type Department Care Team Description 11/23/2021 Transcribe Orders eDH Incoming Analilia Lechuga Multipl e myeloma, Referrals PRUNE WASHER remission status [phone] [address] [place] [address] Social History Tobacco Use Types Packs/Day Years [...] [facility] DR HEMATOLOGY/[place] [address] Yari Thompson APRN [facility] DR HEMATOLOGY/[place] [address] 04/20/2022 Infusion Hematology and Oncology 04/27/2022 Infusion Hematology and Oncology 05/04/2022 Infusion Hematology and Oncology Scheduled Referrals Name Type Priority Associated Diagnoses Order S chedule Referral to Outpatient Referral Routine Multiple myeloma, Ord ered: Hematology and remission status 2 Oncology unspecified documented as of this encounter Visit Diagnoses Diagnosis Multiple myeloma, remission status unspe cified documented in this encounter Care Teams Casino Floor Runner Relationship Specialty Start Date End Date Analilia Lechuga APRN PCP - General Family Medicine 03/01/21 [place] [address] documented as of this encounter
--- OUTSIDE RECORDS SUMMARY | 2022-04-13 14:53 | XMS_ITS | Encounter Summary ---
:1960 Author Organization [facility] [place] [address] Care Team Providers Name Role Phone CaitlynAnalilia brooke MANSI Primary Care Provider Encounter Details Date Type Department Care Team Description 12/16/2021 Telephone Hematology and Oncology at Carmen Rucker sa, [place] [address] Social History Tobacco Use Types Packs/Day Years Used Date Smoking Tobacco: Every Day Cigarettes 1 Smokeless Tobacco: Never Transportation Needs Answer Date Recorded In the [...] Telephone Encounter - Sara Rucker RN - 12/16/2021 4:47 PM EDT Patient completed Preoperative Patient Health Assessment for pt BMBX in office visit today. PPHA completed and faxed to the [facility] ([phone]) for processing. Scheduling made aware. documented in this encounter Plan of Treatment Upcoming Encounters Date Type Specialty Care Team Description 04/20/2022 Office Visit Hematology and Oncology Cristo Walsh MD [facility] DR HEMATOLOGY/[place] [address] Yari Thompson APRN [facility] HEMATOLOGY/[place] [address] 04/20/2022 Infusion Hematology and Oncology 04/27/2022 Infusion Hematology and Oncology 05/04/2022 Infusion Hematology and Oncology documented as of this encounter Visit Diagnoses Not on filedocumented in this encounter Care Teams Photographer Aerial Relationship Specialty Start Date End Date Analilia Lechuga APRN PCP - General Family Medicine 03/01/21 [place] [address] documented as of this encounter
--- OUTSIDE RECORDS SUMMARY | 2022-04-13 14:53 | XMS_ITS | Encounter Summary ---
:1960 Author Organization [facility] [place] [address] Care Team Providers Name Role Phone Martha Lechugah MANSI Primary Care Provider Reason for Referral Diagnostic Test (Routine) - Closed Specialty Diagnoses / Procedures Referred By Contact Refer red To Contact Radiology Diagnoses Closed fracture of multiple cervical vertebrae, subsequent encounter Cielo Pepe APRN [facility] Rad Mri Procedures MRI Thoracic Spine wo Contrast (Generic) [address] [place] [address] [address] [place] [id number] Referral ID Status Reason Start Date Expiration Date Visits V isits Requested Authorized [id number] Closed Specialty 11/20/2021 11/20/2021 1 1 Service Requested Diagnostic Test (Routine) - Closed Specialty Diagnoses / Procedures Referred By Contact Refer red To Contact Radiology Diagnoses Closed fracture of multiple cervical vertebrae, subsequent encounter Cielo Pepe APRN [facility] Rad Mri Procedures MRI Lumbar Spine wo Contrast (Generic) [address] [place] [address] [address] [place] [id number] Referral ID Status Reason Start Date Expiration Date Visits V isits Requested Authorized [id number] Closed Specialty 11/20/2021 11/20/2021 1 1 Service Requested Reason for Visit Diagnostic Test (Routine) - Closed Specialty Diagnoses / Procedures Referred By Contact Refer red To Contact Radiology Diagnoses Closed fracture of multiple cervical vertebrae, subsequent encounter Cielo Pepe APRN [facility] Rad Mri Procedures MRI Lumbar Spine wo Contrast (Generic) [address] [place] [address] [address] [facility] [place] [id number] Referral ID Status Reason Start Date Expiration Date Visits V isits Requested Authorized [id number] Closed Specialty 11/20/2021 11/20/2021 1 1 Service Requested Encounter Details Date Type Department Care Team Description 11/20/2021 Hospital Encounter MRI at [facility], Closed fracture of [facility] MANSI Buck multiple cervical Drive [address] [place] [address] DR cherry, [facility] 3 subsequent encounter [id number] [place], [place] [id number] Social History Tobacco Use Types Packs/Day Years [...] Visit Hematology and Oncology Cristo Walsh MD [facility] DR HEMATOLOGY/[place] [address] Yari Thompson APRN [facility] HEMATOLOGY/[place] [address] 04/20/2022 Infusion Hematology and Oncology 04/27/2022 Infusion Hematology and Oncology 05/04/2022 Infusion Hematology and Oncology documented as of this encounter Procedures Procedure Name Priority Date/Time Associated Diagnosis Comme nts MRI LUMBAR SPINE Routine 11/20/2021 12:21 PM Closed fracture o f Results for this WITHOUT CONTRAST EDT multiple cervical proced ure are in vertebrae, the results subsequent encounter section . MRI THORACIC SPINE Routine 11/20/2021 12:21 PM Closed fracture of Results for this WITHOUT CONTRAST EDT multiple cervical proced ure are in vertebrae, the results subsequent encounter section . documented in this encounter Results MRI Thoracic Spine wo Contrast (Generic) (11/20/2021 12:21 PM EDT) Anatomical Region Laterality Modality T-spine Magnetic Resonance Specimen (Source) Anatomical Location Collection Method / Collectio n Time Received Time / Laterality Volume Impressions 11/20/2021 3:18 PM EDT Diffusely abnormal marrow signal appearance most consistent with multiple myeloma. Fractures are present at T9, T1 1, L1, L2, L4, and L5. Marrow edema is most pronounced at the T11, and L1 fract ures. Trace marrow edema is present elsewhere. Note that there are 11 rib-bearing thora cic segments and 5 nonrib-bearing lumbar segments. Comment: The following findings are so c ommon in people without low back pain that while we report their presence, the y must be interpreted with caution and in context of the clinical situation (Re arsen Earl Et Al, Spine 2001). Findings: (Prevalence in patients withou t low back pain), disc degeneration (decreased T2 signal, height loss, bulge ) (91%), disc T2-signal loss (83%), disc height loss (56%), disc bulge (64%), dis c protrusion (32%), annular fissure (38%). Thank you for letting us participate in the care of this patient. ??If you are a health care provider and have any questi ons regarding this report, please contact the number below. ??For patients who have questions please contact the health chiropractic care that requested your imaging first. ? Electronically signed by: Tyrese Goode MD, [facility] ([phone]), at 11/20/2021 3:18 PM Narrative 11/20/2021 3:18 PM EDT EXAMINATION: MRI LUMBAR SPINE WO CONTRAST (GENERIC), MRI THORACIC SPINE WO CONTRAST (GENERIC) CLINICAL HISTORY: multiple vertecral fractures TECHNIQUE: MRI of the lumbar spine performed withou t intravenous contrast administration. MR thoracic spine without contrast. COMPARISON: Plain films 02/20/2021 FINDINGS: Thoracic spine: There are 11 rib-bearing thoracic segments. There is mild kyphotic deformity centered at T11. Medina ow signal is diffusely abnormal with focal marrow lesions largest at T7. Ther e are fractures involving T9, and T11. There is trace marrow edema associated w ith the T9 fracture. There is marrow edema associated with the T11 fracture. There are multilevel disc degenerative changes. A right-sided disc protrusion a t T7-T8 mildly indents ventral thecal sac. There are smaller disc protrusions other levels. No severe canal stenosis. There is no cord signal abnormality. The re are midthoracic facet arthropathy without substantial foraminal stenosis. Visualized paraspinal soft tissues are unremarkable. Lumbar spine: There is somewhat exaggera blair lumbar lordosis. Marrow signal is diffusely abnormal with multifocal marro w lesions throughout. Fractures involve L1, L2, L4, and L5. There is marrow veronica a associated with the superior endplate of L1. There may be trace marrow edema a t L2. No substantial marrow edema at the L4 fracture. The conus is normal in appearance and te rminates at L1/L2 level. Visualized retroperitoneal structures are unremarka ble. Findings at specific levels: L1-L2: Slight disc bulging without canal or foraminal stenosis L2-L3: Disc bulge and facet arthropathy produces mild canal and foraminal narrowing. L3-L4: Disc bulge and facet arthropathy present with mild canal and mild caudal neural foraminal narrowing. L4-5: Disc bulge and facet arthropathy c ontribute to mild bilateral foraminal narrowing. There is minimal canal narrow ing. L5-S1: No canal or foraminal stenosis. T here is slight disc bulging. Procedure Note Tyrese Goode MD - 11/20/2021Format ting of this note might be different from the original. EXAMINATION: MRI LUMBAR SPINE WO CONTRAS T (GENERIC), MRI THORACIC SPINE WO CONTRAST (GENERIC) CLINICAL HISTORY: multiple vertecral fractures TECHNIQUE: MRI of the lumbar spine performed withou t intravenous contrast administration. MR thoracic spine without contrast. COMPARISON: Plain films 02/20/2021 FINDINGS: Thoracic spine: There are 11 rib-bearing thoracic segments. There is mild kyphotic deformity centered at T11. Medina ow signal is diffusely abnormal with focal marrow lesions largest at T7. Ther e are fractures involving T9, and T11. There is trace marrow edema associated w ith the T9 fracture. There is marrow edema associated with the T11 fracture. There are multilevel disc degenerative changes. A right-sided disc protrusion a t T7-T8 mildly indents ventral thecal sac. There are smaller disc protrusions other levels. No severe canal stenosis. There is no cord signal abnormality. The re are midthoracic facet arthropathy without substantial foraminal stenosis. Visualized paraspinal soft tissues are unremarkable. Lumbar spine: There is somewhat exaggera blair lumbar lordosis. Marrow signal is diffusely abnormal with multifocal marro w lesions throughout. Fractures involve L1, L2, L4, and L5. There is marrow veronica a associated with the superior endplate of L1. There may be trace marrow edema a t L2. No substantial marrow edema at the L4 fracture. The conus is normal in appearance and te rminates at L1/L2 level. Visualized retroperitoneal structures are unremarka ble. Findings at specific levels: L1-L2: Slight disc bulging without canal or foraminal stenosis L2-L3: Disc bulge and facet arthropathy produces mild canal and foraminal narrowing. L3-L4: Disc bulge and facet arthropathy present with mild canal and mild caudal neural foraminal narrowing. L4-5: Disc bulge and facet arthropathy c ontribute to mild bilateral foraminal narrowing. There is minimal canal narrow ing. L5-S1: No canal or foraminal stenosis. T here is slight disc bulging. IMPRESSION Diffusely abnormal marrow signal appeara nce most consistent with multiple myeloma. Fractures are present at T9, T1 1, L1, L2, L4, and L5. Marrow edema is most pronounced at the T11, and L1 fract ures. Trace marrow edema is present elsewhere. Note that there are 11 rib-bearing thora cic segments and 5 nonrib-bearing lumbar segments. Comment: The following findings are so c ommon in people without low back pain that while we report their presence, the y must be interpreted with caution and in context of the clinical situation (Re vin- Odalysk Et Al, Spine 2001). Findings: (Prevalence in patients withou t low back pain), disc degeneration (decreased T2 signal, height loss, bulge ) (91%), disc T2-signal loss (83%), disc height loss (56%), disc bulge (64%), dis c protrusion (32%), annular fissure (38%). Thank you for letting us participate in the care of this patient. If you are a health care provider and have any questi ons regarding this report, please contact the number below. For patients w ho have questions please contact the health chiropractic care that requested your imaging first. Electronically signed by: Tyrese Goode MD, [facility] ([phone]), at 11/20/2021 3:18 PM Cielolucio Damian APRN [facility] MRI ORDERABLES MRI Lumbar Spine wo Contrast (Generic) (11/20/2021 12:21 PM EDT) Anatomical Region Laterality Modality L-spine Magnetic Resonance Specimen (Source) Anatomical Location Collection Method / Collectio n Time Received Time / Laterality Volume Impressions 11/20/2021 3:18 PM EDT Diffusely abnormal marrow signal appearance most consistent with multiple myeloma. Fractures are present at T9, T1 1, L1, L2, L4, and L5. Marrow edema is most pronounced at the T11, and L1 fract ures. Trace marrow edema is present elsewhere. Note that there are 11 rib-bearing thora cic segments and 5 nonrib-bearing lumbar segments. Comment: The following findings are so c ommon in people without low back pain that while we report their presence, the y must be interpreted with caution and in context of the clinical situation (Re vin- Rajat Et Al, Spine 2001). Findings: (Prevalence in patients withou t low back pain), disc degeneration (decreased T2 signal, height loss, bulge ) (91%), disc T2-signal loss (83%), disc height loss (56%), disc bulge (64%), dis c protrusion (32%), annular fissure (38%). Thank you for letting us participate in the care of this patient. ??If you are a health care provider and have any questi ons regarding this report, please contact the number below. ??For patients who have questions please contact the health chiropractic care that requested your imaging first. ? Electronically signed by: Tyrese Goode MD, [facility] ([phone]), at 11/20/2021 3:18 PM Narrative 11/20/2021 3:18 PM EDT EXAMINATION: MRI LUMBAR SPINE WO CONTRAST (GENERIC), MRI THORACIC SPINE WO CONTRAST (GENERIC) CLINICAL HISTORY: multiple vertecral fractures TECHNIQUE: MRI of the lumbar spine performed withou t intravenous contrast administration. MR thoracic spine without contrast. COMPARISON: Plain films 02/20/2021 FINDINGS: Thoracic spine: There are 11 rib-bearing thoracic segments. There is mild kyphotic deformity centered at T11. Medina ow signal is diffusely abnormal with focal marrow lesions largest at T7. Ther e are fractures involving T9, and T11. There is trace marrow edema associated w ith the T9 fracture. There is marrow edema associated with the T11 fracture. There are multilevel disc degenerative changes. A right-sided disc protrusion a t T7-T8 mildly indents ventral thecal sac. There are smaller disc protrusions other levels. No severe canal stenosis. There is no cord signal abnormality. The re are midthoracic facet arthropathy without substantial foraminal stenosis. Visualized paraspinal soft tissues are unremarkable. Lumbar spine: There is somewhat exaggera blair lumbar lordosis. Marrow signal is diffusely abnormal with multifocal marro w lesions throughout. Fractures involve L1, L2, L4, and L5. There is marrow veronica a associated with the superior endplate of L1. There may be trace marrow edema a t L2. No substantial marrow edema at the L4 fracture. The conus is normal in appearance and te rminates at L1/L2 level. Visualized retroperitoneal structures are unremarka ble. Findings at specific levels: L1-L2: Slight disc bulging without canal or foraminal stenosis L2-L3: Disc bulge and facet arthropathy produces mild canal and foraminal narrowing. L3-L4: Disc bulge and facet arthropathy present with mild canal and mild caudal neural foraminal narrowing. L4-5: Disc bulge and facet arthropathy c ontribute to mild bilateral foraminal narrowing. There is minimal canal narrow ing. L5-S1: No canal or foraminal stenosis. T here is slight disc bulging. Procedure Note Tyrese Goode MD - 11/20/2021Format ting of this note might be different from the original. EXAMINATION: MRI LUMBAR SPINE WO CONTRAS T (GENERIC), MRI THORACIC SPINE WO CONTRAST (GENERIC) CLINICAL HISTORY: multiple vertecral fractures TECHNIQUE: MRI of the lumbar spine performed withou t intravenous contrast administration. MR thoracic spine without contrast. COMPARISON: Plain films 02/20/2021 FINDINGS: Thoracic spine: There are 11 rib-bearing thoracic segments. There is mild kyphotic deformity centered at T11. Medina ow signal is diffusely abnormal with focal marrow lesions largest at T7. Ther e are fractures involving T9, and T11. There is trace marrow edema associated w ith the T9 fracture. There is marrow edema associated with the T11 fracture. There are multilevel disc degenerative changes. A right-sided disc protrusion a t T7-T8 mildly indents ventral thecal sac. There are smaller disc protrusions other levels. No severe canal stenosis. There is no cord signal abnormality. The re are midthoracic facet arthropathy without substantial foraminal stenosis. Visualized paraspinal soft tissues are unremarkable. Lumbar spine: There is somewhat exaggera blair lumbar lordosis. Marrow signal is diffusely abnormal with multifocal marro w lesions throughout. Fractures involve L1, L2, L4, and L5. There is marrow veronica a associated with the superior endplate of L1. There may be trace marrow edema a t L2. No substantial marrow edema at the L4 fracture. The conus is normal in appearance and te rminates at L1/L2 level. Visualized retroperitoneal structures are unremarka ble. Findings at specific levels: L1-L2: Slight disc bulging without canal or foraminal stenosis L2-L3: Disc bulge and facet arthropathy produces mild canal and foraminal narrowing. L3-L4: Disc bulge and facet arthropathy present with mild canal and mild caudal neural foraminal narrowing. L4-5: Disc bulge and facet arthropathy c ontribute to mild bilateral foraminal narrowing. There is minimal canal narrow ing. L5-S1: No canal or foraminal stenosis. T here is slight disc bulging. IMPRESSION Diffusely abnormal marrow signal appeara nce most consistent with multiple myeloma. Fractures are present at T9, T1 1, L1, L2, L4, and L5. Marrow edema is most pronounced at the T11, and L1 fract ures. Trace marrow edema is present elsewhere. Note that there are 11 rib-bearing thora cic segments and 5 nonrib-bearing lumbar segments. Comment: The following findings are so c ommon in people without low back pain that while we report their presence, the y must be interpreted with caution and in context of the clinical situation (Re vin- Rajat Et Al, Spine 2001). Findings: (Prevalence in patients withou t low back pain), disc degeneration (decreased T2 signal, height loss, bulge ) (91%), disc T2-signal loss (83%), disc height loss (56%), disc bulge (64%), dis c protrusion (32%), annular fissure (38%). Thank you for letting us participate in the care of this patient. If you are a health care provider and have any questi ons regarding this report, please contact the number below. For patients w ho have questions please contact the health chiropractic care that requested your imaging first. Electronically signed by: Tyrese Goode MD, [facility] ([phone]), at 11/20/2021 3:18 PM Cielo [facility]cido[facility] MRI ORDERABLES documented in this encounter Visit Diagnoses Diagnosis Closed fracture of multiple cervical marcelo tebrae, subsequent encounter documented in this encounter Care Teams Methods Examiner Relationship Specialty Start Date End Date Analilia Lechuga APRN PCP - General Family Medicine 03/01/21 [place] [address] documented as of this encounter
--- OUTSIDE RECORDS SUMMARY | 2022-04-13 14:53 | XMS_ITS | Encounter Summary ---
:1960 Author Organization [facility] [place] [address] Care Team Providers Name Role Phone Analilia Lechuga APRN Primary Care Provider Encounter Details Date Type Department Care Team Description 09/15/2021 Ancillary Procedure Radiology [facility] [address] [place] [phone] (Wo rk) Social History Tobacco Use Types [...] Oncology Cristo Walsh MD [facility] HEMATOLOGY/[place] [address] Yari Thompson APRN [facility] HEMATOLOGY/[place] [address] 04/20/2022 Infusion Hematology and Oncology 04/27/2022 Infusion Hematology and Oncology 05/04/2022 Infusion Hematology and Oncology documented as of this encounter Procedures Procedure Name Priority Date/Time Associated Diagnosis Comme nts FILM LIBRARY Routine 09/15/2021 12:00 AM Results for this STORAGE ONLY DX HIP EDT procedur e are in the results section. documented in this encounter Results Film Library- Storage Only DX Hip (09/15/2021 12:00 AM EDT) Specimen (Source) Anatomical Location Collection Method / Collectio n Time Received Time / Laterality Volume Narrative SJ BAHENA - 10/12/2021 10:22 AM EDT This exam is auto-finalizing. It's purpo se is for storage only. Analilia Lechuga APRN IM FILM LIBRARY ORDERABLES Performing Organization Address City/State/ZIP Code Phon e Number [place], [place] documented in this encounter Visit Diagnoses Not on filedocumented in this encounter Care Teams Vice President Risk Management Relationship Specialty Start Date End Date Analilia Lechuga APRN PCP - General Family Medicine 03/01/21 [facility] [address] documented as of this encounter
--- OUTSIDE RECORDS SUMMARY | 2022-04-13 14:53 | XMS_ITS | Encounter Summary ---
:1960 Author Organization [facility] [place] [address] Care Team Providers Name Role Phone CaitlynAnalilia brooke MANSI Primary Care Provider Encounter Details Date Type Department Care Team Description 12/22/2021 Surgery Outpatient Surgery Diogo Barnard, ( [facility]) BONE MARROW Center Liyah Grissom MD BIOPSY AND ASPIRATION; [facility] DIAGNOSTIC [facility] [place] [address] [place] [address] [phone] Social History Tobacco Use Types Packs/Day Years [...] Sign Reading Time Taken Comments Blood Pressure 177/98 12/22/2021 10:40 AM EDT Pulse 76 12/22/2021 10:40 AM EDT Temperature 36.3 ??C (97.3 ??F) 12/22/2021 9:19 AM EDT Respiratory Rate 12 12/22/2021 10:40 AM EDT Oxygen Saturation 100% 12/22/2021 10:40 AM EDT Inhaled Oxygen Concentration - - Weight 77.1 kg (170 lb) 12/22/2021 9:19 AM EDT Height 160 cm (5' 3) 12/22/2021 9:19 AM EDT Body Mass Index 30.11 12/22/2021 9:19 AM EDT documented in this encounter Discharge Instructions Discharge InstructionsMichelle Jain RN - 12/22/2021 9:02 AM EDT OUTPATIENT SURGERY POST-OPERATIVE INSTRUCTIONS BONE MARROW BIOPSY SITE You have had a bone marrow aspiration and or/biopsy, which is like having an operation with a tiny, deep incision. Do Not do any strenuous work today, like housework, yard work, sports of any kind or lifting more than 5 pounds as it may cause your bone marrow site to bleed. To avoid infection, leave the clear plastic dressing on the site for three days. You may shower, bathe, or swim as you wish, provided the clear dressing remains intact, and all sides of the dressing are firmly adhered to the skin. In the unlikely event that a portion or the entire dressing should comeoff, you may replace it with a conventional cloth band aid. However, you will no longer be able to get the site wet until three days have passed, as a conventional band aid is not waterproof and the site is no longer a sterile area. It is not unusual for the site to leak a scant amount of blood, so do not be alarmed to see a small collection, or ???puddle?? of blood under the dressing. Wound healing will still occur. If you are uncertain if there is an increase in any leaking from your bone marrow site, roll up a towel, lie down on a firm surface, place the towel directly over the puncture site to apply pressure, and rest there for one half hour. Direct, FIRM thumb pressure applied to the site for 10 minutes workswell as an alternative method. Leave the dressing on. Most people do not experience much discomfort after this procedure, but if you do, you should ask your physician what to take. AVOID ASPIRIN PRODUCTS as these interfere with clotting. After three days, remove your dressing and leave it off, so the air can get to the site to finish the healing process. NOTIFY YOUR DOCTOR FOR: Redness Heat Fever Swelling Drainage Increased pain Foul odor (which may not be apparent through the dressing) If you are having problems or have any additional concerns or questions: Between 8am and 5pm - Call the Hematology Clinic at . After 5pm or on a weekend: Call the [facility] chain machine operator at and ask for the physician manager operations covering for your doctor. Instructions following sedation You may have received medication before and/or during your procedure, which affects judgement and reaction time. Use caution with stairs. Do not drive, operate machinery, drink alcoholic beverages, or make any legal decisions for 24 hours. You may eat a regular diet as tolerated. Do not smoke if you are alone. IV site -- slight redness, or tenderness is normal, you can use a warm compress. If tenderness and redness increases or foul drainage occurs, please contact [place] [address] [email or web address] [facility] documented in this encounter Medications at Time of Discharge Medication Sig Dispensed Refills Start Date End Date lenalidomide (Revlimid) 25 Take 1 capsule (25 21 capsule 12 0 12/24/2021 mg capsuleIndications: mg) by mouth multiple myeloma daily. Call clinic before starting medication. Indications: multiple myeloma acetaminophen 325 mg As needed 0 02/20/202112/19 Capsule cyclobenzaprine (Flexeril) As needed 0 01/26/2022 10 mg Tablet documented as of this encounter Progress Notes Michelle Jain RN - 12/22/2021 9:03 AM EDT Date/Procedure: Meds Given Comments 12/22/2021 bone marrow biopsy 50 Mcg Fentanyl 1.5 Mg Midazolam Sallie. well Discharge instructions and medications reviewed with patient and escort. Pressure was held in placeof biopsy site for 20 minutes. No bleeding or oozing noted at time of discharge. All questions answered and written copy sent home with patient. Patient ambulated to car for discharge accompanied by [facility] staff member. documented in this encounter H&P Notes Dinorah Rivera APRN - 12/22/2021 9:35 AM EDT Images from the original note were not included. Pre-Sedation Assessment: Planned procedure: Unilateral Bone Marrow Aspirate with Biopsy Indications: disease assessment Diagnosis: r/o multiple myeloma Assessment Cardiovascular: Rhythm: Regular Rate: Normal Pulmonary: Breath sounds clear to auscultation ASA: 3 - Severe systemic disease Mallampati: 3 Class 1: Entire tonsil clearly visible Class 2: Upper half of tonsil fossa visible Class 3: Soft and Hard Palate clearly visible Class 4: Only Hard Palate visible H&P reviewed: Yes Relevant diagnostic studies: None Confirm NPO status: Yes, Date and Time of last intake: last night 730 food - water at 8am today History of anesthetic complications: No Current medications reviewed: Yes Allergies reviewed: Yes Alcohol use: Date and Time of last drink: last night 2 glass of wine Drug use: None Sedation Plan: moderate (conscious sedation) The sedation plan, its benefits and risks, and alternatives were discussed with the patient. The planned procedure, its benefits and risks, and alternatives were discussed with the patient. Thepatient consented to the procedure. Discharge to: Home Dinorah CAREY APRN Nurse Practitioner Section of Hematology/Oncology [facility] Office phone: documented in this encounter Procedure Notes Dinorah Rivera APRN - 12/22/2021 9:35 AM EDT BONE MARROW BIOPSY AND ASPIRATION PROCEDURE NOTE Bone Marrow Biopsy & Aspiration with Conscious Sedation - Unilateral Date/Time of Procedure: 12/22/21 Proceduralist: Dinorah CAREY COMMERCIAL ANALYST DIAGNOSIS: R/O Multiple Myeloma Pre-Procedure: (x) Consent signed and on chart. (x) CBC drawn within 3 days. (x) Medications/Allergies/Problem List reviewed. (x) H & P complete Prior to start of procedure the following is verified in a TIME OUT: (x) Patient identity (x) Planned procedure (x) Safety concerns IV ACCESS: Per sedation RN PAIN INTERVENTION: Per sedation RN Sterile Condition: Chlorohexidine/betadine was used to sterilize the area. Sterile drapes were used to create a sterile field. Local Anesthesia: 2% Lidocaine 12 cc's. PROCEDURE: A bone marrow biopsy and aspiration was performed on the left posterior iliac crest. Pressure applied to site(s) for at least 20 minutes following the procedure and Tegaderm placed. Estimated Blood Loss: minimal Complications: none POST INTERVENTION CARE & PAIN ASSESSMENT: Per [facility] nurses. Follow-up: Written/Verbal instructions for site care given to patient per [facility] nurses. Follow-up with Physician as instructed. Dinorah Rivera APRN Section of Hematology/Oncology 12/22/2021 documented in this encounter Plan of Treatment Upcoming Encounters Date Type Specialty Care Team Description 04/20/2022 Office Visit Hematology and Oncology Cristo Walsh MD [facility] DR HEMATOLOGY/[place] [address] [facility] HEMATOLOGY/[place] [address] 04/20/2022 Infusion Hematology and Oncology 04/27/2022 Infusion Hematology and Oncology 05/04/2022 Infusion Hematology and Oncology documented as of this encounter Procedures Procedure Name Priority Date/Time Associated Comments Diagnosis IMMUNOPHENOTYPING FLOW Routine 12/22/2021 10:50 R esults for this CYTOMETRY AM EDT procedure are i n the results section. CHROMO REPORT ACQUIRED Routine 12/22/2021 10:50 R esults for this AM EDT procedure are i n the results section. BONE MARROW FINAL REPORT Routine 12/22/2021 10:50 Results for this AM EDT procedure are i n the results section. IRON STAIN, BONE MARROW Routine 12/22/2021 10:50 Results for this AM EDT procedure are i n the results section. BONE MARROW PANEL Routine 12/22/2021 10:50 ([facility]/APD) AM EDT ([facility]) BONE MARROW 12/22/2021 10:40 Suspect Myelm a BIOPSY AND ASPIRATION; AM EDT DIAGNOSTIC HEMOGRAM Routine 12/22/2021 10:10 Results for this AM EDT procedure are i n the results section. DIFFERENTIAL, AUTOMATED Routine 12/22/2021 10:10 Results for this AM EDT procedure are i n the results section. HC CBC,PLT & AUTO DIFF Routine 12/22/2021 10:10 AM EDT ([facility]) BONE MARROW Routine 12/22/2021 9:01 BIOPSY AND ASPIRATION; AM EDT DIAGNOSTIC documented in this encounter Results chromo report acquired (12/22/2021 10:50 AM EDT) Component Value Ref Test Analysis Performed At [facility] Range Method Time Signature Cytogenetics Final Report LIYAH Acquired Report KENYA DOMENICO RIAL ?[id number] HOSPITAL LABORATORY Specimen Type: Bone Marrow Specimen Condition: ~3.0mL, adequate Collection Date/Time: 12/22/2021 10:50 Received Date/Time: 12/23/2021 14:33 Indication: ??Plasma Cell Myeloma ---Results--- Please see the chromosome an alysis and Multiple Myeloma FISH scanned reports in eD-H corresponding to this bone marrow specimen. These reports were completed [facility] and are located in 'Chart Review' under the Media tab. The documents are titl ed External Genetic Study. ---Karyotype--- See comments. ---Preparation--- Culture Type: Other FISH Method: N/A ---Comments--- The specimen was referred to [facility] ([place], [place], Tel: ) for cytogenetic aura lysis. ---Disclaimer--- Please note that this is not a patient lab result and does n ot have an interpretative component. It is only provided to indicate the location of the final report in the EMR for this individual, which has the o fficial interpretation of this test result. 01.04.22 (Electronic Signature) Verified By: Malgorzata Smalls Specimen Anatomical Collection Method Collection Time Receive d Time (Source) Location / / Volume Laterality 12/22/2021 10:50 12/23/2021 2:33 AM EDT PM EDT Diogo Barnard MD HEMATOLOGY ORDERABLES Performing Organization Address City/State/ZIP Code Phon e Number [place], [place] [id number] [place] [address] Bone Marrow Final Report (12/22/2021 10:50 AM EDT) Component Value Ref Test Analysis Performed At [facility] gist Range Method Time Signature Bone Marrow [id number] ? Location: [facility] Final Report [place] The signing pathologist has (i) examined the relevant preparation(s) for the [facility] specimen(s) and (ii) rendered or confirmed the diagnosis(es) . HOSPITAL LABORATORY . ? Bone Marrow Final DIAGNOSIS BONE MARROW (BLOOD FILM, ASPIRATE, TOUCH PREP, CORE & CLOT S ECTIONS): 1. M-Jermaine, by history. 2. Hypercellular marrow (50% ) with ?? maturing trilineage hematopoiesis ??. 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 3. Ancillary studies pending. Electronically signed by: ?Valentin Moore DO Verified: ??12/23/2021 18:31 ??Pathologist Performed at: ??-[facility] Dept. of Pathology, [place], [place] DISCUSSION Flow cytometry shows a kappa -restricted plasma cell population, supporting the above diagnosis. Cytogenetics/FIS H panel ongoing. ?Final integrated report to follow. Intradepartmental consultation documentation, [facility] - Rachel Perry MD. PERIPHERAL SMEAR 12/22/21 10:10 EDT ?? WBC ??4.2 x10(3)/mcL (Ref. Range 4.0 - 9.5) ?? RBC 3.18 x10(6)/mcL (Ref. Range 4.00 - 5.21) ?? Hgb 10.5 g/dL (Ref. Range 11.7 - 15.5) ?? Hct 30.7 % (Ref. Range 35.7 - 45.8) ?? MCV 96.5 fL (Ref. Range 82.6 - 94.4) ?? MCH 33.0 pg (Ref. Range 27.1 - 32.0) ?? MCHC 34.2 g/dL (Ref. Range 31.7 - 35.0) ?? RDWSD 47.5 fL (Ref. Range 37.0 - 46.0) ?? RDWCV 13.6 % (Ref. Range 11.5 - 14.1) ?? Platelet 199 x10(3)/mcL (Ref. Range 145 - 357) Red cells: Mild anemia with borderline macrocytosis. No significant polychromasia or poikilocytosis. Slight rouleaux formation. Leukocytes: Granulocyte and lymphocytes are morphologically unremarkable. Platelets: Adequate morphology. BONE MARROW ASPIRATE Adequacy: ?Smear/touch preparations adequate, cellula r. G:E ratio: ? 2:1 Erythroid: ? Complete normoblastic maturation, no left-s hift. Granulocyte: ?? Complete normal maturation, no left-shift. Blasts: ?Not increased. Megakaryocyte: Normal in number and morphology. Lymphocyte: ?Scattered mature forms seen, no aggregates appreciated. Plasma cells: ??Increased, occasional binucleate forms. Other: ? Normal eosinophils, basophils, and mast c ells. Iron stain: ?Iron stores present, no ring sideroblasts. DIFFERENTIAL Band/Seg 25%; Lymph 9%; [place] 0%; Eos 6%; Baso 0%; Metamyelocyte 3%; Myelocyte 4%; Promyelocyte 3%; Blast 2%; nRBC's 23%; Plasma cell 25% . BONE MARROW BIOPSY and/or CLOT Core Adequacy: Decalcified, adequate, evaluable marrow prese nt. Clot Adequacy: Marrow spicules absent Cellularity: ?? Variably hypercellular (ranging from 10-60%, overall 50%). Erythroid: ? Precursors numerically decreased. Granulocyte: ?? Precursors numerically decreased. Megakaryocyte: Normal in number and appearance, no clusterin g seen. Lymphocytes: ?? No abnormal aggregates identified. Plasma cells: ??Increased, present in moderately large aggregates, diffusely throughout the marrow space. Other: ? Normal eosinophils, basophils, and mast c ells. Bone: ?Trabecular bone normal for age. [place] red: ? Negative for amyloid deposition. IMMUNOHISTOCHEMISTRY STUDIES Block: ?A1 (core biopsy) Fixative: ?? Formalin ANTIBODY ?RESULT/COMMENT CD138- ? Highlights s heets of plasma cells constituting approximately 60-70% of cellularity. The immunoperoxidase stains reported above were developed by the clinical laboratory at [facility]. Antibody specifici ties have been verified on tissues with known staining performance characteristics . These stains have not been cleared or approved by the U.S. Food and Drug Admi nistration, however such approval is not required for analyte-specific reagents o f this type. Appropriate positive and negative controls are included for each case. CLINICAL INFORMATION Specimen: A1: Bone marrow, aspirate and biopsy, left A2: SPICULE/ CLOT SECTION Clinical Diagnosis: ? M-Jermaine Indication for Study: ?? ? PCN SPECIMEN PROCESSING A - Received in two containers: 1 - Labeled/Fixative: Patient demographics, formalin. Quantity/Size: Single, 0.8 x 0.2 cm Tissue Description: Red-brow n firm needle core biopsy of bone, and attached clotted blood . Submitted in: A1 2 - Labeled/Fixative: Patient demographics, fresh. Quantity/Size: Fragments, 1.0 x 0.5 x 0.3 cm in aggregate Tissue Description: Yellow to weathers-brown soft tissue fragment s. Submitted in: A2 Sections/Processing: Blocks submitted for decalcification: A1. Entirely submitted in 2 cassettes labeled A1-A2. ??shb ?Cornel w Cytometry DIAGNOSIS BONE MARROW ASPIRATE - FLOW CYTOMETRY: ?? 1. ??A monotypic plasma cell population with kappa light-chain restriction is ?present (see note) 2. No monotypic B-cell population is identified NOTE . DIAGNOSIS The findings indicate bone m arrow involvement by a plasma cell neoplasm. While flow cytometry can provide accur ate qualitative assessment of plasma cell phenotypes, it is not a reliable methodology for quantitation of this cell type. Please correlate flow cytometry re sults with the morphologic findings in the primary biopsy report. ??The differential diagnosis includes multiple myeloma, smoldering myeloma, MGUS and AL type amyloidosis. Electronically signed by: ?Valentin Moore DO Verified: ??12/23/2021 18:18 ??Pathologist Performed at: ??-[facility] Dept. of Pathology, [place], [place] DISCUSSION Blasts based on CD45 express ion and orthogonal light scatter, are not increased. The CD19 positive B-cells radford ve a polytypic expression of surface immunoglobulin light chain ([place]:Lambda ratio a t 1:1). There is a population of CD38+(bright)/CD138+/ JD94djv/BA44ldx plasma cells that show ??cytoplasmic kappa immunoglobulin light chain restriction. Flow analysis is an ancillar y study. A definite diagnosis requires correlation with the morphologic features of this process and if necessary, correlation with other ancillary studies like immu nohistochemistry, enzyme cytochemistry and/or cyto/ molecular genetics. This test was developed and its performance miracle acteristics determined by the Clinical Flow Cytometry Lab oratory at [facility]. It has not been cleared or approve d by the U.S. Food and Drug Administration. ??The FDA has determined that such cleara nce or approval is not necessary. ??This test is used for clinical purposes. ??It lucio uld not be regarded as investigational or for research. This laboratory is certifie d under the Clinical Laboratory Improvement Act of 1988 (CLIA) as qualified to perform high complexity clinic al laboratory testing. SPECIMEN PROCESSING [id number] Cells for immunophenotypic a nalysis were derived from bone marrow. CD45 vs side scatter gating was utilized to identify a lymphoid and CD38 bright, CD138+ analysis region that comprises appro ximately 18-19% and 7.0% of all cells, respectively. The following markers were a ssessed: CD2, CD3, CD4, CD5, CD7, CD8, CD10, CD19, CD20, CD38, CD45, CD56, CD138, ka ppa light chain, (c)kappa light chain, lambda light chain, and (c)lambda light chain. CLINICAL INFORMATION M-spike, compression fractures, abnormal marrow signal on MR I. Specimen (Source) Anatomical Collection Method Collection Time Re ceived Time Location / / Volume Laterality AP Specimen 12/22/2021 10:50 AM EDT Narrative This result has an attachment that is no t available. Diogo Barnard MD PATHOLOGY/CYTOLOGY ORDERABLE S Performing Organization Address City/[facility]/ZIP Code Phon e Number [address] Immunophenotyping Flow Cytometry (12/22/2021 10:50 AM EDT) Component Value Ref Test Analysis Performed At [email or web address] Range Method Time Signature Immunophenotyping See [facility] Flow Comment [facility] LABOR[facility] Comment: When completed by the Pathologist, the F low Cytometry Report ([id number]) will display under the Pathology Result s section within eDH. Specimen Anatomical Collection Method Collection Time Receive d Time (Source) Location / / Volume Laterality Bone Marrow 12/22/2021 10:50 12/22/2021 AM EDT 11:19 AM EDT Resulting Agency Comment Spec In Lab Diogo Barnard MD HEMATOLOGY ORDERABLES Performing Organization Address City/[facility]/ZIP Code Phon e Number [address] Iron Stain, Bone Marrow (12/22/2021 10:50 AM EDT) Mesh [place] Method Time Signature Iron Stain BM See Comment [facility] LABOR[facility] Comment: See Bone Marrow Report [id number] un amalia Hematopathology Reports. corrected- added year to case number Corrected from See Comment on 12/23/21 9 :14:59 EDT by Sadia, Davon M. Specimen Anatomical Collection Method Collection Time Receive d Time (Source) Location / / Volume Laterality Bone Marrow 12/22/2021 10:50 12/22/2021 AM EDT 11:19 AM EDT Resulting Agency Comment Spec In Lab Diogo Barnard MD HEMATOLOGY ORDERABLES Performing Organization Address City/State/[place] [address] Differential, Automated (12/22/2021 10:10 AM EDT) athologist Signature Neutrophils % 49.0 % [facility] Neutr Abs (ANC) 2.08 1.70 - [facility] 6.10 [facility] x10(3)/[facility] LABORATORY Lymphocytes % 40.7 % [facility] Lymphocytes Abs 1.7 0.9 - 3.2 [facility] x10(3)/[facility] LABORATORY Monocytes % 7.5 % [facility] Monocyte Abs 0.3 0.3 - 0.9 [facility] x10(3)/[facility] LABORATORY Eosinophils % 2.1 % [facility] Eosinophils Abs 0.1 0.0 - 0.4 [facility] x10(3)/[facility] LABORATORY Basophils % 0.5 % [facility] Basophils Abs 0.0 0.0 - 0.1 [facility] x10(3)/[facility] LABORATORY Immature Gran % 0.20 % [facility] Comment: Immature granulocytes(IG's)percentage an d absolute count will include metamyelocytes, myelocytes, and promyelo cytes. Blood smears from CBCs yielding IG's will be scanned manually for concor dance. If this scan disagrees with the automated IG or if promyelocytes are not ed, a manual differential will be performed. Angelica Gran Abs 0.01 0.00 - 0.04 x10(3)/[facility] Y [facility] LABORATORY Specimen Anatomical Collection Method Collection Time Receive d Time (Source) Location / / Volume Laterality Blood 12/22/2021 10:10 12/22/2021 AM EDT 10:35 AM EDT Resulting Agency Comment Spec In Lab Diogo Barnard MD HEMATOLOGY ORDERABLES Performing Organization Address City/[facility]/[place] [address] (ABNORMAL) Hemogram (12/22/2021 10:10 AM EDT) Analysis [facility]formed At [facility] Time Signature WBC 4.2 4.0 - 9.5 [facility] x[facility](3[facility] LABORATORY RBC 3.18 (L) 4.00 - LIYAH KENYA 5.21 [facility] x10(6)/[facility] LABORATORY Hemoglobin 10.5 (L) 11.7 - LIYAH KENYA 15.5 g/dL [facility] LABORATORY Hematocrit 30.7 (L) 35.7 - [facility] 45.8 % [facility] LABORATORY MCV 96.5 (H) 82.6 - [facility] 94.4 [facility] LABORATORY MCH 33.0 (H) 27.1 - LIYAH KENYA 32.0 pg [facility] LABORATORY MCHC 34.2 31.7 - LIYAH KENYA 35.0 g/dL [facility] LABORATORY Platelets 199 145 - 357 [facility] x10(3)/[facility] LABORATORY RDWSD 47.5 (H) 37.0 - LIYAH KENYA 46.0 [facility] LABORATORY RDWCV 13.6 11.5 - [facility] KENYA 14.1 % [facility] LABORATORY MPV 9.4 7.6 - 12.9 [facility] LABORATORY nRBC % Auto 0.0 % [facility] LABORATORY nRBC Abs Auto 0.000 0.000 - LIYAH KENYA 0.000 [facility] x10(3)/[facility] LABORATORY Specimen Anatomical Collection Method Collection Time Receive d Time (Source) Location / / Volume Laterality Blood 12/22/2021 10:10 12/22/2021 AM EDT 10:35 AM EDT Resulting Agency Comment Spec In Lab Diogo Barnard MD HEMATOLOGY ORDERABLES Performing Organization Address City/State/[place] [address] documented in this encounter Visit Diagnoses Not on filedocumented in this encounter Administered Medications Inactive Administered Medications - up to 3 most recent administrations Medication Order MAR Action Action Date Dose Rate Site fentaNYL (pf) (50 mcg/mL) Given 12/22/2021 10:47 AM EDT 25 mcg multi-dose injection 25-50 mcg 25-50 mcg, Intravenous, EVERY 5 MIN PRN, Starting on Jyoti 12/22/21 at 1030, Until Jyoti 12/22/21 at 1125, Pain, For use in the Operating Room (OR) or Outpatient Surgical Center (OSC) only for procedural sedation with direct provider supervision and verbal order. Hold for respiratory rate less than 8 breaths per minute. (maximum dose 200 mcg), Intra-Operative (Intra-Procedure), Routine Given 12/22/2021 10:42 AM EDT 25 mcg lidocaine (Xylocaine) 1% (10 mg/mL) inje ction 3 mg 3 mg (0.3 mL), Subcutaneous, ONCE PRN, 1 dose, Startin g on Jyoti 12/22/21 at 0903, Until Jyoti 12/22/21 at 1125, for discomfort with PIV insertion, Day of Surgery (Day of Procedure), Routine midazolam (pf) (Versed) (1 mg/mL) multi-dose Given 08/2021 10:47 AM EDT 0.5 mg injection 0.5-2 mg 0.5-2 mg, Intravenous, EVERY 5 MIN PRN, Starting on Jyoti 12/22/21 at 1030, Until Jyoti 12/22/21 at 1125, Sleep, Anxiety, For use in the Operating Room (OR) or Outpatient Surgical Center (OSC) only for procedural sedation with direct provider supervision and verbal order. Hold for delirium/agitation. (Maximum dose 5 mg)., Intra-Operative (Intra-Procedure), Routine Given 12/22/2021 10:43 AM EDT 1 mg sodium chloride 0.9 % (flush) (BD PosiFl ush Normal Saline 0.9) flush 5 mL 5 mL, Intravenous, EVERY 12 HOURS, First dose on Jyoti at 0930, Until Discontinued, Day of Surgery (Day of Procedure), Routi ne sodium chloride 0.9 % (flush) (BD PosiFl ush Normal Saline 0.9) flush 5-20 mL 5-20 mL, Intravenous, EVERY 1 MIN PRN, S tarting on Jyoti 12/22/21 at 0903, Until Jyoti 12/22/21 at 1125, flush, Flush pertains to all indwelling lines. Flush per protocol found in the job aid using the link provided on this m edication record., Day of Surgery (Day of Procedure), Routine sodium chloride 0.9% infusion New Bag 12/22/2021 10:07 AM EDT 1,000 mLs 100 mL/hr 1,000 mL, at 100 mL/hr, Intravenous, CONTINUOUS, Starting on Jyoti 12/22/21 at 0930, Until Jyoti 12/22/21 at 1125, Day of Surgery (Day of Procedure) documented in this encounter Active and Recently Administered Medications Times are shown in EDT. Scheduled Medication Order 12/20/2021 12/21/2021 12/22/2021 heparin (pf) (porcine) (1,000 unt/mL) injection for bone marrow biopsy 929 (Due) as directed, ONCE, On Jyoti 12/22/21 at 0930 , 1 dose, Do not administer to patient. To be used to heparinize SYRINGE ONLY for bone marrow sample. , Day of Surgery (Day of Procedure) lidocaine (pf) (Xylocaine) (10 mg/mL) 1% injection 10 mg 929 (Due) 10 mg (1 vial), Subcutaneous, ONCE, 1 do se, On Jyoti 12/22/21 at 0930, To be given DURING the procedure, Day of Surgery (Day of Procedure), Routine sodium chloride 0.9 % (flush) (BD PosiFlush Normal Saline 0.9) f lush 5 mL 929 (Due) 5 mL, Intravenous, EVERY 12 HOURS, First dose on Jyoti 12/22/21 at 0930, Until Discontinued, Day of Surgery (Day of Procedure), Routine Continuous Medication Order 12/20/2021 12/21/2021 12/22/2021 sodium chloride 0.9% infusion 10 07 (New Bag - Provider: Michelle Jain RN) 1,000 mL, at 100 mL/hr, Intravenous, CON TINUOUS, Starting on Jyoti 12/22/21 at 0930, Until Jyoti 12/22/21 at 1125, Day of Surgery (Day of Procedure) PRN Medication Order 12/20/2021 12/21/2021 12/22/2021 fentaNYL (pf) (50 mcg/mL) multi-dose injection 25-50 mcg 1041 (Given - Provider: Michelle Jain RN)104 (Given - Provider: Michelle Jain RN) 25-50 mcg, Intravenous, EVERY 5 MIN PRN, Starting on Jyoti 12/22/21 at 1030, Until Jyoti 8 at 1125, Pain, For use in the Operating Room (OR) or Outpatient Surgical Center (OSC) only for procedural sedati on with direct provider supervision and verbal order. Hold for respiratory rate less than 8 breaths per minute. (maximum dose 200 mcg), Intra-Operative (Intra- Procedure), Routine flumazeniL (Romazicon) (0.1 mg/mL) injection 0.2 mg 0.2 mg, Intravenous, EVERY 2 MIN PRN, St arting on Jyoti 12/22/21 at 1030, Until Jyoti 8 at 1125, Benzodiazepine reversal, 0.2 mg intravenous, every 2 minutes PRN for total of 5 doses for respiratory rate less than 8 or SpO2 less than 90% despi te supplement O2., Intra-Operative (Intra-Procedure), Routine lidocaine (Xylocaine) 1% (10 mg/mL) injection 3 mg 3 mg (0.3 mL), Subcutaneous, ONCE PRN, 1 dose, Starting on Jyoti 12/22/21 at 0903, Until Jyoti 12/22/21 at 1125, for discomfort with PIV insertion, Day of Surgery (Day of Procedure), Routine midazolam (pf) (Versed) (1 mg/mL) multi-dose injection 0.5-2 mg 1042 (Given - Provider: Michelle Jain RN)104 (Given - Provider: Michelle Jain RN) 0.5-2 mg, Intravenous, EVERY 5 MIN PRN, Starting on Jyoti 12/22/21 at 1030, Until Jyoti 8 at 1125, Sleep, Anxiety, For use in the Operating Room (OR) or Outpatient Surgical Center (OSC) only for procedur al sedation with direct provider supervi katarzyna and verbal order. Hold for delirium/agitation. (Maximum dose 5 mg)., Intra-Operative (Intra-Procedure), Routine naloxone (Narcan) (0.4 mg/mL) injection 0.1 mg 0.1 mg, Intravenous, EVERY 2 MIN PRN, St arting on Jyoti 12/22/21 at 1030, Until Jyoti 12/22/21 at 1125, Opioid Reversal, Opiate induced oversedation or respiratory depression. (maximum dose of 0.8 mg), Intra-Operative (Intra-Procedure), Routine sodium chloride 0.9 % (flush) (BD PosiFlush Normal Saline 0.9) f lush 5-20 mL 5-20 mL, Intravenous, EVERY 1 MIN PRN, S tarting on Jyoti 12/22/21 at 0903, Until Jyoti 12/22/21 at 1125, flush, Flush pertains to all indwelling lines. Flush per protocol found in the job aid using the link pro vided on this medication record., Day of Surgery (Day of Procedu re), Routine documented in this encounter Care Teams Crm Consultant Relationship Specialty Start Date End Date Analilia Lechuga APRN PCP - General Family Medicine 03/01/21 [address] [place] [address] documented as of this encounter
--- OUTSIDE RECORDS SUMMARY | 2022-04-13 14:53 | XMS_ITS | Encounter Summary ---
:1960 Author Organization [facility] [place] [address] Care Team Providers Name Role Phone Analilia Lechuga APRN Primary Care Provider Reason for Visit Reason Comments Advice Only Consultation (Routine) - Closed Specialty Diagnoses / Procedures Referred By Contact Refer red To Contact Hematology and Diagnoses Multiple myeloma, remission status unspecified Analilia Lechuga APRN [facility] Hem Onc 3k Oncology [address] [place] [place] [id number] [place] [phone] Phone: Fax: Referral ID Status Reason Start Date Expiration Date Visits V isits Requested Authorized [id number] Closed Consult, 12/15/2021 12/15/2022 1 1 Test & Treat Encounter Details Date Type Department Care Team Description 12/16/2021 Office Visit Hematology and Heber Barnard MD [facility] [place] [address] Anemia, unspecified type; Oncology at [facility] Dinorah Rivera APRN [facility] [place] [address] 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) [place] [address] Social History Tobacco Use Types Packs/Day Years Used Date Smoking Tobacco: Every Day Cigarettes 1 Smokeless Tobacco: Never Tobacco Cessation: Ready to Quit: No; Co unseling Given: Yes Transportation Needs Answer Date Recorded In the [...] Sign Reading Time Taken Comments Blood Pressure 162/81 12/16/2021 3:55 PM EDT Pulse 60 12/16/2021 3:55 PM EDT Temperature 36.3 ??C (97.3 ??F) 12/16/2021 3:55 PM EDT Respiratory Rate 16 12/16/2021 3:55 PM EDT Oxygen Saturation 98% 12/16/2021 3:55 PM EDT Inhaled Oxygen Concentration - - Weight 76.8 kg (169 lb 6.4 oz) 12/16/2021 3:55 PM EDT Height 159.5 cm (5' 2.8) 12/16/2021 3:55 PM EDT Body Mass Index 30.2 12/16/2021 3:55 PM EDT documented in this encounter Progress Notes Myron Branard MD - 12/16/2021 3:30 PM EDT OUTPATIENT HEMATOLOGY/ ONCOLOGY CONSULTATION HISTORY [...] She has been waiting to speak to global sales director for quite some time, and is relieved [...] edema is present elsewhere. ?? DEXA- T=-2.6 Treatment Course ?? INTERIM HISTORY See presentation SOCIAL HISTORY- reviewed with significant changes noted W/ children Smokes 1 ppd MEDICATIONS AND ALLERGIES- reviewed at this visit Medications 12/16/21 1555 Medication Sig Taking? acetaminophen 325 mg Capsule As needed Yes cyclobenzaprine (Flexeril) 10 mg Tablet As needed Yes PAST MEDICAL HISTORY- reviewed There is no problem list on file for this patient. Osteoporosis PAST SURGICAL HISTORY- reviewed, only relevant surgeries listed below None FAMILY HISTORY- reviewed, only relevant Family Hx listed below None COMPREHENSIVE REVIEW OF SYSTEMS Besides what is mentioned in the HPI, all other systems are negative PHYSICAL EXAMINATION Patient Vitals for the past 24 hrs: Temp Pulse Resp BP SpO2 12/16/21 1555 36.3 ??C (97.3 ??F) 60 16 162/81 98 % NAD, pleasant, Heart is RRR Lung sounds are CTAB Abd is soft, NT/ ND, there is no palpable organomegally Lymphadenopathy is not appreciated in neck or axilla Joints are not swollen or inflamed There are no gross neurologic deficits. Facial movement is symmetric. Speech is fluent and congruent. Gait and balance are normal Affect and mood are appropriate for the situation There are no appreciable rashes LABORATORY EVALUATION Recent Results (from the past 24 hour(s)) Comprehensive metabolic panel (non-fasting) Result Value Ref Range Glucose Lvl 84 65 - 199 mg/dL BUN 13 8 - 18 mg/dL Creatinine 0.77 0.70 - 1.20 mg/dL Sodium 134 (L) 135 - 145 mmol/L Potassium 3.8 3.5 - 5.0 mmol/L Chloride 101 98 - 107 mmol/L CO2 25 22 - 31 mmol/L Anion Gap 8 5 - 15 mmol/L Calcium 9.9 8.5 - 10.5 mg/dL Total Protein 10.3 (H) 6.1 - 8.0 g/dL Albumin 4.2 3.2 - 5.2 g/dL AST 15 0 - 30 unit/L ALT 10 0 - 30 unit/L Alk Phos 75 35 - 105 unit/L Total Bilirubin 0.4 0.2 - 1.3 mg/dL Estimated GFR 88 >=60 mL/min/1.73 m?? Ferritin Result Value Ref Range Ferritin 127 30 - 400 ng/mL Folate, serum Result Value Ref Range Folate Lvl 7.0 4.8 - 24.2 ng/mL Iron and TIBC Result Value Ref Range Iron 111 30 - 150 mcg/dL TIBC 341 250 - 450 mcg/dL Iron Saturation 33 20 - 50 % Lactate Dehydrogenase Result Value Ref Range LDH 145 110 - 220 unit/L Protein Electrophoresis, serum Result Value Ref Range Total Prot Elec 9.8 (H) 6.1 - 8.0 g/dL Reticulocyte Count Result Value Ref Range Retic Ct % 2.4 0.7 - 2.5 % Retic Ct Abs 0.080 0.020 - 0.110 x10(6)/mcL Immature Retic% 22.0 (H) 0.5 - 13.8 % Reticulated Hgb 35.7 29.8 - 39.4 pg Sedimentation rate Result Value Ref Range Sed Rate 90 (H) 2 - 39 mm/hr Vitamin B12 Result Value Ref Range Vitamin B-12 365 232 - 1,245 pg/mL Hemogram Result Value Ref Range WBC 5.5 4.0 - 9.5 x10(3)/mcL RBC 3.18 (L) 4.00 - 5.21 x10(6)/mcL Hemoglobin 10.7 (L) 11.7 - 15.5 g/dL Hematocrit 30.9 (L) 35.7 - 45.8 % MCV 97.2 (H) 82.6 - 94.4 fL MCH 33.6 (H) 27.1 - 32.0 pg MCHC 34.6 31.7 - 35.0 g/dL Platelets 243 145 - 357 x10(3)/mcL RDWSD 46.8 (H) 37.0 - 46.0 fL RDWCV 13.4 11.5 - 14.1 % MPV 9.4 7.6 - 12.9 fL nRBC % Auto 0.0 % nRBC Abs Auto 0.000 0.000 - 0.000 x10(3)/mcL Differential, Automated Result Value Ref Range Neutrophils % 47.3 % Neutr Abs (ANC) 2.59 1.70 - 6.10 x10(3)/mcL Lymphocytes % 42.3 % Lymphocytes Abs 2.3 0.9 - 3.2 x10(3)/mcL Monocytes % 7.3 % Monocyte Abs 0.4 0.3 - 0.9 x10(3)/mcL Eosinophils % 2.2 % Eosinophils Abs 0.1 0.0 - 0.4 x10(3)/mcL Basophils % 0.5 % Basophils Abs 0.0 0.0 - 0.1 x10(3)/mcL Immature Gran % 0.40 % Angelica Gran Abs 0.02 0.00 - 0.04 x10(3)/mcL ASSESSMENT: Christen Sommer is a 61 y.o. female presents with multiple vertebral compression fractures and abnormal Marrow signal on MRI. Needs Bone marrow KATE. We have arranged for next . While these findings do raise high suspicion for MM, they are not diagnostic. Will f/u after BM. We discussed MM as a disease, and what the proposed treatment would be if it is confirmed. Likely will transfer care to [facility] if she needs treatment. Pain seems tolerable, but could consider XRT or vertebroplasty if it worsens. Myron Barnard MD Pager: [phone] 12/16/2021 documented in this encounter Miscellaneous Notes Addendum Note - Myron Barnard MD - 12/16/2021 3:30 PM EDT Addended by: MYRON BARNARD on: 12/24/2021 05:50 PM Modules accepted: Orders documented in this encounter Plan of Treatment Upcoming Encounters Date Type Specialty Care Team Description 04/20/2022 Office Visit Hematology and Oncology Cristo Walsh MD [facility] HEMATOLOGY/ONCOLOGY DEPT. [place] [id number] Yari Thompson, [facility] HEMATOLOGY/[place] [address] 04/20/2022 Infusion Hematology and Oncology 04/27/2022 Infusion Hematology and Oncology 05/04/2022 Infusion Hematology and Oncology documented as of this encounter Results Vitamin B12 (12/16/2021 2:49 PM EDT) athologist [facility] Vitamin B-12 365 232 - 1,245 [facility] pg/mL [facility] Specimen Anatomical Collection Method Collection Time Receive d Time (Source) Location / / Volume Laterality Blood 12/16/2021 2:49 PM 2 3:10 EDT PM EDT Resulting Agency Comment Spec In Lab Myron Barnard MD CHEMISTRY ORDERABLES Performing Organization Address City/[facility]/[place] [address] (ABNORMAL) Sedimentation rate (12/16/2021 2:49 PM EDT) athologist [facility] Sed Rate 90 (H) 2 - 39 [facility] mm/hr [facility] Comment: Effective April 30, 2019 new capillar y photometric technology has resulted in a change in reference ranges. It is r ecommended that each ESR result be reviewed with its own age appropriate re ference range. Specimen Anatomical Collection Method Collection Time Receive d Time (Source) Location / / Volume Laterality Blood 12/16/2021 2:49 PM 2 3:10 EDT PM EDT Resulting Agency Comment Spec In Lab Myron Barnard MD HEMATOLOGY ORDERABLES Performing Organization Address City/State/[place] [address] (ABNORMAL) Reticulocyte Count (12/16/2021 2:49 PM EDT) [facility] gist Method Time Signature Retic Ct % 2.4 0.7 - 2.5 [facility] Retic Ct Abs 0.080 0.020 - [facility] 0.110 [facility] x10(6)/[facility] L LABORATORY Immature Retic% 22.0 (H) 0.5 - [facility] 13.8 % [facility] Reticulated Hgb 35.7 29.8 - [facility] 39.4 pg [facility] Specimen Anatomical Collection Method Collection Time Receive d Time (Source) Location / / Volume Laterality Blood 12/16/2021 2:49 PM 2 3:10 EDT PM EDT Resulting Agency Comment Spec In Lab Myron Barnard MD HEMATOLOGY ORDERABLES Performing Organization Address City/State/[place] [address] (ABNORMAL) Protein Electrophoresis, serum (12/16/2021 2:49 PM EDT) Analysis Performed At Patho logist Time Signature Total Prot 9.8 (H) 6.1 - 8.0 [facility] Elec g/dL [facility] Albumin Elect 4.39 3.60 - [facility] 6.00 g/dL [facility] Alpha1-Globuli 0.13 0.10 - [facility] 0.30 g/dL [facility] Alpha2-Globuli 0.75 0.40 - [facility] 0.90 g/dL [facility] Beta Globulin 0.71 0.50 - [facility] 1.00 g/dL [facility] Gamma Globulin 3.82 (H) 0.50 - [facility] 1.30 g/dL [facility] M1 Band 3.31 g/dL [facility] SPEP Comments See Note [facility] Comment: The serum protein electrophoresis (PEP) shows a band that is consistent with a paraprotein. Immunofixation (MARY KAY) and qu antitative immunoglobulin (MERARI) testing will be performed on this sample to veri fy that it is a monoclonal immunoglobulin. Specimen Anatomical Collection Method Collection Time Receive d Time (Source) Location / / Volume Laterality Blood 12/16/2021 2:49 PM 2 3:10 EDT PM EDT Narrative This result has an attachment that is no t available. Resulting Agency Comment Spec In Lab Myron Barnard MD CHEMISTRY ORDERABLES Performing Organization Address City/State/ZIP Code Phon e Number [address] Lactate Dehydrogenase (12/16/2021 2:49 PM EDT) P athologist Signature LDH 145 110 - 220 [facility] unit/L [facility] Specimen Anatomical Collection Method Collection Time Receive d Time (Source) Location / / Volume Laterality Blood 12/16/2021 2:49 PM 2 3:10 EDT PM EDT Resulting Agency Comment Spec In Lab Myron Barnard MD CHEMISTRY ORDERABLES Performing Organization Address City/[facility]/ZIP Code Phon e Number [address] Iron and TIBC (12/16/2021 2:49 PM EDT) P athologist Signature Iron 111 30 - 150 [facility] mcg/dL [facility] TIBC 341 250 - 450 [facility] m[facility]/dL [facility] Iron Saturation 33 20 - 50 % [facility] Specimen Anatomical Collection Method Collection Time Receive d Time (Source) Location / / Volume Laterality Blood 12/16/2021 2:49 PM 2 3:10 EDT PM EDT Resulting Agency Comment Spec In Lab Myron Barnard MD CHEMISTRY ORDERABLES Performing Organization Address City/[facility]/[place] [address] (ABNORMAL) Free Light Chains, Serum (12/16/2021 2:49 PM EDT) Patholo gist Method Time Signature [place] Free 60.64 (H) 0.72 - [facility] Light Chain 2.75 mg/dL [facility] Lambda Free 1.24 0.57 - [facility] Light Chain 2.15 mg/dL [facility] [place] Lambda 48.9032 0.4000 - [facility] FLC Ratio (H) 2.5800 [facility] Specimen Anatomical Collection Method Collection Time Receive d Time (Source) Location / / Volume Laterality Blood 12/16/2021 2:49 PM 2 3:10 EDT PM EDT Resulting Agency Comment Spec In Lab Myron Barnard MD CHEMISTRY ORDERABLES Performing Organization Address City/[facility]/ZIP Code Phon e Number [address] Folate, serum (12/16/2021 2:49 PM EDT) athologist Signature Folate Lvl 7.0 4.8 - 24.2 [facility] ng/mL [facility] Specimen Anatomical Collection Method Collection Time Receive d Time (Source) Location / / Volume Laterality Blood 12/16/2021 2:49 PM 2 3:10 EDT PM EDT Resulting Agency Comment Spec In Lab Myron Barnard MD CHEMISTRY ORDERABLES Performing Organization Address [facility] [place] [address] Ferritin (12/16/2021 2:49 PM EDT) athologist Signature Ferritin 127 30 - 400 [facility] ng/mL [facility] Comment: Pediatric reference ranges not verified at [facility], interpret with caution. Reference ranges for females greater milvia n 50 years of age approach values for men, i.e., 30-400 ng/mL. Specimen Anatomical Collection Method Collection Time Receive d Time (Source) Location / / Volume Laterality Blood 12/16/2021 2:49 PM 2 3:10 EDT PM EDT Resulting Agency Comment Spec In Lab Myron Barnard MD CHEMISTRY ORDERABLES Performing Organization Address City/[facility]/ZIP [facility] [place] [address] (ABNORMAL) Comprehensive metabolic panel (non-fasting) (12/16/2021 2:49 PM EDT) athologist Signature Glucose Lvl 84 65 - 199 [facility] mg/dL [facility] Comment: Diabetes: >=200 mg/dL plus symp toms BUN 13 8 - 18 mg/dL [facility] Creatinine 0.77 0.70 - 1.20 mg/dL [facility] Sodium 134 (L) 135 - 145 mmol/L [facility] Potassium 3.8 3.5 - 5.0 mmol/L [facility] Comment: Please note: ??Patients with WBC >100,00 0 may have falsely elevated Potassium levels. ??For accurate Potassium quantif ication in these patients send serum separator tube (gold top) for subsequent determinations. ??Contact the Clinical Chemistry Laboratory if there are any qu estions. Chloride 101 98 - 107 mmol/L [facility] CO2 25 22 - 31 mmol/L [facility] Anion Gap 8 5 - 15 mmol/L [facility] Calcium 9.9 8.5 - 10.5 mg/dL [facility] Total Protein 10.3 (H) 6.1 - 8.0 g/dL [facility] Comment: Interpret plasma or serum SODIUM results with caution; highly elevated proteins of >10 g/dL may cause pseudohyponatremia . Albumin 4.2 3.2 - 5.2 g/dL [facility] AST 15 0 - 30 unit/L [facility] ALT 10 0 - 30 unit/L [facility] Alk Phos 75 35 - 105 unit/L [facility] Total Bilirubin 0.4 0.2 - 1.3 mg/dL [facility] Estimated GFR 88 >=60 mL/min/1.73 m?? [facility] Comment: This patient's estimated GFR was calcula blair using the 2020 CKD-EPI equation. The estimated GFR can vary from the sagrario ured GFR by up to 30% in the absence of rapidly changing kidney function. Assess ment of the estimated GFR is not appropriate when creatinine concentratio ns are rapidly changing. For clinical situations in which a more precise estim ate of GFR is necessary, consider alternative methods of GFR estimation chaudhari ch as a 24-hour urine creatinine clearance. Assignment of CKD stage 1-5 for patients with an eGFR near the transition point between stages may be based on clinical assessment of muscle mass and symptoms in addition to eGFR. Specimen Anatomical Collection Method Collection Time Receive d Time (Source) Location / / Volume Laterality Blood 12/16/2021 2:49 PM 2 3:10 EDT PM EDT Resulting Agency Comment Spec In Lab Myron Barnard MD CHEMISTRY ORDERABLES Performing Organization Address City/State/[place] [address] documented in this encounter Visit Diagnoses Diagnosis Anemia, unspecified type 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) Monoclonal paraproteinemia documented in this encounter Care Teams Systems Analyst Relationship Specialty Start Date End Date Analilia Lechuga APRN PCP - General Family Medicine 03/01/21 [address] [place] [address] documented as of this encounter
--- OUTSIDE RECORDS SUMMARY | 2022-04-13 14:53 | XMS_ITS | Encounter Summary ---
:1960 Author Organization [place] [place] [address] Care Team Providers Name Role Phone Analilia Lechuga APRN Primary Care Provider Reason for Referral Consultation (Routine) - Closed Specialty Diagnoses / Procedures Referred By Contact Refer red To Contact Orthopaedics Diagnoses Right hip pain RIGHT HIP PAIN Analilia Lechuga APRN [facility] [place] [id number] Referral ID Status Reason Start Date Expiration Date Visits V isits Requested Authorized [id number] Closed Consult, Test 10/07/2021 10/07/2022 6 6 & Treat PCP Updated and/or Approved Encounter Details Date Type Department Care Team Description 10/07/2021 Transcribe Orders eDH Incoming Referra ls Analilia Lechuga, Right hip pain [phone] 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 [address] Yari Thompson APRN [facility] DR HEMATOLOGY/[place] [address] 04/20/2022 Infusion Hematology and Oncology 04/27/2022 Infusion Hematology and Oncology 05/04/2022 Infusion Hematology and Oncology Scheduled Referrals Name Type Priority Associated Order Schedule Diagnoses Referral to Outpatient Referral Routine Right hip pain Ordere d: Orthopaedics 10/07/2021 documented as of this encounter Visit Diagnoses Diagnosis Right hip pain Pain in joint, pelvic region and thigh documented in this encounter Care Teams Engraver Flatware Relationship Specialty Start Date End Date Analilia Lechuga APRN PCP - General Family Medicine 03/01/21 [place] [id number] documented as of this encounter
--- OUTSIDE RECORDS SUMMARY | 2022-04-13 14:53 | XMS_ITS | Encounter Summary ---
:1960 Author Organization [facility] [place] [address] Care Team Providers Name Role Phone CaitlynAnalilia brooke MANSI Primary Care Provider Encounter Details Date Type Department Care Team Description 12/22/2021 Hospital Encounter Outpatient Surgery Heber Barnard, [facility] [place] [address] [place] [address] [phone] Social History Tobacco Use Types Packs/Day Years [...] Sign Reading Time Taken Comments Blood Pressure 177/74 12/22/2021 9:19 AM EDT Pulse 61 12/22/2021 9:19 AM EDT Temperature 36.3 ??C (97.3 ??F) 12/22/2021 9:19 AM EDT Respiratory Rate 16 12/22/2021 9:19 AM EDT Oxygen Saturation 99% 12/22/2021 9:19 AM EDT Inhaled Oxygen Concentration - - [...] 5pm or on a weekend: Call the [facility] can reforming machine operator at and ask for the physician education consultant covering for your doctor. Instructions following sedation [...] drainage occurs, please [place] [address] [email or web address] [email or web address] [facility] documented in this encounter Medications at Time [...] the procedure. Discharge to: Home Dinorah CAREY ZIG ZAG STITCHER Nurse Practitioner Section of Hematology/Oncology [facility] Office phone: documented in this encounter Procedure Notes Dinorah Rivera APRN - 12/22/2021 9:35 AM EDT BONE MARROW BIOPSY AND ASPIRATION PROCEDURE NOTE Bone Marrow Biopsy & Aspiration with Conscious Sedation - Unilateral Date/Time of Procedure: 12/22/21 Proceduralist: Dinorah Rivera MSN ZIG ZAG STITCHER DIAGNOSIS: R/O Multiple Myeloma Pre-Procedure: (x) Consent [...] Cristo Walsh MD [facility] DR HEMATOLOGY/[place] [address] Yari Thompson APRN [facility] HEMATOLOGY/[place] [address] 04/20/2022 Infusion Hematology and Oncology 04/27/2022 Infusion [...] section. BONE MARROW PANEL Routine 12/22/2021 10:50 (DH/CGP/APD) AM EDT (OSC MSURG) BONE MARROW 12/22/2021 [...] Component Value Ref Test Analysis Performed At [facility] [place] Method Time Signature Cytogenetics Final Report DARBY Acquired Report KENYA DOMENICO RIA ?[id number] HOSPITAL LABORATORY Specimen Type: Bone Marrow Specimen Condition: ~3.0mL, adequate Collection Date/Time: 12/22/2021 10:50 Received Date/Time: 12/23/2021 14:33 Indication: ??Plasma Cell Myeloma ---Results--- Please see the chromosome an alysis and Multiple Myeloma FISH scanned reports in eD-H corresponding to this bone marrow specimen. These reports were completed by [facility] and are located in 'Chart Review' under the Media tab. The documents are titl ed External Genetic Study. ---Karyotype--- See comments. ---Preparation--- Culture Type: Other FISH Method: N/A ---Comments--- The specimen was referred to [facility] ([place], [place], Tel: ) for cytogenetic aura lysis. [...] Organization Address City/State/ZIP Code Phon e Number [place], [place] [id number] [place] [address] Bone Marrow Final Report (12/22/2021 10:50 AM EDT) Component Value Ref Test Analysis Performed At [facility] [place] Method Time Signature Bone Marrow [id number] ? Location: [facility] Final Report [place] The signing pathologist has (i) examined the relevant preparation(s) for the [facility] specimen(s) and (ii) rendered or confirmed the [...] DO Verified: ??12/23/2021 18:31 ??Pathologist Performed at: ??-[facility] Dept. of Pathology, [place], [place] DISCUSSION Flow cytometry shows a kappa -restricted plasma cell population, supporting the above diagnosis. Cytogenetics/FIS H panel ongoing. ?Final integrated report to follow. Intradepartmental consultation documentation, [facility] - Rachel Perry MD. PERIPHERAL SMEAR 12/22/21 [...] ring sideroblasts. DIFFERENTIAL Band/Seg 25%; Lymph 9%; [place] 0%; Eos 6%; Baso 0%; Metamyelocyte 3%; [...] were developed by the clinical laboratory at [facility]. Antibody specifici ties have been verified on [...] and AL type amyloidosis. Electronically signed by: ?Oscar NINO Valentin Ailin Verified: ??12/23/2021 18:18 ??Pathologist Performed at: ??-[facility] Dept. of Pathology, [place], [place] DISCUSSION Blasts based on CD45 express ion and orthogonal light scatter, are not increased. The CD19 positive B-cells radford ve a polytypic expression of surface immunoglobulin light chain ([place]:Lambda ratio a t 1:1). There is a population of CD38+(bright)/CD138+/ VA79kse/BI17cuc plasma cells that show ??cytoplasmic kappa immunoglobulin [...] the Clinical Flow Cytometry Lab oratory at [facility]. It has not been cleared or approve [...] complexity clinic al laboratory testing. SPECIMEN PROCESSING [id number] Cells for immunophenotypic a nalysis were derived [...] MD PATHOLOGY/CYTOLOGY ORDERABLE S Performing Organization Address City/[facility]/[place] [address] Immunophenotyping Flow Cytometry (12/22/2021 10:50 AM EDT) Component Value Ref Test Analysis Performed At [facility] [employer] [place] Method Time Signature Immunophenotyping See [facility] Flow Comment [facility] LABORATORY Comment: When completed by the Pathologist, the F low Cytometry Report ([id number]) will display under the Pathology Result s section within eDH. Specimen Anatomical Collection Method Collection Time Receive d Time (Source) Location / / Volume Laterality Bone Marrow 12/22/2021 10:50 12/22/2021 AM EDT 11:19 AM EDT Resulting Agency Comment Spec In Lab Diogo Barnard MD HEMATOLOGY ORDERABLES Performing Organization Address City/State/[place] [address] Iron Stain, Bone Marrow (12/22/2021 10:50 AM EDT) [facility] [employer] Method Time Signature Iron Stain BM See Comment [facility] LABORATORY Comment: See Bone Marrow Report [id number] un amalia Hematopathology Reports. corrected- added year to case number Corrected from See Comment on 12/23/21 9 :14:59 EDT by Davon Mccullough Specimen Anatomical Collection Method Collection Time Receive d Time (Source) Location / / Volume Laterality Bone Marrow 12/22/2021 10:50 12/22/2021 AM EDT 11:19 AM EDT Resulting Agency Comment Spec In Lab Diogo Barnard MD HEMATOLOGY ORDERABLES Performing Organization Address City/State/ZIP Code [place] [address] Differential, Automated (12/22/2021 10:10 AM EDT) athologist Signature Neutrophils % 49.0 % [facility] LABORATORY Neutr Abs (ANC) 2.08 1.70 - [facility] 6.10 [facility] x10(3)/[facility] LABORATORY Lymphocytes % 40.7 % [facility] LABORATORY Lymphocytes Abs 1.7 0.9 - 3.2 [facility] x10(3)/[facility] LABORATORY Monocytes % 7.5 % [facility] LABORATORY Monocyte Abs 0.3 0.3 - 0.9 [facility] x10(3)/[facility] LABORATORY Eosinophils % 2.1 % [facility] LABORATORY Eosinophils Abs 0.1 0.0 - 0.4 [facility] x10(3)/[facility] LABORATORY Basophils % 0.5 % [facility] LABORATORY Basophils Abs 0.0 0.0 - 0.1 [facility] x10(3)/[facility] LABORATORY Immature Gran % 0.20 % [facility] LABORATORY Comment: Immature granulocytes(IG's)percentage an d absolute count will include metamyelocytes, myelocytes, and promyelo cytes. Blood smears from CBCs yielding IG's will be scanned manually for concor dance. If this scan disagrees with the automated IG or if promyelocytes are not ed, a manual differential will be performed. Angelica Gran Abs 0.01 0.00 - 0.04 x10(3)/[facility] Y [facility] LABORATORY Specimen Anatomical Collection Method Collection Time Receive d Time (Source) Location / / Volume Laterality Blood 12/22/2021 10:10 12/22/2021 AM EDT 10:35 AM EDT Resulting Agency Comment Spec In Lab Diogo Barnard MD HEMATOLOGY ORDERABLES Performing Organization Address City/State/ZIP Code [place] [address] (ABNORMAL) Hemogram (12/22/2021 10:10 AM EDT) Analysis Performed At Patho logist Time Signature WBC 4.2 4.0 - 9.5 [facility](3[facility] LABORATORY RBC 3.18 (L) 4.00 - DARBY KENYA 5.21 [facility] x10(6)/[facility] LABORATORY Hemoglobin 10.5 (L) 11.7 - [facility] 15.5 g/dL [facility] LABORATORY Hematocrit 30.7 (L) 35.7 - [facility] 45.8 % [facility] LABORATORY MCV 96.5 (H) 82.6 - [facility] 94.4 [facility] LABORATORY MCH 33.0 (H) 27.1 - [facility] KENYA 32.[address] [facility] LABORATORY MCHC 34.2 31.7 - [facility] KENYA 35.0 g/dL [facility] LABORATORY Platelets 199 145 - 357 [facility] x10(3)/[facility] LABORATORY RDWSD 47.5 (H) 37.0 - [facility] 46.0 [facility] LABORATORY RDWCV 13.6 11.5 - [facility] KENYA 14.1 % [facility] LABORATORY MPV 9.4 7.6 - 12.9 [facility] LABORATORY nRBC % Auto 0.0 % [facility] LABORATORY nRBC Abs Auto 0.000 0.000 - [facility] KENYA 0.000 [facility] x10(3)/[facility] LABORATORY Specimen Anatomical Collection Method Collection Time Receive d Time (Source) Location / / Volume Laterality Blood 12/22/2021 10:10 12/22/2021 AM EDT 10:35 AM EDT Resulting Agency Comment Spec In Lab Diogo Barnard MD HEMATOLOGY ORDERABLES Performing Organization Address City/[facility]/ZIP Code Ph[place] [address] documented in this encounter Visit Diagnoses Not on filedocumented in this encounter Administered Medications Inactive Administered Medications - up to 3 most recent administrations Medication Order MAR Action Action Date Dose Rate Site lidocaine (Xylocaine) 1% (10 mg/mL) inje ction 3 mg 3 mg (0.3 mL), Subcutaneous, ONCE PRN, 1 dose, Startin g on Jyoti 12/22/21 at 0903, Until Jyoti 12/22/21 at 1125, for discomfort with PIV insertion, Day of Surgery (Day of Procedure), Routine sodium chloride 0.9 % (flush) (BD PosiFl [...] (1,000 unt/mL) injection for bone marrow biopsy 09 (Due) as directed, ONCE, On Jyoti 12/22/21 at 0930 , 1 dose, Do not administer to patient. To be used to heparinize SYRINGE ONLY for bone marrow sample. , Day of Surgery (Day of Procedure) lidocaine (pf) (Xylocaine) (10 mg/mL) 1% injection 10 mg 30 (Due) 10 mg (1 vial), Subcutaneous, ONCE, 1 do se, On Jyoti 12/22/21 at 0930, To be given DURING the procedure, Day of Surgery (Day of Procedure), Routine sodium chloride 0.9 % (flush) (BD PosiFlush Normal Saline 0.9) f lush 5 mL 30 (Due) 5 mL, Intravenous, EVERY 12 HOURS, First dose on Jyoti 12/22/21 at 0930, Until Discontinued, Day of Surgery (Day of Procedure), Routine Continuous Medication Order 12/20/2021 12/21/2021 12/22/2021 sodium chloride 0.9% infusion 10 07 (New Bag - Provider: Michelle Jain, OLIVERIO) 1,000 mL, at 100 mL/hr, Intravenous, CON TINUOUS, Starting on Jyoti 12/22/21 at 0930, Until Jyoti 12/22/21 at 1125, Day of Surgery (Day of Procedure) PRN Medication Order 12/20/2021 12/21/2021 12/22/2021 fentaNYL (pf) (50 mcg/mL) multi-dose injection 25-50 mcg 1042 (Given - Provider: Michelle Jain RN)1047 (Given - Provider: Michelle Jain, OLIVERIO) 25-50 mcg, Intravenous, EVERY 5 MIN PRN, [...] at 1030, Until Jyoti 12/22/21 at 1125, Benzodiazepine reversal, 0.2 mg intravenous, [...] (Versed) (1 mg/mL) multi-dose injection 0.5-2 mg 1043 (Given - Provider: Michelle Jain, RN)1047 (Given - Provider: Michelle Jain RN) 0.5-2 [...] Routine documented in this encounter Care Teams Intermodal Dispatcher Relationship Specialty Start Date End Date Analilia Lechuga APRN PCP - General Family Medicine 03/01/21 [address] [place] [address] documented as of this encounter
--- OUTSIDE RECORDS SUMMARY | 2022-04-13 14:53 | XMS_ITS | Encounter Summary ---
:1960 Author Organization [facility] [place] [address] Care Team Providers Name Role Phone Analilia Lechuga APRN Primary Care Provider Reason for Referral Consultation (Routine) - Closed Specialty Diagnoses / Procedures Referred By Contact Refer red To Contact Hematology and Diagnoses Multiple myeloma, remission status unspecified Analilia Lechuga APRN [facility] Hem Onc 3k Oncology [address] [place], [place] [address] [place] [phone] Phone: Fax: Referral ID Status Reason Start Date Expiration Date Visits V isits Requested Authorized [id number] Closed Consult, 12/15/2021 12/15/2022 1 1 Test & Treat Encounter Details Date Type Department Care Team Description 12/15/2021 Transcribe Orders eDH Incoming Analilia Lechuga Multipl e myeloma, Referrals MANSI remission status [phone] [address] unspecified [place] [phone] Social History Tobacco Use Types Packs/Day Years [...] [facility] DR HEMATOLOGY/[place] [address] Yari Thompson APRN [facility] DR HEMATOLOGY/[place] [address] 04/20/2022 Infusion Hematology and Oncology 04/27/2022 Infusion Hematology and Oncology 05/04/2022 Infusion Hematology and Oncology Scheduled Referrals Name Type Priority Associated Diagnoses Order S chedule Referral to Outpatient Referral Routine Multiple myeloma, Ord ered: Hematology and remission status 2 Oncology unspecified documented as of this encounter Visit Diagnoses Diagnosis Multiple myeloma, remission status unspe cified documented in this encounter Care Teams Tutoring Clinician Relationship Specialty Start Date End Date Analilia Lechuga APRN PCP - General Family Medicine 03/01/21 [place] [address] documented as of this encounter
--- OUTSIDE RECORDS SUMMARY | 2022-04-13 14:53 | XMS_ITS | Encounter Summary ---
:1960 Author Organization [facility] [address] Care Team Providers Name Role Phone Unavailable Primary Care Provider Unavailable Encounter Details Date Type Department Care Team Description 02/20/2021 Ancillary Procedure [facility] [address] [place] [phone] (Wo rk) Social History Tobacco Use Types [...] Visit Hematology and Oncology Cristo Walsh MD [facility] HEMATOLOGY/[place] [address] Yari Thompson APRN [facility] DR HEMATOLOGY/[place] [address] 04/20/2022 Infusion Hematology and Oncology 04/27/2022 Infusion Hematology and Oncology 05/04/2022 Infusion Hematology and Oncology documented as of this encounter Procedures Procedure Name Priority Date/Time Associated Diagnosis Comme nts FILM LIBRARY Routine 02/20/2021 12:00 AM Results for this STORAGE ONLY DX EDT procedure ar e in SPINE the results section. documented in this encounter Results Film Library- Storage Only DX Spine (02/20/2021 12:00 AM EDT) Specimen (Source) Anatomical Location Collection Method / Collectio n Time Received Time / Laterality Volume Narrative RAD - 03/01/2021 9:43 AM EDT This exam is auto-finalizing. It's purpo se is for storage only. Analilia Lechuga APRN IM FILM LIBRARY ORDERABLES Performing Organization Address City/State/ZIP Code Phon e Number RAD [place], [place] documented in this encounter Visit Diagnoses Not on filedocumented in this encounter
--- OUTSIDE RECORDS SUMMARY | 2022-04-13 14:53 | XMS_ITS | Encounter Summary ---
:1960 Author Organization [place] [address] Care Team Providers Name Role Phone AnkushAnalilia MANSI Primary Care Provider Encounter Details Date Type Department Care Team Description 12/16/2021 Hospital Encounter Hematology and Anemia, unspecified type; Oncology at [facility] MGUS (monoclonal gammopathy of unknown significance) [place] [address] Social History Tobacco Use Types Packs/Day [...] [facility] HEMATOLOGY/[place] [address] Yari Thompson APRN [facility] HEMATOLOGY/[place] [address] 04/20/2022 Infusion Hematology and Oncology 04/27/2022 Infusion Hematology and Oncology 05/04/2022 Infusion Hematology and Oncology documented as of this encounter Procedures Procedure Name Priority Date/Time Associated Comments Diagnosis HC IMMUNOGLOBULIN FREE Routine 12/16/2021 2:49 Anemia, unspeci fied Results for this LIGHT CHAINS, SERUM PM EDT type procedure are in MGUS (monoclonal the results gammopathy of section. unknown significance) IMMUNOGLOBULINS, Routine 12/16/2021 2:49 Results for this QUANTITATIVE PM EDT procedure are i n the results section. IMMUNOFIXATION Routine 12/16/2021 2:49 Results fo r this ELECTROPHORESIS PM EDT procedure ar e in the results section. HEMOGRAM Routine 12/16/2021 2:49 Anemia, unspecified Resul ts for this PM EDT type procedure are in MGUS (monoclonal the results gammopathy of section. unknown significance) DIFFERENTIAL, AUTOMATED Routine 12/16/2021 2:49 Anemia, unspec ified Results for this PM EDT type procedure are in MGUS (monoclonal the results gammopathy of section. unknown significance) HC IRON BINDING Routine 12/16/2021 2:49 Anemia, unspecified Re sults for this CAPACITY PM EDT type procedure are in MGUS (monoclonal the results gammopathy of section. unknown significance) HC ESR-SEDIMENTATION Routine 12/16/2021 2:49 Anemia, unspecifi ed Results for this RATE, BLOOD PM EDT type procedure are in MGUS (monoclonal the results gammopathy of section. unknown significance) HC RETIC,AUTO INCLUDES Routine 12/16/2021 2:49 Anemia, unspeci fied Results for this RETHE & IRF PM EDT type procedure are in MGUS (monoclonal the results gammopathy of section. unknown significance) HC CBC,PLT & AUTO DIFF Routine 12/16/2021 2:49 Anemia, unspeci fied PM EDT type MGUS (monoclonal gammopathy of unknown significance) HC SERUM PROT. Routine 12/16/2021 2:49 Anemia, unspecified Res ults for this ELECTROPHORESIS PM EDT type procedure are in MGUS (monoclonal the results gammopathy of section. unknown significance) HC LACTIC DEHYDROGENASE Routine 12/16/2021 2:49 Anemia, unspec ified Results for this PM EDT type procedure are in MGUS (monoclonal the results gammopathy of section. unknown significance) HC FOLATE, SERUM Routine 12/16/2021 2:49 Anemia, unspecified R esults for this PM EDT type procedure are in MGUS (monoclonal the results gammopathy of section. unknown significance) HC FERRITIN, SERUM Routine 12/16/2021 2:49 Anemia, unspecified Results for this PM EDT type procedure are in MGUS (monoclonal the results gammopathy of section. unknown significance) HC VITAMIN B12 SERUM Routine 12/16/2021 2:49 Anemia, unspecifi ed Results for this PM EDT type procedure are in MGUS (monoclonal the results gammopathy of section. unknown significance) COMPREHENSIVE METABOLIC Routine 12/16/2021 2:49 Anemia, unspec ified Results for this PANEL (NON-FASTING) PM EDT type procedure are in MGUS (monoclonal the results gammopathy of section. unknown significance) documented in this encounter Results (ABNORMAL) Immunoglobulins, Quantitative (12/16/2021 2:49 PM EDT) athologist Signature IgG 4,892 (H) 700 - [facility] 1,600 [facility] mg/dL [facility] Comment: Pediatric Reference Intervals obtained f rom the Caliper Reference Interval project. http://www.sickkids.ca/caliperp roject/index.html IgA 30 (L) 70 - 400 mg/dL [facility] IgM 94 40 - 230 mg/dL [facility] Specimen Anatomical Collection Method Collection Time Receive d Time (Source) Location / / Volume Laterality Blood Venous Draw / 12/16/2021 2:49 PM 12/17/19 22 3:19 Unknown EDT PM EDT Resulting Agency Comment Spec In Lab Diogo Barnard MD CHEMISTRY ORDERABLES Performing Organization Address City/[facility]/ZIP Code Phon e Number [address] Immunofixation Electrophoresis (12/16/2021 2:49 PM EDT) athologist [facility] MARY KAY See Note [facility] Comment: There is approximately 3.31 g/dL of mono clonal IgG kappa immunoglobulin present in this patient's serum. Dr. Dell Perry 12/21/2021 See scanned report. Specimen Anatomical Collection Method Collection Time Receive d Time (Source) Location / / Volume Laterality Blood Venous Draw / 12/16/2021 2:49 PM 12/17/19 22 3:19 Unknown EDT PM EDT Narrative This result has an attachment that is no t available. Resulting Agency Comment Spec In Lab Diogo Barnard MD CHEMISTRY ORDERABLES Performing Organization Address City/[facility]/ZIP Code Phon e Number [place] [phone] [facility] Drive Differential, Automated (12/16/2021 2:49 PM EDT) athologist [facility] Neutrophils % 47.3 % [facility] Neutr Abs (ANC) 2.59 1.70 - [facility] 6.10 [facility] x10(3)/[facility] LABORATORY Lymphocytes % 42.3 % [facility] Lymphocytes Abs 2.3 0.9 - 3.2 [facility] x10(3)/[facility] LABORATORY Monocytes % 7.3 % [facility] Monocyte Abs 0.4 0.3 - 0.9 [facility] x10(3)/[facility] LABORATORY Eosinophils % 2.2 % [facility] Eosinophils Abs 0.1 0.0 - 0.4 [facility] x10(3)/[facility] LABORATORY Basophils % 0.5 % [facility] Basophils Abs 0.0 0.0 - 0.1 [facility] x10(3)/[facility] LABORATORY Immature Gran % 0.40 % [facility] Comment: Immature granulocytes(IG's)percentage an d absolute count will include metamyelocytes, myelocytes, and promyelo cytes. Blood smears from CBCs yielding IG's will be scanned manually for concor dance. If this scan disagrees with the automated IG or if promyelocytes are not ed, a manual differential will be performed. Angelica Gran Abs 0.02 0.00 - 0.04 x10(3)/[facility] LABORATORY Specimen Anatomical Collection Method Collection Time Receive d Time (Source) Location / / Volume Laterality Blood 12/16/2021 2:49 PM 3:10 EDT PM EDT Resulting Agency Comment Spec In Lab Diogo Barnard MD HEMATOLOGY ORDERABLES Performing Organization Address City/State/ZIP Code Phon e Number [place] [phone] (ABNORMAL) Hemogram (12/16/2021 2:49 PM EDT) Analysis Performed At Patho logist Time Signature WBC 5.5 4.0 - 9.5 [facility] x10(3)/[facility] LABORATORY RBC 3.18 (L) 4.00 - [facility] 5.21 [facility] x10(6)/[facility] Hemoglobin 10.7 (L) 11.7 - [facility] 15.5 g/dL [facility] Hematocrit 30.9 (L) 35.7 - [facility] KENYA 45.8 % [facility] MCV 97.2 (H) 82.6 - [facility] 94.4 [facility] LABORATORY MCH 33.6 (H) 27.1 - [facility] 32.0 pg [facility] MCHC 34.6 31.7 - [facility] 35.0 g/dL [facility] Platelets 243 145 - 357 [facility] x10(3)/[facility] RDWSD 46.8 (H) 37.0 - [facility] 46.0 [facility] LABORATORY RDWCV 13.4 11.5 - [facility] 14.1 % [facility]ORY MPV 9.4 7.6 - 12.9 [facility] LABORATORY nRBC % Auto 0.0 % [facility] nRBC Abs Auto 0.000 0.000 - [facility]OMES[facility] 0.000 [facility] x10(3)/[facility] LABORATORY Specimen Anatomical Collection Method Collection Time Receive d Time (Source) Location / / Volume Laterality Blood 12/16/2021 2:49 PM 2 3:10 EDT PM EDT Resulting Agency Comment Spec In Lab Diogo Barnard MD HEMATOLOGY ORDERABLES Performing Organization Address City/State/ZIP Code Phon e Number [address] Vitamin B12 (12/16/2021 2:49 PM EDT) P athologist Signature Vitamin B-12 365 232 - 1,245 [facility] pg/mL [facility] Specimen Anatomical Collection Method Collection Time Receive d Time (Source) Location / / Volume Laterality Blood 12/16/2021 2:49 PM 2 3:10 EDT PM EDT Resulting Agency Comment Spec In Lab Diogo Barnard MD CHEMISTRY ORDERABLES Performing Organization Address City/[facility]/ZIP Code Phon e Number [address] (ABNORMAL) Sedimentation rate (12/16/2021 2:49 PM EDT) P athologist Signature Sed Rate 90 (H) 2 - 39 [facility] mm/hr [facility] Comment: Effective April 30, 2019 new [...] Barnard MD HEMATOLOGY ORDERABLES Performing Organization Address City/[facility]/ZIP Code Phon e Number [address] (ABNORMAL) Reticulocyte Count (12/16/2021 2:49 PM EDT) Patholo gist Method Time Signature Retic Ct % 2.4 0.7 - 2.5 [facility] % [facility]OR[facility]ORY Retic Ct Abs 0.080 0.020 - [facility] 0.110 [facility] x10(6)/[facility] L LABORATORY Immature Retic% 22.0 (H) 0.5 - [facility] 13.8 % [facility] Reticulated Hgb 35.7 29.8 - [facility].4 pg [facility] Specimen Anatomical Collection Method Collection Time Receive d Time (Source) Location / / Volume Laterality Blood 12/16/2021 2:49 PM 3:10 EDT PM EDT Resulting Agency Comment Spec In Lab Diogo Barnard MD HEMATOLOGY ORDERABLES Performing Organization Address City/State/[place] [address] (ABNORMAL) Protein Electrophoresis, serum (12/16/2021 2:49 PM EDT) Analysis Performed At Patho logist Time Signature Total Prot 9.8 (H) 6.1 - 8.0 [facility] Elec g/dL [facility] Albumin Elect 4.39 3.60 - [facility] 6.00 g/dL [facility] Alpha1-Globuli 0.13 0.10 - [facility] n 0.30 g/dL [facility] Alpha2-Globuli 0.75 0.40 - [facility] n 0.90 g/dL [facility] Beta Globulin 0.71 0.50 - [facility] 1.00 g/dL [facility] Gamma Globulin 3.82 (H) 0.50 - [facility] 1.30 g/dL [facility] M1 Band 3.31 g/dL [facility] SPEP Comments See Note [facility] Comment: The serum protein electrophoresis (PEP) [...] available. Resulting Agency Comment Spec In Lab Diogo Barnard MD CHEMISTRY ORDERABLES Performing Organization Address City/[facility]/ZIP Code Phon e Number [address] Lactate Dehydrogenase (12/16/2021 2:49 PM EDT) athologist Signature LDH 145 110 - 220 [facility] unit/L [facility] Specimen Anatomical Collection Method Collection Time Receive d Time (Source) Location / / Volume Laterality Blood 12/16/2021 2:49 PM 2 3:10 EDT PM EDT Resulting Agency Comment Spec In Lab Diogo Barnard MD CHEMISTRY ORDERABLES Performing Organization Address City/[facility]/[place] [address] Iron and TIBC (12/16/2021 2:49 PM EDT) P athologist Signature Iron 111 30 - 150 [facility] mcg/dL [facility] TIBC 341 250 - 450 [facility] mcg/dL [facility] Iron Saturation 33 20 - 50 % [facility] Specimen Anatomical Collection Method Collection Time Receive d Time (Source) Location / / Volume Laterality Blood 12/16/2021 2:49 PM 2 3:10 EDT PM EDT Resulting Agency Comment Spec In Lab Diogo Barnard MD CHEMISTRY ORDERABLES Performing Organization Address City/[facility]/ZIP Code Phon e Number [address] (ABNORMAL) Free Light Chains, Serum (12/16/2021 2:49 PM EDT) Patholo gist Method Time Signature [place] Free 60.64 (H) 0.72 - [facility] Light Chain 2.75 mg/dL [facility] Lambda Free 1.24 0.57 - [facility] Light Chain 2.15 mg/dL [facility] [place] Lambda 48.9032 0.4000 - [facility] Ratio (H) 2.5800 [facility] Specimen Anatomical Collection Method Collection Time Receive d Time (Source) Location / / Volume Laterality Blood 12/16/2021 2:49 PM 2 3:10 EDT PM EDT Resulting Agency Comment Spec In Lab Diogo Barnard MD CHEMISTRY ORDERABLES Performing Organization Address City/[facility]/ZIP Code Phon e Number [address] Folate, serum (12/16/2021 2:49 PM EDT) athologist Signature Folate Lvl 7.0 4.8 - 24.2 [facility] [place] ng/mL [facility] Specimen Anatomical Collection Method Collection Time Receive d Time (Source) Location / / Volume Laterality Blood 12/16/2021 2:49 PM 2 3:10 EDT PM EDT Resulting Agency Comment Spec In Lab Diogo Barnard MD CHEMISTRY ORDERABLES Performing Organization Address City/[facility]/[place] [address] Ferritin (12/16/2021 2:49 PM EDT) athologist [facility] Ferritin 127 30 - 400 [place] GOM[facility] ng/mL [facility] Comment: Pediatric reference ranges not verified at [facility], interpret with caution. Reference ranges for females greater milvia n 50 years of age approach values for men, i.e., 30-400 ng/mL. Specimen Anatomical Collection Method Collection Time Receive d Time (Source) Location / / Volume Laterality Blood 12/16/2021 2:49 PM 2 3:10 EDT PM EDT Resulting Agency Comment Spec In Lab Diogo Barnard MD CHEMISTRY ORDERABLES Performing Organization Address City/[facility]/ZIP Code Phon e Number [address] (ABNORMAL) Comprehensive metabolic panel (non-fasting) (12/16/2021 2:49 PM EDT) P athologist Signature Glucose Lvl 84 65 - 199 [facility] mg/dL [facility] Comment: Diabetes: >=200 mg/dL plus symp toms BUN 13 8 - 18 mg/dL [facility] Creatinine 0.77 0.70 - 1.20 mg/dL [facility] Sodium 134 (L) 135 - 145 mmol/L [facility] Potassium 3.8 3.5 - 5.0 mmol/L [facility] Comment: Please note: ??Patients with WBC >100,00 0 may have falsely elevated Potassium levels. ??For accurate Potassium quantif ication in these patients send serum separator tube (gold top) for subsequent determinations. ??Contact the Clinical Chemistry Laboratory if there are any qu estions. Chloride 101 98 - 107 mmol/L [facility] CO2 25 22 - 31 mmol/L [facility] Anion Gap 8 5 - 15 mmol/L [facility] Calcium 9.9 8.5 - 10.5 mg/dL [facility] Total Protein 10.3 (H) 6.1 - 8.0 g/dL [facility] Comment: Interpret plasma or serum SODIUM results with caution; highly elevated proteins of >10 g/dL may cause pseudohyponatremia . Albumin 4.2 3.2 - 5.2 g/dL [facility] AST 15 0 - 30 unit/L [facility] ALT 10 0 - 30 unit/L [facility] Alk Phos 75 35 - 105 unit/L [facility] Total Bilirubin 0.4 0.2 - 1.3 mg/dL [facility] Estimated GFR 88 >=60 mL/min/1.73 m?? [facility] Comment: This patient's estimated GFR was [...] Comment Spec In Lab Diogo Barnard MD CHEMISTRY ORDERABLES Performing Organization Address City/State/[place] [address] documented in this encounter Visit Diagnoses Diagnosis Anemia, unspecified type 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) Monoclonal paraproteinemia documented in this encounter Care Teams Church Worker Relationship Specialty Start Date End Date Analilia Lechuga APRN PCP - General Family Medicine 03/01/[address] [place] [address] documented as of this encounter
--- OUTSIDE RECORDS SUMMARY | 2022-04-13 14:54 | XMS_ITS | Encounter Summary ---
:1960 Author Organization [facility] Address [address] [place] [address] Care Team Providers Name Role Phone Analilia Lechuga TATO Primary Care Provider Reason for Referral Radiology Services (Routine/Next Available) - Authorization Not Required Specialty Diagnoses / Procedures Referred By Contact Refer red To Contact Diagnoses Compression fracture of L2 vertebra with routine healing Liyah Casper MD [facility] Procedures XR THORACOLUMBAR SPINE 2 VIEWS [address] [facility] Sp[place] [address] Referral ID Status Reason Start Expiration Visits Visits Date Date Requested Authorized [id number] Authorization Not 1 1 Required 1 Reason for Visit Reason Onset Date Comments Appointment Related 04/11/2021 Encounter Details Date Type Department Care Team Description 04/11/2021 Orders Only [facility] Liyah Casper MD Compression fracture Spine Program - [address] of L2 vertebra with [facility] of routine healing [address] Anthony Nieto (Primary Dx) [place] [phone] (Wo rk) Social History Tobacco Use Types Packs/Day Years Used Date Smoking Tobacco: Never Assessed Sex Assigned at Date Recorded Not on file documented as of this encounter Plan of Treatment Scheduled Orders Name Type Priority Associated Diagnoses Order S chedule XR THORACOLUMBAR SPINE 2 Imaging Routine Compression frac ture of Expected: 04/27/2021 VIEWS L2 vertebra with routine healing documented as of this encounter Visit Diagnoses Diagnosis Compression fracture of L2 vertebra with routine healing - Primary documented in this encounter Care Teams Clinical Data Assistant Relationship Specialty Start Date End Date Analilia Lechuga FNP PCP - General 03/26/21 [facility] [place] [address] documented as of this encounter
--- OUTSIDE RECORDS SUMMARY | 2022-04-13 14:54 | XMS_ITS | Clinical Summary ---
:1960 Author Organization [facility] Address [address] [place] [address] Care Team Providers Name Role Phone Ankush Analilia TATO Primary Care Provider Allergies No known active allergies Medications Medication Sig Dispensed Refills Start Date End Date Status oxyCODONE (ROXICODONE) 5 Take by mouth 0 Active mg immediate release every 8 hours as tablet needed for Pain. METHOCARBAMOL ORAL Take 800 mg by 0 Active mouth 3 times daily. ibuprofen (MOTRIN) 600 Take 600 mg by 0 Active mg tablet mouth 3 times daily. acetaminophen (TYLENOL) Take 1,000 mg by 0 Active 500 mg tablet mouth every 6 hours as needed for Pain. lidocaine 5 % (LIDODERM) Place 1 Patch 0 Active 5 % patch onto the skin daily. lidocaine/me-alba/menthol Apply topically. 0 Active /camph (CBD-KINGS WITH LIDOCAINE TOPICAL) bisacodyL (DULCOLAX) 5 Take 10 mg by 0 Active mg EC tablet mouth daily. Active Problems Problem Noted Date Compression fracture of L2 vertebra with routine heali ng 03/30/2021 Encounters Date Type Specialty Care Team Description 03/23/2022 Lab Requisition Clinical Laboratory Outr Resulting Lab , Provider 03/16/2022 Lab Requisition Clinical Laboratory Outr Resulting Lab , Provider 02/22/2022 Lab Requisition Clinical Laboratory Outr Resulting Lab , Provider 02/06/2022 Lab Requisition Clinical Laboratory Outr Resulting Lab , Provider from Last 3 Months Social History Tobacco Use Types Packs/Day Years Used Date Smoking Tobacco: Never Assessed Sex Assigned at Date Recorded Not on file Plan of Treatment Health Maintenance Due Date Last Done Comments Hepatitis C Screen 1960 COVID-19 Vaccine (#1) 1960 Procedures Procedure Name Priority Date/Time Associated Comments Diagnosis HOLD SST Today 03/23/2022 9:15 Results for this EDT procedure are i n the results section. HOLD SST Today 03/23/2022 9:15 Results for this EDT procedure are i n the results section. SPEP, INCLUDES Today 03/23/2022 9:15 Results fo r this QUANTITATION OF EDT procedure ar e in MONOCLONAL SPIKE the results PERFORMABLE section. PROTEIN, TOTAL Today 03/23/2022 9:15 EDT SPEP, INCLUDES Today 03/23/2022 9:15 Results fo r this QUANTITATION OF EDT procedure ar e in MONOCLONAL SPIKE the results section. SERUM FREE LIGHT CHAINS Today 03/23/2022 9:15 R esults for this EDT procedure are i n the results section. IMMUNOGLOBULINS Today 03/23/2022 9:15 Results f or this EDT procedure are i n the results section. SPEP, INCLUDES Today 03/16/2022 7:10 Results fo r this QUANTITATION OF EDT procedure ar e in MONOCLONAL SPIKE the results PERFORMABLE section. PROTEIN, TOTAL Today 03/16/2022 7:10 EDT SPEP, INCLUDES Routine 03/16/2022 7:10 Results fo r this QUANTITATION OF EDT procedure ar e in MONOCLONAL SPIKE the results section. SERUM FREE LIGHT CHAINS Routine 03/16/2022 7:10 R esults for this EDT procedure are i n the results section. IMMUNOGLOBULINS Routine 03/16/2022 7:10 Results f or this EDT procedure are i n the results section. SPEP, INCLUDES Today 02/22/2022 11:52 Results f or this QUANTITATION OF EDT procedure ar e in MONOCLONAL SPIKE the results PERFORMABLE section. PROTEIN, TOTAL Today 02/22/2022 11:52 EDT SPEP, INCLUDES Routine 02/22/2022 11:52 Results f or this QUANTITATION OF EDT procedure ar e in MONOCLONAL SPIKE the results section. SERUM FREE LIGHT CHAINS Routine 02/22/2022 11:52 Results for this EDT procedure are i n the results section. IMMUNOGLOBULINS Routine 02/22/2022 11:52 Results for this EDT procedure are i n the results section. IMMUNOTYPING, SERUM Today 02/06/2022 15:42 Resu lts for this EDT procedure are i n the results section. SPEP, INCLUDES Today 02/06/2022 15:42 Results f or this QUANTITATION OF EDT procedure ar e in MONOCLONAL SPIKE the results PERFORMABLE section. PROTEIN, TOTAL Today 02/06/2022 15:42 EDT SPEP, INCLUDES Routine 02/06/2022 15:42 Results f or this QUANTITATION OF EDT procedure ar e in MONOCLONAL SPIKE the results section. SERUM FREE LIGHT CHAINS Routine 02/06/2022 15:42 Results for this EDT procedure are i n the results section. IMMUNOGLOBULINS Routine 02/06/2022 15:42 Results for this EDT procedure are i n the results section. from Last 3 Months Results (ABNORMAL) SPEP, INCLUDES QUANTITATION OF MONOCLONAL SPIKE PERFORMABLE (03/23/2022 9:15 EDT)Only the most recent of4 resultswithin the time period is included. Component Value Ref Test Analysis Performed At [facility] Range Method Time Signature Albumin % 48.3 (L) 55.8 - 03/24/2022 [facility] 66.1 % 13:47 [facility] Albumin g/dL 4.1 3.6 - 03/24/2022 [facility] 5.2 g/dL 13:47 [facility] Alpha-1 % 2.9 2.9 - 03/24/2022 [facility] 4.9 % 13:47 [facility] Alpha-1 g/dL 0.20 0.15 - 03/24/2022 [facility] 0.40 13:47 [facility] g/dL LABORATORY SERVICES Alpha-2 % 8.3 7.1 - 03/24/2022 [facility] 11.8 % 13:47 [facility] Alpha-2 g/dL 0.70 0.50 - 03/24/2022 [facility] 1.00 13:47 [facility] g/dL LABORATORY SERVICES Beta % 7.8 (L) 8.4 - 03/24/2022 [facility] 13.1 % 13:47 [facility] Beta g/dL 0.70 0.60 - 03/24/2022 [facility] 1.20 13:47 [facility] g/dL LABORATORY SERVICES Gamma % 32.7 (H) 11.1 - 03/24/2022 [facility] 18.8 % 13:47 [facility] Gamma g/dL 2.70 (H) 0.60 - 03/24/2022 [facility] 1.60 13:47 T CENTER g/dL LABORATORY SERVICES Monoclonal 28.4 (H) None 03/24/2022 [facility] Jermaine % Seen % 13:47 [facility] LABORATORY SERVICES Monoclonal 2.4 (H) None 03/24/2022 [facility] Jermaine g/dL Seen 13:47 [facility] CENTER g/dL LABORATORY SERVICES SPEP Comment Abnormal band, 03/24/2022 [facility] previously 13:47 [facility] identified LABORATORY as:Monoclonal IgG SERVICES [place] immunoglobulin identified on 02/06/2022 Comment: See scanned/supplementary repor t. Total Protein 8.4 (H) 6.3 - 8.2 g/dL 03/24/2022 13:47 EDT [facility] Specimen Anatomical Collection Method Collection Time Receive d Time (Source) Location / / Volume Laterality Blood VENOUS BLOOD / 03/23/2022 9:15 03/23/2022 Unknown EDT 17:24 EDT Narrative This result has an attachment that is no t available. Provider Outr Resulting Lab CHEMISTRY & BLOOD GAS ORDE RABLES Performing Organization Address City/State/ZIP Code Phon e Number [facility] [address] [place] [address] SERVICES HOLD SST (03/23/2022 9:15 EDT)Only the most recent of2 resultswithin the time period is included. P athologist Signature Hold Hold 03/23/2022 [facility] 18:46 [facility] LABORATORY SERVICES Specimen Anatomical Collection Method Collection Time Receive d Time (Source) Location / / Volume Laterality Blood VENOUS BLOOD / 03/23/2022 9:15 03/23/2022 Unknown EDT 17:33 EDT Provider Outr Resulting Lab LAB INFO SERVICE AND SUPPO RT & PHONE RESULT Performing Organization Address City/[facility]/ZIP Code Phon e Number [facility] [address] [place] [address] SERVICES (ABNORMAL) SERUM FREE LIGHT CHAINS (03/23/2022 9:15 EDT)Only the most recent of4 resultswithin the time period is included. Patholo gist Method Time Signature [place] Free Lt 48.21 (H) 0.33 - 03/24/2022 [facility] 1.94 mg/dL 10:33 [facility] LAB[facility] SERVICES Lambda Free Lt 1.04 0.57 - 03/24/2022 [facility] 2.63 mg/dL 10:33 T CENTER LABORATORY SERVICES [place]/Lambda 46.36 (H) 0.26 - 03/24/2022 [facility] Ratio 1.65 10:33 [facility] Specimen Anatomical Collection Method Collection Time Receive d Time (Source) Location / / Volume Laterality Blood VENOUS BLOOD / 03/23/2022 9:15 03/23/2022 Unknown EDT 17:24 EDT Provider Outr Resulting Lab CHEMISTRY & BLOOD GAS ORDE RABLES Performing Organization Address City/[facility] Code Phon e Number [facility] [address] [place] [address] SERVICES (ABNORMAL) IMMUNOGLOBULINS (03/23/2022 9:15 EDT)Only the most recent of4 results within the time period is included. athologist Signature IgG 3,285 (H) 610-1,616 03/24/2022 [facility] mg/dL 10:33 [facility] IgA 21 (L) 85 - 499 03/24/2022 [facility] mg/dL 10:33 [facility] IgM 88 35 - 242 03/24/2022 [facility] mg/dL 10:33 [facility] Specimen Anatomical Collection Method Collection Time Receive d Time (Source) Location / / Volume Laterality Blood VENOUS BLOOD / 03/23/2022 9:15 03/23/2022 Unknown EDT 17:24 EDT Provider Outr Resulting Lab CHEMISTRY & BLOOD GAS ORDE RABMARIA GUADALUPE Performing Organization Address City/State/ZIP Code Phon e Number [facility] [address] [place] [address] SERVICES PROTEIN, TOTAL (03/23/2022 9:15 EDT)Only the most recent of4 resultswithin the time period is included. Specimen Anatomical Collection Method Collection Time Receive d Time (Source) Location / / Volume Laterality Blood VENOUS BLOOD / 03/23/2022 9:15 03/23/2022 Unknown EDT 17:24 EDT Provider Outr Resulting Lab CHEMISTRY & BLOOD GAS ORDE RABLES Performing Organization Address City/State/ZIP Code Phon e Number [facility] [address] [place] [address] SERVICES IMMUNOTYPING, SERUM (02/06/2022 15:42 EDT) Component Value Ref Test Analysis Performed At [facility] Range Method Time Signature Immunotyping, Current 02/08/2022 [facility] Serum Interpretation: 14:58 [facility] Monoclonal IgG LABORATORY kappa SERVICES immunoglobulin identified in the gamma region. Reviewed by: Godwin Simpson MD, PhD 02/08/2022 14:09. Specimen Anatomical Collection Method Collection Time Receive d Time (Source) Location / / Volume Laterality Blood VENOUS BLOOD / 02/06/2022 15:42 2 Unknown EDT 16:37 EDT Provider Outr Resulting Lab CHEMISTRY & BLOOD GAS MARLOAna FRANSISCA Performing Organization Address City/[facility]/ZIP Code Phon e Number [facility] [address] [place] [address] SERVICES from Last 3 Months Care Teams Agricultural Equipment Design Engineer Relationship Specialty Start Date End Date Analilia Lechuga FNP PCP - General 03/26/21 [address] [facility], [place] [id number]
--- OUTSIDE RECORDS SUMMARY | 2022-04-13 14:54 | XMS_ITS | Encounter Summary ---
:1960 Author Organization [facility] Address [address] [place] [address] Care Team Providers Name Role Phone Analilia Lechuga Primary Care Provider Reason for Visit Reason Comments Fracture Encounter Details Date Type Department Care Team Description 05/25/2021 Office Visit [facility] Liyah Casper MD Compression fracture Spine Program - [address] of L2 vertebra with [facility] Spine Sun of routine healing [address] [facility] [address] Anthony Nieto (Primary Dx) [address] [phone] (Wo rk) Social History Tobacco Use Types Packs/Day Years Used Date Smoking Tobacco: Never Assessed Sex Assigned at Date Recorded Not on file documented as of this encounter Progress Notes Liyah Casper MD - 05/25/2021 1430 EST Christen Sommer is being seen as a consultation from Dr. Lechuga. Chief Complaint Patient presents with ??? Lower Back - Fracture The encounter diagnosis was Compression fracture of L2 vertebra with routine healing. Multiple lumbar compression fractures, T12 compression fracture HPI 61-year-old female sustained a fall February 04, 2021. Our office appointment was attended today byher nurse upper caser . 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 She had been lifting laundry bags of various weights repetitively lost her balance and fell backwards hitting a metal unit. X-rays revealed a L2 compression fracture, and follow-up x-rays did reveal new superior endplate fractures of T12, L1 and L4. Since I have seen her last she has had a CT scan of the lumbar spine and is here today for review. She continues to experience axial back pain VAS 7/10. To control the pain she is taking combination methocarbamol, Tylenol , ibuprofen 600 mg and infrequent oxycodone 5 mg. She denies any numbness or tingling into her legs denies bowel bladder incontinence or saddle anesthesia is moving her bowels. Patient Active Problem List Diagnosis ??? Compression fracture of L2 vertebra with routine healing No past medical history on file. No past surgical history on file. Social History Tobacco Use ??? Smoking status: Not on file Substance Use Topics ??? Alcohol use: Not on file No family history on file. Current Outpatient Medications Medication Sig Dispense Refill ??? acetaminophen (TYLENOL) 500 mg tablet Take 1,000 mg by mouth every 6 hours as needed for Pain. ??? bisacodyL (DULCOLAX) 5 mg EC tablet Take 10 mg by mouth daily. ??? ibuprofen (MOTRIN) 600 mg tablet Take 600 mg by mouth 3 times daily. ??? lidocaine 5 % (LIDODERM) 5 % patch Place 1 Patch onto the skin daily. ??? lidocaine/me-alba/menthol/camph (CBD-KINGS WITH LIDOCAINE TOPICAL) Apply topically. ??? METHOCARBAMOL ORAL Take 800 mg by mouth 3 times daily. ??? oxyCODONE (ROXICODONE) 5 mg immediate release tablet Take by mouth every 8 hours as needed for Pain. No current facility-administered medications for this visit. No Known Allergies Review of Systems 10 point review of systems performed pertinent positive HPI remainder negative Physical Exam patient is cooperative back exam Ortho Exam midline tenderness upper thoracic, throughout lumbar spine, no bogginess, no step-off no ecchymoses no rash Neurologic Exam Gait is forward flexed with a rolling walker Strength bilateral lower extremities normal all major muscle groups CT scan lumbar spine T12 compression fracture 50% height loss axial view reveals no retropulsion into the canal L1 compression fracture 40% height loss no retropulsion into the canal L2 fracture no involvement of the posterior elements no retropulsion into the canal L3 superior endplate fracture approximately 10% height loss L4 compression fracture with 30% height loss axial view no retropulsion into the canal L5 superior endplate fracture no retropulsion into the canal Bone is osteopenic Assessment 61-year-old female with multiple lumbar compression fractures and T12 compression fracture. Medical decision making she had not been experiencing any back pain until her fall at work. Unable to say forcertain if the fracture outside of the L2 is work-related. Her bone on x-ray is osteopenic. She is radford ving difficulty with personal insurance for bone density study and financial difficulties. Today [employer] has not provided her any payments. She had been pain-free prior to the fall at work and thefractures I do believe are work- related. Pre-existing osteopenia/porosis makes fractures more vulnerable possible but considering she had not experienced any pain prior to the work- related fall do believe that she should be compensated for this injury. Plan: 1. Work capacity sedentary level 5 pound lifting restrictions no bending twisting 2. Follow-up in 4 weeks AP lateral thoracolumbar x-rays 3. Follow-up with recommended calcitonin per PCP documented in this encounter Plan of Treatment Not on filedocumented as of this encounter Visit Diagnoses Diagnosis Compression fracture of L2 vertebra with routine healing - Primary documented in this encounter Care Teams Healthcare Architect Relationship Specialty Start Date End Date Analilia Lechuga FNP PCP - General 03/26/21 [place] [address] documented as of this encounter
--- OUTSIDE RECORDS SUMMARY | 2022-04-13 14:54 | XMS_ITS | Encounter Summary ---
:1960 Author Organization [facility] Address [address] [place] [address] Care Team Providers Name Role Phone Analilia Lechuga TATO Primary Care Provider Encounter Details Date Type Department Care Team Description 03/16/2022 Lab Requisition [facility] Outr Resulting Lab, Pathology & Laboratory Provider [facility] [address] [place] [id number] Social History Tobacco Use Types Packs/Day Years Used Date Smoking Tobacco: Never Assessed Sex Assigned at Date Recorded Not on file documented as of this encounter Plan of Treatment Not on filedocumented as of this encounter Procedures Procedure Name Priority Date/Time Associated Comments Diagnosis SPEP, INCLUDES Today 03/16/2022 7:10 Results fo r this QUANTITATION OF EDT procedure ar e in MONOCLONAL SPIKE the results PERFORMABLE section. SERUM FREE LIGHT CHAINS Routine 03/16/2022 7:10 R esults for this EDT procedure are i n the results section. IMMUNOGLOBULINS Routine 03/16/2022 7:10 Results f or this EDT procedure are i n the results section. SPEP, INCLUDES Routine 03/16/2022 7:10 Results fo r this QUANTITATION OF EDT procedure ar e in MONOCLONAL SPIKE the results section. PROTEIN, TOTAL Today 03/16/2022 7:10 EDT documented in this encounter Results (ABNORMAL) SPEP, INCLUDES QUANTITATION OF MONOCLONAL SPIKE PERFORMABLE (03/16/2022 7:10 EDT) Component Value Ref Test Analysis Performed At [facility] Range Method Time Signature Albumin % 47.5 (L) 55.8 - 03/17/2022 [facility] 66.1 % 13:18 [facility] Albumin g/dL 4.3 3.6 - 03/17/2022 [facility] 5.2 g/dL 13:18 [facility] LAB[facility] Alpha-1 % 2.5 (L) 2.9 - 03/17/2022 [facility] 4.9 % 13:18 [facility] LABORATORY SERVICES Alpha-1 g/dL 0.20 0.15 - 03/17/2022 [facility] 0.40 13:18 [facility] CENTER g/dL LABORATORY SERVICES Alpha-2 % 7.7 7.1 - 03/17/2022 [facility] 11.8 % 13:18 [facility] CENTER LABORATORY SERVICES Alpha-2 g/dL 0.70 0.50 - 03/17/2022 [facility] 1.00 13:18 [facility] CENTER g/dL LABORATORY SERVICES Beta % 7.4 (L) 8.4 - 03/17/2022 [facility] 13.1 % 13:18 T [facility] LABORATORY SERVICES Beta g/dL 0.70 0.60 - 03/17/2022 [facility] 1.20 13:18 [facility] CENTER g/dL LABORATORY SERVICES Gamma % 34.9 (H) 11.1 - 03/17/2022 [facility] 18.8 % 13:18 T [facility] LABORATORY SERVICES Gamma g/dL 3.20 (H) 0.60 - 03/17/2022 [facility] 1.60 13:18 [facility] g/dL LABORATORY SERVICES Monoclonal 31.5 (H) None 03/17/2022 [facility] Jermaine % Seen % 13:18 [facility] CENTER LABORATORY SERVICES Monoclonal 2.9 (H) None 03/17/2022 [facility] Jermaine g/dL Seen 13:18 [facility] CENTER g/dL LABORATORY SERVICES SPEP Comment Abnormal band, 03/17/2022 [facility] previously 13:18 [facility] CENTER identified LABORATORY as:Monoclonal IgG SERVICES [place] immunoglobulin identified on 02/06/2022 Comment: See scanned/supplementary repor t. Total Protein 9.1 (H) 6.3 - 8.2 g/dL 03/17/2022 13:18 [facility] LABORATORY SERVICES Specimen Anatomical Collection Method Collection Time Receive d Time (Source) Location / / Volume Laterality Blood VENOUS BLOOD / 03/16/2022 7:10 03/16/2022 Unknown EDT 17:25 EDT Narrative This result has an attachment that is no t available. Provider Outr Resulting Lab CHEMISTRY & BLOOD GAS ORDE FRANSISCA Performing Organization Address City/State/ZIP Code Phon e Number [facility] [address] [place] [address] SERVICES PROTEIN, TOTAL (03/16/2022 7:10 EDT) Specimen Anatomical Collection Method Collection Time Receive d Time (Source) Location / / Volume Laterality Blood VENOUS BLOOD / 03/16/2022 7:10 03/16/2022 Unknown EDT 17:25 EDT Provider Outr Resulting Lab CHEMISTRY & BLOOD GAS ORDE FRANSISCA Performing Organization Address City/State/ZIP Code Phon e Number [facility] [address] [place] [address] SERVICES (ABNORMAL) SERUM FREE LIGHT CHAINS (03/16/2022 7:10 EDT) Patholo gist Method Time Signature [place] Free Lt 45.92 (H) 0.33 - 03/17/2022 [facility] 1.94 mg/dL 9:32 [facility] LABORATORY SERVICES Lambda Free Lt 1.02 0.57 - 03/17/2022 [facility] 2.63 mg/dL 9:32 [facility] LABORATORY SERVICES [place]/Lambda 45.02 (H) 0.26 - 03/17/2022 [facility] Ratio 1.65 9:32 [facility] LABORATORY SERVICES Specimen Anatomical Collection Method Collection Time Receive d Time (Source) Location / / Volume Laterality Blood VENOUS BLOOD / 03/16/2022 7:10 03/16/2022 Unknown EDT 17:25 EDT Provider Outr Resulting Lab CHEMISTRY & BLOOD GAS ORDE FRANSISCA Performing Organization Address City/State/ZIP Code Phon e Number [facility] [address] [place] [address] SERVICES (ABNORMAL) IMMUNOGLOBULINS (03/16/2022 7:10 EDT) P athologist Signature IgG 3,969 (H) 610-1,616 03/17/2022 [facility] mg/dL 9:32 [facility] LAB[facility] SERVICES IgA 24 (L) 85 - 499 03/17/2022 [facility] mg/dL 9:32 [facility] LAB[facility] SERVICES IgM 96 35 - 242 03/17/2022 [facility] mg/dL 9:32 [facility] LABORATORY SERVICES Specimen Anatomical Collection Method Collection Time Receive d Time (Source) Location / / Volume Laterality Blood VENOUS BLOOD / 03/16/2022 7:10 03/16/2022 Unknown EDT 17:25 EDT Provider Outr Resulting Lab CHEMISTRY & BLOOD GAS SHIRA GONGORA Performing Organization Address City/State/ZIP Code Phon e Number [facility] [address] [place] [address] SERVICES documented in this encounter Visit Diagnoses Not on filedocumented in this encounter Care Teams Community Service Officer Relationship Specialty Start Date End Date Analilia Lechuga FNP PCP - General 03/26/21 [address] [place], [place] [address] documented as of this encounter
--- OUTSIDE RECORDS SUMMARY | 2022-04-13 14:54 | XMS_ITS | Encounter Summary ---
:1960 Author Organization [facility] Address [address] [place] [address] Care Team Providers Name Role Phone Unknown, Provider Primary Care Provider Reason for Visit (Routine/Next Available) - Receiving Office to Obtain Authorization Specialty Diagnoses / Procedures Referred By Contact Refer red To Contact Procedures Unknown, Provider, XR OUTSIDE IMAGES NEURO Phone: Referral ID Status Reason Start Expiration Visits Visits Date Date Requested Authorized [id number] Receiving Office 03/21/2021 1 1 to Obtain Authorization Encounter Details Date Type Department Care Team Description 02/20/2021 Hospital Encounter [facility] Secondary [place] Social History Tobacco Use Types Packs/Day Years Used Date Smoking Tobacco: Never Assessed Sex Assigned at Date Recorded Not on file documented as of this encounter Discharge Disposition Disposition Code Departure Means Destination Home or Self Care documented in this encounter Plan of Treatment Not on filedocumented as of this encounter Procedures Procedure Name Priority Date/Time Associated Diagnosis Comme nts XR OUTSIDE IMAGES Routine 03/21/2021 17:48 Result s for this NEURO EDT procedure are i n the results section. documented in this encounter Results XR OUTSIDE IMAGES NEURO (03/21/2021 17:48 EDT) Specimen (Source) Anatomical Location Collection Method / Collectio n Time Received Time / Laterality Volume Narrative 03/21/2021 17:48 EDT This is a non-reportable exam. Provider Unknown MD CAMACHO OTHER IMAGING ORDERABLES documented in this encounter Visit Diagnoses Not on filedocumented in this encounter Care Teams Food Service Technician Relationship Specialty Start Date End Date Unknown, Provider, PCP - General 04/02/15 03/25/21 documented as of this encounter
--- OUTSIDE RECORDS SUMMARY | 2022-04-13 14:54 | XMS_ITS | Encounter Summary ---
:1960 Author Organization [facility] Address [address] [place] [address] Care Team Providers Name Role Phone Unavailable Primary Care Provider Unavailable Encounter Details Date Type Department Care Team Description 02/19/2001 Results Only [facility] - Cony Gipson NP conversion [address] [facility] 1 [address] [place] [phone] (Wo rk) Social History Tobacco Use Types Packs/Day Years Used Date Smoking Tobacco: Never Assessed Sex Assigned at Date Recorded Not on file documented as of this encounter Plan of Treatment Not on filedocumented as of this encounter Procedures Procedure Name Priority Date/Time Associated Diagnosis Comme [facility] CYTOPATHOLOGY Routine 02/19/2001 0:00 EDT Results for this procedure are i n the results section . documented in this encounter Results CYTOPATHOLOGY (02/19/2001 0:00 EDT) Component Value Ref Test Analysis Performed At [facility] Pathology CYTOPATHOLOGY REPORT [facility] Report: [facility] Reports generated via electronic interface contain original data; however they are lacking the format of the original report. Caution should be taken when reading/interpreting unformatte d reports. Name: ? AVIVA SOMMER ? Accession #: ? [id number] : ? 1960 (Age: 41) ??F ?Collect Date: ? 02/19/2001 Location: ? [facility] ? Receive Date: ? 02/21/2001 Provider: ?CONY DANIELLE NP Copy to: ? Specimen/Source: ?Conventional Pap Test, Cervix/En docervix Last Menstrual Period: ? 02/07/01 Previous Gynecologic Pathology: ? Yes: 11-12 yrs ago abn. cells, Treatment History: ? Miscellaneous treatment: Cautery 11-12 yrs ag ? SPECIMEN ADEQUACY ? Satisfactory for evaluation. GENERAL CATEGORIZATION ? Benign Cellular Changes DESCRIPTIVE DIAGNOSIS ? Reactive cellular adolfo nges associated with inflammation present (includes repair). ? Document reviewed and electronically signed by: ? RAYMUNDO KIMBLE MD ? Report Date: ??02/26/2001 15:41 End of Report Specimen (Source) Anatomical Location Collection Method / Collectio n Time Received Time / Laterality Volume 02/19/2001 02/21/2001 Cony Danielle NP PATHOLOGY ORDERABLES Performing Organization Address City/State/ZIP Code Phon e Number [facility] [address] [place] [address] SERVICES [facility] [address] [place] [address] documented in this encounter Visit Diagnoses Not on filedocumented in this encounter
--- OUTSIDE RECORDS SUMMARY | 2022-04-13 14:54 | XMS_ITS | Encounter Summary ---
:1960 Author Organization [facility] Address [address] [place] [address] Care Team Providers Name Role Phone CaitlynAnalilia brooke TATO Primary Care Provider Reason for Referral Radiology Services (Routine/Next Available) - Authorization Not Required Specialty Diagnoses / Procedures Referred By Contact Refer red To Contact Diagnoses Compression fracture of L2 vertebra with routine healing Liyah Casper MD [facility] Procedures XR THORACOLUMBAR SPINE 2 VIEWS [address] [place] [address] Referral ID Status Reason Start Expiration Visits Visits Date Date Requested Authorized [id number] Authorization Not 07/26/2021 1 1 Required Reason for Visit Radiology Services (Routine/Next Available) - Authorization Not Required Specialty Diagnoses / Procedures Referred By Contact Refer red To Contact Diagnoses Compression fracture of L2 vertebra with routine healing Liyah Casper MD [facility] Procedures XR THORACOLUMBAR SPINE 2 VIEWS [address] [place] [address] Referral ID Status Reason Start Expiration Visits Visits Date Date Requested Authorized [id number] Authorization Not 07/26/2021 1 1 Required Encounter Details Date Type Department Care Team Description 07/27/2021 Hospital Encounter [facility] Xray Compression fracture of [address] L2 vertebra with [place], [place] routine healing [phone] Social History Tobacco Use Types Packs/Day Years Used Date Smoking Tobacco: Never Assessed Sex Assigned at Date Recorded Not on file documented as of this encounter Medications at Time of Discharge Medication Sig Dispensed Refills Start Date End Date acetaminophen (TYLENOL) 500 Take 1,000 mg by 0 mg tablet mouth every 6 hours as needed for Pain. bisacodyL (DULCOLAX) 5 mg Take 10 mg by mouth 0 EC tablet daily. ibuprofen (MOTRIN) 600 mg Take 600 mg by mouth 0 tablet 3 times daily. lidocaine 5 % (LIDODERM) 5 Place 1 Patch onto 0 % patch the skin daily. lidocaine/me-alba/menthol/ca Apply topically. 0 mph (CBD-KINGS WITH LIDOCAINE TOPICAL) METHOCARBAMOL ORAL Take 800 mg by mouth 0 3 times daily. oxyCODONE (ROXICODONE) 5 mg Take by mouth every 0 immediate release tablet 8 hours as needed for Pain. documented as of this encounter Discharge Disposition Disposition Code Departure Means Destination Home or Self Care documented in this encounter Plan of Treatment Not on filedocumented as of this encounter Procedures Procedure Name Priority Date/Time Associated Comments Diagnosis XR THORACOLUMBAR SPINE Routine 07/27/2021 13:47 Compression R esults for this 2 VIEWS EST fracture of L2 procedure are in vertebra with the results routine healing section. documented in this encounter Results XR THORACOLUMBAR SPINE 2 VIEWS (07/27/2021 13:47 EST) Anatomical Region Laterality Modality Spine Computed Radiography Specimen (Source) Anatomical Collection Method Collection Time Re ceived Time Location / / Volume Laterality 07/28/2021 17:00 EST Impressions 07/28/2021 17:00 EST Multilevel compression deformities involving T12, L1, L2, L4 and L5 vertebral bodies appear unchanged. Mild compression deformity centered at the thoracolumbar junction also appears unchanged compared t o 03/30/2021 radiographs. No evidence of recent fractures. Narrative 07/28/2021 17:00 EST XR THORACOLUMBAR SPINE 2 VIEWS ??07/27/2021 1:30 PM Clinical History/Comments: Back pain/ L2 fracture. Technique: AP and lateral views of the t horacolumbar spine. Procedure Note Janes Pickard MD - 07/28/2021F ormatting of this note might be different from the original. XR THORACOLUMBAR SPINE 2 VIEWS 07/27/2021 1:30 PM Clinical History/Comments: Back pain/ L2 fracture. Technique: AP and lateral views of the t horacolumbar spine. IMPRESSION Multilevel compression deformities invol ving T12, L1, L2, L4 and L5 vertebral bodies appear unchanged. Mild compression deformity centered at the thoracolumbar junction also appears unchanged compared to 03/30/2021 radiographs. No evidence of recent fract ures. Liyah Casper MD IMG DIAGNOSTIC IMAGING ORDER ALVINA documented in this encounter Visit Diagnoses Diagnosis Compression fracture of L2 vertebra with routine healing documented in this encounter Care Teams Litigation Associate Relationship Specialty Start Date End Date Analilia Lechuga FNP PCP - General 03/26/21 [address] [facility] [place] [address] documented as of this encounter
--- OUTSIDE RECORDS SUMMARY | 2022-04-13 14:54 | XMS_ITS | Encounter Summary ---
:1960 Author Organization [facility] Address [address] [place] [address] Care Team Providers Name Role Phone Unavailable Primary Care Provider Unavailable Encounter Details Date Type Department Care Team Description 06/23/1999 Results Only [facility] - Alexander Rogel MD [address] [place] [phone] (Wo rk) Social History Tobacco Use Types Packs/Day Years Used Date Smoking Tobacco: Never Assessed Sex Assigned at Date Recorded Not on file documented as of this encounter Plan of Treatment Not on filedocumented as of this encounter Procedures Procedure Name Priority Date/Time Associated Diagnosis Comme [facility] CYTOPATHOLOGY Routine 06/23/1999 14:21 EST Result s for this procedure are i n the results section . documented in this encounter Results CYTOPATHOLOGY (06/23/1999 14:21 EST) Component Value Ref Test Analysis Performed At [facility] Pathology CYTOPATHOLOGY REPORT [facility] Report: [facility] Reports generated via electronic interface contain original data; however they are lacking the format of the original report. Caution should be taken when reading/interpreting unformatte d reports. Name: ? AVIVA SOMMER ? Accession #: ? [id number] : ? 1960 (Age: 39) ??F ?Collect Date: ? 06/23/1999 Location: ?Receive Date: ? 0 06/23/1999 Provider: ?ALEXANDER CONNER MD Copy to: ?ALEXANDER CONNER MD ? Specimen/Source: ?Pap Smear (One Slide) Last Menstrual Period: ? GYNECOLOGIC ??CYTOPATHOLOGY ??RE PORT Name: AVIVA SOMMER ? [facility] MR N: [id number] : 1960 ?? 39Y F ?Client ID: [id number] SS#: [id number] ? Accessio n #: [id number] Clinician: ALEXANDER CONNER MD Location: [facility] ??Copy to: ?? Specimen: ?Pap Smear (One Slide) ? Source: Cervix/Endocervix ?Collected: 06/21/99 ? Received: 06/23/1999 ?LMP: 05/21/99 ? Hormone Therapy: No ? : No ? Radiation Therapy: No ?? Post : No ?Chemotherapy: No ?IUD: No ? Prev Abnormal Pap: Yes ?? Clinical Hx: ?(Blank salvador indicate information not provided on req uisition) SPECIMEN ADEQUACY: ? Satisfactory For Evaluation ?? GENERAL CATEGORIZATION: ? WITHIN NORMAL LIMITS ? Reviewed And Electronically Signed By: ? Kamini choe, CT(ASCP) ? Carlee Rivear, CT (ASCP) ? Report Date: ?? 0 06/24/1999 [employer] Archived Tests - Final Diagnosis Text Field: Clinical History : ? Document reviewed and electronically signed by: ? Conversion ? Report Date: ??06/24/1999 00:00 End of Report Specimen Anatomical Collection Method Collection Time Receive d Time (Source) Location / / Volume Laterality 06/23/1999 14:21 06/23/1999 EST 14:22 EST Alexander Conner MD PATHOLOGY ORDERABLES Performing Organization Address City/State/ZIP Code Phon e Number [facility] [address] [place] [address] SERVICES [facility] [address] [place] [address] documented in this encounter Visit Diagnoses Not on filedocumented in this encounter
--- OUTSIDE RECORDS SUMMARY | 2022-04-13 14:54 | XMS_ITS | Encounter Summary ---
:1960 Author Organization [facility] Address [address] [place] [address] Care Team Providers Name Role Phone CaitlynAnalilia brooke TATO Primary Care Provider Reason for Referral Radiology Services (Routine/Next Available) - Authorization Not Required Specialty Diagnoses / Procedures Referred By Contact Refer red To Contact Diagnoses Closed fracture of second lumbar vertebra, unspecified fracture morphology, initial encounter ([facility]) ([facility]) Liyah Casper MD [facility] Procedures XR THORACOLUMBAR SPINE 2 V[address]WS [address] [place] [address] Referral ID Status Reason Start Expiration Visits Visits Date Date Requested Authorized [id number] Authorization Not 03/22/2021 1 1 Required Reason for Visit Radiology Services (Routine/Next Available) - Authorization Not Required Specialty Diagnoses / Procedures Referred By Contact Refer red To Contact Diagnoses Closed fracture of second lumbar vertebra, unspecified fracture morphology, initial encounter ([facility]) ([facility]) Liyah Casper MD [facility] Procedures XR THORACOLUMBAR SPINE 2 VIEWS [address] [place] [address] Referral ID Status Reason Start Expiration Visits Visits Date Date Requested Authorized [id number] Authorization Not 03/22/2021 1 1 Required Encounter Details Date Type Department Care Team Description 03/30/2021 Hospital Encounter [facility] Xray Closed fracture of [address] second lumbar vertebra, [place], [place] unspeci fied fracture [id number] morphology, initial [phone] encounter ([facility] ([facility]) Social History Tobacco Use Types Packs/Day Years [...] Associated Comments Diagnosis XR THORACOLUMBAR SPINE Routine 03/30/2021 11:08 Closed fractur e of Results for this 2 VIEWS EST second lumbar procedure are in vertebra, the results unspecified section. fracture morphology, initial encounter ([facility]) ([facility]) documented in this encounter Results XR THORACOLUMBAR SPINE 2 VIEWS (03/30/2021 11:08 EST) Anatomical Region Laterality Modality Spine Computed Radiography Specimen (Source) Anatomical Collection Method Collection Time Re ceived Time Location / / Volume Laterality 03/31/2021 13:22 EST Impressions 03/31/2021 13:22 EST Findings/Impression: There has been progressive height loss o f the L2 compression fracture, now moderate. There are new multilevel compression deformities which involve the T12, L1, L4, and possibly L5 vertebral bodies. New kyphosis centered at the T12-L1 level r elated to anterior vertebral body wedging. Vascular calcifications are present. Narrative 03/31/2021 13:22 EST XR THORACOLUMBAR SPINE 2 VIEWS 03/30/2021 11:15 AM History: Back pain/ L2 fracture Technique: AP and lateral views of the t horacolumbar spine were performed. Comparisons: 02/20/2021 Procedure Note Yosvany Purvis MD - 03/31/2021For matting of this note might be different from the original. XR THORACOLUMBAR SPINE 2 VIEWS 11:15 AM History: Back pain/ L2 fracture Technique: AP and lateral views of the t horacolumbar spine were performed. Comparisons: 02/20/2021 IMPRESSION Findings/Impression: There has been progressive height loss o f the L2 compression fracture, now moderate. There are new multilevel compression deformities which involve the T12, L1, L4, and possibly L5 vertebral bodies. New kyphosis centered at the T12-L1 level related to anterior vertebral body wedging. Vascular calcifications are present. Liyah Casper MD IMG DIAGNOSTIC IMAGING ORDER ALVINA documented in this encounter Visit Diagnoses Diagnosis Closed fracture of second lumbar vertebr a, unspecified fracture morphology, initial encounter ([facility]) ([facility]) documented in this encounter Care Teams Electronics Processor Relationship Specialty Start Date End Date Analilia Lechuga FNP PCP - General 03/26/21 [address] [place] [address] documented as of this encounter
--- OUTSIDE RECORDS SUMMARY | 2022-04-13 14:54 | XMS_ITS | Encounter Summary ---
:1960 Author Organization [facility] Address [address] [place] [address] Care Team Providers Name Role Phone Unknown, Provider Primary Care Provider Analilia Lechuga Primary Care Provider Reason for Referral Radiology Services (Routine/Next Available) - Authorization Not Required Specialty Diagnoses / Procedures Referred By Contact Refer red To Contact Diagnoses Closed fracture of second lumbar vertebra, unspecified fracture morphology, initial encounter ([facility] ([facility]) Liyah Casper MD [facility] Procedures XR THORACOLUMBAR SPINE 2 VIEWS [address] [facility] [place] [address] Referral ID Status Reason Start Expiration Visits Visits Date Date Requested Authorized [id number] Authorization Not 03/22/2021 1 1 Required Reason for Visit Reason Onset Date Comments Appointment Related 03/21/2021 Encounter Details Date Type Department Care Team Description 03/21/2021 Orders Only [facility] Liyah Casper MD Closed fracture of Spine Program - [address] second lumbar [facility] of vertebra, unspecified [address] Anthony Nieto fracture morphology, [place], [place] in itial encounter [phone] ([facility] ([facility]) [phone] (Wo rk) (Primary Dx) Social History Tobacco Use Types Packs/Day Years Used Date Smoking Tobacco: Never Assessed Sex Assigned at Date Recorded Not on file documented as of this encounter Plan of Treatment Not on filedocumented as of this encounter Results XR THORACOLUMBAR SPINE 2 [...] vertebr a, unspecified fracture morphology, initial encounter ([facility] ([facility]) - Primary Closed fracture of second lumbar vertebr a, unspecified fracture morphology, initial encounter ([facility] ([facility]) documented in this encounter Care Teams Corrugator Helper Relationship Specialty Start Date End Date Unknown, Provider, PCP - General 04/02/15 03/25/21 Analilia Lechuga, TATO PCP - General 03/26/21 [address] [place] [address] documented as of this encounter
--- OUTSIDE RECORDS SUMMARY | 2022-04-13 14:54 | XMS_ITS | Encounter Summary ---
:1960 Author Organization [facility] Address [address] [place] [address] Care Team Providers Name Role Phone Analilia Lechuga TATO Primary Care Provider Encounter Details Date Type Department Care Team Description 03/23/2022 Lab Requisition [facility] Outr Resulting Lab, Pathology & Laboratory Provider [facility] [address] [place], [place] [phone] Social History Tobacco Use Types Packs/Day Years Used Date Smoking Tobacco: Never Assessed Sex Assigned at Date Recorded Not on file documented as of this encounter Plan of Treatment Not on filedocumented as of this encounter Procedures Procedure Name Priority Date/Time Associated Comments Diagnosis SPEP, INCLUDES Today 03/23/2022 9:15 Results fo r this QUANTITATION OF EDT procedure ar e in MONOCLONAL SPIKE the results PERFORMABLE section. HOLD SST Today 03/23/2022 9:15 Results for this EDT procedure are i n the results section. HOLD SST Today 03/23/2022 9:15 Results for this EDT procedure are i n the results section. SERUM FREE LIGHT CHAINS Today 03/23/2022 9:15 R esults for this EDT procedure are i n the results section. IMMUNOGLOBULINS Today 03/23/2022 9:15 Results f or this EDT procedure are i n the results section. SPEP, INCLUDES Today 03/23/2022 9:15 Results fo r this QUANTITATION OF EDT procedure ar e in MONOCLONAL SPIKE the results section. PROTEIN, TOTAL Today 03/23/2022 9:15 EDT documented in this encounter Results HOLD SST (03/23/2022 9:15 EDT) athologist Signature Hold Hold 03/23/2022 [facility] 18:46 EDT [facility]ENTER LABOR[facility]ORY SERVICES Specimen Anatomical Collection Method Collection Time Receive d Time (Source) Location / / Volume Laterality Blood VENOUS BLOOD / 03/23/2022 9:15 03/23/2022 Unknown EDT 17:33 EDT Provider Outr Resulting Lab LAB INFO SERVICE AND SUPPO RT & PHONE RESULT Performing Organization Address City/State/ZIP Code Phon e Number [facility] [address] [place] [address] SERVICES HOLD SST (03/23/2022 9:15 EDT) athologist Signature Hold Hold 03/23/2022 [facility] 18:46 EDT CENTER LABORATORY SERVICES Specimen Anatomical Collection Method Collection Time Receive d Time (Source) Location / / Volume Laterality Blood VENOUS BLOOD / 03/23/2022 9:15 03/23/2022 Unknown EDT 17:33 EDT Provider Outr Resulting Lab LAB INFO SERVICE AND SUPPO RT & PHONE RESULT Performing Organization Address City/State/ZIP Code Phon e Number [facility] [address] [place] [address] SERVICES (ABNORMAL) SPEP, INCLUDES QUANTITATION OF MONOCLONAL SPIKE PERFORMABLE (03/23/2022 9:15 EDT) Component Value Ref Test Analysis Performed At [facility] gist Range Method Time Signature Albumin % 48.3 (L) 55.8 - 03/24/2022 [facility] 66.1 % 13:47 EDT CENTER LABORATORY SERVICES Albumin g/dL 4.1 3.6 - 03/24/2022 [facility] 5.2 g/dL 13:47 EDT CENTER LABORATORY SERVICES Alpha-1 % 2.9 2.9 - 03/24/2022 [facility] 4.9 % 13:47 EDT CENTER LABORATORY SERVICES Alpha-1 g/dL 0.20 0.15 - 03/24/2022 [facility] 0.40 13:47 EDT CENTER g/dL LABORATORY SERVICES Alpha-2 % 8.3 7.1 - 03/24/2022 [facility] 11.8 % 13:47 EDT CENTER LABORATORY SERVICES Alpha-2 g/dL 0.70 0.50 - 03/24/2022 [facility] 1.00 13:47 EDT CENTER g/dL LABORATORY SERVICES Beta % 7.8 (L) 8.4 - 03/24/2022 [facility] 13.1 % 13:47 EDT CENTER LABORATORY SERVICES Beta g/dL 0.70 0.60 - 03/24/2022 [facility] 1.20 13:47 EDT CENTER g/dL LABORATORY SERVICES Gamma % 32.7 (H) 11.1 - 03/24/2022 [facility] 18.8 % 13:47 T CENTER LABORATORY SERVICES Gamma g/dL 2.70 (H) 0.60 - 03/24/2022 [facility] 1.60 13:47 EDT CENTER g/dL LABORATORY SERVICES Monoclonal 28.4 (H) None 03/24/2022 [facility] Jermaine % Seen % 13:47 [facility] CENTER LABORATORY SERVICES Monoclonal 2.4 (H) None 03/24/2022 [facility] Jermaine g/dL Seen 13:47 T CENTER g/dL LABORATORY SERVICES SPEP Comment Abnormal band, 03/24/2022 [facility] previously 13:47 EDT CENTER identified LABORATORY as:Monoclonal IgG SERVICES [place] immunoglobulin identified on 02/06/2022 Comment: See scanned/supplementary repor t. Total Protein 8.4 (H) 6.3 - 8.2 g/dL 03/24/2022 13:47 EDT [facility] SERVICES Specimen Anatomical Collection Method Collection Time Receive d Time (Source) Location / / Volume Laterality Blood VENOUS BLOOD / 03/23/2022 9:15 03/23/2022 Unknown EDT 17:24 EDT Narrative This result has an attachment that is no t available. Provider Outr Resulting Lab CHEMISTRY & BLOOD GAS SHIRA GONGORA Performing Organization Address City/State/ZIP Code Phon e Number [facility] [address] [place] [address] SERVICES PROTEIN, TOTAL (03/23/2022 9:15 EDT) Specimen Anatomical Collection Method Collection Time Receive d Time (Source) Location / / Volume Laterality Blood VENOUS BLOOD / 03/23/2022 9:15 03/23/2022 Unknown EDT 17:24 EDT Provider Outr Resulting Lab CHEMISTRY & BLOOD GAS SHIRA GONGORA Performing Organization Address City/State/ZIP Code Phon e Number [facility] [address] [place] [address] SERVICES (ABNORMAL) SERUM FREE LIGHT CHAINS (03/23/2022 9:15 EDT) Patholo gist Method Time Signature [place] Free Lt 48.21 (H) 0.33 - 03/24/2022 [facility] 1.94 mg/dL 10:33 EDT CENTER LABORATORY SERVICES Lambda Free Lt 1.04 0.57 - 03/24/2022 [facility] 2.63 mg/dL 10:33 T CENTER LABORATORY SERVICES [place]/Lambda 46.36 (H) 0.26 - 03/24/2022 [facility] Ratio 1.65 10:33 EDT CENTER LABORATORY SERVICES Specimen Anatomical Collection Method Collection Time Receive d Time (Source) Location / / Volume Laterality Blood VENOUS BLOOD / 03/23/2022 9:15 03/23/2022 Unknown EDT 17:24 EDT Provider Outr Resulting Lab CHEMISTRY & BLOOD GAS MARLOE FRANSISCA Performing Organization Address City/[facility]/ZIP Code Phon e Number [facility] [address] [place] [address] SERVICES (ABNORMAL) IMMUNOGLOBULINS (03/23/2022 9:15 EDT) P athologist Signature IgG 3,285 (H) [id number],[phone] 03/24/2022 [...] Outr Resulting Lab CHEMISTRY & BLOOD GAS MARLOE FRANSISCA Performing Organization Address City/[facility]/ZIP Code Phon e Number [facility] [address] [place] [address] SERVICES documented in this encounter Visit Diagnoses Not on filedocumented in this encounter Care Teams Credit Counselor Relationship Specialty Start Date End Date Analilia Lechuga FNP PCP - General 03/26/21 [address] [place], [place] [phone] documented as of this encounter
--- OUTSIDE RECORDS SUMMARY | 2022-04-13 14:54 | XMS_ITS | Encounter Summary ---
:1960 Author Organization [facility] Address [address] [place] [address] Care Team Providers Name Role Phone Analilia Lechuga TATO Primary Care Provider Encounter Details Date Type Department Care Team Description 02/22/2022 Lab Requisition [facility] Outr Resulting Lab, Pathology & Laboratory Provider [facility] [address], [place] [id number] Social History Tobacco Use Types Packs/Day Years Used Date Smoking Tobacco: Never Assessed Sex Assigned at Date Recorded Not on file documented as of this encounter Plan of Treatment Not on filedocumented as of this encounter Procedures Procedure Name Priority Date/Time Associated Comments Diagnosis SPEP, INCLUDES Today 02/22/2022 11:52 Results f or this QUANTITATION OF EDT procedure ar e in MONOCLONAL SPIKE the results PERFORMABLE section. SERUM FREE LIGHT CHAINS Routine 02/22/2022 11:52 Results for this EDT procedure are i n the results section. IMMUNOGLOBULINS Routine 02/22/2022 11:52 Results for this EDT procedure are i n the results section. SPEP, INCLUDES Routine 02/22/2022 11:52 Results f or this QUANTITATION OF EDT procedure ar e in MONOCLONAL SPIKE the results section. PROTEIN, TOTAL Today 02/22/2022 11:52 EDT documented in this encounter Results (ABNORMAL) SPEP, INCLUDES QUANTITATION OF MONOCLONAL SPIKE PERFORMABLE (02/22/2022 11:52 EDT) Component Value Ref Test Analysis Performed At [facility] Range Method Time Signature Albumin % 43.5 (L) 55.8 - 02/23/2022 [facility] 66.1 % 14:56 [facility] LABORATORY SERVICES Albumin g/dL 3.8 3.6 - 02/23/2022 [facility] 5.2 g/dL 14:56 [facility] LABORATORY SERVICES Alpha-1 % 4.4 2.9 - 02/23/2022 [facility] 4.9 % 14:56 [facility] LABORATORY SERVICES Alpha-1 g/dL 0.40 0.15 - 02/23/2022 [facility] 0.40 14:56 [facility] g/dL LABORATORY SERVICES Alpha-2 % 10.9 7.1 - 02/23/2022 [facility] 11.8 % 14:56 [facility] LABORATORY SERVICES Alpha-2 g/dL 0.90 0.50 - 02/23/2022 [facility] 1.00 14:56 [facility] CENTER g/dL LABORATORY SERVICES Beta % 8.9 8.4 - 02/23/2022 [facility] 13.1 % 14:56 [facility] LABORATORY SERVICES Beta g/dL 0.80 0.60 - 02/23/2022 [facility] 1.20 14:56 T CENTER g/dL LABORATORY SERVICES Gamma % 32.3 (H) 11.1 - 02/23/2022 [facility] 18.8 % 14:56 [facility] LABORATORY SERVICES Gamma g/dL 2.80 (H) 0.60 - 02/23/2022 [facility] 1.60 14:56 [facility] g/dL LABORATORY SERVICES Monoclonal 29.1 (H) None 02/23/2022 [facility] Jermaine % Seen % 14:56 [facility] LABORATORY SERVICES Monoclonal 2.5 (H) None 02/23/2022 [facility] Jermaine g/dL Seen 14:56 [facility] g/dL LABORATORY SERVICES SPEP Comment Abnormal band, 02/23/2022 [facility] previously 14:56 [facility] identified as: LABORATORY Monoclonal IgG SERVICES [place] immunoglobulin identified on 02/06/2022 Comment: See scanned/supplementary repor t. Total Protein 8.7 (H) 6.3 - 8.2 g/dL 02/23/2022 14:56 [facility] LABORATORY SERVICES Specimen Anatomical Collection Method Collection Time Receive d Time (Source) Location / / Volume Laterality Blood VENOUS BLOOD / 02/22/2022 11:52 2 Unknown EDT 21:22 EDT Narrative This result has an attachment that is no t available. Provider Outr Resulting Lab CHEMISTRY & BLOOD GAS ORDE FRANSISCA Performing Organization Address City/State/ZIP Code Phon e Number [facility] [address] [place] [address] SERVICES PROTEIN, TOTAL (02/22/2022 11:52 EDT) Specimen Anatomical Collection Method Collection Time Receive d Time (Source) Location / / Volume Laterality Blood VENOUS BLOOD / 02/22/2022 11:52 2 Unknown EDT 21:22 EDT Provider Outr Resulting Lab CHEMISTRY & BLOOD GAS ORDE FRANSISCA Performing Organization Address City/[facility]/ZIP Code Phon e Number [facility] [address] [place] [address] SERVICES (ABNORMAL) SERUM FREE LIGHT CHAINS (02/22/2022 11:52 EDT) Patholo gist Method Time Signature [place] Free Lt 52.89 (H) 0.33 - 02/23/2022 [facility] 1.94 mg/dL 11:35 [facility] LABORATORY SERVICES Lambda Free Lt 1.39 0.57 - 02/23/2022 [facility] 2.63 mg/dL 11:35 [facility] LABORATORY SERVICES [place]/Lambda 38.05 (H) 0.26 - 02/23/2022 [facility] Ratio 1.65 11:35 [facility] LABORATORY SERVICES Specimen Anatomical Collection Method Collection Time Receive d Time (Source) Location / / Volume Laterality Blood VENOUS BLOOD / 02/22/2022 11:52 2 Unknown EDT 21:22 EDT Provider Outr Resulting Lab CHEMISTRY & BLOOD GAS ORDE FRANSISCA Performing Organization Address City/State/ZIP Code Phon e Number [facility] [address] [place] [address] SERVICES (ABNORMAL) IMMUNOGLOBULINS (02/22/2022 11:52 EDT) P athologist Signature IgG 3,329 (H) 610-1,616 02/23/2022 [facility] mg/dL 11:35 [facility] LABORATORY SERVICES IgA 25 (L) 85 - 499 02/23/2022 [facility] mg/dL 11:35 [facility] LABORATORY SERVICES IgM 105 35 - 242 02/23/2022 [facility] mg/dL 11:35 [facility] LABORATORY SERVICES Specimen Anatomical Collection Method Collection Time Receive d Time (Source) Location / / Volume Laterality Blood VENOUS BLOOD / 02/22/2022 11:52 2 Unknown EDT 21:22 EDT Provider Outr Resulting Lab CHEMISTRY & BLOOD GAS SHIRA GONGORA Performing Organization Address City/State/ZIP Code Phon e Number [facility] [address] [place] [address] SERVICES documented in this encounter Visit Diagnoses Not on filedocumented in this encounter Care Teams Customer Success Advocate Relationship Specialty Start Date End Date Analilia Lechuga FNP PCP - General 03/26/21 [address] [facility], [place] [id number] documented as of this encounter
--- OUTSIDE RECORDS SUMMARY | 2022-04-13 14:54 | XMS_ITS | Encounter Summary ---
:1960 Author Organization [facility] Address [address] [place] [address] Care Team Providers Name Role Phone Analilia Lechuga TATO Primary Care Provider Encounter Details Date Type Department Care Team Description 02/06/2022 Lab Requisition [facility] Outr Resulting Lab, Pathology & Laboratory Provider [facility] acute [facility] [address] [place], [place] [address] Social History Tobacco Use Types Packs/Day Years Used Date Smoking Tobacco: Never Assessed Sex Assigned at Date Recorded Not on file documented as of this encounter Plan of Treatment Not on filedocumented as of this encounter Procedures Procedure Name Priority Date/Time Associated Comments Diagnosis SPEP, INCLUDES Today 02/06/2022 15:42 Results f or this QUANTITATION OF EDT procedure ar e in MONOCLONAL SPIKE the results PERFORMABLE section. SERUM FREE LIGHT CHAINS Routine 02/06/2022 15:42 Results for this EDT procedure are i n the results section. IMMUNOTYPING, SERUM Today 02/06/2022 15:42 Resu lts for this EDT procedure are i n the results section. IMMUNOGLOBULINS Routine 02/06/2022 15:42 Results for this EDT procedure are i n the results section. SPEP, INCLUDES Routine 02/06/2022 15:42 Results f or this QUANTITATION OF EDT procedure ar e in MONOCLONAL SPIKE the results section. PROTEIN, TOTAL Today 02/06/2022 15:42 EDT documented in this encounter Results IMMUNOTYPING, SERUM (02/06/2022 15:42 EDT) Component Value Ref Test Analysis Performed At [facility] Method Time Signature Immunotyping, Current 02/08/2022 [facility] Serum Interpretation: 14:58 [facility] Monoclonal IgG LABORATORY kappa SERVICES immunoglobulin identified in the gamma region. Reviewed by: Godwin Simpson MD, PhD 02/08/2022 14:09. Specimen Anatomical Collection Method Collection Time Receive d Time (Source) Location / / Volume Laterality Blood VENOUS BLOOD / 02/06/2022 15:42 2 Unknown EDT 16:37 EDT Provider Outr Resulting Lab CHEMISTRY & BLOOD GAS MARLOE FRANSISCA Performing Organization Address City/State/ZIP Code Phon e Number [facility] [address] [place] [address] SERVICES (ABNORMAL) SPEP, INCLUDES QUANTITATION OF MONOCLONAL SPIKE PERFORMABLE (02/06/2022 15:42 EDT) Component Value Ref Test Analysis Performed At [facility] Range Method Time Signature Albumin % 49.6 (L) 55.8 - 02/08/2022 [facility] 66.1 % 14:57 [facility] LABORATORY SERVICES Albumin g/dL 4.6 3.6 - 02/08/2022 [facility] 5.2 g/dL 14:57 [facility] LABORATORY SERVICES Alpha-1 % 2.8 (L) 2.9 - 02/08/2022 [facility] 4.9 % 14:57 [facility] LABORATORY SERVICES Alpha-1 g/dL 0.30 0.15 - 02/08/2022 [facility] 0.40 14:57 [facility] g/dL LABORATORY SERVICES Alpha-2 % 8.3 7.1 - 02/08/2022 [facility] 11.8 % 14:57 [facility] LABORATORY SERVICES Alpha-2 g/dL 0.80 0.50 - 02/08/2022 [facility] 1.00 14:57 [facility] g/dL LABORATORY SERVICES Beta % 7.9 (L) 8.4 - 02/08/2022 [facility] 13.1 % 14:57 [facility] LABORATORY SERVICES Beta g/dL 0.70 0.60 - 02/08/2022 [facility] 1.20 14:[address] [facility] g/dL LABORATORY SERVICES Gamma % 31.4 (H) 11.1 - 02/08/2022 [facility] 18.8 % 14:57 [facility] LABORATORY SERVICES Gamma g/dL 2.90 (H) 0.60 - 02/08/2022 [facility] 1.60 14:57 [facility] g/dL LABORATORY SERVICES Monoclonal 23.7 (H) None 02/08/2022 [facility] Jermaine % Seen % 14:57 [facility] LABORATORY SERVICES Monoclonal 2.2 (H) None 02/08/2022 [facility] Jermaine g/dL Seen 14:57 [facility] g/dL LABORATORY SERVICES SPEP Comment Suspicious 02/08/2022 [facility] pattern seen on 14:57 [facility] protein LABORATORY electrophoresis, SERVICES immunotyping added by reflex. Comment: See scanned/supplementary repor t. Total Protein 9.2 (H) 6.3 - 8.2 g/dL 02/08/2022 14:57 EDT [facility] LABORATORY SERVICES Specimen Anatomical Collection Method Collection Time Receive d Time (Source) Location / / Volume Laterality Blood VENOUS BLOOD / 02/06/2022 15:42 2 Unknown EDT 16:37 EDT Narrative This result has an attachment that is no t available. Provider Outr Resulting Lab CHEMISTRY & BLOOD GAS SHIRA GONGORA Performing Organization Address City/[facility]/ZIP Code Phon e Number [facility] [address] [place] [address] SERVICES PROTEIN, TOTAL (02/06/2022 15:42 EDT) Specimen Anatomical Collection Method Collection Time Receive d Time (Source) Location / / Volume Laterality Blood VENOUS BLOOD / 02/06/2022 15:42 2 Unknown EDT 16:37 EDT Provider Outr Resulting Lab CHEMISTRY & BLOOD GAS MARLOE FRANSISCA Performing Organization Address City/[facility]/ZIP Code Phon e Number [facility] [address] [place] [address] SERVICES (ABNORMAL) SERUM FREE LIGHT CHAINS (02/06/2022 15:42 EDT) [facility] gist Method Time Signature [place] Free Lt 37.61 (H) 0.33 - 02/08/2022 [facility] 1.94 mg/dL 11:42 [facility] LABORATORY SERVICES Lambda Free Lt 1.18 0.57 - 02/08/2022 [facility] 2.63 mg/dL 11:42 [facility] LABORATORY SERVICES [place]/Lambda 31.87 (H) 0.26 - 02/08/2022 [facility] Ratio 1.65 11:42 [facility] LABORATORY SERVICES Specimen Anatomical Collection Method Collection Time Receive d Time (Source) Location / / Volume Laterality Blood VENOUS BLOOD / 02/06/2022 15:42 2 Unknown EDT 16:37 EDT Provider Outr Resulting Lab CHEMISTRY & BLOOD GAS ORDE FRANSISCA Performing Organization Address City/[facility]/ZIP Code Phon e Number [facility] [address] [place] [address] SERVICES (ABNORMAL) IMMUNOGLOBULINS (02/06/2022 15:42 EDT) athologist Signature IgG 3,166 (H) 610-1,616 02/08/2022 [facility] mg/dL 11:42 [facility] LABORATORY SERVICES IgA 22 (L) 85 - 499 02/08/2022 [facility] mg/dL 11:42 [facility] LABORATORY SERVICES IgM 102 35 - 242 02/08/2022 [facility] mg/dL 11:42 [facility] LABORATORY SERVICES Specimen Anatomical Collection Method Collection Time Receive d Time (Source) Location / / Volume Laterality Blood VENOUS BLOOD / 02/06/2022 15:42 2 Unknown EDT 16:37 EDT Provider Outr Resulting Lab CHEMISTRY & BLOOD GAS ORDE FRANSISCA Performing Organization Address City/State/ZIP Code Phon e Number [facility] [address] [place] [address] SERVICES documented in this encounter Visit Diagnoses Not on filedocumented in this encounter Care Teams Rn Long Term Care Relationship Specialty Start Date End Date Analilia Lechuga FNP PCP - General 03/26/21 [place] [address] documented as of this encounter
--- OUTSIDE RECORDS SUMMARY | 2022-04-13 14:54 | XMS_ITS | Encounter Summary ---
:1960 Author Organization [facility] Address [address] [place] [address] Care Team Providers Name Role Phone Analilia Lechuga Primary Care Provider Reason for Visit Reason Comments Fracture Encounter Details Date Type Department Care Team Description 07/27/2021 Office Visit [facility] Liyah Casper MD Compression fracture Spine Program - [address] of L2 vertebra with [facility] Spine [place] of routine healing [address] [facility] [address] Anthony Nieto (Primary Dx) [address] [phone] (Wo rk) Social History Tobacco Use Types Packs/Day Years Used Date Smoking Tobacco: Never Assessed Sex Assigned at Date Recorded Not on file documented as of this encounter Progress Notes Liyah Casper MD - 07/27/2021 1345 EST Christen Sommer is being seen as a consultation from Dr. Lechuga. Chief Complaint Patient presents with ??? 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 She fell backwards hit a metal unit. X-rays revealed a new L2 compression fracture. She continues to experience significant axial back pain. She is also sustained endplate fracture of T12, L1 and L4. She sustained a second fall while at home which may have been the reason for her new fractures. She continues to have axial back pain. VAS 7/10 Patient Active Problem List Diagnosis ??? Compression [...] tablet Take 10 mg by mouth daily. (Patient not taking: Reported on 07/27/2021) ??? ibuprofen (MOTRIN) 600 mg tablet Take 600 mg by mouth 3 times daily. ??? lidocaine 5 % (LIDODERM) 5 % patch Place 1 Patch onto the skin daily. (Patient not taking: Reported on 07/27/2021) ??? lidocaine/me-alba/menthol/camph (CBD-KINGS WITH LIDOCAINE TOPICAL) Apply topically. (Patient not taking: Reported on 07/27/2021) ??? METHOCARBAMOL ORAL Take 800 mg by mouth 3 times daily. (Patient not taking: Reported on 07/27/2021) ??? oxyCODONE (ROXICODONE) 5 mg immediate release tablet Take by mouth every 8 hours as needed for Pain. (Patient not taking: Reported on 07/27/2021) No current facility-administered medications for this visit. No Known Allergies Review of Systems A 10 point review system performed pertinent positive per HPI remainder negative Physical Exam patient is cooperative Ortho Exam sit to stand with 1 attempt Neurologic Exam Gait forward flexed at the waist MSR is absent bilateral patella and Achilles AP lateral thoracolumbar x-rays today compared to radiographs of March 30 wedge fracture of L2. Local kyphosis of 23 degrees. No interval change. Assessment 61-year-old female axial back pain work-related injury with fall causing a L2 compression fracture. She is becoming particularly frustrated awaiting compensation from her employer. I do not feel that there is anything else I can assist her with that presently. Plan: 1. Lift restriction 10 pounds 2. Follow-up as needed documented in this encounter Plan of Treatment Not on filedocumented as of this encounter Visit Diagnoses Diagnosis Compression fracture of L2 vertebra with routine healing - Primary documented in this encounter Care Teams Video Surveillance Technician Relationship Specialty Start Date End Date Analilia Lechuga FNP PCP - General 03/26/21 [place] [address] documented as of this encounter
--- OUTSIDE RECORDS SUMMARY | 2022-04-13 14:54 | XMS_ITS | Encounter Summary ---
:1960 Author Organization [facility] Address [address] [place] [address] Care Team Providers Name Role Phone Analilia Lechuga Primary Care Provider Reason for Referral Radiology Services (Routine/Next Available) - Closed Specialty Diagnoses / Procedures Referred By Contact Refer red To Contact Diagnoses Low back pain, unspecified back pain laterality, unspecified chronicity, unspecified whether sciatica present Closed wedge compression fracture of L2 vertebra, initial encounter (HCC) Liyah Casper MD Procedures CT LUMBAR SPINE WO CONTRAST [address] [facility] [place] [address] Referral ID Status Reason Start Date Expiration Date Visits Requ ested Visits Authorized [id number] Closed 03/30/2021 1 0 Reason for Visit Reason Comments Fracture Referral (Urgent) - Receiving Office to Obtain Authorization Specialty Diagnoses / Procedures Referred By Contact Refer red To Contact Orthopedic Surgery Diagnoses Wedge compression fracture of unspecified lumbar vertebra, sequela Low back pain, unspecified Analilia Lechuga FNP [facility] [address] [place] [phone] Fax: Referral ID Status Reason Start Expiration Visits Visits Date Date Requested Authorized [id number] Receiving Office 1 1 to Obtain Authorization Encounter Details Date Type Department Care Team Description 03/30/2021 Office Visit [facility] Liyah Casper MD Low back pain, unspecified back pain lat erality, unspecified chronicity, unspecified whether sciatica present (Primary Dx); Spine Program - [address] Closed wedge compression fracture of L2 vertebra, initial encounter (HCC); [facility] [place] of Low bone density [address] Anthony Nieto [address] [address] (Wo rk) Social History Tobacco Use Types Packs/Day Years Used Date Smoking Tobacco: Never Assessed Sex Assigned at Date Recorded Not on file documented as of this encounter Progress Notes Liyah Casper MD - 03/30/2021 1119 EST Christen Sommer is being seen as a consultation from Dr. Lechuga. Chief Complaint Patient presents with ??? Spine - Fracture The primary encounter diagnosis was Low back pain, unspecified back pain laterality, unspecified chronicity, unspecified whether sciatica present. Diagnoses of Closed wedge compression fracture of L2 vertebra, initial encounter (HCC) and Low bone density were also pertinent to this visit. 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 She had been lifting laundrybags (various weights) repetitively and lost her balance and fell backwards hitting a metal unit. She denies hitting her head no loss of consciousness. She did experience immediate back pain but was manageable. She was ambulatory. 3 days later she was seen at the emergency room at [facility] for severe worsening of the back pain. X-rays there did reveal a L2 compression fracture. She has had difficulty managing her pain and is being followed by Analilia Lechuga NP. She is presently taking combination of oxycodone 5 mg 3 times daily and Skelaxin 800 mg 3 times daily. She does use of Lidoderm patch. She is also had 1 Medrol Dosepak rescue. She continues to experience severelow back pain. She denies any numbness or tingling in her legs no leg weakness. She denies any bowelbladder incontinence. She is attending home physical therapy doing combinations of pelvic tilt exerci ses postural jain shoulder rolls and a TENS unit. She continues to experience severe low back pain VAS scale 9/10 today pain is present all the time is made worse by increased activities. Today she has not been able to return to work. Patient Active Problem List Diagnosis ??? Compression [...] of Systems 10 point review of systems , pertinent positive HPI remainder negative Physical Exam patient is cooperative, looks fatigued Ortho Exam back exam there is tenderness midline at L2, no bogginess, no step- off, no ecchymoses, norash Neurologic Exam Gait is forward flexed waist with rolling walker Sit to stand with 2 attempts Strength bilateral lower extremities 5/5 iliopsoas, hip extension, quads, hamstring, EHL, gastrocsoleus MSR symmetrically obtunded patella Achilles Sensation intact T1-S1 Lumbar x-rays AP lateral views today compared to radiographs There is an L2 compression fracture anterior vertebral body height of 17.8 mm mid vertebral body height of 12.52 mm. There has been worsening of the fracture since prior radiographs. Prior radiographs anterior vertebral height of 24.3 mm mid vertebral body height 21.5 mm. X-rays today concordant with a compression fracture anterior height of loss of 50% with mid vertebral body height loss of 75% There are also new superior endplate fractures of T12, L1, L4. Assessment 61-year-old female with a L2 compression fracture approximately 75% height loss. With additional newfractures involving T12, L1 and L4. She continues to experience significant back pain. Oxycodone is being used to control the pain but she is also having issues with chronic constipation. At this point, educated her regarding spine precautions. She is not to lift more than 5 pounds no bending twistingfrom the waist. She has been fit today for a TLSO brace. Bracing worsened her pain it was discontinued. To my eye her bone is osteopenic recommending bone density study. Unable to determine if her fracture is extending into the pars which may be the etiology of the severity of her pain. CT scan lumbarspine is ordered to rule out pars fracture and evaluate the extent of the additional new fractures noted on radiographs today. Other Orders Placed This Visit Procedures ??? CT LUMBAR SPINE WO CONTRAST ??? XR DEXA BONE DENSITY (Not Performed at [facility]) ??? TLSO(L0456) Plan: 1. Spine precautions no lifting more than 10 pounds no bending twisting from the waist 2. Tried a TLSO was uncomfortable no bracing 3. CT scan lumbar spine rule out pars fracture 4. DEXA bone density 5. Follow-up in 4 weeks AP lateral thoracolumbar centered at L2 documented in this encounter Plan of Treatment Scheduled Orders Name Type Priority Associated Diagnoses Order S chedule CT LUMBAR SPINE WO Imaging Routine Low back pain, Expecte d: 03/30/2021, CONTRAST unspecified back pain s: 09/27/2022 laterality, unspecified chronicity, unspecified whether sciatica present Closed wedge compression fracture of L2 vertebra, initial encounter (HCC) documented as of this encounter Visit Diagnoses Diagnosis Low back pain, unspecified back pain lat erality, unspecified chronicity, unspecified whether sciatica present - Primary Closed wedge compression fracture of L2 vertebra, initial encounter (HCC) Low bone density documented in this encounter Historical Medications This list may reflect changes made after this encounter. Medication Sig Dispensed Refills Start Date End Date bisacodyL (DULCOLAX) 5 mg Take 10 mg by mouth 0 EC tablet daily. lidocaine/me-alba/menthol/ca Apply topically. 0 mph (CBD-KINGS WITH LIDOCAINE TOPICAL) lidocaine 5 % (LIDODERM) 5 Place 1 Patch onto 0 % patch the skin daily. acetaminophen (TYLENOL) 500 Take 1,000 mg by 0 mg tablet mouth every 6 hours as needed for Pain. ibuprofen (MOTRIN) 600 mg Take 600 mg by mouth 0 tablet 3 times daily. METHOCARBAMOL ORAL Take 800 mg by mouth 0 3 times daily. oxyCODONE (ROXICODONE) 5 mg Take by mouth every 0 immediate release tablet 8 hours as needed for Pain. added in this encounter Orders Equipment Count Last Ordered Date First Ordered Date TLSO (L0456) 1 03/30/2021 documented in this encounter Care Teams Pricing Coordinator Relationship Specialty Start Date End Date Analilia Lechuga FNP PCP - General 03/26/21 [address] [facility] [place] [address] documented as of this encounter
[2022-04-13 15:00] VITALS: BP 117/48; PULSE 88; RESP 17; TEMP 38.2; O2SAT 94
--- NOTE | 2022-04-13 15:30 | DI.RAD_ITS ---
Exam(s) XR PORTABLE CHEST AP EXAM: XR PORTABLE CHEST AP CLINICAL HISTORY: cough, productive TECHNIQUE: COMPARISON: CR XR RIBS RT W PA LAT CHEST from 01/31/2022 FINDINGS: The heart is not enlarged. There are changes of COPD and pulmonary scarring. No gross pleural effus ion on this frontal film. In comparison with prior examination of January 31, there are new patchy opacities in the left roberto ng base suggestive of pneumonia. IMPRESSION: Findings suggesting left basilar pneumonia. Appropriate follow-up films requested. RADIATION DOSE DELIVERED: Total DLP
--- NOTE | 2022-04-13 16:11 | ED.GENADUL_ITS ---
Discharge Plan Disposition Patient Disposition: Home Condition: Improving Discharge Details Chief Complaint: RespSymp Clinical Impression: Acute viral syndrome Primary Care Provider: Analilia Lechuga ED Provider: Tyrese Chun Home Meds and New Rx's Prescriptions: No Action acetaminophen 500 mg capsule 1,000 mg PO TID PRN PRN (Reason: fever) Qty: 300 0RF albuterol sulfate 90 mcg/actuation HFA aerosol inhaler INHALATION Label Comments: INHALE 2 PUFFS BY MOUTH EVERY 4 TO 6 HOURS NEEDED FOR SHORTNESS OF BREATH OR WHEEZING OR COUGH ondansetron HCl 4 mg tablet 4 mg PO PRN PRN Label Comments: TAKE 1 TABLET BY MOUTH EVERY 8 HOURS NEEDED FOR NAUSEA prochlorperazine maleate 10 mg tablet 10 mg PO PRN PRN Label Comments: TAKE 1 TABLET BY MOUTH EVERY 6 HOURS NEEDED FOR NAUSEA acyclovir 400 mg tablet 400 mg PO DAILY Label Comments: TAKE 1 TABLET BY MOUTH TWICE DAILY aspirin 81 mg tablet,delayed release (DR/EC) 81 mg PO DAILY Label Comments: TAKE 1 TABLET BY MOUTH DAILY tramadol 50 mg tablet 50 mg PO PRN PRN Label Comments: TAKE 1 TABLET BY MOUTH EVERY 6 HOURS NEEDED FOR PAIN meloxicam 7.5 mg tablet Label Comments: TAKE ONE TABLET BY MOUTH TWICE A DAY NEEDED FOR PAIN omeprazole 20 mg capsule,delayed release(DR/EC) 29 mg PO DAILY Label Comments: TAKE 1 CAPSULE BY MOUTH ONCE DAILY Discharge Instructions Instructions: Viral Syndrome (ED) Additional Instructions: Please follow-up with your primary care physician. Please return to the emergency department for any worsening symptoms Medical Decision Making 62-year-old female history of multiple myeloma presents with generalized fatigue low-grade fever nonproductive cough body aches over the last day. Low-grade fever here in department, hemodynamically stable not hypoxic no respiratory distress lungs clear bilaterally appears well-hydrated. High clinical suspicion for viral syndrome. Must also consider pneumonia. Will obtain COVID flu and RSV screening chest x-ray symptomatic treatment with dexamethasone, patient took Tylenol before arrival. 17: 49 family present endorsing that patient is on chemotherapy. Given fever and immunocompromise patient have added labs including cultures urinalysis. Patient peers greatly improved after dexamethasone administration. No respiratory distress nontoxic. Disposition pending lab results close reassess ment 19: 25 patient has absolute neutrophil of 2570 resting comfortably remaining labs and images appear normal. Patient feeling much better after dexamethasone. We will follow-up with primary oncologist. Family here to take her home. Sign Out No HPI General Date/Time Provider Initiated Documentation: 04/13/22 15:41 . HPI Narrative: 62-year-old female history of multiple myeloma, presents with cough body aches low-grade fever and fatigue over the last day. Denies nausea vomiting or diarrhea. Related Data Home Medications Medication Instructions Recorded Confirmed albuterol sulfate 90 mcg/actuation inhalation 02/20/21 10/20/21 aerosol inhaler acetaminophen 500 mg capsule 1,000 mg PO TID PRN PRN fever #300 10/20/21 04/13/22 caps acyclovir 400 mg tablet 400 mg PO DAILY 01/31/22 04/13/22 aspirin 81 mg tablet,delayed 81 mg PO DAILY 01/31/22 04/13/22 release meloxicam 7.5 mg tablet tab 01/31/22 01/31/22 omeprazole 20 mg capsule,delayed 29 mg PO DAILY 01/31/22 04/13/22 release ondansetron HCl 4 mg tablet 4 mg PO PRN PRN 01/31/22 04/13/22 prochlorperazine maleate 10 mg 10 mg PO PRN PRN 01/31/22 04/13/22 tablet tramadol 50 mg tablet 50 mg PO PRN PRN 01/31/22 04/13/22 Previous Rx's Medication Instructions Recorded acetaminophen 500 mg capsule 1,000 mg PO TID PRN PRN fever #300 10/20/21 caps Allergies Allergy/AdvReac Type Severity Reaction Status Date / Time No Known Allergies Allergy Unverified 04/13/22 15:04 General Stated Complaint: RespSymp RAE: 3 Review of Systems Narrative: Review of Systems Constitutional: Fatigue, fever Eyes: negative ENT: negative Cardiovascular: negative Respiratory: Cough Gastrointestinal: negative : negative Musculoskeletal: negative Skin: negative Neurologic: negative Psych: negative PFSH All Active Problems (Updated 04/13/22 @ 19:26 by Tyrese Chun MD) Acute viral syndrome (Acute) Osteoporosis (Chronic) Trochanteric bursitis, right hip (Acute) Tobacco dependence (Acute) Osteopenia (Acute) Peripheral edema (Acute) Depression (Chronic) Compression fracture of L2 lumbar vertebra (Acute) Compression fracture (Acute) Social History Smoking/Tobacco Use Status: Current every day Tobacco Type: cigarettes Smoking risk assessment performed?: Yes Drug use: Never Substance use type: does not use Do you feel safe at home: Yes Do you feel safe in your relationship?: Yes Exam Narrative Exam Narrative: Physical Examination General: alert, awake, cooperative, resting comfortably, no acute distress HEENT: normocephalic, atraumatic; PERRL, EOM intact, conjunctiva normal; no nasal discharge; moist mucous membranes, oral and pharyngeal mucosa normal, tolerating secretions Neck: supple, trachea midline; full ROM Chest: normal to inspection Respiratory: normal respiratory effort, speaking in full sentences, clear to auscultation, no wheezing, rales or rhonchi Cardiac: regular rate, regular rhythm, S1S2 intact, no murmurs rubs or gallops GI: abdomen soft, non-tender, non-distended; no palpable mass or hepatosplenomegaly Skin: no lesions, rashes or trauma appreciated Neuro: AAOx3, normal speech, moving all extremities Psych: Appropriate mood and affect Course Vital Signs Vital signs: Vital Signs Temperature 38.2 C H 04/13/22 15:00 Pulse 88 04/13/22 15:00 Respiratory Rate 17 04/13/22 15:00 Blood Pressure 117/48 L 04/13/22 15:00 Pulse Oximetry 94 04/13/22 15:00 Temperature 38.2 C H 04/13/22 15:00 Temperature Source Temporal Artery Scan 04/13/22 15:00 Pulse 88 04/13/22 15:00 Respiratory Rate 17 04/13/22 15:00 Respiratory Effort 04/13/22 15:16 Respiratory Depth Normal 04/13/22 15:16 Blood Pressure 117/48 L 04/13/22 15:00 Blood Pressure Position Supine 04/13/22 15:00 Pulse Oximetry 94 04/13/22 15:00 Oxygen Delivery Method Room Air 04/13/22 15:00 Oxygen Flow Rate 0 04/13/22 15:00 Pain Level 10 04/13/22 15:00 PAWSS Have you Been Recently Intoxicated or Drunk Within the Last 30 days?: No Have you Ever Experienced Previous Episodes of Alcohol Withdrawal?: No Have you ever Experienced Withdrawal Seizures?: No Have you ever Experienced Delirium Tremens(DT)s?: No Have you ever undergone Alcohol Rehabilitation Treatment (i.e, inpt ot outpatient treatment programs)?: No Have you ever Experienced Blackouts?: No Have you ever Combined Alcohol with other Downers within the last 90 days?: No Have you ever Combined Alcohol with any other Substance of Abuse during the last 90 days?: No Positive Blood Alcohol level on Presentation? [PCS.BAL]: No Evidence of Increased Autonomic Activity (i.e. HR>120, tremor, sweating, agitation, nausea)?: No Result: 0
[2022-04-13] MEDS: Dexamethasone 10 MG/ML VIAL IM (16:14)
[2022-04-13 16:37] LABS: COVID-19 PCR Negative (Negative); Influenza A PCR Negative (Negative); Influenza B PCR Negative (Negative); RSV PCR Negative (Negative)
[2022-04-13 16:40] LABS: Source Nasopharynx
[2022-04-13 17:57] LABS: Bilirubin Negative (Negative); Blood Negative (Negative); Clarity Clear (Clear); Glucose Negative (Negative); Ketones Negative (Negative); Leukocyte Esterase Negative (Negative); Nitrite Negative (Negative); Urobilinogen 0.2 EU/dL (Up TO 0.2)
--- NOTE | 2022-04-13 18:07 | DI.VRAD_ITS ---
PROCEDURE INFORMATION: Exam: XR Chest Exam date and time: 04/13/2022 17:08 Age: 62 years old Clinical indication: Cough TECHNIQUE: Imaging protocol: Radiologic exam of the chest. Views: 1 view. COMPARISON: CR XR RIBS RT W PA LAT CHEST 01/31/2022 14:46 FINDINGS: Lungs: Patchy opacity in the left lung base is new since prior. Pleural spaces: No pleural effusion. No pneumothorax. Heart/Mediastinum: No cardiomegaly. Bones/joints: No acute fracture. IMPRESSION: Concerning for a left lower lobe pneumonia given the history. Dictated and Authenticated by: Ana Kc MD. Ordering:KEYON Xiong MD
[2022-04-13 18:12] LABS: Bacteria Negative HPF (Negative); C & S Indicated? No; Casts Negative LPF (Negative); Crystals Negative HPF (Negative); Epithelial Cells Few HPF (Negative); Mucus Negative (Negative); RBC 0-2 HPF (0-2)
[2022-04-13 18:15] LABS: Abs Immature Grans 0.03 10^3/uL (0.0-0.06); Absolute Basophil Count 0.01 10^3/uL (0.0-0.2); Absolute Eosinophil Count 0.02 10^3/uL (0.0-0.7); Absolute Lymphocyte Count 0.43 10^3/uL (1.2-3.4); Absolute Monocyte Count 0.37 10^3/uL (0.1-0.8); Absolute Neutrophil Count 2.54 10^3/uL (1.2-6.7); Basophils % 0.3; Eosinophils % 0.6; HCT 26.6 % (36.0-46.0); HGB 8.7 g/dL (11.2-15.7); Immature Grans % 0.9; Lymphocytes % 12.6; MCH 31.6 pg (27.0-33.0); MCHC 32.7 % (32.0-36.0); MCV 97 fL (80-95); MPV 9.9 fL (8.0-11.0); Monocytes % 10.9; Neutrophils % 74.7; Platelet Count 199 10^3/uL (130-400); RBC 2.75 10^6/uL (3.93-5.22); RDW 14.5 % (11.7-14.6); RDW-SD 50.3 fL
[2022-04-13 18:29] LABS: ALT 15 U/L (14-59); AST 14 U/L (15-37); Albumin 3.3 g/dL (3.4-5.0); Alkaline Phosphatase 73 U/L (46-116); Anion Gap 7.6 mmol/L (3-11); BUN 12 mg/dL (7-18); Bilirubin, Total 0.8 mg/dL (0.2-1.0); CO2 24.4 mmol/L (21.0-32.0); CREATININE 0.8 mg/dL (0.55-1.02); Calcium 8.6 mg/dL (8.5-10.1); Chloride 99 mmol/L (98-107); Estimated GFR 83.26 (mL/min/1.73m2); Glucose 138 mg/dL (74-106); Potassium 3.8 mmol/L (3.5-5.1); Sodium 131 mmol/L (136-145); Total Protein 9.3 g/dL (6.4-8.2)
[2022-04-13 19:21] VITALS: BP 118/82; PULSE 82; RESP 18; TEMP 38; O2SAT 95
== END 2022-04-13 19:29 | disposition home or self-care (01) ==
PROVIDERS: Emergency Provider Emergency Medicine; PCP Nurse Practitioner Family
DX: B34.9 Viral infection, unspecified (principal); J18.9 Pneumonia, unspecified organism; F17.210 Nicotine dependence, cigarettes, uncomplicated; Z79.82 Long term (current) use of aspirin; Z92.21 Personal history of antineoplastic chemotherapy; Z20.822 Contact with and (suspected) exposure to COVID-19
CPT/HCPCS: 80053; 87040; 87637; 96372; 99284; 71045; 81003; 81015; 85025; J1100

== ENCOUNTER 2022-04-18 12:54 | Outpatient (CLI) | payer BC, SELFPAY ==
[2022-04-18 13:26] LABS: Abs Immature Grans 0.06 10^3/uL (0.0-0.06); Absolute Basophil Count 0.03 10^3/uL (0.0-0.2); Absolute Eosinophil Count 0.11 10^3/uL (0.0-0.7); Absolute Lymphocyte Count 1.34 10^3/uL (1.2-3.4); Absolute Neutrophil Count 1.89 10^3/uL (1.2-6.7); Basophils % 0.7; Eosinophils % 2.6; HCT 26.4 % (36.0-46.0); HGB 8.7 g/dL (11.2-15.7); Immature Grans % 1.4; Lymphocytes % 31.7; MCV 97 fL (80-95); MPV 9.3 fL (8.0-11.0); Monocytes % 18.9; Neutrophils % 44.7; Nucleated RBC 0.5 % (0.0-0.3); Platelet Count 246 10^3/uL (130-400); RBC 2.72 10^6/uL (3.93-5.22); RDW 14.6 % (11.7-14.6); RDW-SD 51.6 fL; WBC 4.23 10^3/uL (4.4-10.8)
[2022-04-18 13:38] LABS: ALT 13 U/L (14-59); AST 8 U/L (15-37); Alkaline Phosphatase 67 U/L (46-116); Anion Gap 6.6 mmol/L (3-11); BUN 15 mg/dL (7-18); Bilirubin, Total 0.3 mg/dL (0.2-1.0); CO2 26.4 mmol/L (21.0-32.0); CREATININE 0.8 mg/dL (0.55-1.02); Calcium 8.7 mg/dL (8.5-10.1); Chloride 102 mmol/L (98-107); Estimated GFR 83.26 (mL/min/1.73m2); Glucose 120 mg/dL (74-106); Sodium 135 mmol/L (136-145); Total Protein 9.3 g/dL (6.4-8.2)
[2022-04-19 10:00] LABS: IgA 34 mg/dL (85-499); IgG 3323 mg/dL (610-1616); IgM 97 mg/dL (35-242); Kappa Free Light Chain 38.03 mg/dL (0.33-1.94); Lambda Free Light Chain 1.62 mg/dL (0.57-2.63)
[2022-04-19 13:12] LABS: Albumin g/dL 3.7 g/dL (3.6-5.2); Comment (See Note); Monoclonal Spike 28.8 % (None Seen); Monoclonal Spike g/dL 2.4 g/dL (None Seen); Total Protein 8.5 g/dL (6.3-8.2)
== END 2022-04-18 12:55 | disposition home or self-care (01) ==
LOC: LBO 12:55
PROVIDERS: PCP Nurse Practitioner Family; Visit Provider Internal Medicine Hematology & Oncology
DX: C90.00 Multiple myeloma not having achieved remission (principal)
CPT/HCPCS: 36415; 80053; 82784; 83883; 84165; 85025

== ENCOUNTER 2022-05-04 02:59 | Outpatient (CLI) | payer BC, SELFPAY ==
[2022-05-04 13:08] LABS: Abs Immature Grans 0.04 10^3/uL (0.0-0.06); Absolute Basophil Count 0.03 10^3/uL (0.0-0.2); Absolute Eosinophil Count 0.24 10^3/uL (0.0-0.7); Absolute Lymphocyte Count 1.39 10^3/uL (1.2-3.4); Absolute Monocyte Count 0.26 10^3/uL (0.1-0.8); Absolute Neutrophil Count 3.35 10^3/uL (1.2-6.7); Basophils % 0.6; Eosinophils % 4.5; HCT 29.8 % (36.0-46.0); HGB 9.7 g/dL (11.2-15.7); Immature Grans % 0.8; Lymphocytes % 26.2; MCH 31.8 pg (27.0-33.0); MCHC 32.6 % (32.0-36.0); MCV 98 fL (80-95); MPV 10.7 fL (8.0-11.0); Monocytes % 4.9; Platelet Count 232 10^3/uL (130-400); RBC 3.05 10^6/uL (3.93-5.22); RDW 14.6 % (11.7-14.6); RDW-SD 52.7 fL; WBC 5.31 10^3/uL (4.4-10.8)
[2022-05-04 13:30] LABS: ALT 12 U/L (14-59); AST 13 U/L (15-37); Albumin 3.5 g/dL (3.4-5.0); Alkaline Phosphatase 61 U/L (46-116); Anion Gap 5.3 mmol/L (3-11); BUN 12 mg/dL (7-18); Bilirubin, Total 0.3 mg/dL (0.2-1.0); CO2 27.7 mmol/L (21.0-32.0); CREATININE 0.6 mg/dL (0.55-1.02); Calcium 8.7 mg/dL (8.5-10.1); Chloride 101 mmol/L (98-107); Estimated GFR 101.42 (mL/min/1.73m2); Glucose 89 mg/dL (74-106); Potassium 3.9 mmol/L (3.5-5.1); Sodium 134 mmol/L (136-145); Total Protein 9.9 g/dL (6.4-8.2)
[2022-05-05 09:18] LABS: IgA 41 mg/dL (85-499); IgG 3557 mg/dL (610-1616); IgM 93 mg/dL (35-242); Kappa Free Light Chain 47.69 mg/dL (0.33-1.94); Lambda Free Light Chain 1.23 mg/dL (0.57-2.63)
[2022-05-05 13:21] LABS: Albumin 44.8 % (55.8-66.1); Albumin g/dL 4.1 g/dL (3.6-5.2); Comment (See Note); Monoclonal Spike 29.8 % (None Seen); Monoclonal Spike g/dL 2.7 g/dL (None Seen); Total Protein 9.2 g/dL (6.3-8.2)
== END 2022-05-04 03:00 | disposition home or self-care (01) ==
LOC: LBO 02:59
PROVIDERS: PCP Nurse Practitioner Family; Visit Provider Internal Medicine Hematology & Oncology
DX: C90.00 Multiple myeloma not having achieved remission (principal)
CPT/HCPCS: 36415; 80053; 82784; 83883; 84165; 85025

== ENCOUNTER 2022-05-16 03:50 | Outpatient (CLI) | payer BC, SELFPAY ==
[2022-05-16 11:26] LABS: Abs Immature Grans 0.01 10^3/uL (0.0-0.06); Absolute Basophil Count 0.02 10^3/uL (0.0-0.2); Absolute Eosinophil Count 0.19 10^3/uL (0.0-0.7); Absolute Lymphocyte Count 2.01 10^3/uL (1.2-3.4); Absolute Monocyte Count 0.42 10^3/uL (0.1-0.8); Absolute Neutrophil Count 1.12 10^3/uL (1.2-6.7); Basophils % 0.5; HCT 28.7 % (36.0-46.0); HGB 9.1 g/dL (11.2-15.7); Immature Grans % 0.3; Lymphocytes % 53.3; MCH 31.6 pg (27.0-33.0); MCHC 31.7 % (32.0-36.0); MCV 100 fL (80-95); MPV 9.9 fL (8.0-11.0); Monocytes % 11.1; Neutrophils % 29.8; Platelet Count 178 10^3/uL (130-400); RBC 2.88 10^6/uL (3.93-5.22); RDW 15.6 % (11.7-14.6); RDW-SD 55.7 fL; WBC 3.77 10^3/uL (4.4-10.8)
[2022-05-16 11:44] LABS: ALT 16 U/L (14-59); AST 12 U/L (15-37); Albumin 3.5 g/dL (3.4-5.0); Alkaline Phosphatase 55 U/L (46-116); Anion Gap 6.4 mmol/L (3-11); BUN 10 mg/dL (7-18); Bilirubin, Total 0.3 mg/dL (0.2-1.0); CO2 27.6 mmol/L (21.0-32.0); CREATININE 0.7 mg/dL (0.55-1.02); Calcium 8.6 mg/dL (8.5-10.1); Chloride 105 mmol/L (98-107); Estimated GFR 97.72 (mL/min/1.73m2); Glucose 94 mg/dL (74-106); Potassium 4.4 mmol/L (3.5-5.1); Sodium 139 mmol/L (136-145); Total Protein 9.2 g/dL (6.4-8.2)
[2022-05-17 10:11] LABS: IgA 36 mg/dL (85-499); IgG 3365 mg/dL (610-1616); IgM 97 mg/dL (35-242); Kappa Free Light Chain 33.32 mg/dL (0.33-1.94); Lambda Free Light Chain 1.36 mg/dL (0.57-2.63)
[2022-05-17 12:28] LABS: Albumin 47.9 % (55.8-66.1); Albumin g/dL 4.2 g/dL (3.6-5.2); Comment (See Note); Monoclonal Spike 28.3 % (None Seen); Monoclonal Spike g/dL 2.5 g/dL (None Seen); Total Protein 8.7 g/dL (6.3-8.2)
== END 2022-05-16 03:51 | disposition home or self-care (01) ==
LOC: LBO 03:50
PROVIDERS: PCP Nurse Practitioner Family; Visit Provider Internal Medicine Hematology & Oncology
DX: C90.00 Multiple myeloma not having achieved remission (principal)
CPT/HCPCS: 36415; 80053; 82784; 83883; 84165; 85025

== ENCOUNTER 2022-06-12 02:52 | Outpatient (CLI) | payer BC, SELFPAY ==
[2022-06-12 12:51] LABS: Abs Immature Grans 0.01 10^3/uL (0.0-0.06); Absolute Basophil Count 0.01 10^3/uL (0.0-0.2); Absolute Eosinophil Count 0.19 10^3/uL (0.0-0.7); Absolute Lymphocyte Count 1.21 10^3/uL (1.2-3.4); Absolute Monocyte Count 0.45 10^3/uL (0.1-0.8); Absolute Neutrophil Count 1.67 10^3/uL (1.2-6.7); Basophils % 0.3; Eosinophils % 5.4; HGB 9.3 g/dL (11.2-15.7); Immature Grans % 0.3; Lymphocytes % 34.2; MCH 32.7 pg (27.0-33.0); MCHC 33.2 % (32.0-36.0); MCV 99 fL (80-95); MPV 9.6 fL (8.0-11.0); Monocytes % 12.7; Neutrophils % 47.1; Platelet Count 203 10^3/uL (130-400); RBC 2.84 10^6/uL (3.93-5.22); RDW 15.4 % (11.7-14.6); RDW-SD 54.9 fL; WBC 3.54 10^3/uL (4.4-10.8)
[2022-06-12 13:04] LABS: ALT 13 U/L (14-59); AST 16 U/L (15-37); Albumin 3.3 g/dL (3.4-5.0); Alkaline Phosphatase 67 U/L (46-116); Anion Gap 7.5 mmol/L (3-11); BUN 11 mg/dL (7-18); Bilirubin, Total 0.3 mg/dL (0.2-1.0); CO2 26.5 mmol/L (21.0-32.0); CREATININE 0.7 mg/dL (0.55-1.02); Chloride 101 mmol/L (98-107); Estimated GFR 97.72 (mL/min/1.73m2); Glucose 90 mg/dL (74-106); Potassium 3.9 mmol/L (3.5-5.1); Sodium 135 mmol/L (136-145); Total Protein 8.6 g/dL (6.4-8.2)
[2022-06-13 09:00] LABS: IgA 35 mg/dL (85-499); IgG 2849 mg/dL (610-1616); IgM 88 mg/dL (35-242); Kappa Free Light Chain 32.18 mg/dL (0.33-1.94)
[2022-06-13 13:04] LABS: Albumin g/dL 3.9 g/dL (3.6-5.2); Comment (See Note); Monoclonal Spike g/dL 2.1 g/dL (None Seen); Total Protein 8.3 g/dL (6.3-8.2)
== END 2022-06-12 02:53 | disposition home or self-care (01) ==
LOC: LBO 02:52
PROVIDERS: PCP Nurse Practitioner Family; Visit Provider Internal Medicine Hematology & Oncology
DX: C90.00 Multiple myeloma not having achieved remission (principal)
CPT/HCPCS: 36415; 80053; 82784; 83883; 84165; 85025

== ENCOUNTER 2022-07-10 09:28 | Outpatient (CLI) | payer BC, SELFPAY ==
[2022-07-10 13:53] LABS: Absolute Basophil Count 0.01 10^3/uL (0.0-0.2); Absolute Eosinophil Count 0.22 10^3/uL (0.0-0.7); Absolute Monocyte Count 0.51 10^3/uL (0.1-0.8); Absolute Neutrophil Count 1.48 10^3/uL (1.2-6.7); Basophils % 0.3; Eosinophils % 6.3; HCT 29.8 % (36.0-46.0); HGB 9.5 g/dL (11.2-15.7); Lymphocytes % 36.9; MCH 31.6 pg (27.0-33.0); MCHC 31.9 % (32.0-36.0); MCV 99 fL (80-95); MPV 9.2 fL (8.0-11.0); Monocytes % 14.5; Platelet Count 201 10^3/uL (130-400); RBC 3.01 10^6/uL (3.93-5.22); RDW 14.9 % (11.7-14.6); RDW-SD 54.2 fL; WBC 3.52 10^3/uL (4.4-10.8)
[2022-07-10 14:06] LABS: ALT 13 U/L (14-59); AST 11 U/L (15-37); Albumin 3.4 g/dL (3.4-5.0); Alkaline Phosphatase 69 U/L (46-116); Anion Gap 7.1 mmol/L (3-11); BUN 13 mg/dL (7-18); Bilirubin, Total 0.4 mg/dL (0.2-1.0); CO2 26.9 mmol/L (21.0-32.0); CREATININE 0.9 mg/dL (0.55-1.02); Calcium 8.8 mg/dL (8.5-10.1); Chloride 104 mmol/L (98-107); Estimated GFR 72.28 (mL/min/1.73m2); Glucose 91 mg/dL (74-106); Potassium 3.7 mmol/L (3.5-5.1); Sodium 138 mmol/L (136-145); Total Protein 9.2 g/dL (6.4-8.2)
[2022-07-11 11:14] LABS: IgA 36 mg/dL (85-499); IgG 3080 mg/dL (610-1616); IgM 95 mg/dL (35-242); Lambda Free Light Chain 1.51 mg/dL (0.57-2.63)
[2022-07-11 13:58] LABS: Albumin 47.2 % (55.8-66.1); Comment (See Note); Monoclonal Spike 26.3 % (None Seen); Monoclonal Spike g/dL 2.2 g/dL (None Seen); Total Protein 8.5 g/dL (6.3-8.2)
== END 2022-07-10 09:29 | disposition home or self-care (01) ==
LOC: LBO 09:29
PROVIDERS: PCP Nurse Practitioner Family; Visit Provider Internal Medicine Hematology & Oncology
DX: C90.00 Multiple myeloma not having achieved remission (principal)
CPT/HCPCS: 36415; 80053; 82784; 83883; 84165; 85025

== ENCOUNTER 2022-07-20 03:18 | Outpatient (CLI) | payer BC, SELFPAY ==
[2022-07-20 08:24] LABS: Abs Immature Grans 0.01 10^3/uL (0.0-0.06); Absolute Basophil Count 0.04 10^3/uL (0.0-0.2); Absolute Lymphocyte Count 1.26 10^3/uL (1.2-3.4); Absolute Monocyte Count 0.39 10^3/uL (0.1-0.8); Absolute Neutrophil Count 1.07 10^3/uL (1.2-6.7); Basophils % 1.4; Eosinophils % 3.5; HCT 31.7 % (36.0-46.0); HGB 10.7 g/dL (11.2-15.7); Immature Grans % 0.3; Lymphocytes % 43.9; MCH 33.1 pg (27.0-33.0); MCHC 33.8 % (32.0-36.0); MCV 98 fL (80-95); MPV 9.3 fL (8.0-11.0); Monocytes % 13.6; Neutrophils % 37.3; Platelet Count 200 10^3/uL (130-400); RBC 3.23 10^6/uL (3.93-5.22); RDW 14.9 % (11.7-14.6); RDW-SD 53.4 fL; WBC 2.87 10^3/uL (4.4-10.8)
[2022-07-20 08:36] LABS: ALT 14 U/L (14-59); AST 11 U/L (15-37); Albumin 3.4 g/dL (3.4-5.0); Alkaline Phosphatase 72 U/L (46-116); Anion Gap 7.5 mmol/L (3-11); BUN 12 mg/dL (7-18); Bilirubin, Total 0.3 mg/dL (0.2-1.0); CO2 27.5 mmol/L (21.0-32.0); CREATININE 0.9 mg/dL (0.55-1.02); Chloride 103 mmol/L (98-107); Estimated GFR 72.28 (mL/min/1.73m2); Glucose 85 mg/dL (74-106); Sodium 138 mmol/L (136-145); Total Protein 9.3 g/dL (6.4-8.2)
[2022-07-21 10:26] LABS: IgA 35 mg/dL (85-499); IgG 3447 mg/dL (610-1616); IgM 101 mg/dL (35-242); Lambda Free Light Chain 1.27 mg/dL (0.57-2.63)
[2022-07-21 13:34] LABS: Albumin 47.2 % (55.8-66.1); Albumin g/dL 4.2 g/dL (3.6-5.2); Comment (See Note); Monoclonal Spike 27.4 % (None Seen); Monoclonal Spike g/dL 2.5 g/dL (None Seen)
== END 2022-07-20 03:19 | disposition home or self-care (01) ==
LOC: LBO 03:18
PROVIDERS: PCP Nurse Practitioner Family; Visit Provider Internal Medicine Hematology & Oncology
DX: C90.00 Multiple myeloma not having achieved remission (principal)
CPT/HCPCS: 36415; 80053; 82784; 86900; 86901; 83883; 84165; 85025

== ENCOUNTER 2022-08-15 13:46 | Emergency (ER) | payer BC, SELFPAY ==
[2022-08-15 13:57] VITALS: BP 149/42; PULSE 65; RESP 16; TEMP 36.7; O2SAT 99
--- NOTE | 2022-08-15 14:15 | DI.CT_ITS ---
Exam(s) CT LUMBAR SPINE WO EXAM: CT LUMBAR SPINE WO CLINICAL HISTORY: Lower lumbar Pain,. TECHNIQUE: Imaging Protocol: Axial computed tomography images with coronal and sagittal reformatted images were created and reviewed. COMPARISON: CT CT LUMBAR SPINE WO from 05/11/2021 FINDINGS: Bones: There are stable compression fracture deformities involving T12 through L5. There is stable al ignment of the lumbar spine. The bones are osteopenic. There is cortical disruption in several area s of the spine visualized spine and pelvis including the anterior body of L4 and the left sacral ala. The findings are suspicious for lytic metastatic disease. No new fracture or subluxation is identi fied. Soft tissues: No significant central spinal canal or neural foraminal stenosis is present. Atheroscl erosis is present. IMPRESSION: 1. No new fracture or subluxation is seen in the lumbar spine. 2. Multiple lucencies in osteopenia consistent with metastatic disease or multiple myeloma. 3. Stable compression fracture deformities involving the T12 through L5 vertebral bodies. 4. Findings were discussed with Mirian Blair at 3:19 p.m. on 08/15/2022. RADIATION DOSE DELIVERED: 625.48mGy.cm Total DLP 625.48mGy.cm Total DLP DATA REPOSITORY: All CT scans at this facility are submitted to the National Radiology Data Registry (NRDR) Dose Index Registry (DIR) with the [employer] (A[employer]). RADIATION OPTIMIZATION: All CT scans at this facility use at least one of these dose optimization te chniques: automated exposure control; mA and/or kV adjustment per patient size (includes targeted exa ms where dose is matched to clinical indication); or iterative reconstruction.
--- NOTE | 2022-08-15 14:19 | ED.GENADUL_ITS ---
Discharge Plan Disposition Patient Disposition: Home Discharge Details Clinical Impression: Chronic back pain Primary Care Provider: Analilia Lechuga ED Provider: Mirian Blair Home Meds and New Rx's Prescriptions: New oxycodone 5 mg capsule 5 mg PO Q8H PRN (Reason: pain) Qty: 7 0RF Rx Instructions: Take 1 capsule 3 times a day as needed Continued acetaminophen 500 mg capsule 1,000 mg PO TID PRN PRN (Reason: fever) Qty: 300 0RF albuterol sulfate 90 mcg/actuation HFA aerosol inhaler INHALATION Patient Comments: INHALE 2 PUFFS BY MOUTH EVERY 4 TO 6 HOURS NEEDED FOR SHORTNESS OF BREATH OR WHEEZING OR COUGH ondansetron HCl 4 mg tablet 4 mg PO PRN PRN Patient Comments: TAKE 1 TABLET BY MOUTH EVERY 8 HOURS NEEDED FOR NAUSEA prochlorperazine maleate 10 mg tablet 10 mg PO PRN PRN Patient Comments: TAKE 1 TABLET BY MOUTH EVERY 6 HOURS NEEDED FOR NAUSEA acyclovir 400 mg tablet 400 mg PO DAILY Patient Comments: TAKE 1 TABLET BY MOUTH TWICE DAILY aspirin 81 mg tablet,delayed release (DR/EC) 81 mg PO DAILY Patient Comments: TAKE 1 TABLET BY MOUTH DAILY tramadol 50 mg tablet 50 mg PO PRN PRN Patient Comments: TAKE 1 TABLET BY MOUTH EVERY 6 HOURS NEEDED FOR PAIN meloxicam 7.5 mg tablet Patient Comments: TAKE ONE TABLET BY MOUTH TWICE A DAY NEEDED FOR PAIN omeprazole 20 mg capsule,delayed release(DR/EC) 29 mg PO DAILY Patient Comments: TAKE 1 CAPSULE BY MOUTH ONCE DAILY Discharge Instructions Instructions: Back Pain (ED) Additional Instructions: Please take pain medication. No driving or operating machinery. Please follow-up with your primary care provider regarding further pain control. nothing acute on the CT today. Follow up with primary care provider in 3-5 days. Return to ED sooner if any worsening or concerns. Increase oral fluids. Referrals: Analilia Lechuga [Primary Care Provider] - [address] Lumbar spine ordered, oxycodone p.o. CT showed nothing acute, she does have stable compression fractures from T12-L5. Patient given oxycodone for pain control and instructed to follow-up with PCP for further care. This text was generated using Nopsecation system, please disregard any oddities of phrase or misspellings. HPI General Mode of arrival: ambulatory ([place]) . Date/Time Provider Initiated Documentation: 08/15/22 14:10 . Limitations to Documentation: no limitations . Information obtained by: patient, RN notes reviewed and old records reviewed . HPI Narrative: 52-year-old female with a past medical history of recent fracture, anemia and osteoporosis presents to the ER with chief complaint of worsening over the last 2 days. Patient patient strained her this morning and worse with trying to stand up. She denies any bowel or bladder loss control. He has been taking tramadol, lidocaine, Tylenol and ibuprofen Related Data Home Medications Medication Instructions Recorded Confirmed albuterol sulfate 90 mcg/actuation inhalation 02/20/21 10/20/21 aerosol inhaler acetaminophen 500 mg capsule 1,000 mg PO TID PRN PRN fever #300 10/20/21 04/13/22 caps acyclovir 400 mg tablet 400 mg PO DAILY 01/31/22 04/13/22 aspirin 81 mg tablet,delayed 81 mg PO DAILY 01/31/22 04/13/22 release meloxicam 7.5 mg tablet tab 01/31/22 01/31/22 omeprazole 20 mg capsule,delayed 29 mg PO DAILY 01/31/22 04/13/22 release ondansetron HCl 4 mg tablet 4 mg PO PRN PRN 01/31/22 04/13/22 prochlorperazine maleate 10 mg 10 mg PO PRN PRN 01/31/22 04/13/22 tablet tramadol 50 mg tablet 50 mg PO PRN PRN 01/31/22 04/13/22 oxycodone 5 mg capsule 5 mg PO Q8H PRN pain #7 caps 08/15/22 Previous Rx's Medication Instructions Recorded acetaminophen 500 mg capsule 1,000 mg PO TID PRN PRN fever #300 10/20/21 caps oxycodone 5 mg capsule 5 mg PO Q8H PRN pain #7 caps 08/15/22 Allergies Allergy/AdvReac Type Severity Reaction Status Date / Time No Known Allergies Allergy Unverified 04/13/22 15:04 General Stated Complaint: Nk/Back Pain REA: 3 Review of Systems Musculoskeletal Musculoskeletal: Reports as per HPI and Reports back pain PFSH All Active Problems (Updated 08/15/22 @ 15:24 by Mirian Blair NP) Chronic back pain (Acute) Osteoporosis (Chronic) Trochanteric bursitis, right hip (Acute) Tobacco dependence (Acute) Osteopenia (Acute) Peripheral edema (Acute) Depression (Chronic) Compression fracture of L2 lumbar vertebra (Acute) Compression fracture (Acute) Social History Smoking/Tobacco Use Status: Former Tobacco Use Smoking risk assessment performed?: Yes Drug use: Never Substance use type: does not use Do you feel safe at home: Yes Do you feel safe in your relationship?: Yes Exam Narrative Exam Narrative: Constitutional: Alert and oriented x3. Appears stated age. Normal body habitus. Head: Normocephalic, no trauma. Eyes: Pupils PERRL, Red reflex noted, EOM's intact. Eyelids symmetrical without lesions, discharge, or swelling. ENT: Bilateral TM's WNL, External ear normal to inspection, no mastoid TTP, swelling, or erythema, Nasal turbinates WNL, no nasal discharge. Normal dentition, Posterior pharynx WNL, no exudate. Chest: RRR, Normal S1, S2, distal pulses intact. Resp: Lungs clear to auscultation bilaterally, no wheezes, rales, or rhonchi. Abdomen: Soft, non-distended, Normoactive bowel sounds all 4 quads. Musculoskeletal: 5/5 strength to all four extremities. Skin: No suspicious rashes or lesions. Capillary refill less than 2 sec. Neurologic: Cranial nerves II-XII intact. Alert and oriented x 3. Motor: No deficits noted. Sensory: Intact bilaterally all 4 extremities. Reflexes: DTR's intact bilaterally.. Hematologic/Lymphatic: No ecchymosis, no lymphadenopathy. Course Vital Signs Vital signs: Vital Signs Temperature 36.7 C 08/15/22 13:57 Pulse 65 08/15/22 13:57 Respiratory Rate 16 08/15/22 13:57 Blood Pressure 149/42 H 08/15/22 13:57 Pulse Oximetry 99 08/15/22 13:57 Temperature 36.7 C 08/15/22 13:57 Temperature Source Oral 08/15/22 13:57 Pulse 65 08/15/22 13:57 Respiratory Rate 16 08/15/22 13:57 Respiratory Effort Normal 08/15/22 14:01 Blood Pressure 149/42 H 08/15/22 13:57 Blood Pressure Position Sitting 03/28/23 13:57 Pulse Oximetry 99 08/15/22 13:57 Oxygen Delivery Method Room Air 08/15/22 13:57 Oxygen Flow Rate 0 08/15/22 13:57 Pain Level 7 08/15/22 13:57 PAWSS Have you Been Recently Intoxicated or Drunk Within the Last 30 days?: No Have you Ever Experienced Previous Episodes of Alcohol Withdrawal?: No Have you ever Experienced Withdrawal Seizures?: No Have you ever Experienced Delirium Tremens(DT)s?: No Have you ever undergone Alcohol Rehabilitation Treatment (i.e, inpt ot outpatient treatment programs)?: No Have you ever Experienced Blackouts?: No Have you ever Combined Alcohol with other Downers within the last 90 days?: No Have you ever Combined Alcohol with any other Substance of Abuse during the last 90 days?: No Positive Blood Alcohol level on Presentation? [PCS.BAL]: No Evidence of Increased Autonomic Activity (i.e. HR>120, tremor, sweating, agitation, nausea)?: No Result: 0
[2022-08-15] MEDS: oxyCODONE 5 MG TAB PO (14:29)
[2022-08-15 15:31] VITALS: BP 122/85; PULSE 71; RESP 18; O2SAT 97
== END 2022-08-15 15:32 | disposition home or self-care (01) ==
PROVIDERS: Emergency Provider Registered Nurse Emergency; PCP Nurse Practitioner Family
DX: M54.50 Low back pain, unspecified (principal); G89.29 Other chronic pain
CPT/HCPCS: 99283; 72131; 99284

== ENCOUNTER 2022-08-17 02:25 | Outpatient (CLI) | payer BC, SELFPAY ==
[2022-08-17 13:21] LABS: Abs Immature Grans 0.01 10^3/uL (0.0-0.06); Absolute Basophil Count 0.01 10^3/uL (0.0-0.2); Absolute Eosinophil Count 0.09 10^3/uL (0.0-0.7); Absolute Lymphocyte Count 1.08 10^3/uL (1.2-3.4); Absolute Monocyte Count 0.52 10^3/uL (0.1-0.8); Absolute Neutrophil Count 1.58 10^3/uL (1.2-6.7); Basophils % 0.3; Eosinophils % 2.7; HCT 31.9 % (36.0-46.0); HGB 10.7 g/dL (11.2-15.7); Immature Grans % 0.3; Lymphocytes % 32.8; MCH 32.3 pg (27.0-33.0); MCHC 33.5 % (32.0-36.0); MCV 96 fL (80-95); Monocytes % 15.8; Neutrophils % 48.1; Platelet Count 222 10^3/uL (130-400); RBC 3.31 10^6/uL (3.93-5.22); RDW 14.5 % (11.7-14.6); RDW-SD 50.3 fL; WBC 3.29 10^3/uL (4.4-10.8)
[2022-08-17 13:36] LABS: ALT 13 U/L (14-59); AST 11 U/L (15-37); Albumin 3.5 g/dL (3.4-5.0); Alkaline Phosphatase 81 U/L (46-116); Anion Gap 8.3 mmol/L (3-11); BUN 11 mg/dL (7-18); Bilirubin, Total 0.3 mg/dL (0.2-1.0); CO2 26.7 mmol/L (21.0-32.0); CREATININE 0.9 mg/dL (0.55-1.02); Calcium 9.1 mg/dL (8.5-10.1); Chloride 102 mmol/L (98-107); Estimated GFR 72.28 (mL/min/1.73m2); Glucose 101 mg/dL (74-106); Potassium 4.1 mmol/L (3.5-5.1); Sodium 137 mmol/L (136-145); Total Protein 8.8 g/dL (6.4-8.2)
[2022-08-21 09:53] LABS: IgA 23 mg/dL (85-499); IgG 2650 mg/dL (610-1616); IgM 81 mg/dL (35-242); Kappa Free Light Chain 21.04 mg/dL (0.33-1.94); Lambda Free Light Chain 0.85 mg/dL (0.57-2.63)
[2022-08-21 13:39] LABS: Albumin 49.4 % (55.8-66.1); Albumin g/dL 4.1 g/dL (3.6-5.2); Comment (See Note); Monoclonal Spike 25.1 % (None Seen); Monoclonal Spike g/dL 2.1 g/dL (None Seen); Total Protein 8.4 g/dL (6.3-8.2)
[2022-08-21 16:26] LABS: Immunotyping, Serum (See Note)
== END 2022-08-17 02:26 | disposition home or self-care (01) ==
LOC: LBO 02:26
PROVIDERS: PCP Nurse Practitioner Family; Visit Provider Internal Medicine Hematology & Oncology
DX: C90.00 Multiple myeloma not having achieved remission (principal)
CPT/HCPCS: 36415; 80053; 82784; 83883; 84165; 85025; 86320

== ENCOUNTER 2022-08-31 13:51 | Outpatient (CLI) | payer BC, SELFPAY ==
[2022-08-31 14:41] LABS: Abs Immature Grans 0.02 10^3/uL (0.0-0.06); Absolute Basophil Count 0.01 10^3/uL (0.0-0.2); Absolute Eosinophil Count 0.21 10^3/uL (0.0-0.7); Absolute Lymphocyte Count 0.81 10^3/uL (1.2-3.4); Absolute Monocyte Count 0.56 10^3/uL (0.1-0.8); Basophils % 0.2; Eosinophils % 4.9; HCT 30.7 % (36.0-46.0); HGB 10.3 g/dL (11.2-15.7); Immature Grans % 0.5; Lymphocytes % 18.8; MCH 32.6 pg (27.0-33.0); MCHC 33.6 % (32.0-36.0); MCV 97 fL (80-95); MPV 10.4 fL (8.0-11.0); Neutrophils % 62.6; Platelet Count 164 10^3/uL (130-400); RBC 3.16 10^6/uL (3.93-5.22); RDW 14.9 % (11.7-14.6); RDW-SD 52.6 fL; WBC 4.32 10^3/uL (4.4-10.8)
[2022-08-31 14:51] LABS: ALT 15 U/L (14-59); AST 12 U/L (15-37); Albumin 3.3 g/dL (3.4-5.0); Alkaline Phosphatase 74 U/L (46-116); Anion Gap 4.5 mmol/L (3-11); BUN 8 mg/dL (7-18); Bilirubin, Total 0.4 mg/dL (0.2-1.0); CO2 27.5 mmol/L (21.0-32.0); CREATININE 0.7 mg/dL (0.55-1.02); Calcium 8.2 mg/dL (8.5-10.1); Chloride 105 mmol/L (98-107); Estimated GFR 97.72 (mL/min/1.73m2); Glucose 98 mg/dL (74-106); Potassium 3.8 mmol/L (3.5-5.1); Sodium 137 mmol/L (136-145)
== END 2022-08-31 13:52 | disposition home or self-care (01) ==
LOC: LBO 13:52
PROVIDERS: PCP Nurse Practitioner Family; Visit Provider Internal Medicine Hematology & Oncology
DX: C90.00 Multiple myeloma not having achieved remission (principal)
CPT/HCPCS: 36415; 80053; 85025

== ENCOUNTER 2022-09-28 02:28 | Outpatient (CLI) | payer BC, SELFPAY ==
[2022-09-28 12:24] LABS: Abs Immature Grans 0.01 10^3/uL (0.0-0.06); Absolute Basophil Count 0.01 10^3/uL (0.0-0.2); Absolute Eosinophil Count 0.15 10^3/uL (0.0-0.7); Absolute Lymphocyte Count 0.82 10^3/uL (1.2-3.4); Absolute Monocyte Count 0.55 10^3/uL (0.1-0.8); Absolute Neutrophil Count 2.07 10^3/uL (1.2-6.7); Basophils % 0.3; Eosinophils % 4.2; HCT 32.1 % (36.0-46.0); HGB 10.8 g/dL (11.2-15.7); Immature Grans % 0.3; Lymphocytes % 22.7; MCH 33.1 pg (27.0-33.0); MCHC 33.6 % (32.0-36.0); MCV 99 fL (80-95); MPV 10.7 fL (8.0-11.0); Monocytes % 15.2; Neutrophils % 57.3; Platelet Count 164 10^3/uL (130-400); RBC 3.26 10^6/uL (3.93-5.22); RDW-SD 57.7 fL; WBC 3.61 10^3/uL (4.4-10.8)
[2022-09-28 12:39] LABS: ALT 16 U/L (14-59); AST 9 U/L (15-37); Albumin 3.6 g/dL (3.4-5.0); Alkaline Phosphatase 72 U/L (46-116); BUN 9 mg/dL (7-18); Bilirubin, Total 0.4 mg/dL (0.2-1.0); CREATININE 0.7 mg/dL (0.55-1.02); Calcium 8.8 mg/dL (8.5-10.1); Chloride 102 mmol/L (98-107); Estimated GFR 97.72 (mL/min/1.73m2); Glucose 103 mg/dL (74-106); Potassium 4.1 mmol/L (3.5-5.1); Sodium 139 mmol/L (136-145); Total Protein 8.6 g/dL (6.4-8.2)
[2022-09-29 10:42] LABS: IgA 24 mg/dL (85-499); IgG 1951 mg/dL (610-1616); IgM 80 mg/dL (35-242); Kappa Free Light Chain 15.69 mg/dL (0.33-1.94); Lambda Free Light Chain 1.01 mg/dL (0.57-2.63)
[2022-09-29 12:51] LABS: Albumin g/dL 4.2 g/dL (3.6-5.2); Comment (See Note); Monoclonal Spike 19.7 % (None Seen); Monoclonal Spike g/dL 1.5 g/dL (None Seen); Total Protein 7.7 g/dL (6.3-8.2)
== END 2022-09-28 02:29 | disposition home or self-care (01) ==
PROVIDERS: PCP Nurse Practitioner Family; Visit Provider Internal Medicine Hematology & Oncology
DX: C90.00 Multiple myeloma not having achieved remission (principal)
CPT/HCPCS: 36415; 80053; 82784; 83883; 84165; 85025

== ENCOUNTER 2022-10-10 14:36 | Outpatient (CLI) | payer BC, SELFPAY ==
[2022-10-10 13:17] LABS: Abs Immature Grans 0.01 10^3/uL (0.0-0.06); Absolute Basophil Count 0.01 10^3/uL (0.0-0.2); Absolute Eosinophil Count 0.13 10^3/uL (0.0-0.7); Absolute Lymphocyte Count 1.14 10^3/uL (1.2-3.4); Absolute Monocyte Count 0.39 10^3/uL (0.1-0.8); Absolute Neutrophil Count 1.62 10^3/uL (1.2-6.7); Basophils % 0.3; Eosinophils % 3.9; HCT 32.5 % (36.0-46.0); HGB 10.9 g/dL (11.2-15.7); Immature Grans % 0.3; Lymphocytes % 34.5; MCH 33.9 pg (27.0-33.0); MCHC 33.5 % (32.0-36.0); MCV 101 fL (80-95); MPV 9.6 fL (8.0-11.0); Monocytes % 11.8; Neutrophils % 49.2; Platelet Count 210 10^3/uL (130-400); RBC 3.22 10^6/uL (3.93-5.22); RDW 16.2 % (11.7-14.6); RDW-SD 59.8 fL
[2022-10-10 13:55] LABS: ALT 15 U/L (14-59); AST 15 U/L (15-37); Albumin 3.5 g/dL (3.4-5.0); Alkaline Phosphatase 80 U/L (46-116); Anion Gap 6.4 mmol/L (3-11); BUN 11 mg/dL (7-18); Bilirubin, Total 0.4 mg/dL (0.2-1.0); CO2 27.6 mmol/L (21.0-32.0); CREATININE 0.7 mg/dL (0.55-1.02); Calcium 8.9 mg/dL (8.5-10.1); Chloride 105 mmol/L (98-107); Estimated GFR 97.72 (mL/min/1.73m2); Glucose 106 mg/dL (74-106); Sodium 139 mmol/L (136-145); Total Protein 8.3 g/dL (6.4-8.2)
[2022-10-12 12:33] LABS: IgA 31 mg/dL (85-499); IgG 2002 mg/dL (610-1616); IgM 67 mg/dL (35-242); Kappa Free Light Chain 14.63 mg/dL (0.33-1.94); Lambda Free Light Chain 0.88 mg/dL (0.57-2.63)
[2022-10-12 13:30] LABS: Albumin 53.6 % (55.8-66.1); Albumin g/dL 4.3 g/dL (3.6-5.2); Comment (See Note); Monoclonal Spike 19.4 % (None Seen); Monoclonal Spike g/dL 1.6 g/dL (None Seen)
== END 2022-10-10 14:37 | disposition home or self-care (01) ==
LOC: LBO 14:37
PROVIDERS: PCP Nurse Practitioner Family; Visit Provider Internal Medicine Hematology & Oncology
DX: C90.00 Multiple myeloma not having achieved remission (principal)
CPT/HCPCS: 36415; 80053; 82784; 83883; 84165; 85025

== ENCOUNTER 2022-10-26 15:57 | Outpatient (CLI) | payer BC, SELFPAY ==
[2022-10-26 12:16] LABS: Abs Immature Grans 0.01 10^3/uL (0.0-0.06); Absolute Basophil Count 0.02 10^3/uL (0.0-0.2); Absolute Lymphocyte Count 0.81 10^3/uL (1.2-3.4); Absolute Monocyte Count 0.49 10^3/uL (0.1-0.8); Absolute Neutrophil Count 1.53 10^3/uL (1.2-6.7); Basophils % 0.7; Eosinophils % 3.4; HCT 33.7 % (36.0-46.0); HGB 11.7 g/dL (11.2-15.7); Immature Grans % 0.3; Lymphocytes % 27.4; MCH 34.9 pg (27.0-33.0); MCHC 34.7 % (32.0-36.0); MCV 101 fL (80-95); MPV 10.6 fL (8.0-11.0); Monocytes % 16.6; Neutrophils % 51.6; Nucleated RBC 0.7 % (0.0-0.3); Platelet Count 126 10^3/uL (130-400); RBC 3.35 10^6/uL (3.93-5.22); RDW 15.9 % (11.7-14.6); RDW-SD 58.3 fL; WBC 2.96 10^3/uL (4.4-10.8)
[2022-10-26 12:30] LABS: ALT 17 U/L (14-59); AST 14 U/L (15-37); Albumin 3.4 g/dL (3.4-5.0); Alkaline Phosphatase 82 U/L (46-116); Anion Gap 4.3 mmol/L (3-11); BUN 6 mg/dL (7-18); Bilirubin, Total 0.4 mg/dL (0.2-1.0); CO2 30.7 mmol/L (21.0-32.0); CREATININE 0.7 mg/dL (0.55-1.02); Calcium 8.5 mg/dL (8.5-10.1); Chloride 103 mmol/L (98-107); Estimated GFR 97.72 (mL/min/1.73m2); Glucose 96 mg/dL (74-106); Potassium 3.8 mmol/L (3.5-5.1); Sodium 138 mmol/L (136-145)
[2022-10-30 09:59] LABS: IgA 27 mg/dL (85-499); IgG 2153 mg/dL (610-1616); IgM 70 mg/dL (35-242); Kappa Free Light Chain 17.27 mg/dL (0.33-1.94); Lambda Free Light Chain 1.06 mg/dL (0.57-2.63)
[2022-10-30 13:27] LABS: Albumin 53.5 % (55.8-66.1); Albumin g/dL 4.2 g/dL (3.6-5.2); Comment (See Note); Monoclonal Spike 20.4 % (None Seen); Monoclonal Spike g/dL 1.6 g/dL (None Seen); Total Protein 7.8 g/dL (6.3-8.2)
== END 2022-10-26 15:58 | disposition home or self-care (01) ==
LOC: LBO 15:58
PROVIDERS: PCP Nurse Practitioner Family; Visit Provider Internal Medicine Hematology & Oncology
DX: C90.00 Multiple myeloma not having achieved remission (principal)
CPT/HCPCS: 36415; 80053; 82784; 83883; 84165; 85025

== ENCOUNTER 2022-11-06 04:18 | Outpatient (CLI) | payer BC, SELFPAY ==
[2022-11-06 13:17] LABS: Abs Immature Grans 0.01 10^3/uL (0.0-0.06); Absolute Basophil Count 0.02 10^3/uL (0.0-0.2); Absolute Eosinophil Count 0.15 10^3/uL (0.0-0.7); Absolute Lymphocyte Count 0.64 10^3/uL (1.2-3.4); Absolute Monocyte Count 0.48 10^3/uL (0.1-0.8); Absolute Neutrophil Count 1.45 10^3/uL (1.2-6.7); Basophils % 0.7; Eosinophils % 5.5; HCT 32.2 % (36.0-46.0); Immature Grans % 0.4; Lymphocytes % 23.3; MCH 35.1 pg (27.0-33.0); MCHC 34.2 % (32.0-36.0); MCV 103 fL (80-95); Monocytes % 17.5; Neutrophils % 52.6; Platelet Count 216 10^3/uL (130-400); RBC 3.13 10^6/uL (3.93-5.22); RDW 15.9 % (11.7-14.6); RDW-SD 60.1 fL; WBC 2.75 10^3/uL (4.4-10.8)
[2022-11-06 14:07] LABS: Albumin 3.5 g/dL (3.4-5.0); Alkaline Phosphatase 76 U/L (46-116); BUN 9 mg/dL (7-18); Bilirubin, Total 0.8 mg/dL (0.2-1.0); CREATININE 0.6 mg/dL (0.55-1.02); Calcium 8.7 mg/dL (8.5-10.1); Estimated GFR 101.42 (mL/min/1.73m2); Glucose 120 mg/dL (74-106); Total Protein 8.4 g/dL (6.4-8.2)
[2022-11-06 14:08] LABS: ALT 15 U/L (14-59); AST 13 U/L (15-37); Anion Gap 6.1 mmol/L (3-11); CO2 27.9 mmol/L (21.0-32.0); Chloride 103 mmol/L (98-107); Potassium 3.6 mmol/L (3.5-5.1); Sodium 137 mmol/L (136-145)
[2022-11-07 10:40] LABS: IgA 27 mg/dL (85-499); IgG 2103 mg/dL (610-1616); IgM 73 mg/dL (35-242); Kappa Free Light Chain 17.05 mg/dL (0.33-1.94)
[2022-11-07 13:47] LABS: Albumin 53.4 % (55.8-66.1); Albumin g/dL 4.2 g/dL (3.6-5.2); Comment (See Note); Monoclonal Spike 21.3 % (None Seen); Monoclonal Spike g/dL 1.7 g/dL (None Seen); Total Protein 7.9 g/dL (6.3-8.2)
[2022-11-07 15:26] LABS: Immunotyping, Serum (See Note)
== END 2022-11-06 04:19 | disposition home or self-care (01) ==
LOC: LBO 04:18
PROVIDERS: PCP Nurse Practitioner Family; Visit Provider Internal Medicine Hematology & Oncology
DX: C90.00 Multiple myeloma not having achieved remission (principal)
CPT/HCPCS: 36415; 80053; 82784; 83883; 84165; 85025; 86320

== ENCOUNTER 2022-11-23 03:10 | Outpatient (CLI) | payer BC, SELFPAY ==
[2022-11-23 12:52] LABS: Abs Immature Grans 0.02 10^3/uL (0.0-0.06); Absolute Basophil Count 0.03 10^3/uL (0.0-0.2); Absolute Eosinophil Count 0.25 10^3/uL (0.0-0.7); Absolute Lymphocyte Count 0.81 10^3/uL (1.2-3.4); Absolute Monocyte Count 0.34 10^3/uL (0.1-0.8); Absolute Neutrophil Count 2.12 10^3/uL (1.2-6.7); Basophils % 0.8; HCT 34.5 % (36.0-46.0); HGB 11.7 g/dL (11.2-15.7); Immature Grans % 0.6; Lymphocytes % 22.7; MCH 34.8 pg (27.0-33.0); MCHC 33.9 % (32.0-36.0); MCV 103 fL (80-95); MPV 11.4 fL (8.0-11.0); Monocytes % 9.5; Neutrophils % 59.4; Platelet Count 123 10^3/uL (130-400); RBC 3.36 10^6/uL (3.93-5.22); RDW 13.7 % (11.7-14.6); WBC 3.57 10^3/uL (4.4-10.8)
[2022-11-23 13:11] LABS: ALT 14 U/L (14-59); AST 14 U/L (15-37); Albumin 3.6 g/dL (3.4-5.0); Alkaline Phosphatase 62 U/L (46-116); Anion Gap 7.4 mmol/L (3-11); BUN 9 mg/dL (7-18); Bilirubin, Total 0.6 mg/dL (0.2-1.0); CO2 28.6 mmol/L (21.0-32.0); CREATININE 0.6 mg/dL (0.55-1.02); Calcium 8.2 mg/dL (8.5-10.1); Chloride 103 mmol/L (98-107); Estimated GFR 101.42 (mL/min/1.73m2); Glucose 120 mg/dL (74-106); Potassium 3.8 mmol/L (3.5-5.1); Sodium 139 mmol/L (136-145); Total Protein 8.1 g/dL (6.4-8.2)
[2022-11-24 09:32] LABS: IgA 25 mg/dL (85-499); IgG 2079 mg/dL (610-1616); IgM 71 mg/dL (35-242); Kappa Free Light Chain 17.24 mg/dL (0.33-1.94); Lambda Free Light Chain 0.85 mg/dL (0.57-2.63)
[2022-11-24 13:17] LABS: Albumin 53.5 % (55.8-66.1); Albumin g/dL 4.1 g/dL (3.6-5.2); Comment (See Note); Monoclonal Spike 19.4 % (None Seen); Monoclonal Spike g/dL 1.5 g/dL (None Seen); Total Protein 7.6 g/dL (6.3-8.2)
== END 2022-11-23 03:11 | disposition home or self-care (01) ==
LOC: LBO 03:10
PROVIDERS: PCP Nurse Practitioner Family; Visit Provider Internal Medicine Hematology & Oncology
DX: C90.00 Multiple myeloma not having achieved remission (principal)
CPT/HCPCS: 36415; 80053; 82784; 83883; 84165; 85025

== ENCOUNTER 2022-11-30 03:03 | Outpatient (CLI) | payer BC, SELFPAY ==
[2022-11-30 13:19] LABS: Abs Immature Grans 0.01 10^3/uL (0.0-0.06); Absolute Basophil Count 0.01 10^3/uL (0.0-0.2); Absolute Eosinophil Count 0.16 10^3/uL (0.0-0.7); Absolute Lymphocyte Count 0.99 10^3/uL (1.2-3.4); Absolute Monocyte Count 0.58 10^3/uL (0.1-0.8); Absolute Neutrophil Count 2.77 10^3/uL (1.2-6.7); Basophils % 0.2; Eosinophils % 3.5; HCT 34.3 % (36.0-46.0); HGB 11.6 g/dL (11.2-15.7); Immature Grans % 0.2; Lymphocytes % 21.9; MCH 34.8 pg (27.0-33.0); MCHC 33.8 % (32.0-36.0); MCV 103 fL (80-95); Monocytes % 12.8; Neutrophils % 61.4; Platelet Count 152 10^3/uL (130-400); RBC 3.33 10^6/uL (3.93-5.22); RDW 13.3 % (11.7-14.6); RDW-SD 50.2 fL; WBC 4.52 10^3/uL (4.4-10.8)
[2022-11-30 13:35] LABS: ALT 13 U/L (14-59); AST 9 U/L (15-37); Albumin 3.4 g/dL (3.4-5.0); Alkaline Phosphatase 59 U/L (46-116); Anion Gap 6.2 mmol/L (3-11); BUN 10 mg/dL (7-18); Bilirubin, Total 0.6 mg/dL (0.2-1.0); CO2 26.8 mmol/L (21.0-32.0); CREATININE 0.7 mg/dL (0.55-1.02); Calcium 8.2 mg/dL (8.5-10.1); Chloride 103 mmol/L (98-107); Estimated GFR 97.72 (mL/min/1.73m2); Glucose 130 mg/dL (74-106); Potassium 3.7 mmol/L (3.5-5.1); Sodium 136 mmol/L (136-145); Total Protein 7.7 g/dL (6.4-8.2)
[2022-12-01 10:44] LABS: IgA 26 mg/dL (85-499); IgG 1947 mg/dL (610-1616); IgM 70 mg/dL (35-242); Kappa Free Light Chain 16.87 mg/dL (0.33-1.94); Lambda Free Light Chain 0.85 mg/dL (0.57-2.63)
[2022-12-01 13:03] LABS: Albumin 54.2 % (55.8-66.1); Comment (See Note); Monoclonal Spike 18.1 % (None Seen); Monoclonal Spike g/dL 1.3 g/dL (None Seen); Total Protein 7.4 g/dL (6.3-8.2)
== END 2022-11-30 03:04 | disposition home or self-care (01) ==
LOC: LBO 03:03
PROVIDERS: PCP Nurse Practitioner Family; Visit Provider Internal Medicine Hematology & Oncology
DX: C90.00 Multiple myeloma not having achieved remission (principal)
CPT/HCPCS: 36415; 80053; 82784; 83883; 84165; 85025

== ENCOUNTER 2022-12-11 04:39 | Outpatient (CLI) | payer BC, SELFPAY ==
[2022-12-11 10:56] LABS: Abs Immature Grans 0.01 10^3/uL (0.0-0.06); Absolute Basophil Count 0.01 10^3/uL (0.0-0.2); Absolute Eosinophil Count 0.13 10^3/uL (0.0-0.7); Absolute Lymphocyte Count 1.04 10^3/uL (1.2-3.4); Absolute Monocyte Count 0.56 10^3/uL (0.1-0.8); Absolute Neutrophil Count 1.94 10^3/uL (1.2-6.7); Basophils % 0.3; Eosinophils % 3.5; HCT 33.2 % (36.0-46.0); HGB 11.3 g/dL (11.2-15.7); Immature Grans % 0.3; Lymphocytes % 28.2; MCH 34.9 pg (27.0-33.0); MCV 103 fL (80-95); MPV 9.3 fL (8.0-11.0); Monocytes % 15.2; Neutrophils % 52.5; Platelet Count 304 10^3/uL (130-400); RBC 3.24 10^6/uL (3.93-5.22); RDW 13.2 % (11.7-14.6); RDW-SD 49.1 fL; WBC 3.69 10^3/uL (4.4-10.8)
[2022-12-11 11:14] LABS: ALT 10 U/L (14-59); AST 11 U/L (15-37); Albumin 3.3 g/dL (3.4-5.0); Alkaline Phosphatase 80 U/L (46-116); Anion Gap 7.7 mmol/L (3-11); BUN 5 mg/dL (7-18); Bilirubin, Total 0.4 mg/dL (0.2-1.0); CO2 27.3 mmol/L (21.0-32.0); CREATININE 0.6 mg/dL (0.55-1.02); Calcium 8.7 mg/dL (8.5-10.1); Chloride 105 mmol/L (98-107); Estimated GFR 101.42 (mL/min/1.73m2); Glucose 105 mg/dL (74-106); Potassium 3.8 mmol/L (3.5-5.1); Sodium 140 mmol/L (136-145)
[2022-12-12 10:03] LABS: IgA 34 mg/dL (85-499); IgG 2057 mg/dL (610-1616); IgM 155 mg/dL (35-242); Kappa Free Light Chain 17.22 mg/dL (0.33-1.94); Lambda Free Light Chain 0.93 mg/dL (0.57-2.63)
[2022-12-12 14:46] LABS: Albumin g/dL 3.6 g/dL (3.6-5.2); Comment (See Note); Monoclonal Spike 20.9 % (None Seen); Monoclonal Spike g/dL 1.5 g/dL (None Seen); Total Protein 7.3 g/dL (6.3-8.2)
== END 2022-12-11 04:40 | disposition home or self-care (01) ==
LOC: LBO 04:39
PROVIDERS: PCP Nurse Practitioner Family; Visit Provider Internal Medicine Hematology & Oncology
DX: C90.00 Multiple myeloma not having achieved remission (principal)
CPT/HCPCS: 36415; 80053; 82784; 83883; 84165; 85025

== ENCOUNTER 2022-12-22 14:31 | Outpatient (REF) | payer BC, SELFPAY ==
--- NOTE | 2022-12-22 14:30 | PAPFT_PTH ---
PATIENT: Christen Sommer LOC: N U#:[id number] AGE/SX: 62/F ROOM: RE12/22/[address]: Beth Osorio DO : 1960 BED: DIS: 12/22/2022 SPEC #: [id number] RECD: 12/25/22 12:37 STATUS: JOSE RAULFransisco REQ #: [id number] DANIEL: 12/22/22 14:[address]: Beth Osorio DEPT: [facility] Cytology RECD BY: Margie Arce ENTERED: 12/25/22 12:38 SP TYPE: PAPFT OTHR DR: Analilia Lechuga Tissues: 1 - CX/ENDOCX FOR PAP SMEARS Procedures: PAP THIN PREP/UVM Screening HPV DNA PROBE Comments: [id number]
== END 2022-12-22 14:32 | disposition home or self-care (01) ==
LOC: LBN 14:31
PROVIDERS: PCP Nurse Practitioner Family; Visit Provider Obstetrics & Gynecology
DX: Z12.4 Encounter for screening for malignant neoplasm of cervix (principal); Z11.51 Encounter for screening for human papillomavirus (HPV)
CPT/HCPCS: 88142; 87624

== ENCOUNTER → 2022-12-29 17:10 | Outpatient (CLI) | payer BC, SELFPAY ==
--- NOTE | 2022-12-29 18:52 | DI.RAD_ITS ---
Exam(s) XR CHEST 2V PA LATERAL EXAM: XR CHEST 2V PA LATERAL CLINICAL HISTORY: COUGH TECHNIQUE: 2D digital imaging was performed of the chest. Two images were obtained. PA and lateral views were obtained. COMPARISON: CR,XR XR CHEST 2V PA LATERAL from 01/29/2021 CR XR RIBS RT W PA LAT CHEST from 01/31/2022 CR,XR XR PORTABLE CHEST AP from 04/13/2022 FINDINGS: MEDIASTINUM: Normal. HEART: Normal. PULMONARY VASCULATURE: Normal. LUNGS: There is a linear infiltrate seen on the lateral view which appears to be in the lingula. The lungs are otherwise clear. PLEURAL SPACE: No pleural effusion or pneumothorax. BONE:Within normal limits for the patient's age. There again seen multiple lower thoracic and lumbar compression fracture deformities. OTHER FINDINGS:Normal. IMPRESSION: Linear infiltrate seen on the lateral view which appears to be in the lingula. This may represent at electasis or pneumonia. Please correlate clinically. DATA REPOSITORY: RADIATION DOSE DELIVERED:
--- NOTE | 2022-12-29 19:04 | DI.VRAD_ITS ---
PROCEDURE INFORMATION: Exam: XR Chest Exam date and time: 12/29/2022 18:50 Age: 62 years old Clinical indication: Cough TECHNIQUE: Imaging protocol: Radiologic exam of the chest. Views: 2 views. COMPARISON: XR PORTABLE CHEST AP 04/13/2022 17:08 FINDINGS: Lungs: Mild hyperinflation . Linear subsegmental atelectasis, favor in the lingula, new since prior. However airspace disease at this location previously has resolved. Pleural spaces: No pleural effusion. No pneumothorax. Heart/Mediastinum: No cardiomegaly. Bones/joints: No acute fracture. IMPRESSION: 1. Mild hyperinflation . 2. Linear subsegmental atelectasis, favor in the lingula, new since prior. However airspace disease at this location previously has resolved. Dictated and Authenticated by: Ana Kc MD. Ordering:TOBY Jean-Baptiste MD
== END ==
PROVIDERS: PCP Nurse Practitioner Family; Visit Provider Physician Assistant Medical
DX: R91.8 Other nonspecific abnormal finding of lung field (principal)
CPT/HCPCS: 71046

== ENCOUNTER 2023-01-18 10:39 | Outpatient (CLI) | payer BC, SELFPAY ==
[2023-01-19 10:12] LABS: IgA 29 mg/dL (85-499); IgG 2015 mg/dL (610-1616); IgM 82 mg/dL (35-242); Kappa Free Light Chain 15.41 mg/dL (0.33-1.94); Lambda Free Light Chain 1.04 mg/dL (0.57-2.63)
[2023-01-19 13:26] LABS: Albumin 54.2 % (55.8-66.1); Albumin g/dL 4.3 g/dL (3.6-5.2); Comment (See Note); Monoclonal Spike 19.1 % (None Seen); Monoclonal Spike g/dL 1.5 g/dL (None Seen)
== END 2023-01-18 10:40 | disposition home or self-care (01) ==
LOC: LBO 10:40
PROVIDERS: PCP Nurse Practitioner Family; Visit Provider Internal Medicine Hematology & Oncology
DX: C90.00 Multiple myeloma not having achieved remission (principal)
CPT/HCPCS: 36415; 82784; 83883; 84165

== ENCOUNTER 2023-02-15 13:23 | Outpatient (CLI) | payer BC, SELFPAY ==
[2023-02-15 12:27] LABS: Absolute Basophil Count 0.01 10^3/uL (0.0-0.2); Absolute Lymphocyte Count 0.84 10^3/uL (1.2-3.4); Absolute Monocyte Count 0.26 10^3/uL (0.1-0.8); Absolute Neutrophil Count 0.98 10^3/uL (1.2-6.7); Basophils % 0.5; Eosinophils % 4.6; HCT 34.1 % (36.0-46.0); HGB 11.7 g/dL (11.2-15.7); Lymphocytes % 38.4; MCH 34.5 pg (27.0-33.0); MCHC 34.3 % (32.0-36.0); MCV 101 fL (80-95); Monocytes % 11.9; Neutrophils % 44.6; Platelet Count 143 10^3/uL (130-400); RBC 3.39 10^6/uL (3.93-5.22); RDW 14.1 % (11.7-14.6); RDW-SD 52.1 fL; WBC 2.19 10^3/uL (4.4-10.8)
[2023-02-15 12:43] LABS: ALT 10 U/L (14-59); AST 14 U/L (15-37); Albumin 3.5 g/dL (3.4-5.0); Alkaline Phosphatase 61 U/L (46-116); BUN 9 mg/dL (7-18); Bilirubin, Total 0.5 mg/dL (0.2-1.0); CREATININE 0.7 mg/dL (0.55-1.02); Calcium 9.1 mg/dL (8.5-10.1); Chloride 103 mmol/L (98-107); Estimated GFR 97.12 (mL/min/1.73m2); Glucose 109 mg/dL (74-106); Potassium 3.9 mmol/L (3.5-5.1); Sodium 137 mmol/L (136-145); Total Protein 7.7 g/dL (6.4-8.2)
[2023-02-15 13:16] LABS: Diff Comment Agrees w/ Instrument; RBC Morphology Normal
[2023-02-16 09:59] LABS: IgA 27 mg/dL (85-499); IgG 1811 mg/dL (610-1616); IgM 70 mg/dL (35-242); Kappa Free Light Chain 14.45 mg/dL (0.33-1.94); Lambda Free Light Chain 0.84 mg/dL (0.57-2.63)
[2023-02-16 12:56] LABS: Albumin 55.6 % (55.8-66.1); Comment (See Note); Monoclonal Spike 15.6 % (None Seen); Monoclonal Spike g/dL 1.1 g/dL (None Seen); Total Protein 7.2 g/dL (6.3-8.2)
[2023-03-30 13:15] LABS: Immunotyping, Serum (See Note)
== END 2023-02-15 13:24 | disposition home or self-care (01) ==
LOC: LBO 13:24
PROVIDERS: PCP Nurse Practitioner Family; Visit Provider Internal Medicine Hematology & Oncology
DX: C90.00 Multiple myeloma not having achieved remission (principal)
CPT/HCPCS: 36415; 80053; 82784; 83883; 84165; 85025; 86320

== ENCOUNTER 2023-02-18 12:16 | Emergency (ER) | payer BC, SELFPAY ==
[2023-02-18 12:29] VITALS: BP 173/64; PULSE 61; RESP 14; TEMP 37; O2SAT 99
[2023-02-18 13:25] VITALS: RESP 18
[2023-02-18 13:27] VITALS: O2SAT 99
[2023-02-18 13:28] VITALS: BP 159/80; PULSE 58; O2SAT 97
[2023-02-18 13:30] VITALS: O2SAT 98
[2023-02-18 13:32] VITALS: BP 158/75; PULSE 57; O2SAT 98
--- NOTE | 2023-02-18 14:07 | DI.RAD_ITS ---
Exam(s) XR CHEST 2V PA LATERAL EXAM: XR CHEST 2V PA LATERAL CLINICAL HISTORY: cough. TECHNIQUE: 2D digital imaging was performed. COMPARISON: CR,XR XR CHEST 2V PA LATERAL from 12/29/2022 FINDINGS: 2 views: Heart size is normal. The mediastinum is not widened. Lungs are clear. No infiltrates nor pleural effusions. IMPRESSION: No acute pulmonary findings. DATA REPOSITORY: RADIATION DOSE DELIVERED:
[2023-02-18 14:15] LABS: COVID-19 PCR Negative (Negative); Influenza A PCR Negative (Negative); Influenza B PCR Negative (Negative); RSV PCR Negative (Negative)
[2023-02-18 14:23] LABS: Source Nasopharynx
[2023-02-18] MEDS: Albuterol HFA 8 GM 60 PUFF INH IH (14:37)
[2023-02-18] MEDS: Inhaler, Assist Device 1 EACH MC (14:38)
[2023-02-18 14:41] LABS: ALT 13 U/L (14-59); AST 10 U/L (15-37); Albumin 3.3 g/dL (3.4-5.0); Alkaline Phosphatase 51 U/L (46-116); Anion Gap 7.8 mmol/L (3-11); BUN 9 mg/dL (7-18); Bilirubin, Total 0.5 mg/dL (0.2-1.0); CO2 28.2 mmol/L (21.0-32.0); CREATININE 0.7 mg/dL (0.55-1.02); Calcium 8.6 mg/dL (8.5-10.1); Chloride 102 mmol/L (98-107); Estimated GFR 97.12 (mL/min/1.73m2); Glucose 94 mg/dL (74-106); Sodium 138 mmol/L (136-145); Total Protein 7.4 g/dL (6.4-8.2)
[2023-02-18 14:53] LABS: Abs Immature Grans 0.01 10^3/uL (0.0-0.06); Absolute Basophil Count 0.01 10^3/uL (0.0-0.2); Absolute Eosinophil Count 0.04 10^3/uL (0.0-0.7); Absolute Lymphocyte Count 0.84 10^3/uL (1.2-3.4); Absolute Neutrophil Count 1.81 10^3/uL (1.2-6.7); Basophils % 0.3; Eosinophils % 1.3; HCT 34.9 % (36.0-46.0); HGB 11.9 g/dL (11.2-15.7); Immature Grans % 0.3; Lymphocytes % 27.9; MCH 33.6 pg (27.0-33.0); MCHC 34.1 % (32.0-36.0); MCV 99 fL (80-95); MPV 11.2 fL (8.0-11.0); Neutrophils % 60.2; Platelet Count 108 10^3/uL (130-400); RBC 3.54 10^6/uL (3.93-5.22); RDW 13.5 % (11.7-14.6); RDW-SD 49.1 fL; WBC 3.01 10^3/uL (4.4-10.8)
--- NOTE | 2023-02-18 15:03 | DI.VRAD_ITS ---
PROCEDURE INFORMATION: Exam: XR Chest Exam date and time: 02/18/2023 2:47 PM Age: 63 years old Clinical indication: Other: Cough TECHNIQUE: Imaging protocol: Radiologic exam of the chest. Views: 2 views. COMPARISON: CR XR CHEST 2V PA LATERAL 03/28/2023 18:50 FINDINGS: Lungs: Unremarkable. No consolidation. Pleural spaces: Minimal blunting of the right posterior costophrenic angle may represent a small effusion. No pneumothorax. Heart/Mediastinum: Stable cardiomediastinal silhouette. Vasculature: Atherosclerotic disease. Tortuous thoracic aorta. Bones/joints: Unremarkable for patient's age. IMPRESSION: 1. Possible small right pleural effusion. 2. No acute cardiopulmonary findings. Dictated and Authenticated by: Nay Brothers MD. Ordering:MERVIN Williamson MD
--- NOTE | 2023-02-18 15:25 | ED.GENADUL_ITS ---
Discharge Plan Disposition Patient Disposition: Home Condition: Stable Discharge Details Clinical Impression: Acute bronchitis, Pleural effusion on right Primary Care Provider: Becca Briceno ED Provider: Clay Spann Home Meds and New Rx's Prescriptions: New doxycycline hyclate 100 mg tablet 100 mg PO BID Qty: 9 0RF Continued acetaminophen 500 mg capsule 1,000 mg PO TID PRN PRN (Reason: fever) Qty: 300 0RF dexamethasone 4 mg tablet 20 mg PO .Once Weekly sennosides 8.6 mg tablet 8.6 mg PO DAILY PRN oxycodone 10 mg tablet 10 mg PO TID PRN bortezomib [Velcade] 3.5 mg recon soln 3 mg IV QWEEK Rx Instructions: administer on days 1, 8, 15, and 22 of a 35-day/5-week cycle polyethylene glycol 3350 17 gram/dose powder 17 g PO DAILY PRN gabapentin 300 mg capsule 300 mg PO BID lenalidomide 25 mg capsule 25 mg PO DAILY Rx Instructions: swallow whole with glass of water; do not open, crush, chew , break, or dissolve albuterol sulfate 90 mcg/actuation HFA aerosol inhaler 2 inh INHALATION DAILY Patient Comments: INHALE 2 PUFFS BY MOUTH EVERY 4 TO 6 HOURS NEEDED FOR SHORTNESS OF BREATH OR WHEEZING OR COUGH ondansetron HCl 4 mg tablet 4 mg PO PRN PRN Patient Comments: TAKE 1 TABLET BY MOUTH EVERY 8 HOURS NEEDED FOR NAUSEA prochlorperazine maleate 10 mg tablet 10 mg PO PRN PRN Patient Comments: TAKE 1 TABLET BY MOUTH EVERY 6 HOURS NEEDED FOR NAUSEA acyclovir 400 mg tablet 400 mg PO DAILY Patient Comments: TAKE 1 TABLET BY MOUTH TWICE DAILY aspirin 81 mg tablet,delayed release (DR/EC) 81 mg PO DAILY Patient Comments: TAKE 1 TABLET BY MOUTH DAILY Discharge Instructions Instructions: Albuterol (By breathing), Acute Bronchitis (ED) Additional Instructions: Please use albuterol inhaler as prescribed: 2 puffs every 4-6 hours as needed for wheezing. Be sure to use spacer with your inhaler. Please contact your primary care physician to arrange follow-up. Please follow- up with your oncologist. Call tomorrow. Return to the ER immediately for any worsening or new concerning symptoms. Referrals: Becca Briceno [Primary Care Provider] - Discharge Data Discharge Date/Time-TO BE ENTERED AT DEPARTURE: 02/18/23 15:43 Medical Decision Making 63-year-old female with history of multiple myeloma on chemotherapy, COPD, here with productive cough over the past 2 to 3 days with associated loose stool, some shortness of breath and wheezing. Patient saturating well in no respiratory distress. She does have rhonchi with some wheezing bilaterally. Concern for COVID versus pneumonia versus acute bronchitis. Consider immunocompromise state. Patient was given new albuterol inhaler and spacer. She states symptoms improved on reassessment after inhaler use. COVID test negative by PCR. Chest x-ray was reviewed and interpreted by radiology: Possible small right pleural effusion. No acute cardiopulmonary findings. Suspect acute bronchitis with potential immunocompromise state. Plan to initiate treatment with doxycycline. Usual customary discharge instructions reviewed with the patient. Lab Data Lab results reviewed: Yes I reviewed the patient's lab results. Labs: Laboratory Tests Range/Units 02/18/23 02/18/23 02/18/23 13:29 14:20 14:40 WBC (4.4-10.8) 10^3/uL 3.01 L RBC (3.93-5.22) 10^6/uL 3.54 L Hgb (11.2-15.7) g/dL 11.9 Hct (36.0-46.0) % 34.9 L MCV (80-95) fL 99 H MCH (27.0-33.0) pg 33.6 H MCHC (32.0-36.0) % 34.1 RDW (11.7-14.6) % 13.5 Plt Count (130-400) 10^3/uL 108 L MPV (8.0-11.0) fL 11.2 H Immature Gran % 0.3 Neutrophils % 60.2 Lymphocytes % 27.9 Monocytes % 10.0 Eosinophils % 1.3 Basophils % 0.3 Nucleated RBC % (0.0-0.3) % 0.0 Absolute Neutrophils (1.2-6.7) 10^3/uL 1.81 Absolute Lymphocytes (1.2-3.4) 10^3/uL 0.84 L Absolute Monocytes (0.1-0.8) 10^3/uL 0.30 Absolute Eosinophils (0.0-0.7) 10^3/uL 0.04 Absolute Basophils (0.0-0.2) 10^3/uL 0.01 Sodium (136-145) mmol/L 138 Potassium (3.5-5.1) mmol/L 4.0 Chloride (98-107) mmol/L 102 Carbon Dioxide (21.0-32.0) mmol/L 28.2 Anion Gap (3-11) mmol/L 7.8 BUN (7-18) mg/dL 9 Creatinine (0.55-1.02) mg/dL 0.7 Est GFR (CKD-EPI 2020) (mL/min/1.73m2) 97.12 Glucose (74-106) mg/dL 94 Calcium (8.5-10.1) mg/dL 8.6 Total Bilirubin (0.2-1.0) mg/dL 0.5 AST (15-37) U/L 10 L ALT (14-59) U/L 13 L Alkaline Phosphatase (46-116) U/L 51 Total Protein (6.4-8.2) g/dL 7.4 Albumin (3.4-5.0) g/dL 3.3 L COVID-19 Source Nasopharynx SARS-CoV-2 (PCR) (Negative) Negative Influenza Type A (PCR) (Negative) Negative Influenza Type B (PCR) (Negative) Negative RSV (PCR) (Negative) Negative HPI General Mode of arrival: ambulatory . Date/Time Provider Initiated Documentation: 02/18/23 13:47 . Limitations to Documentation: no limitations . Information obtained by: patient . HPI Narrative: 63-year-old female with history of multiple myeloma on chemotherapy, COPD, here with productive cough over the past 2 to 3 days. Cough productive of clear sputum. Notes associated shortness of breath and wheezing. Patient states she has run out of her albuterol inhaler. She has had some loose stool. No associated fever. Related Data Home Medications Medication Instructions Recorded Confirmed albuterol sulfate 90 mcg/actuation 2 inh inhalation DAILY 02/20/21 02/18/23 aerosol inhaler acetaminophen 500 mg capsule 1,000 mg PO TID PRN PRN fever #300 10/20/21 02/18/23 caps acyclovir 400 mg tablet 400 mg PO DAILY 01/31/22 02/18/23 aspirin 81 mg tablet,delayed 81 mg PO DAILY 01/31/22 02/18/23 release ondansetron HCl 4 mg tablet 4 mg PO PRN PRN 01/31/22 02/18/23 prochlorperazine maleate 10 mg 10 mg PO PRN PRN 01/31/22 02/18/23 tablet bortezomib 3.5 mg injection powder 3 mg IV QWEEK 12/15/22 02/18/23 for solution (Velcade) dexamethasone 4 mg tablet 20 mg PO .Once Weekly 12/15/22 02/18/23 gabapentin 300 mg capsule 300 mg PO BID 12/15/22 02/18/23 lenalidomide 25 mg capsule 25 mg PO DAILY 12/15/22 02/18/23 oxycodone 10 mg tablet 10 mg PO TID PRN 12/15/22 02/18/23 polyethylene glycol 3350 17 17 g PO DAILY PRN 12/15/22 02/18/23 gram/dose oral powder sennosides 8.6 mg tablet 8.6 mg PO DAILY PRN 12/15/22 02/18/23 doxycycline hyclate 100 mg tablet 100 mg PO BID #9 tabs 02/18/23 Previous Rx's Medication Instructions Recorded acetaminophen 500 mg capsule 1,000 mg PO TID PRN PRN fever #300 10/20/21 caps doxycycline hyclate 100 mg tablet 100 mg PO BID #9 tabs 02/18/23 Allergies Allergy/AdvReac Type Severity Reaction Status Date / Time No Known Allergies Allergy Unverified 02/18/23 12:35 General Stated Complaint: SOB RAE: 4 Review of Systems All systems reviewed & are unremarkable except as noted in HPI and below Constitutional Constitutional: Reports fatigue Cardiovascular Cardiovascular: Denies chest pain Respiratory Respiratory: Reports as per HPI Endocrine Endocrine: Reports fatigue PFSH All Active Problems (Updated 02/18/23 @ 15:34 by Clay Spann MD) Acute bronchitis (Acute) Pleural effusion on right (Acute) [place]-Walker grade 1 cystocele (Acute) Advanced care planning/counseling discussion (Acute) Pathological fracture of lumbosacral spine (Acute) Chronic low back pain (Chronic) Multiple myeloma (Acute) Osteoporosis (Chronic) Trochanteric bursitis, right hip (Acute) Tobacco dependence (Acute) Peripheral edema (Acute) Depression (Chronic) Compression fracture of L2 lumbar vertebra (Acute) Compression fracture (Acute) Medical History Edema Hip pain Hx of blood transfusion reaction Osteopenia Prolapse of anterior vaginal wall Thigh pain Social History Smoking/Tobacco Use Status: Former Tobacco Use Smoking risk assessment performed?: Yes Drug use: Never Substance use type: does not use Do you feel safe at home: Yes Do you feel safe in your relationship?: Yes History History 8 Para 7 Hx # Term Pregnancies 7 Multiple births Hx # Pregnancies Ectopic pregnancies AB induced Hx Number of Living Children 7 AB spontaneous Exam Const General: cooperative and no acute distress HENMT Mouth: moist mucous membranes Eyes Conjunctivae: normal conjunctivae Sclera: normal sclerae Neck Neck: trachea midline and supple Resp Effort & Inspection: normal respiratory effort and cough Auscultation: no rales, rhonchi and wheezes Cardio Rate: regular rate and not tachycardic Rhythm: regular rhythm GI Palpation: soft, not firm, no guarding, no masses, not rigid and nontender Skin General skin exam: no rashes or lesions noted Neuro General: patient alert, patient awake, patient oriented x3 and tone normal Extrem General: no calf tenderness and no edema Psych Appearance: grossly normal Mental Status: mental status grossly normal Speech and Movement: speech and movement normal Course Vital Signs Vital signs: Vital Signs Temperature 37.0 C 02/18/23 12:29 Pulse 61 02/18/23 12:29 Respiratory Rate 14 02/18/23 12:29 Blood Pressure 173/64 H 02/18/23 12:29 Pulse Oximetry 99 02/18/23 12:29 Temperature 37.0 C 02/18/23 12:29 Temperature Source Oral 02/18/23 12:29 Pulse 57 L 02/18/23 13:32 Respiratory Rate 18 02/18/23 13:25 Respiratory Effort Normal 02/18/23 13:25 Blood Pressure 158/75 H 02/18/23 13:32 Blood Pressure Mean 97 02/18/23 13:32 Blood Pressure Position Sitting 02/18/23 12:29 Pulse Oximetry 98 02/18/23 13:32 Oxygen Delivery Method Room Air 02/18/23 12:29 Oxygen Flow Rate 0 02/18/23 12:29 Pain Level 0 02/18/23 12:29 Lab/Test Results Lab/Test Results: Laboratory Tests Range/Units 10/01/23 10/01/23 10/01/23 13:29 14:20 14:40 WBC (4.4-10.8) 10^3/uL 3.01 L RBC (3.93-5.22) 10^6/uL 3.54 L Hgb (11.2-15.7) g/dL 11.9 Hct (36.0-46.0) % 34.9 L MCV (80-95) fL 99 H MCH (27.0-33.0) pg 33.6 H MCHC (32.0-36.0) % 34.1 RDW (11.7-14.6) % 13.5 Plt Count (130-400) 10^3/uL 108 L MPV (8.0-11.0) fL 11.2 H Immature Gran % 0.3 Neutrophils % 60.2 Lymphocytes % 27.9 Monocytes % 10.0 Eosinophils % 1.3 Basophils % 0.3 Nucleated RBC % (0.0-0.3) % 0.0 Absolute Neutrophils (1.2-6.7) 10^3/uL 1.81 Absolute Lymphocytes (1.2-3.4) 10^3/uL 0.84 L Absolute Monocytes (0.1-0.8) 10^3/uL 0.30 Absolute Eosinophils (0.0-0.7) 10^3/uL 0.04 Absolute Basophils (0.0-0.2) 10^3/uL 0.01 Sodium (136-145) mmol/L 138 Potassium (3.5-5.1) mmol/L 4.0 Chloride (98-107) mmol/L 102 Carbon Dioxide (21.0-32.0) mmol/L 28.2 Anion Gap (3-11) mmol/L 7.8 BUN (7-18) mg/dL 9 Creatinine (0.55-1.02) mg/dL 0.7 Est GFR (CKD-EPI 2020) (mL/min/1.73m2) 97.12 Glucose (74-106) mg/dL 94 Calcium (8.5-10.1) mg/dL 8.6 Total Bilirubin (0.2-1.0) mg/dL 0.5 AST (15-37) U/L 10 L ALT (14-59) U/L 13 L Alkaline Phosphatase (46-116) U/L 51 Total Protein (6.4-8.2) g/dL 7.4 Albumin (3.4-5.0) g/dL 3.3 L COVID-19 Source Nasopharynx SARS-CoV-2 (PCR) (Negative) Negative Influenza Type A (PCR) (Negative) Negative Influenza Type B (PCR) (Negative) Negative RSV (PCR) (Negative) Negative PAWSS Have you Been Recently Intoxicated or Drunk Within the Last 30 days?: No Have you Ever Experienced Previous Episodes of Alcohol Withdrawal?: No Have you ever Experienced Withdrawal Seizures?: No Have you ever Experienced Delirium Tremens(DT)s?: No Have you ever undergone Alcohol Rehabilitation Treatment (i.e, inpt ot outpatient treatment programs)?: No Have you ever Experienced Blackouts?: No Have you ever Combined Alcohol with other Downers within the last 90 days?: No Have you ever Combined Alcohol with any other Substance of Abuse during the last 90 days?: No Positive Blood Alcohol level on Presentation? [PCS.BAL]: No Evidence of Increased Autonomic Activity (i.e. HR>120, tremor, sweating, agitation, nausea)?: No Result: 0
[2023-02-18] MEDS: Doxycycline Hyclate 100 MG CAP PO (15:39)
== END 2023-02-18 15:43 | disposition home or self-care (01) ==
PROVIDERS: Emergency Medicine; Emergency Provider Student in an Organized Health Care Education/Training Program; PCP Nurse Practitioner Family
DX: J20.9 Acute bronchitis, unspecified; J90 Pleural effusion, not elsewhere classified; C90.00 Multiple myeloma not having achieved remission; Z79.899 Other long term (current) drug therapy
CPT/HCPCS: 80053; 87637; 94640; 99284; 71046; 85025

== ENCOUNTER 2023-03-14 15:02 | Outpatient (CLI) | payer BC, SELFPAY ==
[2023-03-14 15:09] LABS: Abs Immature Grans 0.01 10^3/uL (0.0-0.06); Absolute Basophil Count 0.03 10^3/uL (0.0-0.2); Absolute Lymphocyte Count 0.95 10^3/uL (1.2-3.4); Absolute Monocyte Count 0.26 10^3/uL (0.1-0.8); Absolute Neutrophil Count 4.74 10^3/uL (1.2-6.7); Basophils % 0.5; Eosinophils % 1.6; HCT 36.8 % (36.0-46.0); HGB 12.4 g/dL (11.2-15.7); Immature Grans % 0.2; Lymphocytes % 15.6; MCH 34.1 pg (27.0-33.0); MCHC 33.7 % (32.0-36.0); MCV 101 fL (80-95); MPV 10.7 fL (8.0-11.0); Monocytes % 4.3; Neutrophils % 77.8; Platelet Count 219 10^3/uL (130-400); RBC 3.64 10^6/uL (3.93-5.22); RDW 14.6 % (11.7-14.6); RDW-SD 54.5 fL; WBC 6.09 10^3/uL (4.4-10.8)
[2023-03-14 15:17] LABS: ALT 15 U/L (14-59); AST 12 U/L (15-37); Albumin 3.6 g/dL (3.4-5.0); Alkaline Phosphatase 66 U/L (46-116); Anion Gap 6.9 mmol/L (3-11); BUN 4 mg/dL (7-18); Bilirubin, Total 0.4 mg/dL (0.2-1.0); CO2 29.1 mmol/L (21.0-32.0); CREATININE 0.7 mg/dL (0.55-1.02); Calcium 8.9 mg/dL (8.5-10.1); Chloride 104 mmol/L (98-107); Estimated GFR 97.12 (mL/min/1.73m2); Glucose 170 mg/dL (74-106); Sodium 140 mmol/L (136-145); Total Protein 7.7 g/dL (6.4-8.2)
[2023-03-15 10:21] LABS: IgA 27 mg/dL (85-499); IgG 1845 mg/dL (610-1616); IgM 75 mg/dL (35-242); Kappa Free Light Chain 12.54 mg/dL (0.33-1.94); Lambda Free Light Chain 0.83 mg/dL (0.57-2.63)
[2023-03-15 13:15] LABS: Albumin 55.6 % (55.8-66.1); Albumin g/dL 4.1 g/dL (3.6-5.2); Comment (See Note); Monoclonal Spike 18.4 % (None Seen); Monoclonal Spike g/dL 1.3 g/dL (None Seen); Total Protein 7.3 g/dL (6.3-8.2)
== END 2023-03-14 15:03 | disposition home or self-care (01) ==
LOC: LBO 15:03
PROVIDERS: PCP Nurse Practitioner Family; Visit Provider Internal Medicine Hematology & Oncology
DX: C90.00 Multiple myeloma not having achieved remission (principal)
CPT/HCPCS: 36415; 80053; 82784; 83883; 84165; 85025

== ENCOUNTER 2023-04-06 02:44 | Outpatient (CLI) | payer BC, SELFPAY ==
[2023-04-06 15:00] LABS: Abs Immature Grans 0.01 10^3/uL (0.0-0.06); Absolute Basophil Count 0.02 10^3/uL (0.0-0.2); Absolute Eosinophil Count 0.06 10^3/uL (0.0-0.7); Absolute Lymphocyte Count 1.59 10^3/uL (1.2-3.4); Absolute Monocyte Count 0.78 10^3/uL (0.1-0.8); Absolute Neutrophil Count 3.42 10^3/uL (1.2-6.7); Basophils % 0.3; HCT 35.8 % (36.0-46.0); HGB 12.2 g/dL (11.2-15.7); Immature Grans % 0.2; MCH 34.4 pg (27.0-33.0); MCHC 34.1 % (32.0-36.0); MCV 101 fL (80-95); MPV 10.6 fL (8.0-11.0); Monocytes % 13.3; Neutrophils % 58.2; Platelet Count 205 10^3/uL (130-400); RBC 3.55 10^6/uL (3.93-5.22); RDW 14.6 % (11.7-14.6); RDW-SD 54.3 fL; WBC 5.88 10^3/uL (4.4-10.8)
[2023-04-06 15:24] LABS: ALT 14 U/L (14-59); AST 11 U/L (15-37); Albumin 3.5 g/dL (3.4-5.0); Alkaline Phosphatase 55 U/L (46-116); Anion Gap 6.3 mmol/L (3-11); BUN 13 mg/dL (7-18); Bilirubin, Total 0.4 mg/dL (0.2-1.0); CO2 28.7 mmol/L (21.0-32.0); CREATININE 0.7 mg/dL (0.55-1.02); Calcium 9.3 mg/dL (8.5-10.1); Chloride 104 mmol/L (98-107); Estimated GFR 97.12 (mL/min/1.73m2); Glucose 107 mg/dL (74-106); Potassium 3.7 mmol/L (3.5-5.1); Sodium 139 mmol/L (136-145); Total Protein 7.9 g/dL (6.4-8.2)
[2023-04-09 11:12] LABS: IgA 21 mg/dL (85-499); IgG 1756 mg/dL (610-1616); IgM 73 mg/dL (35-242); Kappa Free Light Chain 11.26 mg/dL (0.33-1.94); Lambda Free Light Chain 0.71 mg/dL (0.57-2.63)
[2023-04-09 14:53] LABS: Albumin 57.4 % (55.8-66.1); Albumin g/dL 4.2 g/dL (3.6-5.2); Monoclonal Spike g/dL 1.1 g/dL (None Seen); Total Protein 7.3 g/dL (6.3-8.2)
[2023-04-09 16:29] LABS: Comment (See Note)
== END 2023-04-06 02:45 | disposition home or self-care (01) ==
LOC: LBO 02:44
PROVIDERS: PCP Nurse Practitioner Family; Visit Provider Internal Medicine Hematology & Oncology
DX: C90.00 Multiple myeloma not having achieved remission (principal)
CPT/HCPCS: 36415; 80053; 82784; 83883; 84165; 85025

== ENCOUNTER 2023-04-19 17:22 | Emergency (ER) | payer BC, SELFPAY ==
[2023-04-19] VITALS (42 sets, daily range): BP systolic 85–152; BP diastolic 33–63; PULSE 58–105; RESP 13–25; TEMP 37.4–38.8; O2SAT 88–98
--- NOTE | 2023-04-19 17:30 | DI.RAD_ITS ---
Exam(s) XR CHEST 2V PA LATERAL EXAM: XR CHEST 2V PA LATERAL CLINICAL HISTORY: fever multiple myeloma patient chemo TECHNIQUE: 2D digital imaging was performed of the chest. Two images were obtained. PA and lateral views were obtained. COMPARISON: CR,XR XR CHEST 2V PA LATERAL from 02/18/2023 FINDINGS: MEDIASTINUM: Normal. HEART: Normal. PULMONARY VASCULATURE: Normal. LUNGS: There is an infiltrate seen in the right middle lobe and right lower lobe. The left lung is c lear. PLEURAL SPACE: There is a small right pleural effusion. No left pleural effusion. No pneumothorax. BONE:Within normal limits for the patient's age. OTHER FINDINGS:Normal. IMPRESSION: 1. Right middle and right lower lobe pneumonia. 2. Small right pleural effusion. DATA REPOSITORY: RADIATION DOSE DELIVERED:
[2023-04-19] MEDS: ACETAMINOPHEN 1,000 MG/100 ML BTL 400 MG IVPB (17:51)
[2023-04-19 17:54] LABS: Abs Immature Grans 0.04 10^3/uL (0.0-0.06); HCT 32.1 % (36.0-46.0); HGB 11.3 g/dL (11.2-15.7); MCH 34.2 pg (27.0-33.0); MCHC 35.2 % (32.0-36.0); MCV 97 fL (80-95); MPV 11.6 fL (8.0-11.0); Platelet Count 133 10^3/uL (130-400); RDW 13.8 % (11.7-14.6); RDW-SD 49.6 fL; WBC 3.26 10^3/uL (4.4-10.8)
--- NOTE | 2023-04-19 17:57 | ED.GENADUL_ITS ---
Discharge Plan Disposition Patient Disposition: Home Condition: Improving Discharge Details Clinical Impression: Pleural effusion, Pneumonia Primary Care Provider: Becca Briceno ED Provider: Tyrese Chun Home Meds and New Rx's Prescriptions: New amoxicillin-pot clavulanate 875-125 mg tablet 1 tab PO BID 7 Days Qty: 14 0RF azithromycin 250 mg tablet See Rx Instructions .ROUTE .COMPLEX Qty: 6 0RF Rx Instructions: For 250 mg dose pack: take 500 mg today (day 1), then 250 mg for 4 days (days 2-5) No Action acetaminophen 500 mg capsule 1,000 mg PO TID PRN PRN (Reason: fever) Qty: 300 0RF dexamethasone 4 mg tablet 20 mg PO .Once Weekly sennosides 8.6 mg tablet 8.6 mg PO DAILY PRN oxycodone 10 mg tablet 10 mg PO TID PRN bortezomib [Velcade] 3.5 mg recon soln 3 mg IV QWEEK Rx Instructions: administer on days 1, 8, 15, and 22 of a 35-day/5-week cycle polyethylene glycol 3350 17 gram/dose powder 17 g PO DAILY PRN gabapentin 300 mg capsule 300 mg PO BID lenalidomide 25 mg capsule 25 mg PO DAILY Rx Instructions: swallow whole with glass of water; do not open, crush, chew , break, or dissolve albuterol sulfate 90 mcg/actuation HFA aerosol inhaler 2 inh INHALATION DAILY Qty: 6.7 1RF Rx Instructions: ALbuterol, as best dispensed per insurance coverage/availability ondansetron HCl 4 mg tablet 4 mg PO PRN PRN Patient Comments: TAKE 1 TABLET BY MOUTH EVERY 8 HOURS NEEDED FOR NAUSEA acyclovir 400 mg tablet 400 mg PO DAILY Patient Comments: TAKE 1 TABLET BY MOUTH TWICE DAILY aspirin 81 mg tablet,delayed release (DR/EC) 81 mg PO DAILY Patient Comments: TAKE 1 TABLET BY MOUTH DAILY Discharge Instructions Instructions: Pneumonia (ED) Additional Instructions: Please immediately return to the emergency department for any worsening symptoms or no improvement of your symptomatology. Please follow-up closely with your primary physician and oncology team. Medical Decision Making 63-year-old female history of multiple myeloma currently undergoing chemotherapy, presents with fever over the last day nonproductive cough and fatigue, noted to be tachycardic on arrival however once situated in bed is sinus rhythm 83 bpm on the monitor, normotensive no respiratory distress saturating 93 to 95% on room air. Denies chest pain nausea vomiting headache neurologic symptoms or lower GI or symptoms. Consider viral URI such as COVID versus influenza versus RSV must also consider bacterial pneumonia, will screen for UTI and blood-borne infection with cultures, fluids antipyretics close reassessment of symptoms. Will assess for any level of neutropenia. Consider home with close follow-up with oncology versus admission pending labs and imaging 18: 17 blood pressure readings 89/37, have added 1 L crystalloid on top of 500 cc bolus, will start empiric antibiotics vancomycin and cefepime while waiting for results. If no definitive pneumonia seen on chest x-ray consider CT chest to rule out PE and/or pneumonia. 18: 55 although patient is leukopenic there is no evidence of neutropenia at this time. Consider low BP related to decreased p.o. intake over the past several days as evident by dry appearance on examination. Will evaluate patient's response to fluid bolus. Disposition pending reassessment and results. 19: 41 evidence of right lower lobe and middle lobe pneumonia with pleural effusion, patient was initially placed on nasal cannula on arrival however after being taken off nasal cannula she is saturating 93 to 95% on room air without respiratory distress. Heart rate has down trended after fluid hydration. Patient has had episodes of hypotension however uptrending currently to high 90s systolic with a MAP near 65, likely component of deconditioning and dehydration in the setting of decreased p.o. intake. I recommended to patient and family for patient to stay inpatient for further antibiotic therapy fluid hydration however patient is adamant that she does not want to be in the hospital and would like to go home. I am giving family and patient time to talk further after counseling them extensively at bedside. 19: 57 patient has defervesced, maintaining oxygen saturation at 95 to 96% on room air, speaking full sentences without tachypnea, blood pressures improved 124 systolic again patient is adamant that she wants to go home-convince her to stay in order to finish her parenteral antibiotics. I will transition her to oral antibiotics as an outpatient. Have counseled her and family extensively with regards to need to return to the emergency department/hospital immediately for any worsening symptoms or no improvement of symptomatology. Patient has already reached out to her oncology team for close follow-up. HPI General Date/Time Provider Initiated Documentation: 04/19/23 17:28 . HPI Narrative: 63-year-old female history of multiple myeloma currently undergoing chemotherapy, presents with fever over the last day, nonproductive cough generalized fatigue Related Data Home Medications Medication Instructions Recorded Confirmed acetaminophen 500 mg capsule 1,000 mg (2 x 500 mg) PO TID PRN 10/20/21 04/19/23 PRN fever #300 caps acyclovir 400 mg tablet 400 mg PO DAILY 01/31/22 04/19/23 aspirin 81 mg tablet,delayed 81 mg PO DAILY 01/31/22 04/19/23 release ondansetron HCl 4 mg tablet 4 mg PO PRN PRN 01/31/22 04/19/23 bortezomib 3.5 mg injection powder 3 mg IV QWEEK 12/15/22 04/19/23 for solution (Velcade) dexamethasone 4 mg tablet 20 mg PO .Once Weekly 12/15/22 04/19/23 gabapentin 300 mg capsule 300 mg PO BID 12/15/22 04/19/23 lenalidomide 25 mg capsule 25 mg PO DAILY 12/15/22 04/19/23 oxycodone 10 mg tablet 10 mg PO TID PRN 12/15/22 04/19/23 polyethylene glycol 3350 17 17 g PO DAILY PRN 12/15/22 04/19/23 gram/dose oral powder sennosides 8.6 mg tablet 8.6 mg PO DAILY PRN 12/15/22 04/19/23 albuterol sulfate 90 mcg/actuation 2 inh inhalation DAILY #6.7 grams 04/14/23 04/19/23 aerosol inhaler amoxicillin 875 mg-potassium 1 tab PO BID 7 days #14 tabs 04/19/23 clavulanate 125 mg tablet azithromycin 250 mg tablet See Rx Instructions PO .COMPLEX #6 04/19/23 tabs Previous Rx's Medication Instructions Recorded acetaminophen 500 mg capsule 1,000 mg (2 x 500 mg) PO TID PRN 10/20/21 PRN fever #300 caps albuterol sulfate 90 mcg/actuation 2 inh inhalation DAILY #6.7 grams 04/14/23 aerosol inhaler amoxicillin 875 mg-potassium 1 tab PO BID 7 days #14 tabs 04/19/23 clavulanate 125 mg tablet azithromycin 250 mg tablet See Rx Instructions PO .COMPLEX #6 04/19/23 tabs Allergies Allergy/AdvReac Type Severity Reaction Status Date / Time No Known Allergies Allergy Unverified 02/18/23 12:35 General Stated Complaint: Fever RAE: 2 Review of Systems Narrative: Review of Systems Constitutional: Fever Eyes: negative ENT: negative Cardiovascular: negative Respiratory: Cough Gastrointestinal: negative : negative Musculoskeletal: negative Skin: negative Neurologic: negative Psych: negative PFSH All Active Problems (Updated 04/19/23 @ 19:58 by Tyrese Chun MD) Pneumonia (Acute) Pleural effusion (Acute) [place]-Walker grade 1 cystocele (Acute) Advanced care planning/counseling discussion (Acute) Pathological fracture of lumbosacral spine (Acute) Chronic low back pain (Chronic) Multiple myeloma (Acute) Osteoporosis (Chronic) Trochanteric bursitis, right hip (Acute) Tobacco dependence (Acute) Peripheral edema (Acute) Depression (Chronic) Compression fracture of L2 lumbar vertebra (Acute) Compression fracture (Acute) Medical History Edema Hip pain Hx of blood transfusion reaction Osteopenia Prolapse of anterior vaginal wall Thigh pain Social History Smoking/Tobacco Use Status: Former Tobacco Use Smoking risk assessment performed?: Yes Drug use: Never Substance use type: does not use Housing: house Do you feel safe at home: Yes Do you feel safe in your relationship?: Yes History History 8 Para 7 Hx # Term Pregnancies 7 Multiple births Hx # Pregnancies Ectopic pregnancies AB induced Hx Number of Living Children 7 AB spontaneous Exam Narrative Exam Narrative: Physical Examination General: alert, awake, cooperative, resting comfortably, no acute distress HEENT: normocephalic, atraumatic; PERRL, EOM intact, conjunctiva normal; no nasal discharge; moist mucous membranes, oral and pharyngeal mucosa normal, tolerating secretions Neck: supple, trachea midline; full ROM Chest: normal to inspection Respiratory: normal respiratory effort, speaking in full sentences, clear to auscultation, no wheezing, rales or rhonchi Cardiac: regular rate, regular rhythm, S1S2 intact, no murmurs rubs or gallops GI: abdomen soft, non-tender, non-distended; no palpable mass or hepatosplenomegaly Skin: no lesions, rashes or trauma appreciated; slightly dry Neuro: AAOx3, normal speech, moving all extremities Extremities: No peripheral edema Psych: Appropriate mood and affect Course Vital Signs Vital signs: Vital Signs Temperature 38.8 C H 04/19/23 17:26 Pulse 105 H 04/19/23 17:26 Respiratory Rate 18 04/19/23 17:26 Blood Pressure 132/63 04/19/23 17:26 Temperature 38.8 C H 04/19/23 17:30 Temperature Source Oral 04/19/23 17:30 Pulse 105 H 04/19/23 17:30 Respiratory Rate 18 04/19/23 17:30 Respiratory Effort Normal 04/19/23 17:38 Blood Pressure 132/63 04/19/23 17:30 Blood Pressure Position Supine 04/19/23 17:26 Pulse Oximetry 93 04/19/23 17:30 Oxygen Delivery Method Room Air 04/19/23 17:30 Pain Level 3 04/19/23 17:30 Lab/Test Results Lab/Test Results: 04/19/23 17:43 Blood Blood Culture - Pending 04/19/23 17:35 Blood Blood Culture - Pending PAWSS Have you Been Recently Intoxicated or Drunk Within the Last 30 days?: No Have you Ever Experienced Previous Episodes of Alcohol Withdrawal?: No Have you ever Experienced Withdrawal Seizures?: No Have you ever Experienced Delirium Tremens(DT)s?: No Have you ever undergone Alcohol Rehabilitation Treatment (i.e, inpt ot outpatient treatment programs)?: No Have you ever Experienced Blackouts?: No Have you ever Combined Alcohol with other Downers within the last 90 days?: No Have you ever Combined Alcohol with any other Substance of Abuse during the last 90 days?: No Positive Blood Alcohol level on Presentation? [PCS.BAL]: No Evidence of Increased Autonomic Activity (i.e. HR>120, tremor, sweating, agitation, nausea)?: No Result: 0
[2023-04-19 18:05] LABS: ALT 12 U/L (14-59); AST 9 U/L (15-37); Albumin 3.1 g/dL (3.4-5.0); Alkaline Phosphatase 86 U/L (46-116); Anion Gap 11.1 mmol/L (3-11); BUN 10 mg/dL (7-18); CO2 23.9 mmol/L (21.0-32.0); CREATININE 0.7 mg/dL (0.55-1.02); Calcium 8.3 mg/dL (8.5-10.1); Chloride 96 mmol/L (98-107); Estimated GFR 97.12 (mL/min/1.73m2); Glucose 169 mg/dL (74-106); Potassium 3.3 mmol/L (3.5-5.1); Sodium 131 mmol/L (136-145); Total Protein 7.7 g/dL (6.4-8.2)
[2023-04-19] MEDS: Normal Saline 500 ML 1000 ML IV (18:07)
[2023-04-19 18:21] LABS: Absolute Basophil Count 0.07 10^3/uL (0.0-0.2); Absolute Eosinophil Count 0.03 10^3/uL (0.0-0.7); Absolute Lymphocyte Count 0.42 10^3/uL (1.2-3.4); Absolute Monocyte Count 0.59 10^3/uL (0.1-0.8); Absolute Neutrophil Count 2.09 10^3/uL (1.2-6.7); Bands % 12; Metamyelocytes % 1; Myelocytes % 1
[2023-04-19 18:22] LABS: Diff Comment Manual Differential; RBC Morphology Normal
[2023-04-19] MEDS: CEFEPIME 2 GM in Normal Saline 100 ML IVPB (18:26)
[2023-04-19 18:35] LABS: COVID-19 PCR Negative (Negative); Influenza A PCR Negative (Negative); Influenza B PCR Negative (Negative); RSV PCR Negative (Negative)
[2023-04-19 18:36] LABS: Source Nasopharynx
[2023-04-19] MEDS: Normal Saline 1,000 ML 1000 ML IV (18:55)
[2023-04-19] MEDS: VANCOMYCIN 2,000 MG in Normal Saline 500 ML 250 MG IVPB (19:04)
--- NOTE | 2023-04-19 19:16 | DI.VRAD_ITS ---
PROCEDURE INFORMATION: Exam: XR Chest Exam date and time: 04/19/2023 6:53 PM Age: 63 years old Clinical indication: Other: Fever multiple myeloma patient chemo TECHNIQUE: Imaging protocol: Radiologic exam of the chest. Views: 2 views. COMPARISON: CR XR CHEST 2V PA LATERAL 02/18/2023 2:47 PM FINDINGS: Tubes, catheters and devices: Monitoring wires noted. Lungs: Moderate airspace opacity is present across the right lung base, new from previous. Left lung is clear. Pulmonary vessels are not congested. Pleural spaces: Blunting is noted at the right costophrenic angle. No pneumothorax. No left pleural effusion. Heart/Mediastinum: Unremarkable. No cardiomegaly. Bones/joints: Unremarkable. IMPRESSION: 1. Findings concerning for pneumonia in the right middle and lower lobes. 2. Mild right pleural effusion suspected. Dictated and Authenticated by: Dawson Peraza MD. Ordering:KEYON Xiong MD
== END 2023-04-19 20:15 | disposition home or self-care (01) ==
PROVIDERS: Emergency Provider Emergency Medicine; PCP Nurse Practitioner Family
DX: R50.9 Fever, unspecified (principal); J90 Pleural effusion, not elsewhere classified; J18.9 Pneumonia, unspecified organism; C90.00 Multiple myeloma not having achieved remission; D72.819 Decreased white blood cell count, unspecified; Z79.899 Other long term (current) drug therapy
CPT/HCPCS: 36415; 80053; 87040; 87637; 96365; 96367; 99284; 71046; 85025; J0131

== ENCOUNTER 2023-05-07 03:30 | Outpatient (CLI) | payer BC, SELFPAY ==
[2023-05-07 13:57] LABS: Abs Immature Grans 0.01 10^3/uL (0.0-0.06); Absolute Basophil Count 0.02 10^3/uL (0.0-0.2); Absolute Eosinophil Count 0.06 10^3/uL (0.0-0.7); Absolute Lymphocyte Count 1.34 10^3/uL (1.2-3.4); Absolute Monocyte Count 0.46 10^3/uL (0.1-0.8); Absolute Neutrophil Count 2.41 10^3/uL (1.2-6.7); Basophils % 0.5; Eosinophils % 1.4; HCT 32.7 % (36.0-46.0); Immature Grans % 0.2; Lymphocytes % 31.2; MCHC 33.6 % (32.0-36.0); MCV 101 fL (80-95); MPV 9.6 fL (8.0-11.0); Monocytes % 10.7; Platelet Count 264 10^3/uL (130-400); RBC 3.24 10^6/uL (3.93-5.22); RDW 14.3 % (11.7-14.6)
[2023-05-07 14:21] LABS: ALT 13 U/L (14-59); AST 12 U/L (15-37); Albumin 3.3 g/dL (3.4-5.0); Alkaline Phosphatase 55 U/L (46-116); BUN 15 mg/dL (7-18); Bilirubin, Total 0.4 mg/dL (0.2-1.0); CREATININE 0.7 mg/dL (0.55-1.02); Calcium 8.5 mg/dL (8.5-10.1); Chloride 104 mmol/L (98-107); Estimated GFR 97.12 (mL/min/1.73m2); Glucose 89 mg/dL (74-106); Sodium 138 mmol/L (136-145); Total Protein 7.2 g/dL (6.4-8.2)
[2023-05-08 09:45] LABS: IgA 36 mg/dL (85-499); IgG 1428 mg/dL (610-1616); IgM 73 mg/dL (35-242); Kappa Free Light Chain 9.83 mg/dL (0.33-1.94); Lambda Free Light Chain 0.62 mg/dL (0.57-2.63)
[2023-05-08 15:10] LABS: Albumin 56.6 % (55.8-66.1); Albumin g/dL 3.8 g/dL (3.6-5.2); Comment (See Note); Monoclonal Spike 14.2 % (None Seen); Total Protein 6.8 g/dL (6.3-8.2)
[2023-05-08 17:11] LABS: Immunotyping, Serum (See Note)
== END 2023-05-07 03:31 | disposition home or self-care (01) ==
LOC: LBO 03:30
PROVIDERS: PCP Nurse Practitioner Family; Visit Provider Internal Medicine Hematology & Oncology
DX: C90.00 Multiple myeloma not having achieved remission (principal)
CPT/HCPCS: 36415; 80053; 82784; 83883; 84165; 85025; 86320

== ENCOUNTER 2023-05-28 04:22 | Outpatient (CLI) | payer BC, SELFPAY ==
[2023-05-28 11:26] LABS: Abs Immature Grans 0.01 10^3/uL (0.0-0.06); Absolute Basophil Count 0.02 10^3/uL (0.0-0.2); Absolute Eosinophil Count 0.06 10^3/uL (0.0-0.7); Absolute Lymphocyte Count 0.98 10^3/uL (1.2-3.4); Absolute Monocyte Count 0.37 10^3/uL (0.1-0.8); Absolute Neutrophil Count 3.54 10^3/uL (1.2-6.7); Basophils % 0.4; Eosinophils % 1.2; HCT 38.6 % (36.0-46.0); HGB 13.4 g/dL (11.2-15.7); Immature Grans % 0.2; Lymphocytes % 19.7; MCH 34.8 pg (27.0-33.0); MCHC 34.7 % (32.0-36.0); MCV 100 fL (80-95); MPV 9.6 fL (8.0-11.0); Monocytes % 7.4; Neutrophils % 71.1; Platelet Count 243 10^3/uL (130-400); RBC 3.85 10^6/uL (3.93-5.22); RDW 13.7 % (11.7-14.6); RDW-SD 50.4 fL; WBC 4.98 10^3/uL (4.4-10.8)
[2023-05-28 12:08] LABS: ALT 12 U/L (14-59); AST 11 U/L (15-37); Albumin 3.6 g/dL (3.4-5.0); Alkaline Phosphatase 72 U/L (46-116); Anion Gap 4.6 mmol/L (3-11); BUN 12 mg/dL (7-18); Bilirubin, Total 0.5 mg/dL (0.2-1.0); CO2 30.4 mmol/L (21.0-32.0); CREATININE 0.7 mg/dL (0.55-1.02); Chloride 103 mmol/L (98-107); Estimated GFR 97.12 (mL/min/1.73m2); Glucose 106 mg/dL (74-106); Potassium 3.6 mmol/L (3.5-5.1); Sodium 138 mmol/L (136-145); Total Protein 8.1 g/dL (6.4-8.2)
[2023-05-29 10:11] LABS: IgA 34 mg/dL (85-499); IgG 1670 mg/dL (610-1616); IgM 86 mg/dL (35-242); Kappa Free Light Chain 9.29 mg/dL (0.33-1.94); Lambda Free Light Chain 0.74 mg/dL (0.57-2.63)
[2023-05-29 14:52] LABS: Albumin 56.7 % (55.8-66.1); Albumin g/dL 4.3 g/dL (3.6-5.2); Monoclonal Spike 13.7 % (None Seen); Total Protein 7.6 g/dL (6.3-8.2)
[2023-05-29 15:09] LABS: Comment (See Note)
== END 2023-05-28 04:23 | disposition home or self-care (01) ==
LOC: LBO 04:22
PROVIDERS: PCP Nurse Practitioner Family; Visit Provider Internal Medicine Hematology & Oncology
DX: C90.00 Multiple myeloma not having achieved remission (principal)
CPT/HCPCS: 36415; 80053; 82784; 83883; 84165; 85025

== ENCOUNTER 2023-06-04 16:59 | Outpatient (REF) | payer BC, SELFPAY ==
--- NOTE | 2023-06-04 14:50 | ENDOMET_PTH ---
PATIENT: Christen Sommer LOC: [facility] U#:[id number] AGE/SX: 63/F ROOM: RE06/04/[address]: Beth Osorio DO : 1960 BED: DIS: 06/04/2023 SPEC #: [id number] RECD: 06/04/23 17:38 STATUS: SHAHEED REQ #: [id number] DANIEL: 06/04/23 14:[address]: Beth Osorio DEPT: Surgical Specimen RECD BY: Margie Arce ENTERED: 06/04/23 17:38 SP TYPE: Endomet OTHR DR: EHSAN GARZA Tissues: 1 - ENDOMETRIUM BX/GIAN Procedures: GROSS AND MICRO LEVEL 4 Comments: [id number]
== END 2023-06-04 17:00 | disposition home or self-care (01) ==
LOC: LBN 16:59
PROVIDERS: PCP Nurse Practitioner Family; Visit Provider Obstetrics & Gynecology
DX: R93.89 Abnormal findings on diagnostic imaging of other specified body structures (principal)
CPT/HCPCS: 88305

== ENCOUNTER 2023-06-07 04:33 | Outpatient (CLI) | payer BC, SELFPAY ==
[2023-06-07 10:38] LABS: Abs Immature Grans 0.01 10^3/uL (0.0-0.06); Absolute Basophil Count 0.01 10^3/uL (0.0-0.2); Absolute Eosinophil Count 0.11 10^3/uL (0.0-0.7); Absolute Lymphocyte Count 1.14 10^3/uL (1.2-3.4); Absolute Neutrophil Count 3.75 10^3/uL (1.2-6.7); Basophils % 0.2; HCT 40.8 % (36.0-46.0); HGB 13.7 g/dL (11.2-15.7); Immature Grans % 0.2; Lymphocytes % 20.3; MCH 33.8 pg (27.0-33.0); MCHC 33.6 % (32.0-36.0); MCV 101 fL (80-95); MPV 9.6 fL (8.0-11.0); Monocytes % 10.7; Neutrophils % 66.6; Platelet Count 269 10^3/uL (130-400); RBC 4.05 10^6/uL (3.93-5.22); RDW 13.2 % (11.7-14.6); RDW-SD 49.4 fL; WBC 5.62 10^3/uL (4.4-10.8)
[2023-06-07 10:57] LABS: ALT 16 U/L (14-59); AST 12 U/L (15-37); Albumin 3.7 g/dL (3.4-5.0); Alkaline Phosphatase 69 U/L (46-116); Anion Gap 5.4 mmol/L (3-11); BUN 9 mg/dL (7-18); Bilirubin, Total 0.4 mg/dL (0.2-1.0); CO2 29.6 mmol/L (21.0-32.0); CREATININE 0.7 mg/dL (0.55-1.02); Calcium 8.9 mg/dL (8.5-10.1); Chloride 102 mmol/L (98-107); Estimated GFR 97.12 (mL/min/1.73m2); Glucose 92 mg/dL (74-106); Potassium 3.8 mmol/L (3.5-5.1); Sodium 137 mmol/L (136-145)
[2023-06-08 09:07] LABS: IgA 33 mg/dL (85-499); IgG 1636 mg/dL (610-1616); IgM 91 mg/dL (35-242); Kappa Free Light Chain 8.26 mg/dL (0.33-1.94); Lambda Free Light Chain 0.72 mg/dL (0.57-2.63)
[2023-06-08 13:27] LABS: Albumin 57.4 % (55.8-66.1); Albumin g/dL 4.4 g/dL (3.6-5.2); Comment (See Note); Monoclonal Spike 14.8 % (None Seen); Monoclonal Spike g/dL 1.1 g/dL (None Seen); Total Protein 7.6 g/dL (6.3-8.2)
== END 2023-06-07 04:34 | disposition home or self-care (01) ==
PROVIDERS: PCP Nurse Practitioner Family; Visit Provider Internal Medicine Hematology & Oncology
DX: C90.00 Multiple myeloma not having achieved remission (principal)
CPT/HCPCS: 36415; 80053; 82784; 83883; 84165; 85025

== ENCOUNTER 2023-06-14 04:02 | Outpatient (CLI) | payer BC, SELFPAY ==
[2023-06-14 12:15] LABS: Abs Immature Grans 0.03 10^3/uL (0.0-0.06); Absolute Basophil Count 0.01 10^3/uL (0.0-0.2); Absolute Eosinophil Count 0.11 10^3/uL (0.0-0.7); Absolute Lymphocyte Count 1.12 10^3/uL (1.2-3.4); Absolute Monocyte Count 0.57 10^3/uL (0.1-0.8); Absolute Neutrophil Count 4.89 10^3/uL (1.2-6.7); Basophils % 0.1; Eosinophils % 1.6; HCT 39.8 % (36.0-46.0); HGB 13.5 g/dL (11.2-15.7); Immature Grans % 0.4; Lymphocytes % 16.6; MCH 33.7 pg (27.0-33.0); MCHC 33.9 % (32.0-36.0); MCV 99 fL (80-95); MPV 10.7 fL (8.0-11.0); Monocytes % 8.5; Neutrophils % 72.8; Platelet Count 152 10^3/uL (130-400); RBC 4.01 10^6/uL (3.93-5.22); RDW 12.8 % (11.7-14.6); RDW-SD 46.8 fL; WBC 6.73 10^3/uL (4.4-10.8)
[2023-06-14 12:33] LABS: ALT 10 U/L (14-59); AST 9 U/L (15-37); Albumin 3.5 g/dL (3.4-5.0); Alkaline Phosphatase 60 U/L (46-116); Anion Gap 6.3 mmol/L (3-11); BUN 13 mg/dL (7-18); Bilirubin, Total 0.6 mg/dL (0.2-1.0); CO2 26.7 mmol/L (21.0-32.0); CREATININE 0.7 mg/dL (0.55-1.02); Calcium 8.9 mg/dL (8.5-10.1); Chloride 104 mmol/L (98-107); Estimated GFR 97.12 (mL/min/1.73m2); Glucose 81 mg/dL (74-106); Potassium 4.1 mmol/L (3.5-5.1); Sodium 137 mmol/L (136-145); Total Protein 7.5 g/dL (6.4-8.2)
[2023-06-15 10:10] LABS: IgA 25 mg/dL (85-499); IgG 1515 mg/dL (610-1616); IgM 80 mg/dL (35-242); Kappa Free Light Chain 5.41 mg/dL (0.33-1.94); Lambda Free Light Chain 0.45 mg/dL (0.57-2.63)
[2023-06-15 12:15] LABS: Albumin 58.4 % (55.8-66.1); Albumin g/dL 4.3 g/dL (3.6-5.2); Monoclonal Spike g/dL 0.9 g/dL (None Seen); Total Protein 7.3 g/dL (6.3-8.2)
[2023-06-22 10:43] LABS: Comment (See Note)
== END 2023-06-14 04:03 | disposition home or self-care (01) ==
PROVIDERS: PCP Nurse Practitioner Family; Visit Provider Internal Medicine Hematology & Oncology
DX: C90.00 Multiple myeloma not having achieved remission (principal)
CPT/HCPCS: 36415; 80053; 82784; 83883; 84165; 85025; 86320

== ENCOUNTER 2023-06-21 04:41 | Outpatient (CLI) | payer BC, SELFPAY ==
[2023-06-21 11:21] LABS: Abs Immature Grans 0.01 10^3/uL (0.0-0.06); Absolute Basophil Count 0.01 10^3/uL (0.0-0.2); Absolute Eosinophil Count 0.12 10^3/uL (0.0-0.7); Absolute Lymphocyte Count 1.02 10^3/uL (1.2-3.4); Absolute Monocyte Count 0.49 10^3/uL (0.1-0.8); Absolute Neutrophil Count 2.69 10^3/uL (1.2-6.7); Basophils % 0.2; Eosinophils % 2.8; HCT 37.3 % (36.0-46.0); HGB 12.7 g/dL (11.2-15.7); Immature Grans % 0.2; Lymphocytes % 23.5; MCH 33.6 pg (27.0-33.0); MCV 99 fL (80-95); Monocytes % 11.3; Platelet Count 144 10^3/uL (130-400); RBC 3.78 10^6/uL (3.93-5.22); RDW 12.8 % (11.7-14.6); RDW-SD 46.2 fL; WBC 4.34 10^3/uL (4.4-10.8)
[2023-06-21 11:55] LABS: ALT 14 U/L (14-59); AST 10 U/L (15-37); Albumin 3.4 g/dL (3.4-5.0); Alkaline Phosphatase 56 U/L (46-116); Anion Gap 7.5 mmol/L (3-11); BUN 13 mg/dL (7-18); Bilirubin, Total 0.4 mg/dL (0.2-1.0); CO2 29.5 mmol/L (21.0-32.0); CREATININE 0.7 mg/dL (0.55-1.02); Calcium 9.1 mg/dL (8.5-10.1); Chloride 101 mmol/L (98-107); Estimated GFR 97.12 (mL/min/1.73m2); Glucose 107 mg/dL (74-106); Potassium 4.1 mmol/L (3.5-5.1); Sodium 138 mmol/L (136-145); Total Protein 7.2 g/dL (6.4-8.2)
[2023-06-22 09:19] LABS: IgA 21 mg/dL (85-499); IgG 1259 mg/dL (610-1616); IgM 68 mg/dL (35-242); Kappa Free Light Chain 2.49 mg/dL (0.33-1.94); Lambda Free Light Chain 0.55 mg/dL (0.57-2.63)
[2023-06-22 12:39] LABS: Albumin 60.4 % (55.8-66.1); Albumin g/dL 4.1 g/dL (3.6-5.2); Comment (See Note); Monoclonal Spike 11.7 % (None Seen); Monoclonal Spike g/dL 0.8 g/dL (None Seen); Total Protein 6.8 g/dL (6.3-8.2)
== END 2023-06-21 04:42 | disposition home or self-care (01) ==
PROVIDERS: PCP Nurse Practitioner Family; Visit Provider Internal Medicine Hematology & Oncology
DX: C90.00 Multiple myeloma not having achieved remission (principal)
CPT/HCPCS: 36415; 80053; 82784; 83883; 84165; 85025

== ENCOUNTER 2023-07-05 04:36 | Outpatient (CLI) | payer BC, SELFPAY ==
[2023-07-05 10:33] LABS: Absolute Basophil Count 0.01 10^3/uL (0.0-0.2); Absolute Eosinophil Count 0.14 10^3/uL (0.0-0.7); Absolute Lymphocyte Count 0.71 10^3/uL (1.2-3.4); Absolute Neutrophil Count 1.41 10^3/uL (1.2-6.7); Basophils % 0.4; Eosinophils % 5.2; HCT 38.4 % (36.0-46.0); HGB 13.1 g/dL (11.2-15.7); Lymphocytes % 26.6; MCH 33.9 pg (27.0-33.0); MCHC 34.1 % (32.0-36.0); MCV 100 fL (80-95); MPV 10.3 fL (8.0-11.0); Neutrophils % 52.8; Platelet Count 152 10^3/uL (130-400); RBC 3.86 10^6/uL (3.93-5.22); RDW 12.9 % (11.7-14.6); RDW-SD 47.2 fL; WBC 2.67 10^3/uL (4.4-10.8)
[2023-07-05 10:52] LABS: ALT 11 U/L (14-59); AST 10 U/L (15-37); Albumin 3.8 g/dL (3.4-5.0); Alkaline Phosphatase 61 U/L (46-116); Anion Gap 7.4 mmol/L (3-11); BUN 10 mg/dL (7-18); Bilirubin, Total 0.7 mg/dL (0.2-1.0); CO2 29.6 mmol/L (21.0-32.0); CREATININE 0.6 mg/dL (0.55-1.02); Calcium 9.1 mg/dL (8.5-10.1); Chloride 105 mmol/L (98-107); Glucose 100 mg/dL (74-106); Sodium 142 mmol/L (136-145); Total Protein 7.4 g/dL (6.4-8.2)
[2023-07-06 10:40] LABS: IgA 21 mg/dL (85-499); IgG 1073 mg/dL (610-1616); IgM 65 mg/dL (35-242); Kappa Free Light Chain 2.19 mg/dL (0.33-1.94); Lambda Free Light Chain 0.69 mg/dL (0.57-2.63)
[2023-07-06 12:25] LABS: Albumin 62.5 % (55.8-66.1); Albumin g/dL 4.4 g/dL (3.6-5.2); Monoclonal Spike 9.1 % (None Seen); Monoclonal Spike g/dL 0.6 g/dL (None Seen); Total Protein 7.1 g/dL (6.3-8.2)
[2023-07-06 14:31] LABS: Comment (See Note)
== END 2023-07-05 04:37 | disposition home or self-care (01) ==
LOC: LBO 04:36
PROVIDERS: PCP Nurse Practitioner Family; Visit Provider Internal Medicine Hematology & Oncology
DX: N81.4 Uterovaginal prolapse, unspecified (principal)
CPT/HCPCS: 36415; 80053; 82784; 83883; 84165; 85025

== ENCOUNTER 2023-07-12 01:25 | Outpatient (CLI) | payer BC, SELFPAY ==
[2023-07-12 10:52] LABS: Abs Immature Grans 0.02 10^3/uL (0.0-0.06); Absolute Basophil Count 0.04 10^3/uL (0.0-0.2); Absolute Eosinophil Count 0.22 10^3/uL (0.0-0.7); Absolute Lymphocyte Count 0.86 10^3/uL (1.2-3.4); Absolute Neutrophil Count 3.74 10^3/uL (1.2-6.7); Basophils % 0.6; Eosinophils % 3.4; HGB 12.7 g/dL (11.2-15.7); Immature Grans % 0.3; Lymphocytes % 13.5; MCH 33.4 pg (27.0-33.0); MCHC 33.4 % (32.0-36.0); MCV 100 fL (80-95); MPV 9.9 fL (8.0-11.0); Monocytes % 23.5; Neutrophils % 58.7; Platelet Count 144 10^3/uL (130-400); RDW 12.9 % (11.7-14.6); WBC 6.38 10^3/uL (4.4-10.8)
[2023-07-12 11:12] LABS: ALT 10 U/L (14-59); AST 9 U/L (15-37); Albumin 3.6 g/dL (3.4-5.0); Alkaline Phosphatase 57 U/L (46-116); Anion Gap 6.1 mmol/L (3-11); BUN 13 mg/dL (7-18); Bilirubin, Total 0.5 mg/dL (0.2-1.0); CO2 28.9 mmol/L (21.0-32.0); CREATININE 0.7 mg/dL (0.55-1.02); Calcium 8.7 mg/dL (8.5-10.1); Chloride 103 mmol/L (98-107); Estimated GFR 97.12 (mL/min/1.73m2); Glucose 87 mg/dL (74-106); Potassium 3.8 mmol/L (3.5-5.1); Sodium 138 mmol/L (136-145); Total Protein 7.1 g/dL (6.4-8.2)
[2023-07-13 10:35] LABS: IgA 22 mg/dL (85-499); IgG 944 mg/dL (610-1616); IgM 58 mg/dL (35-242); Lambda Free Light Chain 0.76 mg/dL (0.57-2.63)
[2023-07-13 13:41] LABS: Albumin 63.8 % (55.8-66.1); Albumin g/dL 4.3 g/dL (3.6-5.2); Comment (See Note); Monoclonal Spike g/dL 0.5 g/dL (None Seen); Total Protein 6.7 g/dL (6.3-8.2)
== END 2023-07-12 01:26 | disposition home or self-care (01) ==
LOC: LBO 01:25
PROVIDERS: PCP Nurse Practitioner Family; Visit Provider Internal Medicine Hematology & Oncology
DX: C90.00 Multiple myeloma not having achieved remission (principal)
CPT/HCPCS: 36415; 80053; 82784; 83883; 84165; 85025

== ENCOUNTER 2023-07-24 16:19 | Outpatient (CLI) | payer BC, SELFPAY ==
[2023-07-24 15:05] LABS: Absolute Basophil Count 0.03 10^3/uL (0.0-0.2); Absolute Eosinophil Count 0.06 10^3/uL (0.0-0.7); Absolute Monocyte Count 0.59 10^3/uL (0.1-0.8); Absolute Neutrophil Count 1.33 10^3/uL (1.2-6.7); Eosinophils % 2.1; HCT 33.8 % (36.0-46.0); HGB 11.5 g/dL (11.2-15.7); Lymphocytes % 30.9; MCH 34.2 pg (27.0-33.0); MCV 101 fL (80-95); MPV 9.2 fL (8.0-11.0); Monocytes % 20.3; Neutrophils % 45.7; Platelet Count 330 10^3/uL (130-400); RBC 3.36 10^6/uL (3.93-5.22); RDW 13.4 % (11.7-14.6); RDW-SD 48.9 fL; WBC 2.91 10^3/uL (4.4-10.8)
[2023-07-24 15:33] LABS: ALT 15 U/L (14-59); AST 12 U/L (15-37); Albumin 3.5 g/dL (3.4-5.0); Alkaline Phosphatase 58 U/L (46-116); Anion Gap 9.5 mmol/L (3-11); BUN 11 mg/dL (7-18); Bilirubin, Total 0.4 mg/dL (0.2-1.0); CO2 26.5 mmol/L (21.0-32.0); CREATININE 0.7 mg/dL (0.55-1.02); Calcium 8.7 mg/dL (8.5-10.1); Chloride 104 mmol/L (98-107); Estimated GFR 97.12 (mL/min/1.73m2); Glucose 115 mg/dL (74-106); Potassium 3.8 mmol/L (3.5-5.1); Sodium 140 mmol/L (136-145); Total Protein 6.6 g/dL (6.4-8.2)
[2023-07-25 12:11] LABS: IgA 28 mg/dL (85-499); IgG 788 mg/dL (610-1616); IgM 42 mg/dL (35-242); Kappa Free Light Chain 1.18 mg/dL (0.33-1.94)
[2023-07-25 12:41] LABS: Comment (See Note); Monoclonal Spike 5.9 % (None Seen); Monoclonal Spike g/dL 0.4 g/dL (None Seen); Total Protein 6.2 g/dL (6.3-8.2)
== END 2023-07-24 16:20 | disposition home or self-care (01) ==
LOC: LBO 16:19
PROVIDERS: PCP Nurse Practitioner Family; Visit Provider Internal Medicine Hematology & Oncology
DX: C90.00 Multiple myeloma not having achieved remission (principal)
CPT/HCPCS: 36415; 80053; 82784; 83883; 84165; 85025

== ENCOUNTER 2023-08-09 05:34 | Outpatient (CLI) | payer BC, SELFPAY ==
[2023-08-09 10:27] LABS: Abs Immature Grans 0.02 10^3/uL (0.0-0.06); Absolute Basophil Count 0.03 10^3/uL (0.0-0.2); Absolute Eosinophil Count 0.18 10^3/uL (0.0-0.7); Absolute Lymphocyte Count 0.74 10^3/uL (1.2-3.4); Absolute Monocyte Count 1.13 10^3/uL (0.1-0.8); Absolute Neutrophil Count 3.98 10^3/uL (1.2-6.7); Basophils % 0.5; HCT 36.2 % (36.0-46.0); HGB 12.2 g/dL (11.2-15.7); Immature Grans % 0.3; Lymphocytes % 12.2; MCH 34.7 pg (27.0-33.0); MCHC 33.7 % (32.0-36.0); MCV 103 fL (80-95); MPV 10.5 fL (8.0-11.0); Monocytes % 18.6; Neutrophils % 65.4; Platelet Count 138 10^3/uL (130-400); RBC 3.52 10^6/uL (3.93-5.22); RDW 13.5 % (11.7-14.6); RDW-SD 50.9 fL; WBC 6.08 10^3/uL (4.4-10.8)
[2023-08-09 10:44] LABS: ALT 12 U/L (14-59); AST 7 U/L (15-37); Albumin 3.7 g/dL (3.4-5.0); Alkaline Phosphatase 54 U/L (46-116); Anion Gap 8.9 mmol/L (3-11); BUN 12 mg/dL (7-18); Bilirubin, Total 0.6 mg/dL (0.2-1.0); CO2 28.1 mmol/L (21.0-32.0); CREATININE 0.7 mg/dL (0.55-1.02); Calcium 8.7 mg/dL (8.5-10.1); Chloride 104 mmol/L (98-107); Estimated GFR 97.12 (mL/min/1.73m2); Glucose 70 mg/dL (74-106); Potassium 3.8 mmol/L (3.5-5.1); Sodium 141 mmol/L (136-145); Total Protein 6.8 g/dL (6.4-8.2)
[2023-08-10 09:40] LABS: IgA 14 mg/dL (85-499); IgG 754 mg/dL (610-1616); IgM 42 mg/dL (35-242); Kappa Free Light Chain 1.13 mg/dL (0.33-1.94); Lambda Free Light Chain 0.64 mg/dL (0.57-2.63)
[2023-08-10 13:10] LABS: Albumin 66.6 % (55.8-66.1); Albumin g/dL 4.3 g/dL (3.6-5.2); Comment (See Note); Monoclonal Spike 4.7 % (None Seen); Monoclonal Spike g/dL 0.3 g/dL (None Seen); Total Protein 6.5 g/dL (6.3-8.2)
== END 2023-08-09 05:35 | disposition home or self-care (01) ==
LOC: LBO 05:34
PROVIDERS: PCP Nurse Practitioner Family; Visit Provider Internal Medicine Hematology & Oncology
DX: C90.00 Multiple myeloma not having achieved remission (principal)
CPT/HCPCS: 36415; 80053; 82784; 83883; 84165; 85025

== ENCOUNTER 2023-08-23 11:31 | Outpatient (CLI) | payer BC, SELFPAY ==
[2023-08-23 09:58] LABS: Absolute Basophil Count 0.02 10^3/uL (0.0-0.2); Absolute Eosinophil Count 0.08 10^3/uL (0.0-0.7); Absolute Lymphocyte Count 0.69 10^3/uL (1.2-3.4); Absolute Monocyte Count 0.67 10^3/uL (0.1-0.8); Absolute Neutrophil Count 1.82 10^3/uL (1.2-6.7); Basophils % 0.6; Eosinophils % 2.4; HCT 36.9 % (36.0-46.0); HGB 12.4 g/dL (11.2-15.7); MCH 35.3 pg (27.0-33.0); MCHC 33.6 % (32.0-36.0); MPV 8.7 fL (8.0-11.0); Monocytes % 20.4; Neutrophils % 55.6; Platelet Count 325 10^3/uL (130-400); RBC 3.51 10^6/uL (3.93-5.22); RDW 14.7 % (11.7-14.6); RDW-SD 55.5 fL; WBC 3.28 10^3/uL (4.4-10.8)
[2023-08-23 10:03] LABS: MCV 105 fL (80-95)
[2023-08-23 10:13] LABS: ALT 13 U/L (14-59); AST 8 U/L (15-37); Albumin 3.9 g/dL (3.4-5.0); Alkaline Phosphatase 59 U/L (46-116); Anion Gap 8.9 mmol/L (3-11); BUN 9 mg/dL (7-18); Bilirubin, Total 0.6 mg/dL (0.2-1.0); CO2 29.1 mmol/L (21.0-32.0); CREATININE 0.7 mg/dL (0.55-1.02); Calcium 9.1 mg/dL (8.5-10.1); Chloride 101 mmol/L (98-107); Estimated GFR 97.12 (mL/min/1.73m2); Glucose 108 mg/dL (74-106); Sodium 139 mmol/L (136-145); Total Protein 6.9 g/dL (6.4-8.2)
[2023-08-24 09:54] LABS: IgA 25 mg/dL (85-499); IgG 693 mg/dL (610-1616); IgM 39 mg/dL (35-242); Kappa Free Light Chain 1.13 mg/dL (0.33-1.94)
[2023-08-24 12:29] LABS: Albumin 66.3 % (55.8-66.1); Albumin g/dL 4.4 g/dL (3.6-5.2); Comment (See Note); Monoclonal Spike 3.6 % (None Seen); Monoclonal Spike g/dL 0.2 g/dL (None Seen); Total Protein 6.6 g/dL (6.3-8.2)
== END 2023-08-23 11:32 | disposition home or self-care (01) ==
LOC: LBO 11:32
PROVIDERS: PCP Nurse Practitioner Family; Visit Provider Internal Medicine Hematology & Oncology
DX: C90.00 Multiple myeloma not having achieved remission (principal)
CPT/HCPCS: 36415; 80053; 82784; 83883; 84165; 85025

== ENCOUNTER 2023-09-06 04:50 | Outpatient (CLI) | payer BC, SELFPAY ==
[2023-09-06 11:36] LABS: Abs Immature Grans 0.02 10^3/uL (0.0-0.06); Absolute Basophil Count 0.02 10^3/uL (0.0-0.2); Absolute Eosinophil Count 0.18 10^3/uL (0.0-0.7); Absolute Lymphocyte Count 0.67 10^3/uL (1.2-3.4); Absolute Monocyte Count 0.94 10^3/uL (0.1-0.8); Absolute Neutrophil Count 3.93 10^3/uL (1.2-6.7); Basophils % 0.3; Eosinophils % 3.1; HCT 33.6 % (36.0-46.0); HGB 11.7 g/dL (11.2-15.7); Immature Grans % 0.3; Lymphocytes % 11.6; MCH 36.4 pg (27.0-33.0); MCHC 34.8 % (32.0-36.0); MCV 105 fL (80-95); MPV 9.6 fL (8.0-11.0); Monocytes % 16.3; Neutrophils % 68.4; Platelet Count 187 10^3/uL (130-400); RBC 3.21 10^6/uL (3.93-5.22); RDW 13.2 % (11.7-14.6); RDW-SD 50.9 fL; WBC 5.76 10^3/uL (4.4-10.8)
[2023-09-06 11:51] LABS: ALT 13 U/L (14-59); AST 8 U/L (15-37); Albumin 3.6 g/dL (3.4-5.0); Alkaline Phosphatase 52 U/L (46-116); Anion Gap 6.5 mmol/L (3-11); BUN 14 mg/dL (7-18); Bilirubin, Total 0.6 mg/dL (0.2-1.0); CO2 29.5 mmol/L (21.0-32.0); CREATININE 0.7 mg/dL (0.55-1.02); Calcium 8.7 mg/dL (8.5-10.1); Chloride 105 mmol/L (98-107); Estimated GFR 97.12 (mL/min/1.73m2); Glucose 96 mg/dL (74-106); Potassium 4.4 mmol/L (3.5-5.1); Sodium 141 mmol/L (136-145); Total Protein 6.5 g/dL (6.4-8.2)
[2023-09-07 09:57] LABS: IgA 22 mg/dL (85-499); IgG 563 mg/dL (610-1616); IgM 28 mg/dL (35-242); Lambda Free Light Chain 0.81 mg/dL (0.57-2.63)
[2023-09-07 14:15] LABS: Albumin 66.6 % (55.8-66.1); Albumin g/dL 4.1 g/dL (3.6-5.2); Comment (See Note); Monoclonal Spike 3.4 % (None Seen); Monoclonal Spike g/dL 0.2 g/dL (None Seen); Total Protein 6.1 g/dL (6.3-8.2)
== END 2023-09-06 04:51 | disposition home or self-care (01) ==
LOC: LBO 04:50
PROVIDERS: PCP Nurse Practitioner Family; Visit Provider Internal Medicine Hematology & Oncology
DX: C90.00 Multiple myeloma not having achieved remission (principal)
CPT/HCPCS: 36415; 80053; 82784; 83883; 84165; 85025

== ENCOUNTER 2023-09-17 18:01 | Outpatient (CLI) | payer BC, SELFPAY ==
[2023-09-17 15:25] LABS: HCT 35.2 % (36.0-46.0); HGB 12.4 g/dL (11.2-15.7); MCH 37.1 pg (27.0-33.0); MCHC 35.2 % (32.0-36.0); MCV 105 fL (80-95); MPV 9.5 fL (8.0-11.0); Platelet Count 302 10^3/uL (130-400); RBC 3.34 10^6/uL (3.93-5.22); RDW 13.6 % (11.7-14.6); RDW-SD 52.5 fL; WBC 2.27 10^3/uL (4.4-10.8)
[2023-09-17 15:32] LABS: ALT 15 U/L (14-59); AST 6 U/L (15-37); Albumin 3.8 g/dL (3.4-5.0); Alkaline Phosphatase 52 U/L (46-116); Anion Gap 8.4 mmol/L (3-11); BUN 10 mg/dL (7-18); Bilirubin, Total 0.5 mg/dL (0.2-1.0); CO2 28.6 mmol/L (21.0-32.0); CREATININE 0.6 mg/dL (0.55-1.02); Calcium 8.7 mg/dL (8.5-10.1); Chloride 106 mmol/L (98-107); Glucose 116 mg/dL (74-106); Potassium 3.6 mmol/L (3.5-5.1); Sodium 143 mmol/L (136-145); Total Protein 6.7 g/dL (6.4-8.2)
[2023-09-17 15:56] LABS: Absolute Basophil Count 0.02 10^3/uL (0.0-0.2); Absolute Eosinophil Count 0.14 10^3/uL (0.0-0.7); Absolute Lymphocyte Count 0.79 10^3/uL (1.2-3.4); Absolute Monocyte Count 0.23 10^3/uL (0.1-0.8); Absolute Neutrophil Count 1.09 10^3/uL (1.2-6.7); Atypical Lymphocytes % 2
[2023-09-17 15:57] LABS: Diff Comment Manual Differential; Macrocytosis 1+
[2023-09-18 08:46] LABS: IgA 30 mg/dL (85-499); IgG 547 mg/dL (610-1616); IgM 30 mg/dL (35-242); Kappa Free Light Chain 1.03 mg/dL (0.33-1.94); Lambda Free Light Chain 0.82 mg/dL (0.57-2.63)
[2023-09-18 13:53] LABS: Albumin 67.9 % (55.8-66.1); Albumin g/dL 4.3 g/dL (3.6-5.2); Comment (See Note); Monoclonal Spike 2.9 % (None Seen); Monoclonal Spike g/dL 0.2 g/dL (None Seen); Total Protein 6.3 g/dL (6.3-8.2)
== END 2023-09-17 18:02 | disposition home or self-care (01) ==
LOC: LBO 18:02
PROVIDERS: PCP Nurse Practitioner Family; Visit Provider Internal Medicine Hematology & Oncology
DX: C90.00 Multiple myeloma not having achieved remission (principal)
CPT/HCPCS: 36415; 80053; 82784; 83883; 84165; 85025

== ENCOUNTER 2023-10-04 13:12 | Outpatient (CLI) | payer BC, SELFPAY ==
[2023-10-04 13:18] LABS: Abs Immature Grans 0.02 10^3/uL (0.0-0.06); Absolute Basophil Count 0.02 10^3/uL (0.0-0.2); Absolute Eosinophil Count 0.14 10^3/uL (0.0-0.7); Absolute Lymphocyte Count 0.74 10^3/uL (1.2-3.4); Absolute Monocyte Count 0.97 10^3/uL (0.1-0.8); Absolute Neutrophil Count 4.29 10^3/uL (1.2-6.7); Basophils % 0.3 %; Eosinophils % 2.3 %; HCT 35.8 % (36.0-46.0); HGB 12.2 g/dL (11.2-15.7); Immature Grans % 0.3 %; MCH 36.3 pg (27.0-33.0); MCHC 34.1 % (32.0-36.0); MCV 107 fL (80-95); MPV 9.8 fL (8.0-11.0); Monocytes % 15.7 %; Neutrophils % 69.4 %; Platelet Count 159 10^3/uL (130-400); RBC 3.36 10^6/uL (3.93-5.22); RDW 12.4 % (11.7-14.6); RDW-SD 48.2 fL; WBC 6.18 10^3/uL (4.4-10.8)
[2023-10-04 13:43] LABS: ALT 16 U/L (14-59); AST 6 U/L (15-37); Albumin 3.6 g/dL (3.4-5.0); Alkaline Phosphatase 49 U/L (46-116); Anion Gap 6.4 mmol/L (3-11); BUN 14 mg/dL (7-18); Bilirubin, Total 0.5 mg/dL (0.2-1.0); CO2 28.6 mmol/L (21.0-32.0); CREATININE 0.6 mg/dL (0.55-1.02); Calcium 8.4 mg/dL (8.5-10.1); Chloride 104 mmol/L (98-107); Glucose 75 mg/dL (74-106); Potassium 4.2 mmol/L (3.5-5.1); Sodium 139 mmol/L (136-145); Total Protein 6.5 g/dL (6.4-8.2)
[2023-10-05 10:40] LABS: IgA 24 mg/dL (85-499); IgG 502 mg/dL (610-1616); IgM 24 mg/dL (35-242); Kappa Free Light Chain 0.74 mg/dL (0.33-1.94); Lambda Free Light Chain 0.64 mg/dL (0.57-2.63)
[2023-10-05 14:17] LABS: Albumin 68.6 % (55.8-66.1); Albumin g/dL 4.1 g/dL (3.6-5.2); Comment (See Note); Monoclonal Spike 2.7 % (None Seen); Monoclonal Spike g/dL 0.2 g/dL (None Seen)
== END 2023-10-04 13:13 | disposition home or self-care (01) ==
LOC: LBO 13:12
PROVIDERS: PCP Nurse Practitioner Family; Visit Provider Internal Medicine Hematology & Oncology
DX: C90.00 Multiple myeloma not having achieved remission (principal)
CPT/HCPCS: 36415; 80053; 82784; 83883; 84165; 85025

== ENCOUNTER 2023-11-01 01:07 | Outpatient (CLI) | payer BC, SELFPAY ==
[2023-11-01 11:42] LABS: Abs Immature Grans 0.01 10^3/uL (0.0-0.06); Absolute Basophil Count 0.02 10^3/uL (0.0-0.2); Absolute Eosinophil Count 0.47 10^3/uL (0.0-0.7); Absolute Lymphocyte Count 1.06 10^3/uL (1.2-3.4); Absolute Monocyte Count 1.09 10^3/uL (0.1-0.8); Absolute Neutrophil Count 4.43 10^3/uL (1.2-6.7); Basophils % 0.3 %; Eosinophils % 6.6 %; HCT 35.7 % (36.0-46.0); Immature Grans % 0.1 %; MCH 35.2 pg (27.0-33.0); MCHC 33.6 % (32.0-36.0); MCV 105 fL (80-95); MPV 10.2 fL (8.0-11.0); Monocytes % 15.4 %; Neutrophils % 62.6 %; Platelet Count 151 10^3/uL (130-400); RBC 3.41 10^6/uL (3.93-5.22); RDW 11.9 % (11.7-14.6); RDW-SD 46.1 fL; WBC 7.08 10^3/uL (4.4-10.8)
[2023-11-01 11:57] LABS: ALT 14 U/L (14-59); AST 5 U/L (15-37); Albumin 3.5 g/dL (3.4-5.0); Alkaline Phosphatase 48 U/L (46-116); Anion Gap 6.7 mmol/L (3-11); BUN 13 mg/dL (7-18); Bilirubin, Total 0.5 mg/dL (0.2-1.0); CO2 27.3 mmol/L (21.0-32.0); CREATININE 0.7 mg/dL (0.55-1.02); Calcium 7.7 mg/dL (8.5-10.1); Chloride 103 mmol/L (98-107); Estimated GFR 97.12 (mL/min/1.73m2); Glucose 120 mg/dL (74-106); Potassium 3.9 mmol/L (3.5-5.1); Sodium 137 mmol/L (136-145); Total Protein 6.1 g/dL (6.4-8.2)
[2023-11-02 08:12] LABS: IgA 23 mg/dL (85-499); IgG 430 mg/dL (610-1616); IgM 21 mg/dL (35-242); Kappa Free Light Chain 0.61 mg/dL (0.33-1.94)
[2023-11-02 14:28] LABS: Albumin 68.5 % (55.8-66.1); Albumin g/dL 3.9 g/dL (3.6-5.2); Comment (See Note); Total Protein 5.7 g/dL (6.3-8.2)
== END 2023-11-01 01:08 | disposition home or self-care (01) ==
LOC: LBO 01:07
PROVIDERS: Visit Provider Internal Medicine Hematology & Oncology
DX: C90.00 Multiple myeloma not having achieved remission (principal)
CPT/HCPCS: 36415; 80053; 82784; 83883; 84165; 85025

== ENCOUNTER 2023-11-09 01:38 | Outpatient (CLI) | payer BC, SELFPAY ==
[2023-11-09 12:55] LABS: HGB 11.8 g/dL (11.2-15.7); MCH 35.3 pg (27.0-33.0); MCHC 33.7 % (32.0-36.0); MCV 105 fL (80-95); MPV 9.1 fL (8.0-11.0); Platelet Count 182 10^3/uL (130-400); RBC 3.34 10^6/uL (3.93-5.22); RDW 12.2 % (11.7-14.6); RDW-SD 46.5 fL; WBC 2.61 10^3/uL (4.4-10.8)
[2023-11-09 13:09] LABS: Absolute Lymphocyte Count 0.76 10^3/uL (1.2-3.4); Absolute Monocyte Count 0.63 10^3/uL (0.1-0.8); Absolute Neutrophil Count 1.04 10^3/uL (1.2-6.7); Atypical Lymphocytes % 2 %
[2023-11-09 13:10] LABS: Absolute Basophil Count 0.03 10^3/uL (0.0-0.2); Absolute Eosinophil Count 0.16 10^3/uL (0.0-0.7); Diff Comment Manual Differential; RBC Morphology Normal
[2023-11-09 13:52] LABS: ALT 13 U/L (14-59); AST 6 U/L (15-37); Albumin 3.6 g/dL (3.4-5.0); Alkaline Phosphatase 48 U/L (46-116); Anion Gap 5.1 mmol/L (3-11); BUN 11 mg/dL (7-18); Bilirubin, Total 0.68 mg/dL (0.2-1.0); CO2 27.9 mmol/L (21.0-32.0); CREATININE 0.6 mg/dL (0.55-1.02); Calcium 8.2 mg/dL (8.5-10.1); Chloride 106 mmol/L (98-107); Glucose 61 mg/dL (74-106); Potassium 3.9 mmol/L (3.5-5.1); Sodium 139 mmol/L (136-145); Total Protein 6.2 g/dL (6.4-8.2)
[2023-11-12 09:39] LABS: IgA 21 mg/dL (85-499); IgG 418 mg/dL (610-1616); IgM 22 mg/dL (35-242); Kappa Free Light Chain 0.67 mg/dL (0.33-1.94); Lambda Free Light Chain 0.75 mg/dL (0.57-2.63)
[2023-11-12 14:13] LABS: Albumin g/dL 4.1 g/dL (3.6-5.2); Comment (See Note); Total Protein 5.9 g/dL (6.3-8.2)
[2023-11-12 16:37] LABS: Immunotyping, Serum (See Note)
== END 2023-11-09 01:39 | disposition home or self-care (01) ==
LOC: LBO 01:39
PROVIDERS: Visit Provider Internal Medicine Hematology & Oncology
DX: C90.00 Multiple myeloma not having achieved remission (principal)
CPT/HCPCS: 36415; 80053; 82784; 83883; 84165; 85025; 86320

== ENCOUNTER 2023-11-15 15:50 | Outpatient (CLI) | payer BC, SELFPAY ==
[2023-11-15 12:51] LABS: Absolute Basophil Count 0.02 10^3/uL (0.0-0.2); Absolute Eosinophil Count 0.18 10^3/uL (0.0-0.7); Absolute Lymphocyte Count 0.91 10^3/uL (1.2-3.4); Absolute Monocyte Count 0.59 10^3/uL (0.1-0.8); Absolute Neutrophil Count 1.43 10^3/uL (1.2-6.7); Basophils % 0.6 %; Eosinophils % 5.8 %; HCT 35.5 % (36.0-46.0); HGB 12.4 g/dL (11.2-15.7); Lymphocytes % 29.1 %; MCH 35.7 pg (27.0-33.0); MCHC 34.9 % (32.0-36.0); MCV 102 fL (80-95); MPV 9.2 fL (8.0-11.0); Monocytes % 18.8 %; Neutrophils % 45.7 %; Platelet Count 262 10^3/uL (130-400); RBC 3.47 10^6/uL (3.93-5.22); RDW 12.6 % (11.7-14.6); RDW-SD 46.6 fL; WBC 3.13 10^3/uL (4.4-10.8)
[2023-11-15 13:08] LABS: ALT 14 U/L (14-59); AST 10 U/L (15-37); Albumin 3.9 g/dL (3.4-5.0); Alkaline Phosphatase 58 U/L (46-116); Anion Gap 8.7 mmol/L (3-11); BUN 11 mg/dL (7-18); CO2 26.3 mmol/L (21.0-32.0); CREATININE 0.7 mg/dL (0.55-1.02); Calcium 8.8 mg/dL (8.5-10.1); Chloride 101 mmol/L (98-107); Estimated GFR 97.12 (mL/min/1.73m2); Glucose 101 mg/dL (74-106); Potassium 3.8 mmol/L (3.5-5.1); Sodium 136 mmol/L (136-145); Total Protein 6.6 g/dL (6.4-8.2)
[2023-11-16 08:27] LABS: IgA 21 mg/dL (85-499); IgG 441 mg/dL (610-1616); IgM 23 mg/dL (35-242); Kappa Free Light Chain 0.69 mg/dL (0.33-1.94); Lambda Free Light Chain 0.93 mg/dL (0.57-2.63)
[2023-11-16 12:52] LABS: Albumin 68.9 % (55.8-66.1); Albumin g/dL 4.1 g/dL (3.6-5.2); Comment (See Note)
== END 2023-11-15 15:51 | disposition home or self-care (01) ==
LOC: LBO 15:50
PROVIDERS: Visit Provider Internal Medicine Hematology & Oncology
DX: C90.00 Multiple myeloma not having achieved remission (principal)
CPT/HCPCS: 36415; 80053; 82784; 83883; 84165; 85025

== ENCOUNTER 2023-12-20 15:16 | Outpatient (CLI) | payer BC, SELFPAY ==
[2023-12-20 13:18] LABS: Abs Immature Grans 0.02 10^3/uL (0.0-0.06); Absolute Basophil Count 0.04 10^3/uL (0.0-0.2); Absolute Lymphocyte Count 1.08 10^3/uL (1.2-3.4); Absolute Monocyte Count 0.43 10^3/uL (0.1-0.8); Basophils % 0.6 %; Eosinophils % 1.5 %; HCT 37.2 % (36.0-46.0); HGB 12.8 g/dL (11.2-15.7); Immature Grans % 0.3 %; Lymphocytes % 16.4 %; MCH 35.3 pg (27.0-33.0); MCHC 34.4 % (32.0-36.0); MCV 103 fL (80-95); MPV 9.6 fL (8.0-11.0); Monocytes % 6.5 %; Neutrophils % 74.7 %; Platelet Count 260 10^3/uL (130-400); RBC 3.63 10^6/uL (3.93-5.22); RDW-SD 45.7 fL; WBC 6.57 10^3/uL (4.4-10.8)
[2023-12-20 13:34] LABS: ALT 15 U/L (14-59); AST 11 U/L (15-37); Albumin 3.9 g/dL (3.4-5.0); Alkaline Phosphatase 67 U/L (46-116); Anion Gap 8.8 mmol/L (3-11); BUN 12 mg/dL (7-18); Bilirubin, Total 0.65 mg/dL (0.2-1.0); CO2 28.2 mmol/L (21.0-32.0); CREATININE 0.9 mg/dL (0.55-1.02); Calcium 8.6 mg/dL (8.5-10.1); Chloride 104 mmol/L (98-107); Estimated GFR 71.83 (mL/min/1.73m2); Glucose 117 mg/dL (74-106); Potassium 4.3 mmol/L (3.5-5.1); Sodium 141 mmol/L (136-145); Total Protein 6.7 g/dL (6.4-8.2)
[2023-12-21 09:52] LABS: IgA 32 mg/dL (85-499); IgG 465 mg/dL (610-1616); IgM 29 mg/dL (35-242); Kappa Free Light Chain 0.67 mg/dL (0.33-1.94); Lambda Free Light Chain 0.71 mg/dL (0.57-2.63)
[2023-12-21 13:19] LABS: Albumin 66.9 % (55.8-66.1); Albumin g/dL 4.1 g/dL (3.6-5.2); Comment (See Note); Total Protein 6.1 g/dL (6.3-8.2)
== END 2023-12-20 15:17 | disposition home or self-care (01) ==
LOC: LBO 15:17
PROVIDERS: Visit Provider Internal Medicine Hematology & Oncology
DX: C90.01 Multiple myeloma in remission (principal)
CPT/HCPCS: 36415; 80053; 82784; 83883; 84165; 85025

== ENCOUNTER 2024-01-17 03:58 | Outpatient (CLI) | payer BC, SELFPAY ==
[2024-01-17 13:03] LABS: Absolute Basophil Count 0.02 10^3/uL (0.0-0.2); Absolute Eosinophil Count 0.07 10^3/uL (0.0-0.7); Absolute Lymphocyte Count 1.21 10^3/uL (1.2-3.4); Absolute Monocyte Count 0.77 10^3/uL (0.1-0.8); Absolute Neutrophil Count 2.25 10^3/uL (1.2-6.7); Basophils % 0.5 %; Eosinophils % 1.6 %; HCT 36.5 % (36.0-46.0); HGB 12.6 g/dL (11.2-15.7); MCH 34.1 pg (27.0-33.0); MCHC 34.5 % (32.0-36.0); MCV 99 fL (80-95); Monocytes % 17.8 %; Neutrophils % 52.1 %; Platelet Count 353 10^3/uL (130-400); RBC 3.69 10^6/uL (3.93-5.22); RDW 11.5 % (11.7-14.6); RDW-SD 41.2 fL; WBC 4.32 10^3/uL (4.4-10.8)
[2024-01-17 13:16] LABS: ALT 9 U/L (14-59); AST 12 U/L (15-37); Albumin 3.5 g/dL (3.4-5.0); Alkaline Phosphatase 67 U/L (46-116); Anion Gap 6.3 mmol/L (3-11); BUN 8 mg/dL (7-18); Bilirubin, Total 0.36 mg/dL (0.2-1.0); CO2 27.7 mmol/L (21.0-32.0); CREATININE 0.7 mg/dL (0.55-1.02); Calcium 9.5 mg/dL (8.5-10.1); Chloride 104 mmol/L (98-107); Estimated GFR 96.52 (mL/min/1.73m2); Glucose 82 mg/dL (74-106); Potassium 4.3 mmol/L (3.5-5.1); Sodium 138 mmol/L (136-145); Total Protein 6.7 g/dL (6.4-8.2)
[2024-01-18 09:34] LABS: IgA 55 mg/dL (85-499); IgG 545 mg/dL (610-1616); IgM 61 mg/dL (35-242); Kappa Free Light Chain 1.29 mg/dL (0.33-1.94); Lambda Free Light Chain 1.18 mg/dL (0.57-2.63)
[2024-01-18 13:13] LABS: Albumin 62.1 % (55.8-66.1); Albumin g/dL 3.8 g/dL (3.6-5.2); Comment (See Note); Total Protein 6.1 g/dL (6.3-8.2)
== END 2024-01-17 03:59 | disposition home or self-care (01) ==
LOC: LBO 03:58
PROVIDERS: Visit Provider Internal Medicine Hematology & Oncology
DX: C90.00 Multiple myeloma not having achieved remission (principal)
CPT/HCPCS: 36415; 80053; 82784; 83883; 84165; 85025

== ENCOUNTER 2024-02-01 14:53 | Outpatient (CLI) | payer BC, SELFPAY ==
--- NOTE | 2024-02-01 15:01 | DI.RAD_ITS ---
Exam(s) XR HIP LT COMPLETE AP PELVIS EXAM: XR HIP LT COMPLETE AP PELVIS CLINICAL HISTORY: M52.552 Pain left hip. TECHNIQUE: 2D digital imaging was performed. Two views. COMPARISON: No exams were available for comparison FINDINGS: BONES: No acute fracture is present. No bony destructive lesion is seen. JOINTS: No dislocation present. Hip joint spaces are maintained. Mild acetabular spurring. Mild d egenerative changes of the SI joints. Pubic symphysis is unremarkable. SOFT TISSUE: Pessary is noted. IMPRESSION: Mild degenerative changes. DATA REPOSITORY: RADIATION DOSE DELIVERED:
--- NOTE | 2024-02-01 15:01 | DI.RAD_ITS ---
Exam(s) XR CHEST 2V PA LATERAL EXAM: XR CHEST 2V PA LATERAL CLINICAL HISTORY: R91.8 other nonspecific abn finding of lung field TECHNIQUE: 2D digital imaging was performed. Two views. COMPARISON: CR,XR XR CHEST 2V PA LATERAL from 04/19/2023 FINDINGS: HEART: Normal size. Aorta: Tortuous. PULMONARY VASCULATURE: Normal. MEDIASTINUM: Unremarkable. LUNGS: Linear scarring right lung base. Previously noted right lower lobe infiltrate has cleared. PLEURAL SPACE: No pleural effusion or pneumothorax. BONE:Some lower thoracic compression fractures are grossly unchanged. SOFT TISSUES: Unremarkable. IMPRESSION: No acute abnormality. DATA REPOSITORY: RADIATION DOSE DELIVERED:
== END 2024-02-01 15:13 ==
LOC: DI 14:53
PROVIDERS: Visit Provider Nurse Practitioner Family
DX: M25.552 Pain in left hip (principal); R91.8 Other nonspecific abnormal finding of lung field
CPT/HCPCS: 71046; 73502

== ENCOUNTER 2024-02-11 02:58 | Outpatient (CLI) | payer BC, SELFPAY ==
[2024-02-11 13:13] LABS: Abs Immature Grans 0.01 10^3/uL (0.0-0.06); Absolute Basophil Count 0.05 10^3/uL (0.0-0.2); Absolute Eosinophil Count 0.28 10^3/uL (0.0-0.7); Absolute Lymphocyte Count 0.67 10^3/uL (1.2-3.4); Absolute Monocyte Count 0.74 10^3/uL (0.1-0.8); Absolute Neutrophil Count 1.74 10^3/uL (1.2-6.7); Basophils % 1.4 %; HCT 44.1 % (36.0-46.0); HGB 14.8 g/dL (11.2-15.7); Immature Grans % 0.3 %; Lymphocytes % 19.2 %; MCH 32.9 pg (27.0-33.0); MCHC 33.6 % (32.0-36.0); MCV 98 fL (80-95); MPV 10.4 fL (8.0-11.0); Monocytes % 21.2 %; Neutrophils % 49.9 %; Platelet Count 121 10^3/uL (130-400); RDW 12.1 % (11.7-14.6); RDW-SD 43.7 fL; WBC 3.49 10^3/uL (4.4-10.8)
[2024-02-11 13:25] LABS: ALT 14 U/L (14-59); AST 11 U/L (15-37); Albumin 3.9 g/dL (3.4-5.0); Alkaline Phosphatase 73 U/L (46-116); Anion Gap 8.5 mmol/L (3-11); BUN 9 mg/dL (7-18); Bilirubin, Total 0.53 mg/dL (0.2-1.0); CO2 28.5 mmol/L (21.0-32.0); CREATININE 0.6 mg/dL (0.55-1.02); Calcium 8.9 mg/dL (8.5-10.1); Chloride 102 mmol/L (98-107); Estimated GFR 100.17 (mL/min/1.73m2); Glucose 120 mg/dL (74-106); Potassium 3.6 mmol/L (3.5-5.1); Sodium 139 mmol/L (136-145); Total Protein 7.2 g/dL (6.4-8.2)
[2024-02-12 09:37] LABS: IgA 47 mg/dL (85-499); IgG 546 mg/dL (610-1616); IgM 63 mg/dL (35-242); Kappa Free Light Chain 1.43 mg/dL (0.33-1.94); Lambda Free Light Chain 1.41 mg/dL (0.57-2.63)
[2024-02-12 14:40] LABS: Albumin 66.9 % (55.8-66.1); Albumin g/dL 4.3 g/dL (3.6-5.2); Comment (See Note); Total Protein 6.5 g/dL (6.3-8.2)
[2024-02-12 16:12] LABS: Immunotyping, Serum (See Note)
== END 2024-02-11 02:59 | disposition home or self-care (01) ==
LOC: LBO 02:58
PROVIDERS: Visit Provider Internal Medicine Hematology & Oncology
DX: C90.00 Multiple myeloma not having achieved remission (principal)
CPT/HCPCS: 36415; 80053; 82784; 83883; 84165; 85025; 86320

== ENCOUNTER 2024-03-11 01:57 | Outpatient (CLI) | payer BC, SELFPAY ==
[2024-03-11 13:09] LABS: Abs Immature Grans 0.01 10^3/uL (0.0-0.06); Absolute Basophil Count 0.07 10^3/uL (0.0-0.2); Absolute Eosinophil Count 0.26 10^3/uL (0.0-0.7); Absolute Lymphocyte Count 1.02 10^3/uL (1.2-3.4); Absolute Monocyte Count 0.58 10^3/uL (0.1-0.8); Absolute Neutrophil Count 1.74 10^3/uL (1.2-6.7); Basophils % 1.9 %; Eosinophils % 7.1 %; HGB 12.5 g/dL (11.2-15.7); Immature Grans % 0.3 %; Lymphocytes % 27.7 %; MCH 32.4 pg (27.0-33.0); MCHC 33.8 % (32.0-36.0); MCV 96 fL (80-95); MPV 9.8 fL (8.0-11.0); Monocytes % 15.8 %; Neutrophils % 47.2 %; Platelet Count 198 10^3/uL (130-400); RBC 3.86 10^6/uL (3.93-5.22); RDW 12.8 % (11.7-14.6); RDW-SD 43.9 fL; WBC 3.68 10^3/uL (4.4-10.8)
[2024-03-11 13:26] LABS: ALT 8 U/L (14-59); AST 9 U/L (15-37); Albumin 3.5 g/dL (3.4-5.0); Alkaline Phosphatase 64 U/L (46-116); Anion Gap 7.3 mmol/L (3-11); BUN 9 mg/dL (7-18); Bilirubin, Total 0.46 mg/dL (0.2-1.0); CO2 25.7 mmol/L (21.0-32.0); CREATININE 0.7 mg/dL (0.55-1.02); Calcium 8.7 mg/dL (8.5-10.1); Chloride 108 mmol/L (98-107); Estimated GFR 96.52 (mL/min/1.73m2); Glucose 106 mg/dL (74-106); Potassium 4.1 mmol/L (3.5-5.1); Sodium 141 mmol/L (136-145); Total Protein 6.6 g/dL (6.4-8.2)
[2024-03-12 09:38] LABS: IgA 54 mg/dL (85-499); IgG 573 mg/dL (610-1616); IgM 73 mg/dL (35-242); Kappa Free Light Chain 1.62 mg/dL (0.33-1.94); Lambda Free Light Chain 1.67 mg/dL (0.57-2.63)
[2024-03-12 13:21] LABS: Albumin 65.9 % (55.8-66.1); Comment (See Note); Total Protein 6.1 g/dL (6.3-8.2)
[2024-03-12 16:59] LABS: Immunotyping, Serum (See Note)
== END 2024-03-11 01:58 | disposition home or self-care (01) ==
LOC: LBO 01:57
PROVIDERS: Visit Provider Internal Medicine Hematology & Oncology
DX: C90.01 Multiple myeloma in remission (principal)
CPT/HCPCS: 36415; 80053; 82784; 83883; 84165; 85025; 86320

== ENCOUNTER 2024-04-09 02:29 | Outpatient (CLI) | payer BC, SELFPAY ==
[2024-04-09 13:02] LABS: Abs Immature Grans 0.01 10^3/uL (0.0-0.06); Absolute Basophil Count 0.06 10^3/uL (0.0-0.2); Absolute Eosinophil Count 0.63 10^3/uL (0.0-0.7); Absolute Lymphocyte Count 1.04 10^3/uL (1.2-3.4); Absolute Monocyte Count 0.68 10^3/uL (0.1-0.8); Basophils % 1.6 %; Eosinophils % 16.9 %; HGB 12.8 g/dL (11.2-15.7); Immature Grans % 0.3 %; MCH 32.4 pg (27.0-33.0); MCHC 33.7 % (32.0-36.0); MCV 96 fL (80-95); MPV 9.8 fL (8.0-11.0); Monocytes % 18.3 %; Neutrophils % 34.9 %; Platelet Count 176 10^3/uL (130-400); RBC 3.95 10^6/uL (3.93-5.22); RDW 13.6 % (11.7-14.6); RDW-SD 48.3 fL; WBC 3.72 10^3/uL (4.4-10.8)
[2024-04-09 13:19] LABS: ALT 9 U/L (14-59); AST 9 U/L (15-37); Albumin 3.7 g/dL (3.4-5.0); Alkaline Phosphatase 69 U/L (46-116); Anion Gap 6.4 mmol/L (3-11); BUN 14 mg/dL (7-18); Bilirubin, Total 0.41 mg/dL (0.2-1.0); CO2 25.6 mmol/L (21.0-32.0); CREATININE 0.7 mg/dL (0.55-1.02); Calcium 8.8 mg/dL (8.5-10.1); Chloride 107 mmol/L (98-107); Estimated GFR 96.52 (mL/min/1.73m2); Glucose 107 mg/dL (74-106); Potassium 4.1 mmol/L (3.5-5.1); Sodium 139 mmol/L (136-145); Total Protein 6.8 g/dL (6.4-8.2)
== END 2024-04-09 02:30 | disposition home or self-care (01) ==
PROVIDERS: Visit Provider Nurse Practitioner Family
DX: C90.01 Multiple myeloma in remission (principal)
CPT/HCPCS: 36415; 80053; 85025

== ENCOUNTER 2024-05-07 04:29 | Outpatient (CLI) | payer BC, SELFPAY ==
[2024-05-07 13:14] LABS: Abs Immature Grans 0.02 10^3/uL (0.0-0.06); Absolute Basophil Count 0.03 10^3/uL (0.0-0.2); Absolute Eosinophil Count 0.12 10^3/uL (0.0-0.7); Absolute Lymphocyte Count 0.66 10^3/uL (1.2-3.4); Absolute Monocyte Count 0.46 10^3/uL (0.1-0.8); Absolute Neutrophil Count 1.24 10^3/uL (1.2-6.7); Basophils % 1.2 %; Eosinophils % 4.7 %; HCT 35.4 % (36.0-46.0); HGB 11.8 g/dL (11.2-15.7); Immature Grans % 0.8 %; Lymphocytes % 26.1 %; MCH 32.1 pg (27.0-33.0); MCHC 33.3 % (32.0-36.0); MCV 96 fL (80-95); MPV 9.2 fL (8.0-11.0); Monocytes % 18.2 %; Platelet Count 257 10^3/uL (130-400); RBC 3.68 10^6/uL (3.93-5.22); RDW 13.2 % (11.7-14.6); RDW-SD 47.3 fL; WBC 2.53 10^3/uL (4.4-10.8)
[2024-05-07 13:29] LABS: ALT 13 U/L (14-59); AST 12 U/L (15-37); Alkaline Phosphatase 86 U/L (46-116); Anion Gap 7.1 mmol/L (3-11); BUN 8 mg/dL (7-18); Bilirubin, Total 0.39 mg/dL (0.2-1.0); CO2 27.9 mmol/L (21.0-32.0); CREATININE 0.6 mg/dL (0.55-1.02); Calcium 8.8 mg/dL (8.5-10.1); Chloride 105 mmol/L (98-107); Estimated GFR 100.17 (mL/min/1.73m2); Glucose 114 mg/dL (74-106); Potassium 4.3 mmol/L (3.5-5.1); Sodium 140 mmol/L (136-145); Total Protein 6.5 g/dL (6.4-8.2)
== END 2024-05-07 04:30 | disposition home or self-care (01) ==
PROVIDERS: Visit Provider Nurse Practitioner Family
DX: C90.01 Multiple myeloma in remission (principal)
CPT/HCPCS: 36415; 80053; 85025

== ENCOUNTER 2024-05-29 12:09 | Outpatient (CLI) | payer BC, SELFPAY ==
--- NOTE | 2024-05-29 12:10 | DI.RAD_ITS ---
Exam(s) XR CHEST 2V PA LATERAL EXAM: XR CHEST 2V PA LATERAL CLINICAL HISTORY: Community-acquired pneumonia, J18.9 TECHNIQUE: 2D digital imaging was performed of the chest. Two images were obtained. PA and lateral views were obtained. COMPARISON: CR XR CHEST 2V PA LATERAL from 02/01/2024 FINDINGS: MEDIASTINUM: Normal. HEART: Normal. PULMONARY VASCULATURE: Normal. LUNGS: There is a right middle lobe infiltrate. The left lung is clear. PLEURAL SPACE: There is a small right pleural effusion. No left pleural effusion. No pneumothorax. BONE:Within normal limits for the patient's age. Old thoracic compression fracture deformities are s een. OTHER FINDINGS:Normal. IMPRESSION: Right middle lobe pneumonia and small right pleural effusion. DATA REPOSITORY: RADIATION DOSE DELIVERED:
== END 2024-05-29 12:29 ==
PROVIDERS: Visit Provider Nurse Practitioner Family
DX: J18.9 Pneumonia, unspecified organism (principal)
CPT/HCPCS: 71046

== ENCOUNTER 2024-06-06 00:59 | Outpatient (CLI) | payer BC, SELFPAY ==
[2024-06-06 12:47] LABS: Abs Immature Grans 0.01 10^3/uL (0.0-0.06); Absolute Basophil Count 0.04 10^3/uL (0.0-0.2); Absolute Eosinophil Count 0.04 10^3/uL (0.0-0.7); Absolute Lymphocyte Count 0.42 10^3/uL (1.2-3.4); Absolute Monocyte Count 0.19 10^3/uL (0.1-0.8); Absolute Neutrophil Count 4.69 10^3/uL (1.2-6.7); Basophils % 0.7 %; Eosinophils % 0.7 %; HCT 39.9 % (36.0-46.0); HGB 13.2 g/dL (11.2-15.7); Immature Grans % 0.2 %; Lymphocytes % 7.8 %; MCH 31.8 pg (27.0-33.0); MCHC 33.1 % (32.0-36.0); MCV 96 fL (80-95); MPV 10.2 fL (8.0-11.0); Monocytes % 3.5 %; Neutrophils % 87.1 %; Platelet Count 157 10^3/uL (130-400); RBC 4.15 10^6/uL (3.93-5.22); RDW 13.5 % (11.7-14.6); WBC 5.39 10^3/uL (4.4-10.8)
[2024-06-06 13:01] LABS: ALT 12 U/L (14-59); AST 9 U/L (15-37); Albumin 3.6 g/dL (3.4-5.0); Alkaline Phosphatase 77 U/L (46-116); BUN 22 mg/dL (7-18); Bilirubin, Total 0.49 mg/dL (0.2-1.0); CREATININE 0.8 mg/dL (0.55-1.02); Calcium 9.1 mg/dL (8.5-10.1); Chloride 98 mmol/L (98-107); Estimated GFR 82.23 (mL/min/1.73m2); Glucose 131 mg/dL (74-106); Sodium 134 mmol/L (136-145); Total Protein 6.9 g/dL (6.4-8.2)
[2024-06-09 10:20] LABS: IgA 99 mg/dL (85-499); IgG 723 mg/dL (610-1616); IgM 69 mg/dL (35-242); Kappa Free Light Chain 2.87 mg/dL (0.33-1.94); Lambda Free Light Chain 2.77 mg/dL (0.57-2.63)
[2024-06-10 14:04] LABS: Albumin 62.2 % (55.8-66.1); Comment (See Note); Total Protein 6.5 g/dL (6.3-8.2)
[2024-06-10 14:51] LABS: Immunotyping, Serum (See Note)
== END 2024-06-06 01:00 | disposition home or self-care (01) ==
PROVIDERS: Visit Provider Nurse Practitioner Family
DX: C90.01 Multiple myeloma in remission (principal)
CPT/HCPCS: 36415; 80053; 82784; 83883; 84165; 85025; 86320

== ENCOUNTER 2024-06-18 10:35 | Outpatient (CLI) | payer BC, SELFPAY ==
[2024-06-18 13:39] LABS: Abs Immature Grans 0.01 10^3/uL (0.0-0.06); Absolute Basophil Count 0.04 10^3/uL (0.0-0.2); Absolute Eosinophil Count 0.16 10^3/uL (0.0-0.7); Absolute Lymphocyte Count 1.28 10^3/uL (1.2-3.4); Absolute Neutrophil Count 2.85 10^3/uL (1.2-6.7); Basophils % 0.8 %; Eosinophils % 3.2 %; HCT 37.4 % (36.0-46.0); HGB 12.3 g/dL (11.2-15.7); Immature Grans % 0.2 %; Lymphocytes % 25.9 %; MCH 32.3 pg (27.0-33.0); MCHC 32.9 % (32.0-36.0); MCV 98 fL (80-95); MPV 9.2 fL (8.0-11.0); Monocytes % 12.1 %; Neutrophils % 57.8 %; Platelet Count 289 10^3/uL (130-400); RBC 3.81 10^6/uL (3.93-5.22); RDW 14.3 % (11.7-14.6); RDW-SD 51.2 fL; WBC 4.94 10^3/uL (4.4-10.8)
[2024-06-18 14:03] LABS: ALT 18 U/L (14-59); AST 12 U/L (15-37); Albumin 3.2 g/dL (3.4-5.0); Alkaline Phosphatase 79 U/L (46-116); Anion Gap 2.7 mmol/L (3-11); BUN 11 mg/dL (7-18); Bilirubin, Total 0.28 mg/dL (0.2-1.0); CO2 30.3 mmol/L (21.0-32.0); CREATININE 0.6 mg/dL (0.55-1.02); Calcium 8.9 mg/dL (8.5-10.1); Chloride 107 mmol/L (98-107); Estimated GFR 100.17 (mL/min/1.73m2); Glucose 89 mg/dL (74-106); Potassium 4.2 mmol/L (3.5-5.1); Sodium 140 mmol/L (136-145); Total Protein 6.7 g/dL (6.4-8.2)
== END 2024-06-18 10:36 | disposition home or self-care (01) ==
PROVIDERS: PCP Internal Medicine Hematology & Oncology; Referring Provider Nurse Practitioner Family; Visit Provider Nurse Practitioner Family
DX: C90.01 Multiple myeloma in remission (principal)
CPT/HCPCS: 36415; 80053; 85025

== ENCOUNTER 2024-07-03 17:25 | Emergency (ER) | payer BC, SELFPAY ==
[2024-07-03] VITALS (11 sets, daily range): BP systolic 88–133; BP diastolic 37–61; PULSE 57–90; RESP 16–24; TEMP 38.7; O2SAT 90–94
--- NOTE | 2024-07-03 17:15 | RT.EKG_ITS ---
APPROVED REPORT Exam: Resting ECG Reason for Exam: SOB Patient Location: E HR:74 bpm ECG Measurements Heart Rate 74 AXIS MO 180 P 114 QRSd 82 QRS 26 QT 366 T 110 QTc 403 Conclusion Sinus rhythm...normal P axis, V-rate 60- 99 Atrial premature complex...SV complex w/ short R-R interval Nonspecific T abnormalities, lateral leads...T <-0.10mV, I aVL V5 V6
--- NOTE | 2024-07-03 17:48 | W.ED.GENAD ---
Discharge Plan Disposition Patient Disposition: Home Condition: Stable Discharge Details Clinical Impression: Influenza A, Community acquired pneumonia Primary Care Provider: Cristo Walsh ED Provider: Dawson Shankar Home Meds and New Rx's Prescriptions: New prednisone 20 mg tablet 60 mg PO DAILY 4 Days Qty: 12 0RF oseltamivir 75 mg capsule 75 mg PO Q12H 5 Days Qty: 9 0RF levofloxacin 750 mg tablet 750 mg PO DAILY Qty: 5 0RF Continued acetaminophen 500 mg capsule 1,000 mg PO TID PRN PRN (Reason: fever) Qty: 300 0RF Pomalyst 4 mg capsule 4 mg PO DAILY dexamethasone 4 mg tablet 20 mg PO .Once Weekly sennosides 8.6 mg tablet 8.6 mg PO DAILY PRN oxycodone 10 mg tablet 10 mg PO TID PRN bortezomib [Velcade] 3.5 mg recon soln 3 mg IV .q month Rx Instructions: administer on days 1, 8, 15, and 22 of a 35-day/5-week cycle polyethylene glycol 3350 17 gram/dose powder 17 g PO DAILY PRN gabapentin 300 mg capsule 300 mg PO BID lenalidomide 25 mg capsule 25 mg PO DAILY Rx Instructions: swallow whole with glass of water; do not open, crush, chew , break, or dissolve albuterol sulfate 90 mcg/actuation HFA aerosol inhaler 2 inh INHALATION DAILY Qty: 6.7 1RF Rx Instructions: ALbuterol, as best dispensed per insurance coverage/availability ondansetron HCl 4 mg tablet 4 mg PO PRN PRN Patient Comments: TAKE 1 TABLET BY MOUTH EVERY 8 HOURS NEEDED FOR NAUSEA acyclovir 400 mg tablet 400 mg PO DAILY Patient Comments: TAKE 1 TABLET BY MOUTH TWICE DAILY aspirin 81 mg tablet,delayed release (DR/EC) 81 mg PO DAILY Patient Comments: TAKE 1 TABLET BY MOUTH DAILY Discharge Instructions Additional Instructions: Your blood work did not show any concerning findings at this time. You are positive for the flu and there was a question of a small pneumonia on your x-ray. Follow-up with your primary care provider especially if not improving. If you feel more ill, have new symptoms such as persistent vomiting or severe worsening shortness of breath return to the emergency department for reevaluation. HPI General Date/Time Provider Initiated Documentation: 07/03/24 17:27. Limitations to Documentation: no limitations. Information obtained by: patient. History of Present Illness 64 year old F presents to the emergency department with the chief complaint of cough, body aches, fever, described as moderate, Patient started experiencing this day(s) (1) and it has been constant. No relieving factors improve symptom(s), No exacerbating factors reported . Patient notes denies chest pain and nausea/vomiting. Patient did receive the following treatments prior to arrival, none Related Data Home Medications ?Medication ?Instructions ?Recorded ?Confirmed acetaminophen 500 mg capsule 1,000 mg (2 x 500 mg) PO TID PRN 10/20/21 07/03/24 PRN fever #300 caps acyclovir 400 mg tablet 400 mg PO DAILY 01/31/22 07/03/24 aspirin 81 mg tablet,delayed 81 mg PO DAILY 01/31/22 07/03/24 release ondansetron HCl 4 mg tablet 4 mg PO PRN PRN 01/31/22 07/03/24 bortezomib 3.5 mg injection powder 3 mg IV .q month 12/15/22 07/03/24 for solution (Velcade) dexamethasone 4 mg tablet 20 mg PO .Once Weekly 12/15/22 07/03/24 gabapentin 300 mg capsule 300 mg PO BID 12/15/22 07/03/24 lenalidomide 25 mg capsule 25 mg PO DAILY 12/15/22 07/03/24 oxycodone 10 mg tablet 10 mg PO TID PRN 12/15/22 07/03/24 polyethylene glycol 3350 17 17 g PO DAILY PRN 12/15/22 07/03/24 gram/dose oral powder sennosides 8.6 mg tablet 8.6 mg PO DAILY PRN 12/15/22 07/03/24 albuterol sulfate 90 mcg/actuation 2 inh inhalation DAILY #6.7 grams 04/14/23 07/03/24 aerosol inhaler pomalidomide 4 mg capsule 4 mg PO DAILY 06/20/23 07/03/24 (Pomalyst) levofloxacin 750 mg tablet 750 mg PO DAILY #5 tabs 07/03/24 oseltamivir 75 mg capsule 75 mg PO Q12H 5 days #9 caps 07/03/24 prednisone 20 mg tablet 60 mg (3 x 20 mg) PO DAILY 4 days 07/03/24 #12 tabs Previous Rx's ?Medication ?Instructions ?Recorded acetaminophen 500 mg capsule 1,000 mg (2 x 500 mg) PO TID PRN 10/20/21 PRN fever #300 caps albuterol sulfate 90 mcg/actuation 2 inh inhalation DAILY #6.7 grams 04/14/23 aerosol inhaler levofloxacin 750 mg tablet 750 mg PO DAILY #5 tabs 07/03/24 oseltamivir 75 mg capsule 75 mg PO Q12H 5 days #9 caps 07/03/24 prednisone 20 mg tablet 60 mg (3 x 20 mg) PO DAILY 4 days 07/03/24 #12 tabs Allergies Allergy/AdvReac Type Severity Reaction Status Date / Time No Known Allergies Allergy Verified 07/03/24 17:29 General Stated Complaint: SOB RAE: 3 Review of Systems All systems reviewed & are unremarkable except as noted in HPI and below Constitutional Constitutional: Reports chills and Reports fever(s) Cardiovascular Cardiovascular: Denies chest pain and Reports dyspnea Respiratory Respiratory: Reports cough and Reports dyspnea Gastrointestinal Gastrointestinal: Denies abdominal pain, Denies nausea and Denies vomiting Exam Const General: no acute distress Orientation: alert HENAR Head: normal to inspection Ears: external ears normal General nose exam: external nose normal Mouth: moist mucous membranes Eyes General: appearance normal, both eyes and all related structures Neck Neck: normal visual inspection Resp Effort & Inspection: normal respiratory effort and able to speak in complete sentences Auscultation: wheezes Cardio Jugular venous pressure: no JVD Rate: regular rate Skin General skin exam: no rashes or lesions noted Neuro General: patient alert and patient oriented x3 Extrem General: normal to inspection Psych Mental Status: mental status grossly normal Course Vital Signs Vital signs: Vital Signs Temperature 38.7 C H 07/03/24 17:33 Pulse 90 07/03/24 17:33 Respiratory Rate 24 07/03/24 17:33 Blood Pressure 106/61 07/03/24 17:33 Pulse Oximetry 92 07/03/24 17:33 Temperature 38.7 C H 07/03/24 17:33 Temperature Source Oral 07/03/24 17:33 Pulse 90 07/03/24 17:33 Respiratory Rate 24 07/03/24 17:33 Blood Pressure 106/61 07/03/24 17:33 Blood Pressure Position Sitting 07/03/24 17:33 Pulse Oximetry 92 07/03/24 17:33 Oxygen Delivery Method Room Air 07/03/24 17:33 Oxygen Flow Rate 0 07/03/24 17:33 Medical Decision Making 64-year-old female with a history of multiple Aloma chemotherapy comes in with fevers cough and dyspnea starting this morning. She denies any chest pain, vomiting, diaphoresis. She is febrile on arrival. She is able speak in full sentences and no stress. She does have apical wheezing bilaterally otherwise clear lung sounds, no leg swelling or calf tenderness. I suspect possible mild COPD exacerbation as she has a history of this and likely has a respiratory infection. Will check a CBC, CMP, procalcitonin and treat her symptoms with DuoNeb and Tylenol. Will also obtain a chest x-ray. Blood work without significant findings, she is positive for the flu. Chest x-ray shows question of a small right middle and lower lobe pneumonia. She is stable and requesting discharge which I feel is reasonable given reassuring workup. Will start her on oral antibiotics and Tamiflu. She will follow-up with her PCP if not improving and return precautions given Differential Diagnosis Differential Diagnosis: Pneumonia, COVID, flu Medical Records Medical records reviewed: Yes I reviewed the patient's medical records. Lab Data Lab results reviewed: Yes I reviewed the patient's lab results. ECG Data Attestation: I personally reviewed and interpreted this ECG (s) as follows: Prior ECG tracings: available for review Interpretation: Sinus rhythm, rate 74, [place] 180, no STEMI Quality:SDOH Health Related Social Needs: No Data to Display PFSH All Active Problems (Updated 07/03/24 @ 19:59 by Dawson Shankar MD) Community acquired pneumonia (Acute) Influenza A (Acute) Yeast vaginitis (Acute) Thickened endometrium (Acute) Uterine prolapse (Acute) [place]-Walker grade 1 cystocele (Acute) Advanced care planning/counseling discussion (Acute) Pathological fracture of lumbosacral spine (Acute) Chronic low back pain (Chronic) Multiple myeloma (Acute) Osteoporosis (Chronic) Trochanteric bursitis, right hip (Acute) Tobacco dependence (Acute) Peripheral edema (Acute) Depression (Chronic) Compression fracture of L2 lumbar vertebra (Acute) Compression fracture (Acute) Medical History Hx of blood transfusion reaction Edema Hip pain Thigh pain Prolapse of anterior vaginal wall Osteopenia Social History Smoking/Tobacco Use Status: Former Tobacco Use Smoking risk assessment performed?: Yes Drug use: Never Substance use type: does not use Housing: house Do you feel safe at home: Yes Do you feel safe in your relationship?: Yes History History 8 Para 7 Hx # Term Pregnancies 7 Multiple births Hx # Pregnancies Ectopic pregnancies AB induced Hx Number of Living Children 7 AB spontaneous
[2024-07-03] MEDS: Albuterol/Ipratropium 3 ML UPD VIAL UPD (18:08)
[2024-07-03 18:16] LABS: BE (Venous) 3 mmol/L (-2-3); HCO3 (Venous) 27 mmol/L (23-28); O2 Sat (Venous) 89 %; TCO2 (Venous) 25 mmol/L (24-29); pCO2 (Venous) 39 mmHg (41-51); pH (Venous) 7.46 (7.31-7.41); pO2 (Venous) 52 mmHg
[2024-07-03 18:17] LABS: Abs Immature Grans 0.02 10^3/uL (0.0-0.06); Absolute Basophil Count 0.03 10^3/uL (0.0-0.2); Absolute Eosinophil Count 0.03 10^3/uL (0.0-0.7); Absolute Lymphocyte Count 0.13 10^3/uL (1.2-3.4); Absolute Monocyte Count 0.34 10^3/uL (0.1-0.8); Absolute Neutrophil Count 3.58 10^3/uL (1.2-6.7); Basophils % 0.7 %; Eosinophils % 0.7 %; HCT 35.5 % (36.0-46.0); HGB 11.9 g/dL (11.2-15.7); Immature Grans % 0.5 %; Lymphocytes % 3.1 %; MCH 32.1 pg (27.0-33.0); MCHC 33.5 % (32.0-36.0); MCV 96 fL (80-95); MPV 9.5 fL (8.0-11.0); Monocytes % 8.2 %; Neutrophils % 86.8 %; Platelet Count 204 10^3/uL (130-400); RBC 3.71 10^6/uL (3.93-5.22); RDW 14.2 % (11.7-14.6); RDW-SD 49.5 fL; WBC 4.13 10^3/uL (4.4-10.8)
[2024-07-03 18:42] LABS: ALT 15 U/L (14-59); AST 9 U/L (15-37); Albumin 3.1 g/dL (3.4-5.0); Alkaline Phosphatase 67 U/L (46-116); Anion Gap 6.1 mmol/L (3-11); BUN 11 mg/dL (7-18); Bilirubin, Total 0.41 mg/dL (0.2-1.0); CO2 27.9 mmol/L (21.0-32.0); CREATININE 0.8 mg/dL (0.55-1.02); Calcium 8.5 mg/dL (8.5-10.1); Chloride 101 mmol/L (98-107); Estimated GFR 82.23 (mL/min/1.73m2); Glucose 160 mg/dL (74-106); Magnesium 1.5 mg/dL (1.8-2.4); Potassium 3.5 mmol/L (3.5-5.1); Sodium 135 mmol/L (136-145); TSH (W/Ref FT4) 0.22 uIU/mL (0.36-3.74); Total Protein 6.2 g/dL (6.4-8.2)
[2024-07-03 18:46] LABS: Procalcitonin < 0.10 ng/mL
[2024-07-03 18:48] LABS: COVID-19 PCR Negative (Negative); Influenza A PCR Positive (Negative); Influenza B PCR Negative (Negative); RSV PCR Negative (Negative)
[2024-07-03] MEDS: Normal Saline 500 ML IV (18:58)
[2024-07-03 19:01] LABS: Source Nasopharynx
[2024-07-03 19:01] LABS: FREE T4 0.87 ng/dL (0.76-1.46)
--- NOTE | 2024-07-03 19:18 | DI.RAD_ITS ---
Exam(s) XR CHEST 2V PA LATERAL EXAM: XR CHEST 2V PA LATERAL CLINICAL HISTORY: fever, cough. TECHNIQUE: 2D digital imaging was performed. COMPARISON: CR XR CHEST 2V PA LATERAL from 05/29/2024 FINDINGS: 2 views: Heart size is normal. The mediastinum is not widened. The left lung remains clear. However, there is persistent infiltrate in the right middle lobe althou gh this appears to have slightly decreased in amount when compared to 05/29/2024. No pleural effusio ns. No pulmonary edema. IMPRESSION: Persistent right middle lobe infiltrate although appears somewhat decreased when compared to 05/29/19 25. DATA REPOSITORY: RADIATION DOSE DELIVERED:
[2024-07-03] MEDS: Oseltamivir 75 MG CAP PO (19:22)
--- NOTE | 2024-07-03 19:48 | DI.VRAD_ITS ---
PROCEDURE INFORMATION: Exam: XR Chest Exam date and time: 07/03/2024 7:10 PM Age: 64 years old Clinical indication: Cough and fever; Fever, cough TECHNIQUE: Imaging protocol: Radiologic exam of the chest. Views: 2 views. COMPARISON: CR XR CHEST 2V PA LATERAL 05/29/2024 11:59 AM FINDINGS: Lungs: Right middle and lower lobe opacities silhouetting of the right hemidiaphragm. Pleural spaces: Unremarkable. No pleural effusion. No pneumothorax. Heart/Mediastinum: Unremarkable. No cardiomegaly. Bones/joints: Unremarkable. IMPRESSION: Findings can be seen in right middle and right lower lobe pneumonia. Correlate clinically. Dictated and Authenticated by: Hernando Padgett MD. Orderin Raad Osman MD
[2024-07-03] MEDS: predniSONE 20 MG TAB 60 MG PO (20:10)
[2024-07-03] MEDS: levoFLOXacin 500 MG, levoFLOXacin 250 MG 750 MG PO (20:11)
== END 2024-07-03 20:24 | disposition home or self-care (01) ==
PROVIDERS: Emergency Provider Emergency Medicine; PCP Internal Medicine Hematology & Oncology
DX: J10.00 Influenza due to other identified influenza virus with unspecified type of pneumonia (principal); C90.00 Multiple myeloma not having achieved remission; Z79.82 Long term (current) use of aspirin; Z92.21 Personal history of antineoplastic chemotherapy; Z87.891 Personal history of nicotine dependence
CPT/HCPCS: 80053; 82805; 84145; 87637; 93005; 94640; 96360; 99285; 71046; 83735; 84439; 84443; 85025; 93010; 99284; J7512; J7620

== ENCOUNTER 2024-07-16 03:16 | Outpatient (CLI) | payer BC, SELFPAY ==
[2024-07-16 13:54] LABS: Abs Immature Grans 0.01 10^3/uL (0.0-0.06); Absolute Basophil Count 0.07 10^3/uL (0.0-0.2); Absolute Eosinophil Count 0.25 10^3/uL (0.0-0.7); Absolute Lymphocyte Count 2.14 10^3/uL (1.2-3.4); Absolute Monocyte Count 0.65 10^3/uL (0.1-0.8); Absolute Neutrophil Count 1.19 10^3/uL (1.2-6.7); Basophils % 1.6 %; Eosinophils % 5.8 %; HCT 40.2 % (36.0-46.0); HGB 13.3 g/dL (11.2-15.7); Immature Grans % 0.2 %; Lymphocytes % 49.7 %; MCH 31.9 pg (27.0-33.0); MCHC 33.1 % (32.0-36.0); MCV 96 fL (80-95); MPV 8.8 fL (8.0-11.0); Monocytes % 15.1 %; Neutrophils % 27.6 %; Platelet Count 294 10^3/uL (130-400); RBC 4.17 10^6/uL (3.93-5.22); RDW-SD 49.9 fL; WBC 4.31 10^3/uL (4.4-10.8)
[2024-07-16 14:09] LABS: ALT 17 U/L (14-59); AST 13 U/L (15-37); Albumin 3.8 g/dL (3.4-5.0); Alkaline Phosphatase 79 U/L (46-116); Anion Gap 6.6 mmol/L (3-11); BUN 14 mg/dL (7-18); Bilirubin, Total 0.28 mg/dL (0.2-1.0); CO2 29.4 mmol/L (21.0-32.0); CREATININE 0.7 mg/dL (0.55-1.02); Calcium 9.3 mg/dL (8.5-10.1); Chloride 104 mmol/L (98-107); Estimated GFR 96.52 (mL/min/1.73m2); Glucose 114 mg/dL (74-106); Potassium 3.8 mmol/L (3.5-5.1); Sodium 140 mmol/L (136-145); Total Protein 7.3 g/dL (6.4-8.2)
[2024-07-17 09:29] LABS: IgA 74 mg/dL (85-499); IgG 583 mg/dL (610-1616); IgM 61 mg/dL (35-242); Kappa Free Light Chain 1.37 mg/dL (0.33-1.94)
[2024-07-17 13:41] LABS: Albumin 63.7 % (55.8-66.1); Albumin g/dL 4.3 g/dL (3.6-5.2); Comment (See Note); Total Protein 6.7 g/dL (6.3-8.2)
== END 2024-07-16 03:17 | disposition home or self-care (01) ==
PROVIDERS: PCP Internal Medicine Hematology & Oncology; Visit Provider Nurse Practitioner Family
DX: C90.01 Multiple myeloma in remission (principal)
CPT/HCPCS: 36415; 80053; 82784; 83883; 84165; 85025

== ENCOUNTER 2024-08-06 03:35 | Outpatient (CLI) | payer BC, SELFPAY ==
[2024-08-06 13:52] LABS: Abs Immature Grans 0.02 10^3/uL (0.0-0.06); Absolute Basophil Count 0.03 10^3/uL (0.0-0.2); Absolute Eosinophil Count 0.15 10^3/uL (0.0-0.7); Absolute Monocyte Count 0.64 10^3/uL (0.1-0.8); Absolute Neutrophil Count 1.99 10^3/uL (1.2-6.7); Basophils % 0.8 %; Eosinophils % 3.9 %; HCT 37.4 % (36.0-46.0); HGB 12.3 g/dL (11.2-15.7); Immature Grans % 0.5 %; Lymphocytes % 26.1 %; MCH 31.5 pg (27.0-33.0); MCHC 32.9 % (32.0-36.0); MCV 96 fL (80-95); MPV 9.8 fL (8.0-11.0); Monocytes % 16.7 %; Platelet Count 227 10^3/uL (130-400); RDW 13.7 % (11.7-14.6); RDW-SD 48.2 fL; WBC 3.83 10^3/uL (4.4-10.8)
[2024-08-06 14:08] LABS: ALT 11 U/L (14-59); AST 10 U/L (15-37); Albumin 3.5 g/dL (3.4-5.0); Alkaline Phosphatase 81 U/L (46-116); Anion Gap 5.4 mmol/L (3-11); BUN 11 mg/dL (7-18); Bilirubin, Total 0.4 mg/dL (0.2-1.0); CO2 31.6 mmol/L (21.0-32.0); CREATININE 0.6 mg/dL (0.55-1.02); Calcium 8.9 mg/dL (8.5-10.1); Chloride 104 mmol/L (98-107); Estimated GFR 100.17 (mL/min/1.73m2); Glucose 114 mg/dL (74-106); Potassium 4.3 mmol/L (3.5-5.1); Sodium 141 mmol/L (136-145); Total Protein 6.7 g/dL (6.4-8.2)
[2024-08-07 11:01] LABS: IgA 69 mg/dL (85-499); IgG 582 mg/dL (610-1616); IgM 62 mg/dL (35-242); Kappa Free Light Chain 1.45 mg/dL (0.33-1.94); Lambda Free Light Chain 1.16 mg/dL (0.57-2.63)
[2024-08-07 13:23] LABS: Albumin 61.5 % (55.8-66.1); Albumin g/dL 3.6 g/dL (3.6-5.2); Comment (See Note); Total Protein 5.9 g/dL (6.3-8.2)
== END 2024-08-06 03:36 | disposition home or self-care (01) ==
PROVIDERS: PCP Internal Medicine Hematology & Oncology; Visit Provider Nurse Practitioner Family
DX: C90.01 Multiple myeloma in remission (principal)
CPT/HCPCS: 36415; 80053; 82784; 83883; 84165; 85025

== ENCOUNTER 2024-09-05 00:52 | Outpatient (CLI) | payer BC, SELFPAY ==
[2024-09-05 13:19] LABS: Abs Immature Grans 0.02 10^3/uL (0.0-0.06); Absolute Basophil Count 0.07 10^3/uL (0.0-0.2); Absolute Eosinophil Count 0.24 10^3/uL (0.0-0.7); Absolute Lymphocyte Count 1.68 10^3/uL (1.2-3.4); Absolute Monocyte Count 0.36 10^3/uL (0.1-0.8); Absolute Neutrophil Count 5.15 10^3/uL (1.2-6.7); Basophils % 0.9 %; Eosinophils % 3.2 %; HCT 41.6 % (36.0-46.0); HGB 13.8 g/dL (11.2-15.7); Immature Grans % 0.3 %; Lymphocytes % 22.3 %; MCHC 33.2 % (32.0-36.0); MCV 97 fL (80-95); MPV 9.1 fL (8.0-11.0); Monocytes % 4.8 %; Neutrophils % 68.5 %; Platelet Count 334 10^3/uL (130-400); RBC 4.31 10^6/uL (3.93-5.22); RDW 13.2 % (11.7-14.6); RDW-SD 46.9 fL; WBC 7.52 10^3/uL (4.4-10.8)
[2024-09-05 14:12] LABS: ALT 14 U/L (14-59); AST 9 U/L (15-37); Albumin 3.8 g/dL (3.4-5.0); Alkaline Phosphatase 92 U/L (46-116); Anion Gap 7.4 mmol/L (3-11); BUN 16 mg/dL (7-18); Bilirubin, Total 0.3 mg/dL (0.2-1.0); CO2 30.6 mmol/L (21.0-32.0); CREATININE 0.7 mg/dL (0.55-1.02); Calcium 9.5 mg/dL (8.5-10.1); Chloride 103 mmol/L (98-107); Estimated GFR 96.52 (mL/min/1.73m2); Glucose 127 mg/dL (74-106); Potassium 3.8 mmol/L (3.5-5.1); Sodium 141 mmol/L (136-145); Total Protein 7.4 g/dL (6.4-8.2)
[2024-09-08 08:06] LABS: IgA 77 mg/dL (85-499); IgG 631 mg/dL (610-1616); IgM 63 mg/dL (35-242); Kappa Free Light Chain 1.31 mg/dL (0.33-1.94); Lambda Free Light Chain 1.31 mg/dL (0.57-2.63)
[2024-09-08 13:32] LABS: Albumin 61.9 % (55.8-66.1); Albumin g/dL 4.1 g/dL (3.6-5.2); Comment (See Note); Total Protein 6.6 g/dL (6.3-8.2)
[2024-09-08 16:37] LABS: Immunotyping, Serum (See Note)
== END 2024-09-05 00:53 | disposition home or self-care (01) ==
LOC: LBO 00:52
PROVIDERS: PCP Internal Medicine Hematology & Oncology; Visit Provider Nurse Practitioner Family
DX: C90.01 Multiple myeloma in remission (principal)
CPT/HCPCS: 36415; 80053; 82784; 83883; 84165; 85025; 86320

== ENCOUNTER 2025-04-03 02:44 | Outpatient (CLI) | payer MEDICARE, SELFPAY ==
[2025-04-03 15:05] LABS: HCT 36.1 % (36.0-46.0); HGB 12.1 g/dL (11.2-15.7); MCH 32.4 pg (27.0-33.0); MCHC 33.5 % (32.0-36.0); MCV 97 fL (80-95); MPV 9.3 fL (8.0-11.0); Platelet Count 162 10^3/uL (130-400); RBC 3.73 10^6/uL (3.93-5.22); RDW 13.8 % (11.7-14.6); RDW-SD 49.4 fL; WBC 3.27 10^3/uL (4.4-10.8)
[2025-04-03 15:22] LABS: ALT 7 U/L (10-49); AST 15 U/L (<34); Albumin 4.1 g/dL (3.4-5.0); Alkaline Phosphatase 68 U/L (46-116); Anion Gap 6.8 mmol/L (3-11); BUN 11 mg/dL (9-23); Bilirubin, Total 0.50 mg/dL (0.2-1.2); CO2 28.2 mmol/L (20.0-31.0); Calcium 8.6 mg/dL (8.3-10.6); Chloride 106 mmol/L (98-107); Glucose 76 mg/dL (74-106); Potassium 4.4 mmol/L (3.5-5.1); Sodium 141 mmol/L (136-145); Total Protein 6.4 g/dL (5.7-8.2)
[2025-04-03 15:42] LABS: Abs Immature Grans 0.00 10^3/uL (0.0-0.06); Immature Grans % 0.0 %; RBC Morphology Normal
[2025-04-06 10:23] LABS: Kappa Free Light Chain 1.62 mg/dL (0.33-1.94); Lambda Free Light Chain 1.77 mg/dL (0.57-2.63)
[2025-04-07 09:24] LABS: Albumin 66.9 % (55.8-66.1); Albumin g/dL 4.1 g/dL (3.6-5.2); Alpha 1 g/dL 0.30 g/dL (0.15-0.40); Alpha 2 g/dL 0.60 g/dL (0.50-1.00); Beta g/dL 0.60 g/dL (0.60-1.20); Gamma g/dL 0.50 g/dL (0.60-1.60); Total Protein 6.1 g/dL (6.3-8.2)
== END 2025-04-03 02:45 | disposition home or self-care (01) ==
LOC: LBO 02:44
PROVIDERS: PCP Internal Medicine Hematology & Oncology; Visit Provider Nurse Practitioner Family
DX: C90.01 Multiple myeloma in remission (principal)
CPT/HCPCS: 36415; 80053; 82784; 83883; 84165; 85025; 86320

== ENCOUNTER 2025-05-11 01:42 | Outpatient (CLI) | payer MEDICARE, SELFPAY ==
[2025-05-11 12:02] LABS: Abs Immature Grans 0.02 10^3/uL (0.0-0.06); HCT 37.9 % (36.0-46.0); HGB 12.7 g/dL (11.2-15.7); Immature Grans % 0.4 %; MCH 33.3 pg (27.0-33.0); MCHC 33.5 % (32.0-36.0); MCV 100 fL (80-95); MPV 8.9 fL (8.0-11.0); Platelet Count 160 10^3/uL (130-400); RBC 3.81 10^6/uL (3.93-5.22); RDW 13.8 % (11.7-14.6); RDW-SD 50.4 fL; WBC 4.55 10^3/uL (4.4-10.8)
[2025-05-11 12:20] LABS: ALT 7 U/L (10-49); AST 14 U/L (<34); Albumin 4.3 g/dL (3.2-5.0); Alkaline Phosphatase 70 U/L (46-116); Anion Gap 4.8 mmol/L (3-11); BUN 13 mg/dL (9-23); Bilirubin, Total 0.4 mg/dL (0.2-1.2); CO2 30.2 mmol/L (20.0-31.0); Calcium 8.7 mg/dL (8.3-10.6); Chloride 105 mmol/L (98-107); Glucose 61 mg/dL (74-106); Potassium 3.9 mmol/L (3.5-5.1); Sodium 140 mmol/L (136-145); Total Protein 6.6 g/dL (5.7-8.2)
== END 2025-05-11 01:43 | disposition home or self-care (01) ==
LOC: LBO 01:42
PROVIDERS: PCP Internal Medicine Hematology & Oncology; Visit Provider Nurse Practitioner Family
DX: C90.01 Multiple myeloma in remission (principal)
CPT/HCPCS: 36415; 80053; 85025